=== PATIENT | female | born 1940 | race Caucasian/White ===

== ENCOUNTER 2016-06-30 09:45 | Emergency (ER) | payer MEDICARE, OTHER ==
--- NOTE | 2016-06-30 09:53 | ED ---
Chest Pain HPI - General Stated Complaint: SOB Time Seen by Provider: 06/30/16 09:45 Source: patient, EMS, RN notes reviewed, old records reviewed Mode of arrival: EMS - History of Present Illness Initial Comments: This is a 75-year-old female who was brought in by EMS with complaints of chest pain on and off for quite a while but today she's felt bilateral arm weakness he had also complains of progressively worsening shortness of breath or last 6 days. No fevers chills sweats no cough. Pain was 9-10/10 severity did lower sternal reproducible with palpation it was down to 4/10 after IV fentanyl. She has no other complaints this time the patient does have macular degeneration and is blind except for peripheral vision. She voices no other complaints at this time. She has had evaluations for this chest pain in the past. MD Complaint: chest pain - Related Data Home Medications Medication Instructions Recorded Confirmed Clopidogrel [Plavix] 75 mg PO DAILY 09/29/13 06/30/16 Gemfibrozil [Lopid] 600 mg PO BID 09/29/13 06/30/16 Montelukast [Singulair] 10 mg PO HS 09/29/13 06/30/16 Tolterodine ER [Detrol LA] 4 mg PO HS 01/10/15 06/30/16 Brimonidine Tartrate [Alphagan P 1 drop RIGHT EYE BID 11/26/15 06/30/16 0.1% Ophth Soln] Brinzolamide [Azopt 1% Ophth Susp] 1 drop RIGHT EYE BID 11/26/15 06/30/16 prednisoLONE ACETATE 1% OPHTH 1 drop LEFT EYE BID 11/26/15 06/30/16 [Pred Forte 1%] Melatonin 3 mg PO HS 05/11/16 06/30/16 Albuterol Inhaler [Ventolin Hfa 1 - 2 puff INHALATION Q6HR PRN 06/30/16 06/30/16 Inhaler] Cholecalciferol [Vitamin D3] 1,000 unit PO DAILY 06/30/16 06/30/16 Previous Rx's Medication Instructions Recorded amLODIPine [Norvasc] 5 mg PO DAILY #1 tab 01/15/15 ALPRAZolam [Xanax] 0.25 mg PO BID #10 tab 05/14/16 Budesonide-Formot 160-4.5 Mcg 2 puff INHALATION RT-BID puff 05/14/16 [Symbicort 160-4.5 Mcg Inhaler] Allergies Allergy/AdvReac Type Severity Reaction Status Date / Time [id number]-[id number] Reductase Allergy Unknown Verified 06/30/16 10:32 Inhibitor morphine AdvReac Confusion Verified 06/30/16 10:32 Review of Systems ROS Statement: Those systems with pertinent positive or pertinent negative responses have been documented in the HPI. ROS Other: All systems not noted in ROS Statement are negative. EKG Findings - EKG Results: EKG: interpreted by SHE, sinus rhythm (Sinus rhythm rate 63. Ago 162 QRS duration 80 QT/QTC of 436/[address] configuration.) Past Medical History Past Medical History: Asthma, COPD, CVA/TIA, Diabetes Mellitus, Hypertension, Respiratory Disorder Additional Past Medical History / Comment(s): COPD mild in severity with an FEV1 of 2.1 L which is 88% of predicted, bronchial asthma, previous history of pneumothorax requiring a chest tube insertion and subsequent removal, 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 macular degeneration, CVA/TIA history of, diabetes mellitus, hypertension, History of Any Multi-Drug Resistant Organisms: None Reported Past Surgical History: Appendectomy, Cholecystectomy, Hysterectomy, Joint Replacement, Tonsillectomy Additional Past Surgical History / Comment(s): Right knee replacement Past Anesthesia/Blood Transfusion Reactions: No Reported Reaction Past Psychological History: Anxiety, Depression Smoking Status: Former smoker Past Alcohol Use History: None Reported Past Drug Use History: None Reported - Past Family History Mother Family Medical History: Congestive Heart Failure (CHF) Father Additional Family Medical History / Comment(s): empyhsema, blindness. O2 dependent General Exam - General Exam Comments Initial Comments: This is a well-developed well-nourished awake alert female General appearance: alert, in no apparent distress Head exam: Present: atraumatic, normocephalic, normal inspection Eye exam: Present: normal appearance, PERRL, EOMI. Absent: scleral icterus, conjunctival injection, periorbital swelling ENT exam: Present: mucous membranes dry Neck exam: Present: normal inspection. Absent: tenderness, meningismus, lymphadenopathy Respiratory exam: Present: normal lung sounds bilaterally, chest wall tenderness (Reproducible tenderness palpation over the lower costal sternal junction.). Absent: respiratory distress, wheezes, rales, rhonchi, stridor Cardiovascular Exam: Present: regular rate, normal rhythm, normal heart sounds. Absent: systolic murmur, diastolic murmur, rubs, gallop, clicks GI/Abdominal exam: Present: soft, normal bowel sounds. Absent: distended, tenderness, guarding, rebound, rigid Extremities exam: Present: normal inspection, full ROM, normal capillary refill. Absent: tenderness, pedal edema, joint swelling, calf tenderness Back exam: Present: normal inspection Neurological exam: Present: alert, oriented X3, CN II-XII intact Psychiatric exam: Present: normal affect, normal mood Skin exam: Present: warm, dry, intact, normal color. Absent: rash Course Vital Signs 06/30/16 06/30/16 09:53 12:00 Temperature 96.8 F L Pulse Rate 63 68 Respiratory 16 18 Rate Blood Pressure 167/72 136/65 O2 Sat by Pulse 2 L 92 L Oximetry Chest Pain MDM - MDM Review the imaging shows no acute findings the patient is feeling much improved I did discuss the findings with her and her family she'll be discharged Disposition Clinical Impression: Chest wall syndrome, Costalchondritis, Dehydration Disposition: HOME SELF-CARE Condition: Good Instructions: Dehydration (ED), Costochondritis (ED) Additional Instructions: Tylenol for pain, follow-up with her doctor and return if needed Referrals: Hector Byrd DO [Primary Care Provider] - 1-2 days
--- NOTE | 2016-06-30 10:25 | XR ---
EXAMINATION TYPE: XR chest 2V DATE OF EXAM: 06/30/2016 10:20 AM HISTORY: Chest Pain. REFERENCE: Previous study dated 05/11/2016. FINDINGS: The lungs are overinflated. There is apical scarring present bilaterally. The lungs are oth erwise clear. Pleural spaces are clear. Heart size is normal. IMPRESSION: 1. COPD. 2. NO ACUTE INTRATHORACIC ABNORMALITY.
[2016-06-30 10:29] LABS: Basophils % (A) 0 %; CH 30.9; CHCM 33.8; Eosinophils # (A) 0.2 k/uL (0-0.7); Eosinophils % (A) 4 %; HCT 39.1 % (34.0-46.0); HDW 3.32; HGB 12.9 gm/dL (11.4-16.0); Luc % (Auto) 3; Lymphocytes % (A) 27 %; MCH 30.3 pg (25.0-35.0); MCHC 32.8 g/dL (31.0-37.0); MCV 92.2 fL (80.0-100.0); Mean Platelet Volume 7.4; Monocytes # (A) 0.2 k/uL (0-1.0); Monocytes % (A) 5 %; Neutrophils # (A) 2.3 k/uL (1.3-7.7); Neutrophils % (A) 61 %; RBC 4.24 m/uL (3.80-5.40); RDW 15.1 % (11.5-15.5); WBC 3.8 k/uL (3.8-10.6); WBC (Perox) 3.72
[2016-06-30 10:46] LABS: INR 1.1 (<1.1); Partial Thromboplastin Time 23.3 sec (22.0-30.0); Prothrombin Time 10.9 sec (9.0-12.0)
[2016-06-30 10:51] LABS: Calcium 9.3 mg/dL (8.4-10.2); Magnesium 2.1 mg/dL (1.6-2.3); Potassium 4.3 mmol/L (3.5-5.1); Total Bilirubin 0.6 mg/dL (0.2-1.3); Total Protein 7.4 g/dL (6.3-8.2)
[2016-06-30 11:06] LABS: Creatine Kinase MB 1.8 ng/mL (0.0-2.4); Troponin I 0.027 ng/mL (0.000-0.034)
[2016-06-30] MEDS ORDERED: SODIUM CHLORIDE 0.9% 500 ML IV STA (11:10)
[2016-06-30 13:28] VITALS: BP 148/63; PULSE 59; RESP 20; TEMP 97.7
== END 2016-06-30 13:28 | disposition home or self-care (01) ==
LOC: EC 09:45
DX: M94.0 Chondrocostal junction syndrome [Tietze] (principal); E86.0 Dehydration; R29.898 Other symptoms and signs involving the musculoskeletal system; I10 Essential (primary) hypertension; J45.909 Unspecified asthma, uncomplicated; J44.9 Chronic obstructive pulmonary disease, unspecified; H40.9 Unspecified glaucoma; Z87.891 Personal history of nicotine dependence; Z79.02 Long term (current) use of antithrombotics/antiplatelets; Z79.899 Other long term (current) drug therapy; Z79.52 Long term (current) use of systemic steroids; Z88.5 Allergy status to narcotic agent; Z88.8 Allergy status to other drugs, medicaments and biological substances; Z86.73 Personal history of transient ischemic attack (TIA), and cerebral infarction without residual deficits
CPT/HCPCS: 36415; 71020; 80053; 82550; 82553; 83735; 83880; 84484; 85025; 85379; 85610; 85730; 93005; 99285

== ENCOUNTER 2017-03-27 18:34 | Inpatient (IN) | payer MEDICARE, OTHER ==
[2017-03-27] MEDS ORDERED: SODIUM CHLORIDE 0.9% 1,000 ML IV STA (19:28)
[2017-03-27] MEDS ORDERED: NITROGLYCERIN OINT 1 INCH/GM PACKET TOPICAL STA (19:28)
[2017-03-27] MEDS ORDERED: HEPARIN SODIUM,PORCINE 5,000 UNIT/ML 1 ML VIAL IV STA (19:28)
[2017-03-27] MEDS ORDERED: ONDANSETRON 4 MG/2 ML VIAL IVP STA (19:28)
--- NOTE | 2017-03-27 19:28 | ED ---
Chest Pain HPI - General Chief Complaint: Chest Pain Stated Complaint: Chest pain Time Seen by Provider: 03/27/17 19:02 Source: patient, EMS Mode of arrival: EMS Limitations: no limitations - History of Present Illness Initial Comments: 76 years old female with history of coronary artery disease [address] last stent was done in December last year presented with the chest pain started 3 PM today chest pain has been off-and-on today she is short-winded and pain gets worse when she tries deep breath. She denies any fever no chills she is not coughing up any phlegm he did take some nitro at home and then she was also given nitro in the ambulance and she had aspirin at home as well and did take the edge off the pain is not totally resolved her pain is still 4/10 at this point - Related Data Home Medications Medication Instructions Recorded Confirmed Clopidogrel [Plavix] 75 mg PO QAM 09/29/13 03/27/17 Montelukast [Singulair] 10 mg PO HS 09/29/13 03/27/17 Tolterodine ER [Detrol LA] 4 mg PO HS 01/10/15 03/27/17 Brimonidine Tartrate [Alphagan P 1 drop RIGHT EYE BID 11/26/15 03/27/17 0.1% Ophth Soln] Brinzolamide [Azopt 1% Ophth Susp] 1 drop RIGHT EYE BID 11/26/15 03/27/17 prednisoLONE ACETATE 1% OPHTH 1 drop LEFT EYE BID 11/26/15 03/27/17 [Pred Forte 1%] Melatonin 3 mg PO HS 05/11/16 03/27/17 Cholecalciferol [Vitamin D3] 1,000 unit PO W/SUPPER 06/30/16 03/27/17 Albuterol Inhaler [Ventolin Hfa 2 puff INHALATION RT-Q6H PRN 01/26/17 03/27/17 Inhaler] Gemfibrozil [Lopid] 600 mg PO BID 01/26/17 03/27/17 Losartan Potassium [Cozaar] 50 mg PO BID 01/26/17 03/27/17 risperiDONE 1 mg PO HS 01/26/17 03/27/17 Aspirin 81 mg PO W/SUPPER 03/27/17 03/27/17 amLODIPine [Norvasc] 5 mg PO QAM 03/27/17 03/27/17 Previous Rx's Medication Instructions Recorded Budesonide-Formot 160-4.5 Mcg 2 puff INHALATION RT-BID puff 05/14/16 [Symbicort 160-4.5 Mcg Inhaler] ALPRAZolam [Xanax] 0.25 mg PO BID #10 tab 12/09/16 Nitroglycerin Sl Tabs [Nitrostat] 0.4 mg SUBLINGUAL Q5M PRN tab 12/09/16 Metoprolol Tartrate [Lopressor] 12.5 mg PO BID #60 tab 01/29/17 Allergies Allergy/AdvReac Type Severity Reaction Status Date / Time Nuamdlu-Fte-Nie Reductase Allergy Unknown Verified 01/26/17 15:53 Inhibitor morphine AdvReac Confusion Verified 01/26/17 15:53 Review of Systems ROS Statement: Those systems with pertinent positive or pertinent negative responses have been documented in the HPI. ROS Other: All systems not noted in ROS Statement are negative. EKG Findings - EKG Comments: EKG Findings:: EKG is normal sinus rhythm ventricular rate is 62 LA interval is 166 QRS duration is 90 QT/QTc is 430/436 review of this EKG does not reveal any ST elevation or ST depression Past Medical History Past Medical History: Asthma, COPD, CVA/TIA, Diabetes Mellitus, Hypertension, Myocardial Infarction ([place]), Respiratory Disorder Additional Past Medical History / Comment(s): COPD mild in severity with an FEV1 of 2.1 L which is 88% of predicted, bronchial asthma, previous history of pneumothorax requiring a chest tube insertion and subsequent removal, 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 macular degeneration, emphysema Last Myocardial Infarction Date:: 12/06/2016 History of Any Multi-Drug Resistant Organisms: None Reported Past Surgical History: Appendectomy, Cholecystectomy, Heart Catheterization With Stent, Hysterectomy, Joint Replacement, Tonsillectomy Additional Past Surgical History / Comment(s): Right knee replacement, right cataract surgery, heart cath with stents x 2 12/06 Past Anesthesia/Blood Transfusion Reactions: No Reported Reaction Date of Last Stent Placement:: 12/06/2016 Past Psychological History: Anxiety, Depression Smoking Status: Former smoker Past Alcohol Use History: None Reported Past Drug Use History: None Reported - Past Family History Mother Family Medical History: Congestive Heart Failure (CHF) Father Additional Family Medical History / Comment(s): empyhsema, blindness. O2 dependent General Exam - General Exam Comments Initial Comments: General: The patient is awake and alert, in no distress, and does not appear acutely ill. Skin: Skin is warm and dry and no rashes or lesions are noted. Eye: He is legally blind, external ocular muscles are intact Ears, nose, mouth and throat: There are moist mucous membranes and no oral lesions. Neck: The neck is supple, there is no tenderness or JVD. Cardiovascular: There is a regular rate and rhythm. No murmur, rub or gallop is appreciated. Respiratory: To auscultation bilateral, crease breath sounds bilaterally Gastrointestinal: Soft, non-distended, non-tender abdomen without masses or organomegaly noted. There is no rebound or guarding present. Bowel sounds are unremarkable. Back: There is no tenderness to palpation in the midline. There is no obvious deformity. Musculoskeletal: Normal ROM, no tenderness, There is no pedal edema. There is no calf tenderness or swelling. No cords were appreciated. Neurological: CN II-XII intact, Cranial nerves III through XII are intact. There are no obvious motor or sensory deficits. Coordination appears grossly intact. Speech is normal. Psychiatric: Cooperative, appropriate mood & affect, normal judgment. Limitations: no limitations Course Vital Signs 03/27/17 03/27/17 19:02 20:04 Temperature 98 F Pulse Rate 62 60 Respiratory 16 16 Rate Blood Pressure 153/74 172/79 O2 Sat by Pulse 96 91 L Oximetry She does have a history of coronary artery disease she has a [address] last was last one was in December last year initially pain was 7/10 nitro and aspirin helped her with pain on arrival she has pain for over 10 considering this as unstable angina is ongoing headache and heparinize her and chest x-ray confirms the pneumonia considering her ALLERGIES she be Rocephin and Zithromax she be admitted to Dr. Breaux's service cardiology be consulted Critical Care Time Total Critical Care Time: 45 Critical Care Time: She came in with the chest pain nitro and aspirin helped with the pain pain but it didn't quite resolve the pain would require and heparinize her since she has a [address] and has a history of ischemic heart disease and chest x-ray confirms the pneumonia she be on Rocephin and Zithromax will consult cardiology and she be she be admitted to observation Disposition Clinical Impression: Chest pain, Pneumonia Disposition: ADMITTED IP TO THIS HOSP Condition: Good Referrals: Hector Byrd DO [Primary Care Provider] - 1-2 days
[2017-03-27] MEDS ORDERED: HYDROmorphone 2 MG/ML 1 ML SYRINGE IVP STA (19:29)
[2017-03-27 19:36] LABS: Basophils % (A) 1 %; Eosinophils # (A) 0.1 k/uL (0-0.7); Eosinophils % (A) 3 %; HCT 35.6 % (34.0-46.0); HGB 11.9 gm/dL (11.4-16.0); Lymphocytes # (A) 1.2 k/uL (1.0-4.8); Lymphocytes % (A) 34 %; MCH 30.2 pg (25.0-35.0); MCHC 33.4 g/dL (31.0-37.0); MCV 90.5 fL (80.0-100.0); Mean Platelet Volume 7.3; Monocytes # (A) 0.2 k/uL (0-1.0); Monocytes % (A) 7 %; Neutrophils # (A) 1.9 k/uL (1.3-7.7); Neutrophils % (A) 54 %; Platelet Count 134 k/uL (150-450); RBC 3.94 m/uL (3.80-5.40); RDW 14.8 % (11.5-15.5); WBC 3.5 k/uL (3.8-10.6)
[2017-03-27 19:46] LABS: Albumin 3.5 g/dL (3.5-5.0); Calcium 9.7 mg/dL (8.4-10.2); Magnesium 1.9 mg/dL (1.6-2.3); Potassium 4.1 mmol/L (3.5-5.1); Total Bilirubin 0.4 mg/dL (0.2-1.3); Total Protein 6.2 g/dL (6.3-8.2)
[2017-03-27] MEDS ORDERED: HYDROmorphone 0.5 MG/0.5 ML SYRINGE IVP STA (19:48)
[2017-03-27 19:54] LABS: D-Dimer 0.35 mg/L FEU (<0.60); Partial Thromboplastin Time 23.1 sec (22.0-30.0); Prothrombin Time 9.9 sec (9.0-12.0)
--- NOTE | 2017-03-27 19:54 | XR ---
EXAMINATION TYPE: XR chest 2V DATE OF EXAM: 03/27/2017 COMPARISON: 01/27/2017 HISTORY: Chest pain TECHNIQUE: Frontal and lateral views of the chest are obtained. FINDINGS: There is some mild linear density at the left lung base. There is no heart failure. Thorac ic aorta is atheromatous. There are chest leads. Bony thorax is intact. IMPRESSION: There is some mild infiltrate or atelectasis at the left lung base that appears new comp ared to old exam. No heart failure.
[2017-03-27] MEDS: HEPARIN SOD,PORK IN 0.45% NACL 25,000 UNIT in 0.45% NACL 1 500ML.BAG IV SCH (19:59)
[2017-03-27] MEDS ORDERED: cefTRIAXone IN SWFI 2,000 MG/20 ML SYRINGE IVP STA (20:07)
[2017-03-27] MEDS ORDERED: AZITHROMYCIN 500 MG in SODIUM CHLORIDE 0.9% 250 ML IVPB STA (20:07)
[2017-03-27 20:12] LABS: Creatine Kinase MB 0.9 ng/mL (0.0-2.4); Troponin I 0.019 ng/mL (0.000-0.034)
[2017-03-27] MEDS ORDERED: NITROGLYCERIN SL TABS 0.4 MG TAB SUBLINGUAL PRN (20:12)
[2017-03-27] MEDS ORDERED: ALBUTEROL NEBULIZED 2.5 MG/3 ML INHALATION PRN (20:19)
[2017-03-27 22:41] VITALS: BMI 31.4
[2017-03-27] MEDS: MONTELUKAST 10 MG TAB PO SCH (22:57)
[2017-03-27] MEDS: LOSARTAN 50 MG TAB PO SCH (22:57)
[2017-03-27] MEDS: METOPROLOL TARTRATE 12.5 MG TAB PO SCH (22:57)
[2017-03-27] MEDS: OXYBUTYNIN XL 5 MG TAB.ER.24 PO SCH (22:57)
[2017-03-27] MEDS: MELATONIN 3 MG TABLET PO SCH (22:57)
[2017-03-27] MEDS: risperiDONE 1 MG TAB PO SCH (22:57)
[2017-03-27] MEDS: GEMFIBROZIL 600 MG TAB PO SCH (22:58)
[2017-03-27] MEDS: ALPRAZolam 0.25 MG TAB PO SCH (23:00)
[2017-03-27] MEDS: BRIMONIDINE TARTRATE 0.2% DROPS 5 ML BTL RIGHT EYE SCH (23:01)
[2017-03-27] MEDS: prednisoLONE ACETATE 1% OPHTH DROPS 5 ML BTL LEFT EYE SCH (23:01)
[2017-03-27] MEDS: DORZOLAMIDE HCL 2% DROPS 10 ML BTL RIGHT EYE SCH (23:01)
[2017-03-28 02:27] LABS: Troponin I 0.032 ng/mL (0.000-0.034)
[2017-03-28 07:23] LABS: Creatine Kinase MB 1.2 ng/mL (0.0-2.4)
[2017-03-28 07:25] LABS: Cholesterol 174 mg/dL (<200); HDL Cholesterol 36 mg/dL (40-60); LDL Cholesterol,Calculated 109 mg/dL (0-99); Triglycerides 143 mg/dL (<150)
[2017-03-28 07:30] LABS: Troponin I 0.038 ng/mL (0.000-0.034)
--- NOTE | 2017-03-28 08:00 | P.CRDCN ---
History of Present Illness Consult date: 03/28/17 Requesting physician: Saadia Breaux Consult reason: chest pain Chief complaint: Chest pain History of present illness: This is a 76-year-old female with known history of coronary artery disease who follows with Dr. Antonio Guerra in the office. She has a known history of stenting to the LAD and circumflex artery in November 2016, history also of hypertension, diabetes, hyperlipidemia, COPD and she is legally blind. Most recent cardiac catheterization was performed in January [address] Antonio Guerra which revealed a widely patent LAD and circumflex at the site of prior stenting , the mid RCA had a 40% lesion unchanged from November. The patient presents to the hospital on this occasion with symptoms of chest discomfort which according to her remind her of what she had prior to her stent placement. She states that she developed symptoms in the early afternoon, it came and went throughout the day. She did have mild associated shortness of breath. Patient got mild relief with nitroglycerin. At the time of my examination this morning she is currently chest pain-free. Patient does have a dry hacking cough, no fever or chills. EKG on presentation here showed a normal sinus rhythm with no acute changes. Subsequent EKG performed this morning showed normal sinus rhythm with no acute changes. White blood cell count 3.5, hemoglobin 11.9, d-dimer negative at 0.35. Sodium 142, potassium 4.1, BUN 27, creatinine 1.2. Troponins 0.019, 0.032, 0.038. Blood pressure 116/48 with a heart rate in the 50s to 60s. Patient is afebrile. Chest x-ray on admission here revealed some mild infiltrate or atelectasis at the left lung base, no congestive heart failure. Past Medical History Past Medical History: Asthma, COPD, CVA/TIA, Diabetes Mellitus, Hypertension, Myocardial Infarction ([place]), Respiratory Disorder Additional Past Medical History / Comment(s): COPD mild in severity with an FEV1 of 2.1 L which is 88% of predicted, bronchial asthma, previous history of pneumothorax requiring a chest tube insertion and subsequent removal, 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 macular degeneration, emphysema Last Myocardial Infarction Date:: 12/06/2016 History of Any Multi-Drug Resistant Organisms: None Reported Past Surgical History: Appendectomy, Cholecystectomy, Heart Catheterization With Stent, Hysterectomy, Joint Replacement, Tonsillectomy Additional Past Surgical History / Comment(s): Right knee replacement, right cataract surgery, heart cath with stents x 2 12/06 Past Anesthesia/Blood Transfusion Reactions: No Reported Reaction Date of Last Stent Placement:: 12/06/2016 Past Psychological History: Anxiety, Depression Smoking Status: Former smoker Past Alcohol Use History: None Reported Past Drug Use History: None Reported - Past Family History Mother Family Medical History: Congestive Heart Failure (CHF) Father Additional Family Medical History / Comment(s): empyhsema, blindness. O2 dependent Medications and Allergies Home Medications Medication Instructions Recorded Confirmed Type Clopidogrel [Plavix] 75 mg PO QAM 09/29/13 03/27/17 History Montelukast [Singulair] 10 mg PO HS 09/29/13 03/27/17 History Tolterodine ER [Detrol LA] 4 mg PO HS 01/10/15 03/27/17 History Brimonidine Tartrate [Alphagan P 1 drop RIGHT EYE BID 11/26/15 03/27/17 History 0.1% Ophth Soln] Brinzolamide [Azopt 1% Ophth Susp] 1 drop RIGHT EYE BID 11/26/15 03/27/17 History prednisoLONE ACETATE 1% OPHTH 1 drop LEFT EYE BID 11/26/15 03/27/17 History [Pred Forte 1%] Melatonin 3 mg PO HS 05/11/16 03/27/17 History Budesonide-Formot 160-4.5 Mcg 2 puff INHALATION RT-BID puff 05/14/16 03/27/17 Rx [Symbicort 160-4.5 Mcg Inhaler] Cholecalciferol [Vitamin D3] 1,000 unit PO W/SUPPER 06/30/16 03/27/17 History ALPRAZolam [Xanax] 0.25 mg PO BID #10 tab 12/09/16 03/27/17 Rx Nitroglycerin Sl Tabs [Nitrostat] 0.4 mg SUBLINGUAL Q5M PRN tab 12/09/16 Rx Albuterol Inhaler [Ventolin Hfa 2 puff INHALATION RT-Q6H PRN 01/26/17 03/27/17 History Inhaler] Gemfibrozil [Lopid] 600 mg PO BID 01/26/17 03/27/17 History Losartan Potassium [Cozaar] 50 mg PO BID 01/26/17 03/27/17 History risperiDONE 1 mg PO HS 01/26/17 03/27/17 History Metoprolol Tartrate [Lopressor] 12.5 mg PO BID #60 tab 01/29/17 03/27/17 Rx Aspirin 81 mg PO W/SUPPER 03/27/17 03/27/17 History amLODIPine [Norvasc] 5 mg PO QAM 03/27/17 03/27/17 History Allergies Allergy/AdvReac Type Severity Reaction Status Date / Time Sftkfuw-Hgr-Ffj Reductase Allergy Unknown Verified 01/26/17 15:53 Inhibitor morphine AdvReac Confusion Verified 01/26/17 15:53 Physical Exam Vitals: Vital Signs Temp Pulse Pulse Resp BP BP Pulse Ox 03/28/17 04:00 97.9 F 55 L 18 116/49 98 03/28/17 00:00 97.9 F 66 19 128/64 94 L 03/27/17 21:51 97.7 F 03/27/17 21:41 92 16 145/67 92 L 03/27/17 21:08 66 19 128/64 94 L 03/27/17 20:45 61 18 146/70 90 L 03/27/17 20:04 60 16 172/79 91 L 03/27/17 19:02 98 F 62 16 153/74 96 Intake and Output 03/27/17 03/28/17 03/28/17 22:59 06:59 14:59 Intake Total 365 947.998 Output Total 600 Balance 365 347.998 Intake: Intake, IV Titration 365 947.998 Amount Azithromycin 500 mg In 125 Sodium Chloride 0.9% 250 ml @ 125 mls/hr IVPB ONCE STA Rx#:[id number] Heparin Sod,Pork in 0.45% 40 147.998 NaCl 25,000 unit In 0.45 % NaCl 1 500ml.bag @ 11.2 UNITS/KG/HR 19.91 mls/hr IV .Q24H RAYSHAWN Rx#: [id number] Sodium Chloride 0.9% 1, 200 800 000 ml @ 100 mls/hr IV . Q10H STA Rx#:[id number] Output: Urine 600 Other: Voiding Method Bedside Commode # Voids 2 Weight 88.5 kg 85.2 kg PHYSICAL EXAMINATION: HEENT: Head is atraumatic, normocephalic. Pupils equal, round. Neck is supple. There is no elevated jugular venous pressure. HEART EXAMINATION: Heart S1, S2 normal. No murmur or gallop heard. CHEST EXAMINATION: Lungs are clear to auscultation and precussion. No chest wall tenderness is noted on palpation or with deep breathing. ABDOMEN: Soft, nontender. Bowel sounds are heard. No organomegaly noted. EXTREMITIES: 2+ peripheral pulses with no evidence of peripheral edema and no calf tenderness noted. NEUROLOGIC patient is awake, alert and oriented -3. . Results 03/27/17 18:45 03/27/17 18:45 Cardiac Enzymes 03/27/17 03/27/17 03/28/17 Range/Units 18:45 18:45 01:33 AST 26 (14-36) U/L CK-MB (CK-2) 0.9 1.0 (0.0-2.4) ng/mL Troponin I 0.019 0.032 (0.000-0.034) ng/mL 03/28/17 Range/Units 06:27 AST (14-36) U/L CK-MB (CK-2) 1.2 (0.0-2.4) ng/mL Troponin I 0.038 H* (0.000-0.034) ng/mL Coagulation 03/27/17 03/28/17 Range/Units 18:45 01:33 PT 9.9 (9.0-12.0) sec APTT 23.1 48.2 H (22.0-30.0) sec Lipids 03/28/17 Range/Units 06:27 Triglycerides 143 (<150) mg/dL Cholesterol 174 (<200) mg/dL HDL Cholesterol 36 L (40-60) mg/dL CBC 03/27/17 Range/Units 18:45 WBC 3.5 L (3.8-10.6) k/uL RBC 3.94 (3.80-5.40) m/uL Hgb 11.9 (11.4-16.0) gm/dL Hct 35.6 (34.0-46.0) % Plt Count 134 L (150-450) k/uL Comprehensive Metabolic Panel 03/27/17 Range/Units 18:45 Sodium 142 (137-145) mmol/L Potassium 4.1 (3.5-5.1) mmol/L Chloride 110 H (98-107) mmol/L Carbon Dioxide 21 L (22-30) mmol/L BUN 27 H (7-17) mg/dL Creatinine 1.20 H (0.52-1.04) mg/dL Glucose 129 H (74-99) mg/dL Calcium 9.7 (8.4-10.2) mg/dL AST 26 (14-36) U/L ALT 20 (9-52) U/L Alkaline Phosphatase 51 (38-126) U/L Total Protein 6.2 L (6.3-8.2) g/dL Albumin 3.5 (3.5-5.0) g/dL Current Medications Generic Name Dose Route Start Last Admin Trade Name Freq PRN Reason Stop Dose Admin Albuterol Sulfate 2.5 mg 03/27/17 20:19 Ventolin Nebulized INHALATION RT-Q6H PRN Shortness Of Breath Alprazolam 0.25 mg 03/27/17 21:00 03/27/17 23:00 Xanax PO 0.25 mg BID RAYSHAWN Administration Amlodipine Besylate 5 mg 03/28/17 09:00 Norvasc PO QAM [facility] Aspirin 325 mg 03/28/17 09:00 Aspirin PO DAILY [facility] Brimonidine Tartrate 1 drops 03/27/17 21:00 03/27/17 23:01 Alphagan P 0.2% Ophth Soln RIGHT EYE 1 drops BID [facility] Administration Budesonide/Formoterol Fumarate 2 puff 03/28/17 08:00 Symbicort 160-4.5 Mcg Inhaler INHALATION RT-BID [facility] Cholecalciferol 1,000 unit 03/28/17 17:30 Vitamin D3 PO W/SUPPER [facility] Clopidogrel Bisulfate 75 mg 03/28/17 09:00 Plavix PO QAM [facility] Dorzolamide HCl 1 drops 03/27/17 21:00 03/27/17 23:01 Trusopt RIGHT EYE 1 drops BID [facility] Administration Gemfibrozil 600 mg 03/27/17 21:00 03/27/17 22:58 Lopid PO 600 mg BID [facility] Administration Heparin Sodium/Sodium Chloride 500 mls @ 19.91 mls/hr 03/27/17 19:30 03:25 25,000 unit/ Sodium Chloride IV 11.2 units/kg/hr .Q24H [facility]AYSHAWN 19.91 mls/hr Protocol Titration 11.2 UNITS/KG/HR Losartan Potassium 50 mg 03/27/17 21:00 03/27/17 22:57 Cozaar PO 50 mg BID [facility] Administration Melatonin 3 mg 03/27/17 21:00 03/27/17 22:57 Melatonin PO 3 mg HS [facility] Administration Metoprolol Tartrate 12.5 mg 03/27/17 21:00 03/27/17 22:57 Lopressor PO 12.5 mg BID [facility] Administration Montelukast Sodium 10 mg 03/27/17 21:00 03/27/17 22:57 Singulair PO 10 mg HS [facility] Administration Nitroglycerin 0.4 mg 03/27/17 20:12 Nitrostat SUBLINGUAL Q5M PRN Chest Pain Oxybutynin Chloride 5 mg 03/27/17 21:00 03/27/17 22:57 Ditropan Xl PO 5 mg HS [facility] Administration Prednisolone Acetate 1 drops 03/27/17 21:00 03/27/17 23:01 Pred Forte 1% LEFT EYE 1 drops BID [facility] Administration Risperidone 1 mg 03/27/17 21:00 03/27/17 22:57 Risperdal PO 1 mg HS [facility] Administration Intake and Output 03/27/17 03/28/17 03/28/17 22:59 06:59 14:59 Intake Total 365 947.998 Output Total 600 Balance 365 347.998 Intake: Intake, IV Titration 365 947.998 Amount Azithromycin 500 mg In 125 Sodium Chloride 0.9% 250 ml @ 125 mls/hr IVPB ONCE STA Rx#:[id number] Heparin Sod,Pork in 0.45% 40 147.998 NaCl 25,000 unit In 0.45 % NaCl 1 500ml.bag @ 11.2 UNITS/KG/HR 19.91 mls/hr IV .Q24H [facility]SHA[facility] Rx#: [id number] Sodium Chloride 0.9% 1, 200 800 000 ml @ 100 mls/hr IV . Q10H [facility]A Rx#:[id number] Output: Urine 600 Other: Voiding Method Bedside Commode # Voids 2 Weight 88.5 kg 85.2 kg 03/27/17 18:45 03/27/17 18:45 EKG Interpretations (text) EKG shows normal sinus rhythm with no acute changes Assessment and Plan Plan: Assessment and plan #1 chest discomfort with associated shortness of breath. EKG shows normal sinus rhythm with no acute changes. Troponins 0.019, 0.032, 0.038. D-dimer negative. Chest x-ray suggests mild infiltrate, patient denies productive cough , no elevated white blood cell count no fever. #2 known history of coronary artery disease with prior LAD and circumflex stenting in November, in January patient had a heart catheterization which revealed a widely patent LAD and circumflex to 40% lesion in the RCA. #3 diabetes #4 hypertension # 5 hyperlipidemia #6 COPD #7 Legal blindness Plan We will obtain an echocardiogram with Doppler study. Continue IV heparin and Nitropaste at this time along with her home medications. Further recommendations to follow. DNP note has been reviewed, I agree with a documented findings and plan of care. Patient was seen and examined.
[2017-03-28] MEDS: BRIMONIDINE TARTRATE 0.2% DROPS 5 ML BTL RIGHT EYE SCH ×2 (08:13→19:46)
[2017-03-28] MEDS: DORZOLAMIDE HCL 2% DROPS 10 ML BTL RIGHT EYE SCH ×2 (08:13→19:46)
[2017-03-28] MEDS: prednisoLONE ACETATE 1% OPHTH DROPS 5 ML BTL LEFT EYE SCH ×2 (08:14→19:46)
[2017-03-28] MEDS ORDERED: ASPIRIN 325 MG TAB PO SCH (09:00)
[2017-03-28] MEDS: SYMBICORT 160-4.5 MCG INHALER INHALATION SCH ×2 (09:54→20:10)
[2017-03-28] MEDS: METOPROLOL TARTRATE 12.5 MG TAB PO SCH ×2 (09:58→19:45)
[2017-03-28] MEDS: GEMFIBROZIL 600 MG TAB PO SCH ×2 (09:59→19:45)
[2017-03-28] MEDS: ALPRAZolam 0.25 MG TAB PO SCH ×2 (10:03→19:45)
[2017-03-28] MEDS: CLOPIDOGREL 75 MG TAB PO SCH (10:03)
[2017-03-28] MEDS: amLODIPine 5 MG TAB PO SCH (12:03)
[2017-03-28] MEDS: LOSARTAN 50 MG TAB PO SCH ×2 (12:03→19:45)
--- NOTE | 2017-03-28 13:07 | P.CNPUL ---
History of Present Illness Consult date: 03/28/17 Requesting physician: Saadia Breaux Reason for consult: dyspnea Chief complaint: Chest pain, shortness of breath History of present illness: This is a very pleasant 76-year-old female patient has a known history of diabetes mellitus, hypertension, CVA/TIA, coronary artery disease with previous stent placement in November 2016, macular degeneration and is legally blind, anxiety. She also has a history of chronic obstructive pulmonary disease mild in severity with FEV1 value of 2.1 L which is 88% of predicted, she also has mild persistent chronic bronchial asthma and follows in our office for the same. She does have a previous history of pneumothorax requiring chest tube insertion and subsequent removal. She follows with Dr. Byrd in our office for the same. She presented here to the emergency room yesterday with complaints of left-sided chest discomfort that had been going on and off throughout the day. She did have some associated shortness of breath. No other symptoms no diaphoresis. No nausea vomiting or diarrhea. Her chest x-ray did reveal some mild infiltrate and atelectatic changes of the left lung base. She's had minimal troponin elevation with a peak of 0.038. Cardiology is been consulted as well. Currently she is seen on the selective care unit resting quite comfortably in bed. She denies any worsening shortness of breath, cough or congestion. She is currently afebrile. No leukocytosis. Maintaining good O2 saturations in the mid to upper 90s on 2 L/m per nasal cannula. Review of Systems Constitutional: Reports fatigue Eyes: bilateral loss of vision Ears: deny: decreased hearing Ears, nose, mouth and throat: Denies headache, Denies sore throat Cardiovascular: Reports chest pain, Reports shortness of breath Respiratory: Reports dyspnea Gastrointestinal: Denies abdominal pain, Denies diarrhea, Denies nausea, Denies vomiting Genitourinary: Denies dysuria, Denies hematuria Musculoskeletal: Denies myalgias Integumentary: Denies pruritus, Denies rash Neurological: Denies numbness, Denies weakness Psychiatric: Denies anxiety, Denies depression Endocrine: Denies fatigue, Denies weight change Past Medical History Past Medical History: Asthma, COPD, CVA/TIA, Diabetes Mellitus, Hypertension, Myocardial Infarction ([place]), Respiratory Disorder Additional Past Medical History / Comment(s): COPD mild in severity with an FEV1 of 2.1 L which is 88% of predicted, bronchial asthma, previous history of pneumothorax requiring a chest tube insertion and subsequent removal, 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 macular degeneration, emphysema Last Myocardial Infarction Date:: 12/06/2016 History of Any Multi-Drug Resistant Organisms: None Reported Past Surgical History: Appendectomy, Cholecystectomy, Heart Catheterization With Stent, Hysterectomy, Joint Replacement, Tonsillectomy Additional Past Surgical History / Comment(s): Right knee replacement, right cataract surgery, heart cath with stents x 2 12/06 Past Anesthesia/Blood Transfusion Reactions: No Reported Reaction Date of Last Stent Placement:: 12/06/2016 Past Psychological History: Anxiety, Depression Smoking Status: Former smoker Past Alcohol Use History: None Reported Past Drug Use History: None Reported - Past Family History Mother Family Medical History: Congestive Heart Failure (CHF) Father Additional Family Medical History / Comment(s): empyhsema, blindness. O2 dependent Medications and Allergies Home Medications Medication Instructions Recorded Confirmed Type Clopidogrel [Plavix] 75 mg PO QAM 09/29/13 03/27/17 History Montelukast [Singulair] 10 mg PO HS 09/29/13 03/27/17 History Tolterodine ER [Detrol LA] 4 mg PO HS 01/10/15 03/27/17 History Brimonidine Tartrate [Alphagan P 1 drop RIGHT EYE BID 11/26/15 03/27/17 History 0.1% Ophth Soln] Brinzolamide [Azopt 1% Ophth Susp] 1 drop RIGHT EYE BID 11/26/15 03/27/17 History prednisoLONE ACETATE 1% OPHTH 1 drop LEFT EYE BID 11/26/15 03/27/17 History [Pred Forte 1%] Melatonin 3 mg PO HS 05/11/16 03/27/17 History Budesonide-Formot 160-4.5 Mcg 2 puff INHALATION RT-BID puff 05/14/16 03/27/17 Rx [Symbicort 160-4.5 Mcg Inhaler] Cholecalciferol [Vitamin D3] 1,000 unit PO W/SUPPER 06/30/16 03/27/17 History ALPRAZolam [Xanax] 0.25 mg PO BID #10 tab 12/09/16 03/27/17 Rx Nitroglycerin Sl Tabs [Nitrostat] 0.4 mg SUBLINGUAL Q5M PRN tab 12/09/16 Rx Albuterol Inhaler [Ventolin Hfa 2 puff INHALATION RT-Q6H PRN 01/26/17 03/27/17 History Inhaler] Gemfibrozil [Lopid] 600 mg PO BID 01/26/17 03/27/17 History Losartan Potassium [Cozaar] 50 mg PO BID 01/26/17 03/27/17 History risperiDONE 1 mg PO HS 01/26/17 03/27/17 History Metoprolol Tartrate [Lopressor] 12.5 mg PO BID #60 tab 01/29/17 03/27/17 Rx Aspirin 81 mg PO W/SUPPER 03/27/17 03/27/17 History amLODIPine [Norvasc] 5 mg PO QAM 03/27/17 03/27/17 History Allergies Allergy/AdvReac Type Severity Reaction Status Date / Time Dqgboxp-Krl-Rav Reductase Allergy Unknown Verified 01/26/17 15:53 Inhibitor morphine AdvReac Confusion Verified 01/26/17 15:53 Physical Exam Vitals: Vital Signs Temp Pulse Pulse Resp BP BP Pulse Ox 03/28/17 11:58 96.8 F L 58 L 20 156/69 95 03/28/17 08:00 97 F L 64 16 128/78 98 03/28/17 04:00 97.9 F 55 L 18 116/49 98 03/28/17 00:00 97.9 F 66 19 128/64 94 L 03/27/17 21:51 97.7 F 03/27/17 21:41 92 16 145/67 92 L 03/27/17 21:08 66 19 128/64 94 L 03/27/17 20:45 61 18 146/70 90 L 03/27/17 20:04 60 16 172/79 91 L 03/27/17 19:02 98 F 62 16 153/74 96 Intake and Output 03/27/17 03/28/17 03/28/17 22:59 06:59 14:59 Intake Total 365 947.998 300 Output Total 600 500 Balance 365 347.998 -200 Intake: Intake, IV Titration 365 947.998 Amount Azithromycin 500 mg In 125 Sodium Chloride 0.9% 250 ml @ 125 mls/hr IVPB ONCE STA Rx#:[id number] Heparin Sod,Pork in 0.45% 40 147.998 NaCl 25,000 unit In 0.45 % NaCl 1 500ml.bag @ 11.2 UNITS/KG/HR 19.91 mls/hr IV .Q24H RAYSHAWN Rx#: [id number] Sodium Chloride 0.9% 1, 200 800 000 ml @ 100 mls/hr IV . Q10H STA Rx#:[id number] Oral 300 Output: Urine 600 500 Other: Voiding Method Bedside Commode Bedside Commode # Voids 2 Weight 88.5 kg 85.2 kg GENERAL EXAM: Alert, comfortable in no apparent distress. HEAD: Normocephalic. EYES: Normal reaction of pupils, equal size. Macular degeneration legally blind. NOSE: Clear with pink turbinates. THROAT: No erythema or exudates. NECK: No masses, no JVD. CHEST: No chest wall deformity. LUNGS: Equal air entry with crackles in the left lung base. CVS: S1 and S2 normal with no audible murmur, regular rhythm. ABDOMEN: No hepatosplenomegaly, normal bowel sounds, no guarding or rigidity. SPINE: No scoliosis or deformity SKIN: No rashes CENTRAL NERVOUS SYSTEM: No focal deficits, tone is normal in all 4 extremities. EXTREMITIES: There is no peripheral edema. No clubbing, no cyanosis. Peripheral pulses are intact. Results - Laboratory Findings CBC and BMP: 03/27/17 18:45 03/27/17 18:45 PT/INR, D-dimer PT 9.9 sec (9.0-12.0) 03/27/17 18:45 INR 1.0 (<1.2) 03/27/17 18:45 D-Dimer 0.35 mg/L FEU (<0.60) 03/27/17 18:45 Abnormal lab findings: Abnormal Labs 03/27/17 03/27/17 03/28/17 18:45 18:45 01:33 WBC 3.5 L Plt Count 134 L APTT Chloride 110 H Carbon Dioxide 21 L BUN 27 H Creatinine 1.20 H Glucose 129 H Total Creatine Kinase 29 L Troponin I Total Protein 6.2 L LDL Cholesterol, Calc HDL Cholesterol 03/28/17 03/28/17 03/28/17 01:33 06:27 06:27 WBC Plt Count APTT 48.2 H Chloride Carbon Dioxide BUN Creatinine Glucose Total Creatine Kinase Troponin I 0.038 H* Total Protein LDL Cholesterol, Calc 109 H HDL Cholesterol 36 L - Diagnostic Findings Chest x-ray: image reviewed Assessment and Plan Assessment: Impression: #1 Chest pain and a patient with a known history of coronary artery disease and stent placement to the LAD and circumflex in November 2016. #2 Hypertension. #3 Hyperlipidemia. #4 Diabetes mellitus. #5 COPD, currently inactive and stable. #6 History of pneumothorax requiring chest tube insertion and subsequent reveal. #7 Macular degeneration with legal blindness. Plan: The patient was seen and evaluated by Dr. Jesus. Her chest x-ray and labs were reviewed. No clear evidence of pneumonia clinically nor radiographically. We'll continue with her current medications. Including Symbicort, albuterol, regular. She is on heparin drip for now. Cardiology is been consulted. We will continue to follow and make further recommendations based on her clinical status. I, the cosigning physician, performed a history & physical examination of the patient. Lungs sounds have faint crackles in the left posterior base otherwise clear. Maintaining good O2 saturations in the 90s on 2 L/m per nasal cannula.. I discussed the assessment and plan of care with my nurse practitioner, Bobbi Jones. I attest to the above note as dictated by her. Time with Patient: Greater than 30
[2017-03-28 15:23] LABS: Hemoglobin A1C 5.5 % (4.0-6.0)
[2017-03-28] MEDS: ISOSORBIDE MONONITRATE ER 30 MG TAB.ER.24H PO SCH (15:51)
[2017-03-28] MEDS ORDERED: CHOLECALCIFEROL 1,000 UNIT TAB PO SCH (17:30)
[2017-03-28] MEDS: MONTELUKAST 10 MG TAB PO SCH (19:45)
[2017-03-28] MEDS: OXYBUTYNIN XL 5 MG TAB.ER.24 PO SCH (19:45)
[2017-03-28] MEDS: MELATONIN 3 MG TABLET PO SCH (19:45)
[2017-03-28] MEDS: risperiDONE 1 MG TAB PO SCH (19:45)
--- NOTE | 2017-03-28 21:34 | P.HPIM ---
History of Present Illness H&P Date: 03/28/17 Chief Complaint: Chest pain Patient is a 76-year-old female with a known history of COPD, macular degeneration and blindness, diabetes type 2, hypertension, CK disease stage III and recent NSTEMI with stenting in November 2016 and history of chest tube placement came to ER with complaints of left retrosternal chest discomfort. Pain has been present throughout the day yesterday. Denied any radiation to the left arm or neck. Associated with mild shortness of breath. No nausea vomiting. No headache or dizziness or lightheadedness. No fever no chills. No cough or sputum production. Chest x-ray showed mild infiltrate and atelectatic changes of the left lung base Troponin 0.038 EKG showed normal sinus rhythm. No leukocytosis. Review of Systems Constitutional: Patient denies any fever or chills . No generalized weakness or weight loss. Abdomen: Patient denied nausea vomiting and diarrhea and abdominal pain. Cardiovascular: Patient does have chest pain. No radiation. Associated with mild shortness of breath. No leg swelling.. Respiratory: patient denied any cough is from production. No shortness of breath Neurologic: Patient denied any numbness or tingling headache. Musculoskeletal: Patient denies any complaints of joint swelling or deformity. Skin: Negative Psychiatric: Negative Endocrine: No heat or cold intolerance. No recent weight gain. Genitourinary: No dysuria or hematuria. All other 14 point ROS negative except the above Past Medical History Past Medical History: Asthma, COPD, CVA/TIA, Diabetes Mellitus, Hypertension, Myocardial Infarction ([place]), Respiratory Disorder Additional Past Medical History / Comment(s): COPD mild in severity with an FEV1 of 2.1 L which is 88% of predicted, bronchial asthma, previous history of pneumothorax requiring a chest tube insertion and subsequent removal, 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 macular degeneration, emphysema Last Myocardial Infarction Date:: 12/06/2016 History of Any Multi-Drug Resistant Organisms: None Reported Past Surgical History: Appendectomy, Cholecystectomy, Heart Catheterization With Stent, Hysterectomy, Joint Replacement, Tonsillectomy Additional Past Surgical History / Comment(s): Right knee replacement, right cataract surgery, heart cath with stents x 2 12/06 Past Anesthesia/Blood Transfusion Reactions: No Reported Reaction Date of Last Stent Placement:: 12/06/2016 Past Psychological History: Anxiety, Depression Smoking Status: Former smoker Past Alcohol Use History: None Reported Past Drug Use History: None Reported - Past Family History Mother Family Medical History: Congestive Heart Failure (CHF) Father Additional Family Medical History / Comment(s): empyhsema, blindness. O2 dependent Medications and Allergies Home Medications Medication Instructions Recorded Confirmed Type Clopidogrel [Plavix] 75 mg PO QAM 09/29/13 03/27/17 History Montelukast [Singulair] 10 mg PO HS 09/29/13 03/27/17 History Tolterodine ER [Detrol LA] 4 mg PO HS 01/10/15 03/27/17 History Brimonidine Tartrate [Alphagan P 1 drop RIGHT EYE BID 11/26/15 03/27/17 History 0.1% Ophth Soln] Brinzolamide [Azopt 1% Ophth Susp] 1 drop RIGHT EYE BID 11/26/15 03/27/17 History prednisoLONE ACETATE 1% OPHTH 1 drop LEFT EYE BID 11/26/15 03/27/17 History [Pred Forte 1%] Melatonin 3 mg PO HS 05/11/16 03/27/17 History Budesonide-Formot 160-4.5 Mcg 2 puff INHALATION RT-BID puff 05/14/16 03/27/17 Rx [Symbicort 160-4.5 Mcg Inhaler] Cholecalciferol [Vitamin D3] 1,000 unit PO W/SUPPER 06/30/16 03/27/17 History ALPRAZolam [Xanax] 0.25 mg PO BID #10 tab 12/09/16 03/27/17 Rx Nitroglycerin Sl Tabs [Nitrostat] 0.4 mg SUBLINGUAL Q5M PRN tab 12/09/16 Rx Albuterol Inhaler [Ventolin Hfa 2 puff INHALATION RT-Q6H PRN 01/26/17 03/27/17 History Inhaler] Gemfibrozil [Lopid] 600 mg PO BID 01/26/17 03/27/17 History Losartan Potassium [Cozaar] 50 mg PO BID 01/26/17 03/27/17 History risperiDONE 1 mg PO HS 01/26/17 03/27/17 History Metoprolol Tartrate [Lopressor] 12.5 mg PO BID #60 tab 01/29/17 03/27/17 Rx Aspirin 81 mg PO W/SUPPER 03/27/17 03/27/17 History amLODIPine [Norvasc] 5 mg PO QAM 03/27/17 03/27/17 History Allergies Allergy/AdvReac Type Severity Reaction Status Date / Time Usxpzpn-Vgv-Mir Reductase Allergy Unknown Verified 01/26/17 15:53 Inhibitor morphine AdvReac Confusion Verified 01/26/17 15:53 Physical Exam Vitals: Vital Signs Temp Pulse Pulse Resp BP BP Pulse Ox 03/28/17 11:58 96.8 F L 58 L 20 156/69 95 03/28/17 08:00 97 F L 64 16 128/78 98 03/28/17 04:00 97.9 F 55 L 18 116/49 98 03/28/17 00:00 97.9 F 66 19 128/64 94 L 03/27/17 21:51 97.7 F 03/27/17 21:41 92 16 145/67 92 L 03/27/17 21:08 66 19 128/64 94 L 03/27/17 20:45 61 18 146/70 90 L 03/27/17 20:04 60 16 172/79 91 L 03/27/17 19:02 98 F 62 16 153/74 96 Intake and Output 03/27/17 03/28/17 03/28/17 22:59 06:59 14:59 Intake Total 365 947.998 300 Output Total 600 500 Balance 365 347.998 -200 Intake: Intake, IV Titration 365 947.998 Amount Azithromycin 500 mg In 125 Sodium Chloride 0.9% 250 ml @ 125 mls/hr IVPB ONCE STA Rx#:[id number] Heparin Sod,Pork in 0.45% 40 147.998 NaCl 25,000 unit In 0.45 % NaCl 1 500ml.bag @ 11.2 UNITS/KG/HR 19.91 mls/hr IV .Q24H RAYSHAWN Rx#: [id number] Sodium Chloride 0.9% 1, 200 800 000 ml @ 100 mls/hr IV . Q10H STA Rx#:[id number] Oral 300 Output: Urine 600 500 Other: Voiding Method Bedside Commode Bedside Commode # Voids 2 Weight 88.5 kg 85.2 kg PHYSICAL EXAMINATION: Patient is lying in the bed comfortably, no acute distress, awake alert and oriented.. HEENT: Normocephalic. Neck is supple. Pupils reactive. Nostrils clear. Oral cavity is moist. Ears reveal no drainage. Patient is legally blind Neck reveals no JVD, carotid bruits, or thyromegaly. CHEST EXAMINATION: Trachea is central. Symmetrical expansion. Diminished bibasilar breath sounds. No wheezing or crackles. CARDIAC: Normal S1, S2 with no gallops. No murmurs ABDOMEN: Soft. Bowel sounds normal. No organomegaly. No abdominal bruits. Extremities: reveal no edema. No clubbing or cyanosis Neurologically awake, alert, oriented x3 with well-coordinated movements. No focal deficits noted Skin: No rash or skin lesions. Psychiatric: Cooperative. Nonsuicidal Musculoskeletal: No joint swelling or deformity. Normal range of motion. Results CBC & Chem 7: 03/27/17 18:45 03/27/17 18:45 Labs: Abnormal Lab Results - Last 24 Hours (Table) 03/27/17 03/27/17 03/28/17 Range/Units 18:45 18:45 01:33 WBC 3.5 L (3.8-10.6) k/uL Plt Count 134 L (150-450) k/uL APTT (22.0-30.0) sec Chloride 110 H (98-107) mmol/L Carbon Dioxide 21 L (22-30) mmol/L BUN 27 H (7-17) mg/dL Creatinine 1.20 H (0.52-1.04) mg/dL Glucose 129 H (74-99) mg/dL Total Creatine Kinase 29 L (30-135) U/L Troponin I (0.000-0.034) ng/mL Total Protein 6.2 L (6.3-8.2) g/dL LDL Cholesterol, Calc (0-99) mg/dL HDL Cholesterol (40-60) mg/dL 03/28/17 03/28/17 03/28/17 Range/Units 01:33 06:27 06:27 WBC (3.8-10.6) k/uL Plt Count (150-450) k/uL APTT 48.2 H (22.0-30.0) sec Chloride (98-107) mmol/L Carbon Dioxide (22-30) mmol/L BUN (7-17) mg/dL Creatinine (0.52-1.04) mg/dL Glucose (74-99) mg/dL Total Creatine Kinase (30-135) U/L Troponin I 0.038 H* (0.000-0.034) ng/mL Total Protein (6.3-8.2) g/dL LDL Cholesterol, Calc 109 H (0-99) mg/dL HDL Cholesterol 36 L (40-60) mg/dL Thrombosis Risk Factor Assmnt - DVT/VTE Prophylaxis DVT/VTE Prophylaxis: Pharmacologic Prophylaxis ordered - Choose All That Apply Any of the Below Risk Factors Present?: Yes Each Factor Represents 1 point: Abnormal pulmonary function (COPD), Obesity ( BMI >25) Other Risk Factors: Yes Each Risk Factor Represents 3 Points: Age 75 years or older Thrombosis Risk Factor Assessment Total Risk Factor Score: 5 Thrombosis Risk Factor Assessment Level: High Risk Assessment and Plan Assessment: #1 chest pain with mild troponin elevation 0.038. Rule out acute coronary syndrome. status post cardiac catheterization on 01/28/2017 which revealed normal filling pressures and widely patent LAD and circumflex at the site of prior stenting. Mid RCA has a 40% lesion unchanged from prior. #2 left lung lower lobe atelectasis. Unlikely pneumonia. No fever no chills no cough or sputum no leukocytosis #2 recent history of non-ST elevated MD and stent placement in November 2016. #2 COPD. Not in exacerbation #3 diabetes type 2 #4 hypertension #5 left anterior midline pneumothorax less than 5% which is chronic as per pulmonary with history of previous pneumothorax requiring chest tube placement and removal. #6 legally blind due to macular degeneration #7 CK stage III #8 anxiety #9 history of CVA/TIA.Gen. weakness. #10 history of MD #11 osteoarthritis Plan: Patient be continued on IV heparin. Serial EKG and troponins. Cardiology is on board. Continue the breathing treatments and follow closely. Continue the home medications and further recommendations based on the clinical course. Prognosis is guarded with multiple medical problems and comorbid conditions. Time with Patient: Greater than 30
[2017-03-28] MEDS: HEPARIN SOD,PORK IN 0.45% NACL 25,000 UNIT in 0.45% NACL 1 500ML.BAG IV SCH (22:46)
[2017-03-29 07:07] LABS: Basophils % (A) 1 %; Eosinophils # (A) 0.1 k/uL (0-0.7); Eosinophils % (A) 2 %; HCT 34.3 % (34.0-46.0); HGB 11.2 gm/dL (11.4-16.0); Lymphocytes # (A) 0.7 k/uL (1.0-4.8); Lymphocytes % (A) 25 %; MCH 29.7 pg (25.0-35.0); MCHC 32.7 g/dL (31.0-37.0); MCV 90.9 fL (80.0-100.0); Mean Platelet Volume 7.3; Monocytes # (A) 0.2 k/uL (0-1.0); Monocytes % (A) 6 %; Neutrophils # (A) 1.9 k/uL (1.3-7.7); Neutrophils % (A) 63 %; Platelet Count 115 k/uL (150-450); RBC 3.77 m/uL (3.80-5.40); RDW 14.7 % (11.5-15.5); WBC 2.9 k/uL (3.8-10.6)
[2017-03-29] MEDS: LOSARTAN 50 MG TAB PO SCH (08:04)
[2017-03-29] MEDS: GEMFIBROZIL 600 MG TAB PO SCH (08:04)
[2017-03-29] MEDS: METOPROLOL TARTRATE 12.5 MG TAB PO SCH (08:04)
[2017-03-29] MEDS: prednisoLONE ACETATE 1% OPHTH DROPS 5 ML BTL LEFT EYE SCH (08:05)
[2017-03-29] MEDS: BRIMONIDINE TARTRATE 0.2% DROPS 5 ML BTL RIGHT EYE SCH (08:05)
[2017-03-29] MEDS: DORZOLAMIDE HCL 2% DROPS 10 ML BTL RIGHT EYE SCH (08:05)
[2017-03-29] MEDS: CLOPIDOGREL 75 MG TAB PO SCH (08:05)
[2017-03-29] MEDS: ALPRAZolam 0.25 MG TAB PO SCH (08:08)
[2017-03-29 08:17] LABS: Calcium 9.6 mg/dL (8.4-10.2); Potassium 4.8 mmol/L (3.5-5.1)
[2017-03-29] MEDS ORDERED: ASPIRIN 81 MG PO SCH (09:00)
[2017-03-29] MEDS: SYMBICORT 160-4.5 MCG INHALER INHALATION SCH (09:02)
--- NOTE | 2017-03-29 09:19 | ECHOF ---
Referral Reason:chest pain MEASUREMENTS -------- HEIGHT: 167.6 cm WEIGHT: 84.8 kg BP: 128/78 RVIDd: 3.1 cm (< 3.3) IVSd: 1.3 cm (0.6 - 1.1) LVIDd: 4.3 cm (3.9 - 5.3) LVPWd: 1.3 cm (0.6 - 1.1) IVSs: 1.7 cm LVIDs: 2.8 cm LVPWs: 1.6 cm LA Diam: 3.3 cm (2.7 - 3.8) LAESV Index (A-L): 32.55 ml/m Ao Diam: 3.5 cm (2.0 - 3.7) AV Cusp: 2.2 cm (1.5 - 2.6) MV EXCURSION: 12.364 mm (> 18.000) MV EF SLOPE: 34 mm/s (70 - 150) EPSS: 0.7 cm MV E Piotr: 0.79 m/s MV DecT: 356 ms MV A Piotr: 1.07 m/s MV E/A Ratio: 0.74 RAP: 5.00 mmHg RVSP: 23.09 mmHg FINDINGS -------- Sinus rhythm. This was a technically adequate study. The left ventricular size is normal. There is mild concentric left ventricular hypertrophy. Overa ll left ventricular systolic function is normal with, an EF between 55 - 60 %. The right ventricle is normal in size. LA is midly dilated 29-33ml/m2. The right atrium is normal in size. There is mild aortic valve sclerosis. Mild mitral annular calcification present. There is trace to mild mitral regurgitation. Mild tricuspid regurgitation present. Right ventricular systolic pressure is normal at < 35 mmHg. The pulmonic valve was not well visualized. The aortic root size is normal. Normal inferior vena cava with normal inspiratory collapse consistent with estimated right atrial pre ssure of 5 mmHg. There is no pericardial effusion. CONCLUSIONS -------- 1. Sinus rhythm. 2. This was a technically adequate study. 3. The left ventricular size is normal. 4. There is mild concentric left ventricular hypertrophy. 5. Overall left ventricular systolic function is normal with, an EF between 55 - 60 %. 6. The right ventricle is normal in size. 7. LA is midly dilated 29-33ml/m2. 8. The right atrium is normal in size. 9. There is mild aortic valve sclerosis. 10. Mild mitral annular calcification present. 11. There is trace to mild mitral regurgitation. 12. Mild tricuspid regurgitation present. 13. Right ventricular systolic pressure is normal at < 35 mmHg. 14. The pulmonic valve was not well visualized. 15. The aortic root size is normal. 16. Normal inferior vena cava with normal inspiratory collapse consistent with estimated right atrial pressure of 5 mmHg. 17. There is no pericardial effusion. BAR USEFUL OR BUSSER: Tiffani Reynolds RDCS
[2017-03-29 11:28] VITALS: BP 125/79; PULSE 66; RESP 16; TEMP 97.2
[2017-03-29] MEDS: amLODIPine 5 MG TAB PO SCH (12:04)
[2017-03-29] MEDS: ISOSORBIDE MONONITRATE ER 30 MG TAB.ER.24H PO SCH (12:04)
--- NOTE | 2017-03-29 13:52 | P.PN ---
Subjective Progress Note Date: 03/29/17 Principal diagnosis: Chest pain and known history of coronary artery disease. This is a very pleasant 76-year-old female patient has a known history of diabetes mellitus, hypertension, CVA/TIA, coronary artery disease with previous stent placement in November 2016, macular degeneration and is legally blind, anxiety. She also has a history of chronic obstructive pulmonary disease mild in severity with FEV1 value of 2.1 L which is 88% of predicted, she also has mild persistent chronic bronchial asthma and follows in our office for the same. She does have a previous history of pneumothorax requiring chest tube insertion and subsequent removal. She follows with Dr. Byrd in our office for the same. She presented here to the emergency room yesterday with complaints of left-sided chest discomfort that had been going on and off throughout the day. She did have some associated shortness of breath. No other symptoms no diaphoresis. No nausea vomiting or diarrhea. Her chest x-ray did reveal some mild infiltrate and atelectatic changes of the left lung base. She's had minimal troponin elevation with a peak of 0.038. Cardiology is been consulted as well. Currently she is seen on the selective care unit resting quite comfortably in bed. She denies any worsening shortness of breath, cough or congestion. She is currently afebrile. No leukocytosis. Maintaining good O2 saturations in the mid to upper 90s on 2 L/m per nasal cannula. Patient was reevaluated today on 03/29/2017, doing well, asymptomatic, no chest pain, no cough no wheezing no fever no chills no hemoptysis. Labs were reviewed hemoglobin is 11.2 WBC count is 2.9 electrolytes are relatively normal creatinine is a bit higher today 1.31. Objective - Vital Signs Vital signs: Vital Signs Temp 97.2 F L 03/29/17 11:28 Pulse 66 03/29/17 11:28 Resp 16 03/29/17 11:28 BP 125/79 03/29/17 11:28 Pulse Ox 97 03/29/17 11:28 Intake & Output 03/28/17 03/29/17 03/29/17 18:59 06:59 18:59 Intake Total 660 352.002 418.195 Output Total 1100 650 Balance -440 352.002 -231.805 Weight 84.9 kg Intake: Intake, IV Titration 352.002 178.195 Amount Heparin Sod,Pork in 0.45% 352.002 178.195 NaCl 25,000 unit In 0.45 % NaCl 1 500ml.bag @ 11.2 UNITS/KG/HR 19.91 mls/hr IV .Q24H [facility] Rx#: [id number] Oral 660 240 Output: Urine 1100 650 Other: Voiding Method Bedside Commode Bedside Commode Bedside Commode # Voids 200 1 1 # Bowel Movements 0 0 - Exam GENERAL EXAM: Alert, comfortable in no apparent distress. HEAD: Normocephalic. EYES: Normal reaction of pupils, equal size. Macular degeneration legally blind. NOSE: Clear with pink turbinates. THROAT: No erythema or exudates. NECK: No masses, no JVD. CHEST: No chest wall deformity. LUNGS: Equal air entry with crackles in the left lung base. CVS: S1 and S2 normal with no audible murmur, regular rhythm. ABDOMEN: No hepatosplenomegaly, normal bowel sounds, no guarding or rigidity. SPINE: No scoliosis or deformity SKIN: No rashes CENTRAL NERVOUS SYSTEM: No focal deficits, tone is normal in all 4 extremities. EXTREMITIES: There is no peripheral edema. No clubbing, no cyanosis. Peripheral pulses are intact. - Labs CBC & Chem 7: 03/29/17 06:34 03/29/17 06:34 Labs: Abnormal Lab Results - Last 24 Hours (Table) 03/29/17 03/29/17 03/29/17 Range/Units 06:34 06:34 06:34 WBC 2.9 L (3.8-10.6) k/uL RBC 3.77 L (3.80-5.40) m/uL Hgb 11.2 L (11.4-16.0) gm/dL Plt Count 115 L (150-450) k/uL Lymphocytes # 0.7 L (1.0-4.8) k/uL APTT 45.0 H (22.0-30.0) sec Sodium 146 H (137-145) mmol/L Chloride 112 H (98-107) mmol/L BUN 22 H (7-17) mg/dL Creatinine 1.31 H (0.52-1.04) mg/dL Glucose 114 H (74-99) mg/dL Assessment and Plan Assessment: #1 Chest pain and a patient with a known history of coronary artery disease and stent placement to the LAD and circumflex in November 2016. #2 Hypertension. #3 Hyperlipidemia. #4 Diabetes mellitus. #5 COPD, currently inactive and stable. #6 History of pneumothorax requiring chest tube insertion and subsequent reveal. #7 Macular degeneration with legal blindness. Recommendation: Continue present treatment plan, her chest pain is definitely not pulmonary in nature, cardiology is following, remains on IV heparin and Nitropaste. Chest x-ray is basically unremarkable, minimal atelectasis, no evidence of pneumonia. Time with Patient: Less than 30
--- NOTE | 2017-03-30 00:07 | PN ---
PROGRESS NOTE This lady is free of chest pain. She is comfortable, resting without symptoms. Vital signs stable. S1, S2 heard normally. Lungs are clear. Abdomen and lower exam unchanged. PLAN: Discharge her on the current medical regimen. I will see her in the office in 2 weeks. Her troponin profile does not suggest myocardial injury. I discussed this with the patient. She will be discharged today. MMODL / IJN: [id number] /
--- NOTE | 2017-03-30 00:56 | P.DS ---
Providers Date of admission: 03/27/17 20:12 Expected date of discharge: 03/29/17 Attending physician: Saadia Breaux Consults: 03/27/17 20:12 Consult Physician Urgent Consulting Provider: Lino Terry Consult Reason/Comments: Coronary artery disease Do you want consulting provider notified?: Yes Primary care physician: [facility] Course: Discharge diagnosis #1 chest pain with mild troponin elevation 0.038. Ruled out acute coronary syndrome. status post cardiac catheterization on 01/28/2017 which revealed normal filling pressures and widely patent LAD and circumflex at the site of prior stenting. Mid RCA has a 40% lesion unchanged from prior. #2 left lung lower lobe atelectasis. Unlikely pneumonia. No fever no chills no cough or sputum no leukocytosis #2 recent history of non-ST elevated OH and stent placement in November 2016. #2 COPD. Not in exacerbation #3 diabetes type 2 #4 hypertension #5 left anterior midline pneumothorax less than 5% which is chronic as per pulmonary with history of previous pneumothorax requiring chest tube placement and removal. #6 legally blind due to macular degeneration #7 CK stage III #8 anxiety #9 history of CVA/TIA.Gen. weakness. #10 history of OH #11 osteoarthritis Hospital course Patient is a 76-year-old female with a known history of COPD, macular degeneration and blindness, diabetes type 2, hypertension, CK disease stage III and recent NSTEMI with stenting in November 2016 and history of chest tube placement came to ER with complaints of left retrosternal chest discomfort. Pain has been present throughout the day yesterday. Denied any radiation to the left arm or neck. Associated with mild shortness of breath. No nausea vomiting. No headache or dizziness or lightheadedness. No fever no chills. No cough or sputum production. Chest x-ray showed mild infiltrate and atelectatic changes of the left lung base Troponin 0.038 EKG showed normal sinus rhythm. No leukocytosis. Patient wascontinued on IV heparin. Serial EKG and troponins. Her troponin slightly elevated at 0.038 and came down to 0.032 after that. Cardiology has seen the patient. Repeat 2-D levocardia was ordered. Continued the breathing treatments and followed closely. 2-D echo showed normal ejection fraction. Otherwise cardiology recommends no surgical impression this time currently patient is able to sit in the chair and tolerating oral diet. Patient is otherwise stable to discharge home. Discharge physical examination was done Vital Signs 03/27/17 03/27/17 03/27/17 19:02 20:04 20:45 Temperature 98 F Pulse Rate 62 60 61 Pulse Rate [ Pulse Oximetery ] Respiratory 16 16 18 Rate Blood Pressure 153/74 172/79 146/70 Blood Pressure [Left Arm] O2 Sat by Pulse 96 91 L 90 L Oximetry 03/27/17 03/27/17 03/27/17 21:08 21:41 21:51 Temperature 97.7 F Pulse Rate 92 Pulse Rate [ 66 Pulse Oximetery ] Respiratory 19 16 Rate Blood Pressure 145/67 Blood Pressure 128/64 [Left Arm] O2 Sat by Pulse 94 L 92 L Oximetry 03/28/17 03/28/17 03/28/17 00:00 04:00 08:00 Temperature 97.9 F 97.9 F 97 F L Pulse Rate Pulse Rate [ 66 55 L 64 Pulse Oximetery ] Respiratory 19 18 16 Rate Blood Pressure Blood Pressure 128/64 116/49 128/78 [Left Arm] O2 Sat by Pulse 94 L 98 98 Oximetry 03/28/17 03/28/17 03/28/17 11:58 15:45 16:00 Temperature 96.8 F L 97 F L Pulse Rate Pulse Rate [ 58 L 63 Pulse Oximetery ] Respiratory 20 16 16 Rate Blood Pressure Blood Pressure 156/69 147/59 [Left Arm] O2 Sat by Pulse 95 93 L Oximetry 03/28/17 03/29/17 03/29/17 20:00 00:00 04:00 Temperature 98.7 F 97.7 F 97.9 F Pulse Rate Pulse Rate [ 71 86 66 Pulse Oximetery ] Respiratory 19 21 19 Rate Blood Pressure Blood Pressure 142/60 117/49 138/74 [Left Arm] O2 Sat by Pulse 96 97 94 L Oximetry 03/29/17 03/29/17 08:00 11:28 Temperature 97 F L 97.2 F L Pulse Rate Pulse Rate [ 77 66 Pulse Oximetery ] Respiratory 20 16 Rate Blood Pressure Blood Pressure 139/63 125/79 [Left Arm] O2 Sat by Pulse 97 97 Oximetry Patient Condition at Discharge: Good Plan - Discharge Summary Discharge Rx Participant: No New Discharge Prescriptions: New Isosorbide Mononitrate ER [Imdur] 30 mg PO DAILY #30 tab.er.24h Continue Montelukast [Singulair] 10 mg PO HS Clopidogrel [Plavix] 75 mg PO QAM Tolterodine ER [Detrol LA] 4 mg PO HS Brimonidine Tartrate [Alphagan P 0.1% Ophth Soln] 1 drop RIGHT EYE BID Brinzolamide [Azopt 1% Ophth Susp] 1 drop RIGHT EYE BID prednisoLONE ACETATE 1% OPHTH [Pred Forte 1%] 1 drop LEFT EYE BID Melatonin 3 mg PO HS Budesonide-Formot 160-4.5 Mcg [Symbicort 160-4.5 Mcg Inhaler] 2 puff INHALATION RT-BID puff Cholecalciferol [Vitamin D3] 1,000 unit PO W/SUPPER Nitroglycerin Sl Tabs [Nitrostat] 0.4 mg SUBLINGUAL Q5M PRN tab PRN Reason: Chest Pain ALPRAZolam [Xanax] 0.25 mg PO BID #10 tab Albuterol Inhaler [Ventolin Hfa Inhaler] 2 puff INHALATION RT-Q6H PRN PRN Reason: Shortness Of Breath risperiDONE 1 mg PO HS Gemfibrozil [Lopid] 600 mg PO BID Losartan Potassium [Cozaar] 50 mg PO BID Metoprolol Tartrate [Lopressor] 12.5 mg PO BID #60 tab Aspirin 81 mg PO W/SUPPER amLODIPine [Norvasc] 5 mg PO QAM Discharge Medication List Clopidogrel [Plavix] 75 mg PO QAM 09/29/13 [History] Montelukast [Singulair] 10 mg PO HS 09/29/13 [History] Tolterodine ER [Detrol LA] 4 mg PO HS 01/10/15 [History] Brimonidine Tartrate [Alphagan P 0.1% Ophth Soln] 1 drop RIGHT EYE BID 11/26/15 [History] Brinzolamide [Azopt 1% Ophth Susp] 1 drop RIGHT EYE BID 11/26/15 [History] prednisoLONE ACETATE 1% OPHTH [Pred Forte 1%] 1 drop LEFT EYE BID 11/26/15 [ History] Melatonin 3 mg PO HS 05/11/16 [History] Budesonide-Formot 160-4.5 Mcg [Symbicort 160-4.5 Mcg Inhaler] 2 puff INHALATION RT-BID puff 04/05/17 [Rx] Cholecalciferol [Vitamin D3] 1,000 unit PO W/SUPPER 06/30/16 [History] ALPRAZolam [Xanax] 0.25 mg PO BID #10 tab 12/09/16 [Rx] Nitroglycerin Sl Tabs [Nitrostat] 0.4 mg SUBLINGUAL Q5M PRN tab 12/09/16 [Rx] Albuterol Inhaler [Ventolin Hfa Inhaler] 2 puff INHALATION RT-Q6H PRN 01/26/17 [ History] Gemfibrozil [Lopid] 600 mg PO BID 01/26/17 [History] Losartan Potassium [Cozaar] 50 mg PO BID 01/26/17 [History] risperiDONE 1 mg PO HS 01/26/17 [History] Metoprolol Tartrate [Lopressor] 12.5 mg PO BID #60 tab 01/29/17 [Rx] Aspirin 81 mg PO W/SUPPER 03/27/17 [History] amLODIPine [Norvasc] 5 mg PO QAM 03/27/17 [History] Isosorbide Mononitrate ER [Imdur] 30 mg PO DAILY #30 tab.er.24h 03/29/17 [Rx] Follow up Appointment(s)/Referral(s): Vanessa Guerra MD [STAFF PHYSICIAN] - 2 Weeks (CALL OFFICE THURSDAY AM FOR APPOINTMENT TIME) Hector Byrd DO [Primary Care Provider] - 1-2 days (CALL OFFICE THURSDAY AM FOR APPOINTMENT TIME) Patient Instructions/Handouts: Chest Pain (DC) Discharge Disposition: HOME SELF-CARE
== END 2017-03-29 14:37 | disposition home or self-care (01) | DRG 313 ==
LOC: EC 18:34 → SUPCPDRO 18:34 → 6SEL 20:12
PROVIDERS: ADMIT Hospitalist; ATTEND Hospitalist
DX: R07.9 Chest pain, unspecified (principal); I25.10 Atherosclerotic heart disease of native coronary artery without angina pectoris; J43.9 Emphysema, unspecified; E11.9 Type 2 diabetes mellitus without complications; N18.3 Chronic kidney disease, stage 3 (moderate); J98.11 Atelectasis; I12.9 Hypertensive chronic kidney disease with stage 1 through stage 4 chronic kidney disease, or unspecified chronic kidney disease; M19.91 Primary osteoarthritis, unspecified site; E78.5 Hyperlipidemia, unspecified; F41.9 Anxiety disorder, unspecified; I25.2 Old myocardial infarction; H35.30 Unspecified macular degeneration; H40.9 Unspecified glaucoma; H54.8 Legal blindness, as defined in USA; Z79.82 Long term (current) use of aspirin; Z79.51 Long term (current) use of inhaled steroids; Z79.02 Long term (current) use of antithrombotics/antiplatelets; Z79.899 Other long term (current) drug therapy; Z87.891 Personal history of nicotine dependence; Z95.5 Presence of coronary angioplasty implant and graft; Z90.710 Acquired absence of both cervix and uterus; Z90.49 Acquired absence of other specified parts of digestive tract; Z96.651 Presence of right artificial knee joint; Z86.73 Personal history of transient ischemic attack (TIA), and cerebral infarction without residual deficits; Z98.41 Cataract extraction status, right eye; Z88.5 Allergy status to narcotic agent; Z82.49 Family history of ischemic heart disease and other diseases of the circulatory system
CPT/HCPCS: 36415; 71046; 80048; 80053; 80061; 82550; 82553; 83036; 83735; 84484; 85025; 85379; 85610; 85730; 93005; 93306; 94640; 96365; 96366; 96368; 96375; 96376; 99291

== ENCOUNTER 2017-05-01 19:13 | Emergency (ER) | payer MEDICARE, OTHER ==
[2017-05-01 19:32] VITALS: RESP 20
[2017-05-01] MEDS ORDERED: SODIUM CHLORIDE 0.9% 1,000 ML IV STA ×2 (19:50→21:01)
[2017-05-01 20:17] LABS: Basophils % (A) 0 %; Eosinophils # (A) 0.1 k/uL (0-0.7); Eosinophils % (A) 2 %; HCT 37.5 % (34.0-46.0); HGB 12.3 gm/dL (11.4-16.0); Lymphocytes # (A) 0.9 k/uL (1.0-4.8); Lymphocytes % (A) 19 %; MCH 29.3 pg (25.0-35.0); MCHC 32.9 g/dL (31.0-37.0); Mean Platelet Volume 7.9; Monocytes # (A) 0.2 k/uL (0-1.0); Monocytes % (A) 4 %; Neutrophils # (A) 3.4 k/uL (1.3-7.7); Neutrophils % (A) 73 %; Platelet Count 161 k/uL (150-450); Poikilocytosis Slight; RBC 4.22 m/uL (3.80-5.40); RDW 15.7 % (11.5-15.5); WBC 4.7 k/uL (3.8-10.6)
[2017-05-01 20:26] LABS: INR 1.1 (<1.2); Partial Thromboplastin Time 22.2 sec (22.0-30.0); Prothrombin Time 10.4 sec (9.0-12.0)
[2017-05-01 20:36] LABS: Albumin 4.5 g/dL (3.5-5.0); Calcium 9.9 mg/dL (8.4-10.2); Phosphorus 3.2 mg/dL (2.5-4.5); Potassium 4.1 mmol/L (3.5-5.1); Total Bilirubin 0.6 mg/dL (0.2-1.3); Total Protein 7.5 g/dL (6.3-8.2)
[2017-05-01] MEDS ORDERED: IPRATROPIUM-ALBUTEROL 3 ML NEB INHALATION STA (20:43)
--- NOTE | 2017-05-01 20:43 | ED ---
General Adult HPI - General Chief complaint: Altered Mental Status Stated complaint: Altered Mental Status Time Seen by Provider: 05/01/17 19:22 Source: family, RN notes reviewed, old records reviewed Mode of arrival: wheelchair Limitations: no limitations - History of Present Illness Initial comments: This is a 76-year-old female to the ER for evaluation. Patient is relatively poor historian. Patient brought in by family or sore concern for altered mental status or not acting herself. Patient has no recent change in medications, no complaints of headache, she does have increased shortness of breath. Patient is alert from COPD and her breathing is worse over the past 2 days. - Related Data Home Medications Medication Instructions Recorded Confirmed Clopidogrel [Plavix] 75 mg PO QAM 09/29/13 05/01/17 Montelukast [Singulair] 10 mg PO HS 09/29/13 05/01/17 Tolterodine ER [Detrol LA] 4 mg PO HS 01/10/15 05/01/17 Brimonidine Tartrate [Alphagan P 1 drop RIGHT EYE BID 11/26/15 05/01/17 0.1% Ophth Soln] Brinzolamide [Azopt 1% Ophth Susp] 1 drop RIGHT EYE BID 11/26/15 05/01/17 prednisoLONE ACETATE 1% OPHTH 1 drop LEFT EYE BID 11/26/15 05/01/17 [Pred Forte 1%] Melatonin 3 mg PO HS 05/11/16 05/01/17 Cholecalciferol [Vitamin D3] 1,000 unit PO W/SUPPER 06/30/16 05/01/17 Albuterol Inhaler [Ventolin Hfa 2 puff INHALATION RT-Q6H PRN 01/26/17 05/01/17 Inhaler] Losartan Potassium [Cozaar] 50 mg PO BID 01/26/17 05/01/17 risperiDONE 1 mg PO HS 01/26/17 05/01/17 Aspirin 81 mg PO W/SUPPER 03/27/17 05/01/17 amLODIPine [Norvasc] 5 mg PO QAM 03/27/17 05/01/17 Rosuvastatin Calcium [Crestor] 5 mg PO HS 05/01/17 05/01/17 Previous Rx's Medication Instructions Recorded Budesonide-Formot 160-4.5 Mcg 2 puff INHALATION RT-BID puff 05/14/16 [Symbicort 160-4.5 Mcg Inhaler] ALPRAZolam [Xanax] 0.25 mg PO BID #10 tab 12/09/16 Nitroglycerin Sl Tabs [Nitrostat] 0.4 mg SUBLINGUAL Q5M PRN tab 12/09/16 Metoprolol Tartrate [Lopressor] 12.5 mg PO BID #60 tab 01/29/17 Isosorbide Mononitrate ER [Imdur] 30 mg PO DAILY #30 tab.er.24h 03/29/17 Nitrofurantoin Monohyd/M-Cryst 100 mg PO Q12HR #10 cap 05/01/17 [Macrobid] Allergies Allergy/AdvReac Type Severity Reaction Status Date / Time [id number] Reductase Allergy Unknown Verified 05/01/17 19:41 Inhibitor morphine AdvReac Confusion Verified 05/01/17 19:41 Review of Systems ROS Statement: Those systems with pertinent positive or pertinent negative responses have been documented in the HPI. ROS Other: All systems not noted in ROS Statement are negative. Past Medical History Past Medical History: Asthma, COPD, CVA/TIA, Diabetes Mellitus, Hypertension, Myocardial Infarction (AL), Respiratory Disorder Additional Past Medical History / Comment(s): COPD mild in severity with an FEV1 of 2.1 L which is 88% of predicted, bronchial asthma, previous history of pneumothorax requiring a chest tube insertion and subsequent removal, 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 macular degeneration, emphysema Last Myocardial Infarction Date:: 12/06/2016 History of Any Multi-Drug Resistant Organisms: None Reported Past Surgical History: Appendectomy, Cholecystectomy, Heart Catheterization With Stent, Hysterectomy, Joint Replacement, Tonsillectomy Additional Past Surgical History / Comment(s): Right knee replacement, right cataract surgery, heart cath with stents x 2 12/06 Past Anesthesia/Blood Transfusion Reactions: No Reported Reaction Date of Last Stent Placement:: 12/06/2016 Past Psychological History: Anxiety, Depression Smoking Status: Former smoker Past Alcohol Use History: None Reported Past Drug Use History: None Reported - Past Family History Mother Family Medical History: Congestive Heart Failure (CHF) Father Additional Family Medical History / Comment(s): empyhsema, blindness. O2 dependent General Exam Limitations: no limitations General appearance: alert, in no apparent distress Head exam: Present: atraumatic, normocephalic, normal inspection Eye exam: Present: normal appearance, PERRL, EOMI. Absent: scleral icterus, conjunctival injection, periorbital swelling ENT exam: Present: normal exam, mucous membranes moist Neck exam: Present: normal inspection. Absent: tenderness, meningismus, lymphadenopathy Respiratory exam: Present: normal lung sounds bilaterally. Absent: respiratory distress, wheezes, rales, rhonchi, stridor Cardiovascular Exam: Present: regular rate, normal rhythm, normal heart sounds. Absent: systolic murmur, diastolic murmur, rubs, gallop, clicks GI/Abdominal exam: Present: soft, normal bowel sounds. Absent: distended, tenderness, guarding, rebound, rigid Extremities exam: Present: normal inspection, full ROM, normal capillary refill. Absent: tenderness, pedal edema, joint swelling, calf tenderness Back exam: Present: normal inspection Neurological exam: Present: alert, oriented X3, CN II-XII intact Psychiatric exam: Present: normal affect, normal mood Skin exam: Present: warm, dry, intact, normal color. Absent: rash Course Vital Signs 05/01/17 05/01/17 05/01/17 19:26 20:48 20:57 Temperature 97.8 F Pulse Rate 83 75 78 Respiratory 20 Rate Blood Pressure 221/97 O2 Sat by Pulse 91 L Oximetry 05/01/17 21:00 Temperature Pulse Rate 77 Respiratory 20 Rate Blood Pressure 204/86 O2 Sat by Pulse 96 Oximetry - Reevaluation(s) Reevaluation #1: 05/01/17 22:24 Patient showing improvement with blood pressure control and IV hydration. EKG Findings - EKG Comments: EKG Findings:: EKG shows sinus rhythm rate of 85, MA 154, QRS 86, QTc 466 Medical Decision Making - Medical Decision Making 76 female the ER for evaluation of altered mental state, positive UTI, positive dehydration, patient given recent resuscitation here in the ER was significant improvement. Patient also bruised. She was. Patient can be discharged home - Lab Data Result diagrams: 05/01/17 20:04 05/01/17 20:04 Lab Results 05/01/17 05/01/17 05/01/17 Range/Units 20:04 20:04 20:04 WBC 4.7 (3.8-10.6) k/uL RBC 4.22 (3.80-5.40) m/uL Hgb 12.3 (11.4-16.0) gm/dL Hct 37.5 (34.0-46.0) % MCV 89.0 (80.0-100.0) fL MCH 29.3 (25.0-35.0) pg MCHC 32.9 (31.0-37.0) g/dL RDW 15.7 H (11.5-15.5) % Plt Count 161 (150-450) k/uL Neutrophils % 73 % Lymphocytes % 19 % Monocytes % 4 % Eosinophils % 2 % Basophils % 0 % Neutrophils # 3.4 (1.3-7.7) k/uL Lymphocytes # 0.9 L (1.0-4.8) k/uL Monocytes # 0.2 (0-1.0) k/uL Eosinophils # 0.1 (0-0.7) k/uL Basophils # 0.0 (0-0.2) k/uL Poikilocytosis Slight PT (9.0-12.0) sec INR (<1.2) APTT (22.0-30.0) sec Sodium 150 H (137-145) mmol/L Potassium 4.1 (3.5-5.1) mmol/L Chloride 112 H (98-107) mmol/L Carbon Dioxide 22 (22-30) mmol/L Anion Gap 16 mmol/L BUN 28 H (7-17) mg/dL Creatinine 1.35 H (0.52-1.04) mg/dL Est GFR (CKD-EPI)AfAm 44 (>60 ml/min/1.73 sqM) Est GFR (CKD-EPI)NonAf 38 (>60 ml/min/1.73 sqM) Glucose 136 H (74-99) mg/dL Calcium 9.9 (8.4-10.2) mg/dL Phosphorus 3.2 (2.5-4.5) mg/dL Magnesium 2.0 (1.6-2.3) mg/dL Total Bilirubin 0.6 (0.2-1.3) mg/dL AST 25 (14-36) U/L ALT 19 (9-52) U/L Alkaline Phosphatase 68 (38-126) U/L Total Creatine Kinase 124 (30-135) U/L CK-MB (CK-2) 6.3 H* (0.0-2.4) ng/mL CK-MB (CK-2) Rel Index 5.1 Troponin I 0.019 (0.000-0.034) ng/mL Total Protein 7.5 (6.3-8.2) g/dL Albumin 4.5 (3.5-5.0) g/dL Urine Color Urine Appearance (Clear) Urine pH (5.0-8.0) Ur Specific [place] (1.001-1.035) Urine Protein (Negative) Urine Glucose (UA) (Negative) Urine Ketones (Negative) Urine Blood (Negative) Urine Nitrite (Negative) Urine Bilirubin (Negative) Urine Urobilinogen (<2.0) mg/dL Ur Leukocyte Esterase (Negative) Urine RBC (0-5) /hpf Urine WBC (0-5) /hpf Ur Squamous Epith Cells (0-4) /hpf Urine Bacteria (None) /hpf Granular Casts (0) /lpf Urine Mucus (None) /hpf 05/01/17 05/01/17 Range/Units 20:04 21:33 WBC (3.8-10.6) k/uL RBC (3.80-5.40) m/uL Hgb (11.4-16.0) gm/dL Hct (34.0-46.0) % MCV (80.0-100.0) fL MCH (25.0-35.0) pg MCHC (31.0-37.0) g/dL RDW (11.5-15.5) % Plt Count (150-450) k/uL Neutrophils % % Lymphocytes % % Monocytes % % Eosinophils % % Basophils % % Neutrophils # (1.3-7.7) k/uL Lymphocytes # (1.0-4.8) k/uL Monocytes # (0-1.0) k/uL Eosinophils # (0-0.7) k/uL Basophils # (0-0.2) k/uL Poikilocytosis PT 10.4 (9.0-12.0) sec INR 1.1 (<1.2) APTT 22.2 (22.0-30.0) sec Sodium (137-145) mmol/L Potassium (3.5-5.1) mmol/L Chloride (98-107) mmol/L Carbon Dioxide (22-30) mmol/L Anion Gap mmol/L BUN (7-17) mg/dL Creatinine (0.52-1.04) mg/dL Est GFR (CKD-EPI)AfAm (>60 ml/min/1.73 sqM) Est GFR (CKD-EPI)NonAf (>60 ml/min/1.73 sqM) Glucose (74-99) mg/dL Calcium (8.4-10.2) mg/dL Phosphorus (2.5-4.5) mg/dL Magnesium (1.6-2.3) mg/dL Total Bilirubin (0.2-1.3) mg/dL AST (14-36) U/L ALT (9-52) U/L Alkaline Phosphatase (38-126) U/L Total Creatine Kinase (30-135) U/L CK-MB (CK-2) (0.0-2.4) ng/mL CK-MB (CK-2) Rel Index Troponin I (0.000-0.034) ng/mL Total Protein (6.3-8.2) g/dL Albumin (3.5-5.0) g/dL Urine Color Yellow Urine Appearance Cloudy H (Clear) Urine pH 5.5 (5.0-8.0) Ur Specific [place] 1.014 (1.001-1.035) Urine Protein 2+ H (Negative) Urine Glucose (UA) Negative (Negative) Urine Ketones Negative (Negative) Urine Blood Trace H (Negative) Urine Nitrite Negative (Negative) Urine Bilirubin Negative (Negative) Urine Urobilinogen <2.0 (<2.0) mg/dL Ur Leukocyte Esterase Large H (Negative) Urine RBC 23 H (0-5) /hpf Urine WBC 28 H (0-5) /hpf Ur Squamous Epith Cells 6 H (0-4) /hpf Urine Bacteria Moderate H (None) /hpf Granular Casts 1 (0) /lpf Urine Mucus Rare H (None) /hpf - Radiology Data Radiology results: report reviewed (CT brain chest x-ray are negative), image reviewed Disposition Clinical Impression: Acute on chronic renal failure, Altered mental status, UTI (urinary tract infection), Hypertension, Dehydration Disposition: HOME SELF-CARE Condition: Good Instructions: Urinary Tract Infection in Women (ED), Dehydration (ED) Prescriptions: Nitrofurantoin Monohyd/M-Cryst [Macrobid] 100 mg PO Q12HR #10 cap Referrals: Hector Byrd DO [Primary Care Provider] - 1-2 days
--- NOTE | 2017-05-01 20:47 | CT ---
EXAMINATION: CT brain wo con DATE AND TIME: 05/01/2017 8:28 PM ORDERING PROVIDER: Wagner Capone DO CLINICAL INDICATION: pain ,AMS TECHNIQUE: Standard departmental protocol. COMPARISON: 12/08/2014 DESCRIPTION: The calvarium is intact. There is no intracranial hemorrhage. There is no mass or mass effect. There are prominent low attenuation zones in the gruber radiata and centrum semiovale including right frontal and parietal lobe watershed encephalomalacia zones between the JAYLIN and MCA anteriorly and th e MCA and RUBBER PROCESS HAND posteriorly. These are consistent with remote watershed infarctions. Both were seen on the prior CT of November 2014. However, there are no definite new attenuation defects. Remainder of the intra-axial and extra-axial compartment examination is unremarkable. The paranasal sinuses, middle ear cavities, and mastoid sinus air cells are clear, and the orbits are intact. IMPRESSION: NO DEFINITE ACUTE PROCESS, CT HEAD WITHOUT CONTRAST.
[2017-05-01 20:49] LABS: Troponin I 0.019 ng/mL (0.000-0.034)
[2017-05-01 20:55] LABS: Creatine Kinase MB 6.3 ng/mL (0.0-2.4)
[2017-05-01] MEDS ORDERED: LACTATED RINGERS 1,000 ML IV STA (21:01)
[2017-05-01] MEDS ORDERED: SODIUM CHLORIDE 0.9% 500 ML IV STA (21:01)
--- NOTE | 2017-05-01 21:50 | XR ---
EXAMINATION: XR chest 2V DATE AND TIME: 05/01/2017 9:45 PM ORDERING PROVIDER: Wagner Capone DO CLINICAL INDICATION: Pain TECHNIQUE: AP and lateral COMPARISON: 03/27/2017 DESCRIPTION: Emphysematous changes are noted with prominent blebs in apices, particularly on the righ t. The lungs are otherwise clear. The pleural spaces are negative. The cardiac silhouette is mildly enlarged. The mediastinal and pleural silhouettes are unremarkable. The skeletal structures are intact without focal findings. The soft tissues are unremarkable. IMPRESSION: NO ACUTE PROCESS.
[2017-05-01 21:55] LABS: Appearance,Urine Cloudy (Clear); Bacteria,Urine Moderate /hpf; Bilirubin,Urine Negative (Negative); Blood,Urine Trace (Negative); Color,Urine Yellow; Glucose,Urine (UA) Negative (Negative); Granular Casts,Urine 1 /lpf (0); Ketones,Urine Negative (Negative); Leukocyte Esterase,Urine Large (Negative); Mucus,Urine Rare /hpf; Nitrite,Urine Negative (Negative); PH, Urine 5.5 (5.0-8.0); Protein,Urine 2+ (Negative); RBC,Urine 23 /hpf (0-5); Specific Gravity,Urine 1.014 (1.001-1.035); Squamous Epithelial Cell,Urine 6 /hpf (0-4); Urobilinogen,Urine <2.0 mg/dL (<2.0); WBC,Urine 28 /hpf (0-5)
[2017-05-01] MEDS ORDERED: cefTRIAXone IN SWFI 2,000 MG/20 ML SYRINGE IVP STA (22:05)
[2017-05-01] MEDS ORDERED: LABETALOL 5 MG/ML VIAL MDV IVP STA (22:22)
[2017-05-02 00:44] VITALS: BP 183/78; PULSE 87; TEMP 97.9
== END 2017-05-02 00:44 | disposition home or self-care (01) ==
LOC: EC 19:13
DX: N17.9 Acute kidney failure, unspecified (principal); I12.9 Hypertensive chronic kidney disease with stage 1 through stage 4 chronic kidney disease, or unspecified chronic kidney disease; N18.9 Chronic kidney disease, unspecified; R41.82 Altered mental status, unspecified; N39.0 Urinary tract infection, site not specified; E86.0 Dehydration; J44.9 Chronic obstructive pulmonary disease, unspecified; I25.2 Old myocardial infarction; Z95.5 Presence of coronary angioplasty implant and graft; F32.9 Major depressive disorder, single episode, unspecified; H54.8 Legal blindness, as defined in USA; H40.9 Unspecified glaucoma; Z87.891 Personal history of nicotine dependence; Z86.73 Personal history of transient ischemic attack (TIA), and cerebral infarction without residual deficits; Z79.02 Long term (current) use of antithrombotics/antiplatelets; Z79.82 Long term (current) use of aspirin; Z79.899 Other long term (current) drug therapy; Z88.8 Allergy status to other drugs, medicaments and biological substances; Z88.5 Allergy status to narcotic agent
CPT/HCPCS: 99285; 96374; 96375; 96361 ×5; 36415; 94640; 93005; 80053; 82550; 82553; 83735; 84100; 84484; 85025; 85610; 85730; 81001; 87086; 71046; 70450; J0696

== ENCOUNTER 2017-05-05 14:34 | Inpatient (IN) | payer MEDICARE, OTHER ==
[2017-05-05 15:42] LABS: Basophils % (A) 0 %; Eosinophils # (A) 0.2 k/uL (0-0.7); Eosinophils % (A) 5 %; HCT 34.9 % (34.0-46.0); HGB 12.5 gm/dL (11.4-16.0); Lymphocytes % (A) 26 %; MCH 31.1 pg (25.0-35.0); MCHC 35.9 g/dL (31.0-37.0); MCV 86.7 fL (80.0-100.0); Mean Platelet Volume 8.1; Monocytes # (A) 0.2 k/uL (0-1.0); Monocytes % (A) 5 %; Neutrophils # (A) 2.5 k/uL (1.3-7.7); Neutrophils % (A) 63 %; Platelet Count 167 k/uL (150-450); Poikilocytosis Slight; RBC 4.03 m/uL (3.80-5.40); RDW 15.9 % (11.5-15.5)
[2017-05-05 15:51] LABS: Calcium 9.3 mg/dL (8.4-10.2); Potassium 3.7 mmol/L (3.5-5.1); Total Bilirubin 0.5 mg/dL (0.2-1.3); Total Protein 6.7 g/dL (6.3-8.2)
[2017-05-05] MEDS ORDERED: SODIUM CHLORIDE 0.9% 500 ML IV ONE (16:55)
--- NOTE | 2017-05-05 17:14 | ED ---
General Adult HPI - General Chief complaint: Anxiety Stated complaint: mental health Time Seen by Provider: 05/05/17 16:50 Source: patient Mode of arrival: ambulatory Limitations: no limitations - History of Present Illness Initial comments: 76 yoF presenting with chest pain and anxiety. Per family the patient is legally blind and moved in. The patient is at home a lot and is having episodes of extreme anxiety, chest pain, and shortness of breath. She recently went 2-3 days without eating secondary to being afraid of leaving her room and finding the bathroom. Today the patient had a similar event and required 2 nitro tabs to decrease her chest pain. Family state at this time they are concerned for her safety at home since they are unable to be with her at all times. The patient was seen in the ED a few days prior and was diagnosed with a UTI and dehydration. They state her symptoms have not improved since then. - Related Data Home Medications Medication Instructions Recorded Confirmed Clopidogrel [Plavix] 75 mg PO QAM 09/29/13 05/05/17 Montelukast [Singulair] 10 mg PO HS 09/29/13 05/05/17 Tolterodine ER [Detrol LA] 4 mg PO HS 01/10/15 05/05/17 Brimonidine Tartrate [Alphagan P 1 drop RIGHT EYE BID 11/26/15 05/05/17 0.1% Ophth Soln] Brinzolamide [Azopt 1% Ophth Susp] 1 drop RIGHT EYE BID 11/26/15 05/05/17 prednisoLONE ACETATE 1% OPHTH 1 drop LEFT EYE BID 11/26/15 05/05/17 [Pred Forte 1%] Melatonin 3 mg PO HS 05/11/16 05/05/17 Cholecalciferol [Vitamin D3] 1,000 unit PO W/SUPPER 06/30/16 05/05/17 Albuterol Inhaler [Ventolin Hfa 2 puff INHALATION RT-Q6H PRN 01/26/17 05/05/17 Inhaler] Losartan Potassium [Cozaar] 50 mg PO BID 01/26/17 05/05/17 risperiDONE 1 mg PO HS 01/26/17 05/05/17 Aspirin 81 mg PO W/SUPPER 03/27/17 05/05/17 amLODIPine [Norvasc] 5 mg PO QAM 03/27/17 05/05/17 Rosuvastatin Calcium [Crestor] 5 mg PO HS 05/01/17 05/05/17 Mirabegron [Myrbetriq] 50 mg PO DAILY 05/05/17 05/05/17 Previous Rx's Medication Instructions Recorded Budesonide-Formot 160-4.5 Mcg 2 puff INHALATION RT-BID puff 05/14/16 [Symbicort 160-4.5 Mcg Inhaler] ALPRAZolam [Xanax] 0.25 mg PO BID #10 tab 12/09/16 Nitroglycerin Sl Tabs [Nitrostat] 0.4 mg SUBLINGUAL Q5M PRN tab 12/09/16 Metoprolol Tartrate [Lopressor] 12.5 mg PO BID #60 tab 01/29/17 Isosorbide Mononitrate ER [Imdur] 30 mg PO DAILY #30 tab.er.24h 03/29/17 Nitrofurantoin Monohyd/M-Cryst 100 mg PO Q12HR #10 cap 05/01/17 [Macrobid] Allergies Allergy/AdvReac Type Severity Reaction Status Date / Time Mltygya-Kje-Hhm Reductase Allergy Unknown Verified 05/05/17 15:10 Inhibitor morphine AdvReac Confusion Verified 05/05/17 15:10 Review of Systems ROS Statement: Those systems with pertinent positive or pertinent negative responses have been documented in the HPI. Review of Systems Constitutional: Denies fever, chills Eyes: Denies change in vision, Denies pain Ears, nose, mouth, throat: Denies headaches, Denies sore throat Cardiovascular: Admits to chest pain. Denies palpitations Respiratory: Admits to shortness of breath, Denies cough Gastrointestinal: Denies abdominal pain. Denies nausea, vomiting, diarrhea. Genitourinary: Denies hematuria, Denies infections Musculoskeletal: Denies pain, Denies swelling Integumentary: Denies rash Neurological: Denies headache, focal weakness, focal numbness Psychiatric: Admits to anxiety and depression. Hematologic/Lymphatic: Denies easy bleeding or bruising ROS Other: All systems not noted in ROS Statement are negative. Past Medical History Past Medical History: Asthma, COPD, CVA/TIA, Diabetes Mellitus, Hypertension, Myocardial Infarction (ME), Respiratory Disorder Additional Past Medical History / Comment(s): COPD mild in severity with an FEV1 of 2.1 L which is 88% of predicted, bronchial asthma, previous history of pneumothorax requiring a chest tube insertion and subsequent removal, 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 macular degeneration, emphysema Last Myocardial Infarction Date:: 12/06/2016 History of Any Multi-Drug Resistant Organisms: None Reported Past Surgical History: Appendectomy, Cholecystectomy, Heart Catheterization With Stent, Hysterectomy, Joint Replacement, Tonsillectomy Additional Past Surgical History / Comment(s): Right knee replacement, right cataract surgery, heart cath with stents x 2 12/06 Past Anesthesia/Blood Transfusion Reactions: No Reported Reaction Date of Last Stent Placement:: 12/06/2016 Past Psychological History: Anxiety, Depression Smoking Status: Former smoker Past Alcohol Use History: None Reported Past Drug Use History: None Reported - Past Family History Mother Family Medical History: Congestive Heart Failure (CHF) Father Additional Family Medical History / Comment(s): empyhsema, blindness. O2 dependent General Exam - General Exam Comments Initial Comments: General: Awake, alert, No acute Distress HENT: Normocephalic. Atraumatic Eyes: PERRL. Blind. No scleral icterus. No injected conjunctiva Neck: Full ROM Chest/Lungs: Clear to auscultation bilaterally. No wheezing, rhonchi, or rales Cardiac: Regular rate, rhythm. No murmurs or rubs Abdomen/GI: [Soft, nontender, nondistended. No rebound, guarding, or rigidity. Musculoskeletal: Full ROM. Patient normally Skin: Warm, dry, intact Neurologic: A/Ox2, no weakness, no sensory deficit, no coordination deficit. Antalgic gait Psych: Tearful Limitations: no limitations Course Vital Signs 05/05/17 05/05/17 15:08 19:53 Temperature 98.1 F 98.3 F Pulse Rate 61 58 L Respiratory 20 18 Rate Blood Pressure 185/79 163/63 O2 Sat by Pulse 96 96 Oximetry Medical Decision Making - Medical Decision Making 76 yoF presenting with anxiety, chest pain, and shortness of breath. On initial exam the patient is awake and alert and tearful. VSS. EKG shows sinus bradycardia at a rate of 55 bpm. No arrhythmia, ST segment depression or elevation, or prolonged QT. Patient has not had a stress test in at least 3 years. HEART score 6. Patient's labratory workup revealed acute on chronic renal failure but was otherwise negative. She had no chest pain while in the department. Spoke with admitting physician who was agreeable to admission. Orders placed. Family and patient questions answered. Patient is currently stable for transfer to the floor. - Lab Data Result diagrams: 05/05/17 15:21 05/05/17 15:21 Lab Results 05/05/17 05/05/17 05/05/17 Range/Units 15:21 15:21 17:04 WBC 4.0 (3.8-10.6) k/uL RBC 4.03 (3.80-5.40) m/uL Hgb 12.5 (11.4-16.0) gm/dL Hct 34.9 (34.0-46.0) % MCV 86.7 (80.0-100.0) fL MCH 31.1 (25.0-35.0) pg MCHC 35.9 (31.0-37.0) g/dL RDW 15.9 H (11.5-15.5) % Plt Count 167 (150-450) k/uL Neutrophils % 63 % Lymphocytes % 26 % Monocytes % 5 % Eosinophils % 5 % Basophils % 0 % Neutrophils # 2.5 (1.3-7.7) k/uL Lymphocytes # 1.0 (1.0-4.8) k/uL Monocytes # 0.2 (0-1.0) k/uL Eosinophils # 0.2 (0-0.7) k/uL Basophils # 0.0 (0-0.2) k/uL Poikilocytosis Slight Sodium 147 H (137-145) mmol/L Potassium 3.7 (3.5-5.1) mmol/L Chloride 110 H (98-107) mmol/L Carbon Dioxide 23 (22-30) mmol/L Anion Gap 14 mmol/L BUN 27 H (7-17) mg/dL Creatinine 1.17 H (0.52-1.04) mg/dL Est GFR (CKD-EPI)AfAm 52 (>60 ml/min/1.73 sqM) Est GFR (CKD-EPI)NonAf 45 (>60 ml/min/1.73 sqM) Glucose 110 H (74-99) mg/dL Calcium 9.3 (8.4-10.2) mg/dL Total Bilirubin 0.5 (0.2-1.3) mg/dL AST 25 (14-36) U/L ALT 23 (9-52) U/L Alkaline Phosphatase 63 (38-126) U/L Troponin I (0.000-0.034) ng/mL Total Protein 6.7 (6.3-8.2) g/dL Albumin 4.0 (3.5-5.0) g/dL TSH 3.000 (0.465-4.680) mIU/L 05/05/17 Range/Units 17:04 WBC (3.8-10.6) k/uL RBC (3.80-5.40) m/uL Hgb (11.4-16.0) gm/dL Hct (34.0-46.0) % MCV (80.0-100.0) fL MCH (25.0-35.0) pg MCHC (31.0-37.0) g/dL RDW (11.5-15.5) % Plt Count (150-450) k/uL Neutrophils % % Lymphocytes % % Monocytes % % Eosinophils % % Basophils % % Neutrophils # (1.3-7.7) k/uL Lymphocytes # (1.0-4.8) k/uL Monocytes # (0-1.0) k/uL Eosinophils # (0-0.7) k/uL Basophils # (0-0.2) k/uL Poikilocytosis Sodium (137-145) mmol/L Potassium (3.5-5.1) mmol/L Chloride (98-107) mmol/L Carbon Dioxide (22-30) mmol/L Anion Gap mmol/L BUN (7-17) mg/dL Creatinine (0.52-1.04) mg/dL Est GFR (CKD-EPI)AfAm (>60 ml/min/1.73 sqM) Est GFR (CKD-EPI)NonAf (>60 ml/min/1.73 sqM) Glucose (74-99) mg/dL Calcium (8.4-10.2) mg/dL Total Bilirubin (0.2-1.3) mg/dL AST (14-36) U/L ALT (9-52) U/L Alkaline Phosphatase (38-126) U/L Troponin I 0.014 (0.000-0.034) ng/mL Total Protein (6.3-8.2) g/dL Albumin (3.5-5.0) g/dL TSH (0.465-4.680) mIU/L Disposition Clinical Impression: Chest pain, Acute on chronic renal failure Disposition: ADMITTED IP TO THIS HOSP Condition: Good
[2017-05-05] MEDS ORDERED: ACETAMINOPHEN TAB 325 MG TAB PO PRN (19:19)
[2017-05-05] MEDS ORDERED: NALOXONE 0.4 MG/ML 1 ML VIAL IV PRN (19:19)
[2017-05-05] MEDS ORDERED: ALBUTEROL NEBULIZED 2.5 MG/3 ML INHALATION PRN (19:21)
[2017-05-05 19:48] LABS: Amorphous Sediment,Urine Occasional /hpf; Appearance,Urine Cloudy (Clear); Bacteria,Urine Few /hpf; Bilirubin,Urine Negative (Negative); Blood,Urine Negative (Negative); Color,Urine Yellow; Glucose,Urine (UA) Negative (Negative); Hyaline Casts,Urine 3 /lpf (0-2); Ketones,Urine Negative (Negative); Leukocyte Esterase,Urine Large (Negative); Mucus,Urine Rare /hpf; Nitrite,Urine Negative (Negative); PH, Urine 5.5 (5.0-8.0); Protein,Urine 1+ (Negative); RBC,Urine 3 /hpf (0-5); Specific Gravity,Urine 1.014 (1.001-1.035); Squamous Epithelial Cell,Urine 28 /hpf (0-4); Urobilinogen,Urine <2.0 mg/dL (<2.0); WBC,Urine 161 /hpf (0-5)
[2017-05-05 19:54] LABS: Amphetamine Screen,Urine Not Detected (NotDetected); Barbiturate Screen,Urine Not Detected (NotDetected); Benzodiazepines Screen,Urine Not Detected (NotDetected); Cocaine Screen,Urine Not Detected (NotDetected); Methadone Screen, Urine Not Detected (NotDetected); Opiate Screen,Urine Not Detected (NotDetected); Oxycodone Screen, Urine Not Detected (NotDetected); Phencyclidine Screen,Urine Not Detected (NotDetected); Tricyclic Antidepressant,Urine Not Detected (NotDetected); Urn Cannabinoid Scrn Not Detected (NotDetected)
--- NOTE | 2017-05-05 20:00 | XR ---
EXAMINATION TYPE: XR chest 2V DATE OF EXAM: 05/05/2017 COMPARISON: 05/01/2017 HISTORY: Anxiety. Chest pain TECHNIQUE: Frontal and lateral views of the chest are obtained. FINDINGS: There is a small infiltrate at the lateral left lung base. The other lung lindquist are clear . There is no heart failure. There is mild pleural thickening at the lung apices. Thoracic aorta is a theromatous. Bony thorax appears intact. IMPRESSION: There is mild chronic density at the left lung base consistent with scarring. No change compared to old exam. No heart failure. Apical pleural and pulmonary scarring.
[2017-05-05 20:58] VITALS: BMI 29.7
[2017-05-05] MEDS: risperiDONE 1 MG TAB PO SCH (23:13)
[2017-05-05] MEDS: OXYBUTYNIN XL 5 MG TAB.ER.24 PO SCH (23:13)
[2017-05-05] MEDS: METOPROLOL TARTRATE 12.5 MG TAB PO SCH (23:13)
[2017-05-05] MEDS: MONTELUKAST 10 MG TAB PO SCH (23:13)
[2017-05-05] MEDS: ALPRAZolam 0.25 MG TAB PO SCH (23:14)
[2017-05-05] MEDS: LOSARTAN 50 MG TAB PO SCH (23:14)
[2017-05-05] MEDS: BRIMONIDINE TARTRATE 0.2% DROPS 5 ML BTL RIGHT EYE SCH (23:14)
[2017-05-05] MEDS: DORZOLAMIDE HCL 2% DROPS 10 ML BTL RIGHT EYE SCH (23:14)
[2017-05-05] MEDS: prednisoLONE ACETATE 1% OPHTH DROPS 5 ML BTL LEFT EYE SCH (23:15)
[2017-05-06 07:42] LABS: Basophils % (A) 1 %; Eosinophils # (A) 0.1 k/uL (0-0.7); Eosinophils % (A) 4 %; HGB 11.4 gm/dL (11.4-16.0); Lymphocytes # (A) 1.2 k/uL (1.0-4.8); Lymphocytes % (A) 31 %; MCH 28.9 pg (25.0-35.0); MCHC 32.5 g/dL (31.0-37.0); Monocytes # (A) 0.3 k/uL (0-1.0); Monocytes % (A) 7 %; Neutrophils % (A) 55 %; Platelet Count 160 k/uL (150-450); Poikilocytosis Slight; RBC 3.94 m/uL (3.80-5.40); RDW 15.7 % (11.5-15.5); WBC 3.7 k/uL (3.8-10.6)
[2017-05-06 08:00] LABS: Calcium 9.1 mg/dL (8.4-10.2); Potassium 3.6 mmol/L (3.5-5.1)
[2017-05-06] MEDS ORDERED: NON-FORMULARY DRUG (Mirabegron [Myrbetriq] 50 MG) PO SCH (09:00)
[2017-05-06] MEDS: DORZOLAMIDE HCL 2% DROPS 10 ML BTL RIGHT EYE SCH ×2 (09:13→20:09)
[2017-05-06] MEDS: amLODIPine 5 MG TAB PO SCH (09:13)
[2017-05-06] MEDS: ALPRAZolam 0.25 MG TAB PO SCH ×2 (09:13→20:09)
[2017-05-06] MEDS: prednisoLONE ACETATE 1% OPHTH DROPS 5 ML BTL LEFT EYE SCH ×2 (09:13→20:10)
[2017-05-06] MEDS: CLOPIDOGREL 75 MG TAB PO SCH (09:13)
[2017-05-06] MEDS: LOSARTAN 50 MG TAB PO SCH ×2 (09:13→20:09)
[2017-05-06] MEDS: METOPROLOL TARTRATE 12.5 MG TAB PO SCH ×2 (09:13→20:10)
[2017-05-06] MEDS: BRIMONIDINE TARTRATE 0.2% DROPS 5 ML BTL RIGHT EYE SCH ×2 (09:13→20:09)
[2017-05-06] MEDS: SYMBICORT 160-4.5 MCG INHALER INHALATION SCH ×3 (09:26→19:23)
--- NOTE | 2017-05-06 14:53 | P.HPIM ---
History of Present Illness 76 yo in with chest pain and anxiety. Per family the patient is legally blind and moved in. The patient is at home a lot and is having episodes of extreme anxiety, chest pain, and shortness of breath. She recently went 2-3 days without eating secondary to being afraid of leaving her room and finding the bathroom. Today the patient had a similar event and required 2 nitro tabs to decrease her chest pain. Family state at this time they are concerned for her safety at home since they are unable to be with her at all times. The patient was seen in the ED a few days prior and was diagnosed with a UTI and dehydration. They state her symptoms have not improved since then. His urine sample is a contaminated urine sample. Patient is definitely hyponatremic is still having epigastric abdominal discomfort most probably related to gastritis patient's EKG and troponins are not consistent with the cardiac chest pain. Patient will be treated for dehydration with half-normal saline will work on her placement today patient denied any dysuria Review of Systems REVIEW OF SYSTEMS: CONSTITUTIONAL: No fever, no malaise, no fatigue. HEENT: No recent visual problems or hearing problems. Denied any sore throat. CARDIOVASCULAR: No chest pain, orthopnea, PND, no palpitations, no syncope. PULMONARY: No shortness of breath, no cough, no hemoptysis. GASTROINTESTINAL: No diarrhea, no nausea, no vomiting, NEUROLOGICAL: No headaches, no weakness, no numbness. HEMATOLOGICAL: Denies any bleeding or petechiae. GENITOURINARY: Denies any burning micturition, frequency, or urgency. MUSCULOSKELETAL/RHEUMATOLOGICAL: Denies any joint pain, swelling, or any muscle pain. ENDOCRINE: Denies any polyuria or polydipsia. The rest of the 14-point review of systems is negative. Past Medical History Past Medical History: Asthma, COPD, CVA/TIA, Diabetes Mellitus, Hypertension, Myocardial Infarction ([place]), Respiratory Disorder Additional Past Medical History / Comment(s): COPD mild in severity with an FEV1 of 2.1 L which is 88% of predicted, bronchial asthma, previous history of pneumothorax requiring a chest tube insertion and subsequent removal, 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 macular degeneration, emphysema Last Myocardial Infarction Date:: 12/06/2016 History of Any Multi-Drug Resistant Organisms: None Reported Past Surgical History: Appendectomy, Cholecystectomy, Heart Catheterization With Stent, Hysterectomy, Joint Replacement, Tonsillectomy Additional Past Surgical History / Comment(s): Right knee replacement, right cataract surgery, heart cath with stents x 2 12/06 Past Anesthesia/Blood Transfusion Reactions: No Reported Reaction Date of Last Stent Placement:: 12/06/2016 Past Psychological History: Anxiety, Depression Smoking Status: Former smoker Past Alcohol Use History: None Reported Past Drug Use History: None Reported - Past Family History Mother Family Medical History: Congestive Heart Failure (CHF) Father Additional Family Medical History / Comment(s): empyhsema, blindness. O2 dependent Medications and Allergies Home Medications Medication Instructions Recorded Confirmed Type Clopidogrel [Plavix] 75 mg PO QAM 09/29/13 05/05/17 History Montelukast [Singulair] 10 mg PO HS 09/29/13 05/05/17 History Tolterodine ER [Detrol LA] 4 mg PO HS 01/10/15 05/05/17 History Brimonidine Tartrate [Alphagan P 1 drop RIGHT EYE BID 11/26/15 05/05/17 History 0.1% Ophth Soln] Brinzolamide [Azopt 1% Ophth Susp] 1 drop RIGHT EYE BID 11/26/15 05/05/17 History prednisoLONE ACETATE 1% OPHTH 1 drop LEFT EYE BID 11/26/15 05/05/17 History [Pred Forte 1%] Melatonin 3 mg PO HS 05/11/16 05/05/17 History Budesonide-Formot 160-4.5 Mcg 2 puff INHALATION RT-BID puff 05/14/16 05/05/17 Rx [Symbicort 160-4.5 Mcg Inhaler] Cholecalciferol [Vitamin D3] 1,000 unit PO W/SUPPER 06/30/16 05/05/17 History ALPRAZolam [Xanax] 0.25 mg PO BID #10 tab 12/09/16 05/05/17 Rx Nitroglycerin Sl Tabs [Nitrostat] 0.4 mg SUBLINGUAL Q5M PRN tab 12/09/16 Rx Albuterol Inhaler [Ventolin Hfa 2 puff INHALATION RT-Q6H PRN 01/26/17 05/05/17 History Inhaler] Losartan Potassium [Cozaar] 50 mg PO BID 01/26/17 05/05/17 History risperiDONE 1 mg PO HS 01/26/17 05/05/17 History Metoprolol Tartrate [Lopressor] 12.5 mg PO BID #60 tab 01/29/17 05/05/17 Rx Aspirin 81 mg PO W/SUPPER 03/27/17 05/05/17 History amLODIPine [Norvasc] 5 mg PO QAM 03/27/17 05/05/17 History Isosorbide Mononitrate ER [Imdur] 30 mg PO DAILY #30 tab.er.24h 03/29/17 Rx Nitrofurantoin Monohyd/M-Cryst 100 mg PO Q12HR #10 cap 05/01/17 05/05/17 Rx [Macrobid] Rosuvastatin Calcium [Crestor] 5 mg PO HS 05/01/17 05/05/17 History Mirabegron [Myrbetriq] 50 mg PO DAILY 05/05/17 05/05/17 History Allergies Allergy/AdvReac Type Severity Reaction Status Date / Time Nbugqmv-Dot-Kkl Reductase Allergy Unknown Verified 05/05/17 15:10 Inhibitor morphine AdvReac Confusion Verified 05/05/17 15:10 Physical Exam Vitals: Vital Signs Temp Pulse Pulse Resp BP BP Pulse Ox 05/06/17 08:00 98.0 F 61 18 145/65 93 L 05/06/17 03:58 98.2 F 68 16 120/55 93 L 05/06/17 01:00 98.2 F 67 16 124/58 92 L 05/05/17 21:00 61 18 175/69 05/05/17 20:22 97.9 F 62 16 208/86 94 L 05/05/17 19:53 98.3 F 58 L 18 163/63 96 05/05/17 15:08 98.1 F 61 20 185/79 96 Intake and Output 05/05/17 05/06/17 05/06/17 22:59 06:59 14:59 Intake Total 240 Balance 240 Intake: Oral 240 Other: Voiding Method Diaper Diaper # Voids 1 1 Weight 86.183 kg PHYSICAL EXAMINATION: GENERAL: The patient is alert and oriented x3, not in any acute distress. Well developed, well nourished. HEENT: Legally blind No scleral icterus. No conjunctival pallor. Normocephalic, atraumatic. No pharyngeal erythema. No thyromegaly. CARDIOVASCULAR: S1 and S2 present. No murmurs, rubs, or gallops. PULMONARY: Chest is clear to auscultation, no wheezing or crackles. ABDOMEN: Soft, nontender, nondistended, normoactive bowel sounds. No palpable organomegaly. MUSCULOSKELETAL: No joint swelling or deformity. EXTREMITIES: No cyanosis, clubbing, or pedal edema. NEUROLOGICAL: Gross neurological examination did not reveal any focal deficits. SKIN: No rashes. Results CBC & Chem 7: 05/06/17 06:53 05/06/17 06:53 Labs: Abnormal Lab Results - Last 24 Hours (Table) 05/05/17 05/05/17 05/05/17 Range/Units 15:21 15:21 19:32 WBC (3.8-10.6) k/uL RDW 15.9 H (11.5-15.5) % Sodium 147 H (137-145) mmol/L Chloride 110 H (98-107) mmol/L Carbon Dioxide (22-30) mmol/L BUN 27 H (7-17) mg/dL Creatinine 1.17 H (0.52-1.04) mg/dL Glucose 110 H (74-99) mg/dL Urine Appearance Cloudy H (Clear) Urine Protein 1+ H (Negative) Ur Leukocyte Esterase Large H (Negative) Urine WBC 161 H (0-5) /hpf Urine WBC Clumps Few H (None) /hpf Ur Squamous Epith Cells 28 H (0-4) /hpf Amorphous Sediment Occasional H (None) /hpf Urine Bacteria Few H (None) /hpf Hyaline Casts 3 H (0-2) /lpf Urine Mucus Rare H (None) /hpf 05/06/17 05/06/17 Range/Units 06:53 06:53 WBC 3.7 L (3.8-10.6) k/uL RDW 15.7 H (11.5-15.5) % Sodium 150 H (137-145) mmol/L Chloride 115 H (98-107) mmol/L Carbon Dioxide 21 L (22-30) mmol/L BUN 25 H (7-17) mg/dL Creatinine 1.17 H (0.52-1.04) mg/dL Glucose 111 H (74-99) mg/dL Urine Appearance (Clear) Urine Protein (Negative) Ur Leukocyte Esterase (Negative) Urine WBC (0-5) /hpf Urine WBC Clumps (None) /hpf Ur Squamous Epith Cells (0-4) /hpf Amorphous Sediment (None) /hpf Urine Bacteria (None) /hpf Hyaline Casts (0-2) /lpf Urine Mucus (None) /hpf Thrombosis Risk Factor Assmnt - Choose All That Apply Each Factor Represents 1 point: Abnormal pulmonary function (COPD) Each Risk Factor Represents 2 Points: Age 61-74 years Thrombosis Risk Factor Assessment Total Risk Factor Score: 3 Thrombosis Risk Factor Assessment Level: Moderate Risk Assessment and Plan Plan: -Chest pain: Secondary to anxiety which is again secondary to unfamiliar place an patient's blindness. We'll work on her placement. -Hyponatremia: Hypovolemic hypernatremia patient was started on half-normal saline gentle hydration. -Possible mild gastritis for which patient will be started on Protonix -Contaminated urine sample my suspicion is low for urinary tract infection -COPD Without any acute exacerbation -type 2 diabetes mellitus: Patient will be resumed on home regimen monitor blood sugars.
--- NOTE | 2017-05-06 17:16 | P.CNPUL ---
History of Present Illness Consult date: 05/06/17 Reason for consult: chest pain History of present illness: This is a 6-year-old female patient, legally blind secondary to macular degeneration in addition to multiple other medical problems including COPD, diabetes mellitus, hypertension, and coronary artery disease whereas been followed up in our office by Dr. Leigh. The patient is currently living with her son at home. The patient has been having difficulties with mobility. She does not have somebody taking care of her all the time. Her son and her [id number] are in the house probably at nighttime. During the day the patient is alone and she was very much worried that she would fall or get himself into trouble and for that reason she hasn't been moving and she had been able to take good care of herself. In addition she had refused to eat knowing that eating and drinking would make her urinating go to the bathroom when she was very much worried that she will not be able to go to the bathroom or she may sores herself. For that reason she hasn't been eating and she was getting progressively more dehydrated. She became very anxious and she started getting some extreme anxiety and chest pain and shortness of breath and for that reason the patient was brought into the hospital. The son was interviewed at the bedside. He states that he was concern for her safety especially with the above mentioned problems. It seems that they're more interested in pursuing this patient for permanent placement [facility] and there interested in my [facility]. The patient is resting comfortably in bed. She has no specific complaints for now. She had hypernatremia which is being treated as the patient is being resuscitated IV fluids. She was obviously dilated at time of admission. She was in the hospital on multiple occasions. Her COPD is mild and the patient has an FEV1 of 87% of predicted and she has been maintained on a combination of Symbicort and albuterol solution on an as-needed basis. She has had also previous history of pneumothorax requiring insertion and removal of a chest tube. The patient has been involved in a previous myocardial infarction and she has undergone a stenting to the proximal/mid LAD back in November 2016. Her current chest x-ray shows no acute abnormalities. Her white cell count is not elevated. The renal function shows a creatinine of 1.1. She may have an underlying urine checked infection and this is being further investigated knowing that she has some pyuria. Culture is still pending for now. The chest x-ray showed left apical scarring. No C. diff can change compared to the previous examination from 05/01/2017. Review of Systems Constitutional: Reports fatigue Eyes: bilateral loss of vision and the patient has been legally blind. This has affected her ability to ambulate and take care of herself. Ears: deny: decreased hearing Ears, nose, mouth and throat: Denies headache, Denies sore throat Cardiovascular: Reports chest pain, Reports shortness of breath Respiratory: Reports dyspnea Gastrointestinal: Denies abdominal pain, Denies diarrhea, Denies nausea, Denies vomiting Genitourinary: Denies dysuria, Denies hematuria Musculoskeletal: Denies myalgias Integumentary: Denies pruritus, Denies rash Neurological: Denies numbness, Denies weakness Psychiatric: Denies anxiety, Denies depression Endocrine: Denies fatigue, Denies weight change Past Medical History Past Medical History: Asthma, COPD, CVA/TIA, Diabetes Mellitus, Hypertension, Myocardial Infarction ([place]), Respiratory Disorder Additional Past Medical History / Comment(s): COPD mild in severity with an FEV1 of 2.1 L which is 88% of predicted, bronchial asthma, previous history of pneumothorax requiring a chest tube insertion and subsequent removal, 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 macular degeneration, emphysema, hypertension, hyperlipidemia, previous coronary intervention and stenting of the LAD in November 2016 Last Myocardial Infarction Date:: 12/06/2016 History of Any Multi-Drug Resistant Organisms: None Reported Past Surgical History: Appendectomy, Cholecystectomy, Heart Catheterization With Stent, Hysterectomy, Joint Replacement, Tonsillectomy Additional Past Surgical History / Comment(s): Right knee replacement, right cataract surgery, heart cath with stents x 2 , 11/2016 Past Anesthesia/Blood Transfusion Reactions: No Reported Reaction Date of Last Stent Placement:: 12/06/2016 Past Psychological History: Anxiety, Depression Smoking Status: Former smoker Past Alcohol Use History: None Reported Past Drug Use History: None Reported - Past Family History Mother Family Medical History: Congestive Heart Failure (CHF) Father Additional Family Medical History / Comment(s): empyhsema, blindness. O2 dependent Medications and Allergies Home Medications Medication Instructions Recorded Confirmed Type Clopidogrel [Plavix] 75 mg PO QAM 09/29/13 05/05/17 History Montelukast [Singulair] 10 mg PO HS 09/29/13 05/05/17 History Tolterodine ER [Detrol LA] 4 mg PO HS 01/10/15 05/05/17 History Brimonidine Tartrate [Alphagan P 1 drop RIGHT EYE BID 11/26/15 05/05/17 History 0.1% Ophth Soln] Brinzolamide [Azopt 1% Ophth Susp] 1 drop RIGHT EYE BID 11/26/15 05/05/17 History prednisoLONE ACETATE 1% OPHTH 1 drop LEFT EYE BID 11/26/15 05/05/17 History [Pred Forte 1%] Melatonin 3 mg PO HS 05/11/16 05/05/17 History Budesonide-Formot 160-4.5 Mcg 2 puff INHALATION RT-BID puff 05/14/16 05/05/17 Rx [Symbicort 160-4.5 Mcg Inhaler] Cholecalciferol [Vitamin D3] 1,000 unit PO W/SUPPER 06/30/16 05/05/17 History ALPRAZolam [Xanax] 0.25 mg PO BID #10 tab 12/09/16 05/05/17 Rx Nitroglycerin Sl Tabs [Nitrostat] 0.4 mg SUBLINGUAL Q5M PRN tab 12/09/16 Rx Albuterol Inhaler [Ventolin Hfa 2 puff INHALATION RT-Q6H PRN 01/26/17 05/05/17 History Inhaler] Losartan Potassium [Cozaar] 50 mg PO BID 01/26/17 05/05/17 History risperiDONE 1 mg PO HS 01/26/17 05/05/17 History Metoprolol Tartrate [Lopressor] 12.5 mg PO BID #60 tab 01/29/17 05/05/17 Rx Aspirin 81 mg PO W/SUPPER 03/27/17 05/05/17 History amLODIPine [Norvasc] 5 mg PO QAM 03/27/17 05/05/17 History Isosorbide Mononitrate ER [Imdur] 30 mg PO DAILY #30 tab.er.24h 03/29/17 Rx Nitrofurantoin Monohyd/M-Cryst 100 mg PO Q12HR #10 cap 05/01/17 05/05/17 Rx [Macrobid] Rosuvastatin Calcium [Crestor] 5 mg PO HS 05/01/17 05/05/17 History Mirabegron [Myrbetriq] 50 mg PO DAILY 05/05/17 05/05/17 History Allergies Allergy/AdvReac Type Severity Reaction Status Date / Time Dfavnwh-Vjc-Zfr Reductase Allergy Unknown Verified 05/05/17 15:10 Inhibitor morphine AdvReac Confusion Verified 05/05/17 15:10 Physical Exam Vitals: Vital Signs Temp Pulse Pulse Resp BP BP Pulse Ox 05/06/17 16:00 98.0 F 70 18 178/75 92 L 05/06/17 08:00 98.0 F 61 18 145/65 93 L 05/06/17 03:58 98.2 F 68 16 120/55 93 L 05/06/17 01:00 98.2 F 67 16 124/58 92 L 05/05/17 21:00 61 18 175/69 05/05/17 20:22 97.9 F 62 16 208/86 94 L 05/05/17 19:53 98.3 F 58 L 18 163/63 96 Intake and Output 05/06/17 05/06/17 05/06/17 06:59 14:59 22:59 Intake Total 240 Balance 240 Intake: Oral 240 Other: Voiding Method Diaper # Voids 1 GENERAL EXAM: Alert, comfortable in no apparent distress. HEAD: Normocephalic. EYES: Normal reaction of pupils, equal size. Macular degeneration legally blind. NOSE: Clear with pink turbinates. THROAT: No erythema or exudates. NECK: No masses, no JVD. CHEST: No chest wall deformity. LUNGS: Equal air entry with crackles in the left lung base. CVS: S1 and S2 normal with no audible murmur, regular rhythm. ABDOMEN: No hepatosplenomegaly, normal bowel sounds, no guarding or rigidity. SPINE: No scoliosis or deformity SKIN: No rashes CENTRAL NERVOUS SYSTEM: No focal deficits, tone is normal in all 4 extremities. EXTREMITIES: There is no peripheral edema. No clubbing, no cyanosis. Peripheral pulses are intact. Results - Laboratory Findings CBC and BMP: 05/06/17 06:53 05/06/17 06:53 Abnormal lab findings: Abnormal Labs 05/05/17 05/05/17 05/05/17 15:21 15:21 19:32 WBC RDW 15.9 H Sodium 147 H Chloride 110 H Carbon Dioxide BUN 27 H Creatinine 1.17 H Glucose 110 H Urine Appearance Cloudy H Urine Protein 1+ H Ur Leukocyte Esterase Large H Urine WBC 161 H Urine WBC Clumps Few H Ur Squamous Epith Cells 28 H Amorphous Sediment Occasional H Urine Bacteria Few H Hyaline Casts 3 H Urine Mucus Rare H 05/06/17 05/06/17 06:53 06:53 WBC 3.7 L RDW 15.7 H Sodium 150 H Chloride 115 H Carbon Dioxide 21 L BUN 25 H Creatinine 1.17 H Glucose 111 H Urine Appearance Urine Protein Ur Leukocyte Esterase Urine WBC Urine WBC Clumps Ur Squamous Epith Cells Amorphous Sediment Urine Bacteria Hyaline Casts Urine Mucus - Diagnostic Findings Chest x-ray: image reviewed Assessment and Plan Plan: Assessment 1 chest pain, nonspecific, likely related to increased anxiety. Patient had a cardiac catheterization back in November 2016 and she had stenting to the LAD. Her current enzymes are nonelevated 2 coronary artery disease with previous coronary intervention and stenting of the LAD 3 COPD mild currently inactive in stable 4 legal blindness secondary to glaucoma and neck and degeneration 5 recurrent hypernatremia , may related to dehydration and diminished oral intake 6 failure to take care of her own medical needs at the home setting for the above-mentioned reasons and comorbidities, likely a candidate for mcc placement 7 diabetes mellitus 8 hypertension 9 previous history of pneumothorax treated 10 gentle arthritis 11 history of anxiety/depression Plan The patient was most likely anxious as the patient was unable to take care of herself and she was worried that she was becoming a burden to her family and his son. She also has medical needs that she is unable to take care of alone and she does not have the family supports to the care of her at her residence. Based on that I think it's reasonable to consider mcc placement for this patient. Her acute hypernatremia will be treated and the sodium level is anticipated to improve as the patient is being resuscitated IV fluids. Make sure there is no underlying urine checked infection urine cultures in progress. Currently on antibiotics. COPD stable. She is currently free of any chest pain. She is resting comfortably in bed.
[2017-05-06 17:23] LABS: Glucose,Whole Blood 105 mg/dL (75-99)
[2017-05-06] MEDS: SODIUM CHLORIDE 0.45% 1,000 ML IV SCH (17:44)
[2017-05-06] MEDS: PANTOPRAZOLE 40 MG/10 ML VIAL IVP SCH (17:45)
[2017-05-06] MEDS: ASPIRIN 81 MG PO SCH (17:47)
[2017-05-06] MEDS: OXYBUTYNIN XL 5 MG TAB.ER.24 PO SCH (20:10)
[2017-05-06] MEDS: risperiDONE 1 MG TAB PO SCH (20:10)
[2017-05-06] MEDS: MONTELUKAST 10 MG TAB PO SCH (20:10)
[2017-05-07 04:01] LABS: Hemoglobin A1C 5.2 % (4.0-6.0)
[2017-05-07] MEDS: SODIUM CHLORIDE 0.45% 1,000 ML IV SCH (04:58)
[2017-05-07] MEDS: SYMBICORT 160-4.5 MCG INHALER INHALATION SCH ×2 (07:29→20:12)
[2017-05-07 07:36] LABS: Glucose,Whole Blood 112 mg/dL (75-99)
[2017-05-07] MEDS: LOSARTAN 50 MG TAB PO SCH ×2 (09:24→20:54)
[2017-05-07] MEDS: METOPROLOL TARTRATE 12.5 MG TAB PO SCH ×2 (09:24→20:54)
[2017-05-07] MEDS: PANTOPRAZOLE 40 MG/10 ML VIAL IVP SCH (09:25)
[2017-05-07] MEDS: amLODIPine 5 MG TAB PO SCH (09:25)
[2017-05-07] MEDS: ALPRAZolam 0.25 MG TAB PO SCH ×2 (09:25→20:54)
[2017-05-07] MEDS: prednisoLONE ACETATE 1% OPHTH DROPS 5 ML BTL LEFT EYE SCH ×2 (09:25→20:55)
[2017-05-07] MEDS: DORZOLAMIDE HCL 2% DROPS 10 ML BTL RIGHT EYE SCH ×2 (09:27→20:53)
[2017-05-07] MEDS: BRIMONIDINE TARTRATE 0.2% DROPS 5 ML BTL RIGHT EYE SCH ×2 (09:27→20:54)
--- NOTE | 2017-05-07 09:31 | P.PN ---
Subjective Progress Note Date: 05/07/17 Principal diagnosis: Chest pain, nonspecific, likely related to anxiety. This is a 76-year-old female patient, legally blind secondary to macular degeneration in addition to multiple other medical problems including COPD, diabetes mellitus, hypertension, and coronary artery disease whereas been followed up in our office by Dr. Leigh. The patient is currently living with her son at home. The patient has been having difficulties with mobility. She does not have somebody taking care of her all the time. Her son and her [id number] are in the house probably at nighttime. During the day the patient is alone and she was very much worried that she would fall or get himself into trouble and for that reason she hasn't been moving and she had been able to take good care of herself. In addition she had refused to eat knowing that eating and drinking would make her urinating go to the bathroom when she was very much worried that she will not be able to go to the bathroom or she may sores herself. For that reason she hasn't been eating and she was getting progressively more dehydrated. She became very anxious and she started getting some extreme anxiety and chest pain and shortness of breath and for that reason the patient was brought into the hospital. The son was interviewed at the bedside. He states that he was concern for her safety especially with the above mentioned problems. It seems that they're more interested in pursuing this patient for permanent placement halfway and there interested in my [facility]. The patient is resting comfortably in bed. She has no specific complaints for now. She had hypernatremia which is being treated as the patient is being resuscitated IV fluids. She was obviously dilated at time of admission. She was in the hospital on multiple occasions. Her COPD is mild and the patient has an FEV1 of 87% of predicted and she has been maintained on a combination of Symbicort and albuterol solution on an as-needed basis. She has had also previous history of pneumothorax requiring insertion and removal of a chest tube. The patient has been involved in a previous myocardial infarction and she has undergone a stenting to the proximal/mid LAD back in November 2016. Her current chest x-ray shows no acute abnormalities. Her white cell count is not elevated. The renal function shows a creatinine of 1.1. She may have an underlying urine checked infection and this is being further investigated knowing that she has some pyuria. Culture is still pending for now. The chest x-ray showed left apical scarring. No C. diff can change compared to the previous examination from 05/01/2017. On 05/07/2017 patient seen in follow-up. She is ambulating to the bathroom with assistance, she stable on her feet, tolerates activity well. She states at times she is short of breath, but denies any wheezing, chest congestion, or sputum production. Her cough is dry, nonproductive. Lung sounds are clear to auscultation, no rhonchi, no rales or wheezes noted. She is on room air with O2 sat at 92%. Vital signs are stable, she is afebrile. She states she occasionally has episodes of chest pain that are not preceded by any exertion, they last about 2 minutes and feel like a pressure sensation in the sternum. She denies any dyspnea, denies any diaphoresis, nausea vomiting with those episodes. They resolve spontaneously. Patient's troponin has been negative. Her appetite is improving, she is consuming by 50% of the meals, per nursing staff. IV 0.45 is infusing at the rate of 75 ML per hour. We'll obtain CBC and BMP this morning, and check her electrolytes, and renal profile is well as her serum sodium. Objective - Vital Signs Vital signs: Vital Signs Temp 98.7 F 05/06/17 23:29 Pulse 61 05/06/17 23:29 Resp 18 05/07/17 03:30 BP 125/59 05/06/17 23:29 Pulse Ox 92 L 05/06/17 23:29 Intake & Output 05/06/17 05/07/17 05/07/17 18:59 06:59 18:59 Intake Total 240 240 Balance 240 240 Intake: Oral 240 240 Other: Voiding Method Toilet Toilet Diaper Diaper # Voids 2 1 - Exam GENERAL EXAM: Alert, comfortable in no apparent distress. HEAD: Normocephalic. EYES: Normal reaction of pupils, equal size. Macular degeneration legally blind. NOSE: Clear with pink turbinates. THROAT: No erythema or exudates. NECK: No masses, no JVD. CHEST: No chest wall deformity. LUNGS: Lung sounds are clear to auscultation CVS: S1 and S2 normal with no audible murmur, regular rhythm. ABDOMEN: No hepatosplenomegaly, normal bowel sounds, no guarding or rigidity. SPINE: No scoliosis or deformity SKIN: No rashes CENTRAL NERVOUS SYSTEM: No focal deficits, tone is normal in all 4 extremities. EXTREMITIES: There is no peripheral edema. No clubbing, no cyanosis. Peripheral pulses are intact. - Labs CBC & Chem 7: 05/06/17 06:53 05/06/17 06:53 Labs: Abnormal Lab Results - Last 24 Hours (Table) 05/06/17 05/07/17 Range/Units 17:13 07:32 POC Glucose (mg/dL) 105 H 112 H (75-99) mg/dL Assessment and Plan Plan: Assessment: 1 chest pain, nonspecific, likely related to increased anxiety. Patient had a cardiac catheterization back in November 2016 and she had stenting to the LAD. Her current enzymes are nonelevated 2 coronary artery disease with previous coronary intervention and stenting of the LAD 3 COPD mild currently inactive in stable 4 legal blindness secondary to glaucoma and neck and degeneration 5 recurrent hypernatremia , may related to dehydration and diminished oral intake 6 failure to take care of her own medical needs at the home setting for the above-mentioned reasons and comorbidities, likely a candidate for halfway placement 7 diabetes mellitus 8 hypertension 9 previous history of pneumothorax treated 10 gentle arthritis 11 history of anxiety/depression Plan: We'll obtain an EKG, patient reported intermittent episodes of chest pain, self limiting. Troponin was negative on admission. Patient denies any nausea, diaphoresis, or dyspnea with those episodes. Other vitals are stable, patient is afebrile. Lung sounds are clear to auscultation, encourage oral intake, continue 0.45 at 75 ML per hour, will obtain blood work this morning, to recheck electrolytes, and serum sodium level. Continue with current treatment. I performed a history & physical examination of the patient and discussed their management with my nurse practitioner, Annie Victor. I reviewed the nurse practitioner's note and agree with the documented findings and plan of care. Lung sounds are clear. The findings and the impression was discussed with the patient. I attest to the documentation by the nurse practitioner. Time with Patient: Less than 30
[2017-05-07] MEDS ORDERED: NITROGLYCERIN SL TABS 0.4 MG TAB SUBLINGUAL PRN (10:39)
[2017-05-07 11:13] LABS: Basophils % (A) 1 %; Eosinophils # (A) 0.2 k/uL (0-0.7); Eosinophils % (A) 4 %; HCT 35.1 % (34.0-46.0); HGB 12.4 gm/dL (11.4-16.0); Lymphocytes # (A) 0.9 k/uL (1.0-4.8); Lymphocytes % (A) 23 %; MCH 30.8 pg (25.0-35.0); MCHC 35.2 g/dL (31.0-37.0); MCV 87.5 fL (80.0-100.0); Mean Platelet Volume 7.3; Monocytes # (A) 0.2 k/uL (0-1.0); Monocytes % (A) 6 %; Neutrophils # (A) 2.6 k/uL (1.3-7.7); Neutrophils % (A) 65 %; Platelet Count 157 k/uL (150-450); Poikilocytosis Slight; RBC 4.02 m/uL (3.80-5.40); RDW 15.8 % (11.5-15.5)
[2017-05-07 11:25] LABS: Calcium 9.1 mg/dL (8.4-10.2); Potassium 3.8 mmol/L (3.5-5.1)
[2017-05-07] MEDS: cefTRIAXone IN SWFI 1,000 MG/10 ML SYRINGE IVP SCH (12:05)
[2017-05-07] MEDS: DEXTROSE 5% IN WATER 1,000 ML IV SCH (12:06)
[2017-05-07] MEDS: CLOPIDOGREL 75 MG TAB PO SCH (12:07)
[2017-05-07 12:18] LABS: Glucose,Whole Blood 117 mg/dL (75-99)
[2017-05-07 16:56] LABS: Glucose,Whole Blood 128 mg/dL (75-99)
[2017-05-07] MEDS: ASPIRIN 81 MG PO SCH (17:20)
[2017-05-07] MEDS ORDERED: CHOLECALCIFEROL 1,000 UNIT TAB PO SCH (17:30)
--- NOTE | 2017-05-07 20:00 | PN ---
PROGRESS NOTE DATE OF SERVICE: 05/07/2017 This 76-year-old woman who was admitted with chest pain also had hypernatremia. Patient also had a possible UTI. The patient is being closely monitored. Patient also had gait dysfunction. ECF rehab is also being planned. No chest pain. No palpitation. PHYSICAL EXAMINATION: Alert and oriented x2. Pulse 62, blood pressure 175/91, respiration 18, temperature 98.4, pulse ox 92% on room air. HEENT: Conjunctivae normal. NECK: No jugular venous distention. CARDIOVASCULAR SYSTEM: S1, S2 muffled. RESPIRATORY SYSTEM: Breath sounds diminished at the bases. A few scattered rhonchi. No crackles. ABDOMEN: Soft, non-tender. LEGS: No edema. No swelling. NERVOUS SYSTEM: Diffusely weak. LABS: Creatinine 1.10. Sodium is 150. ASSESSMENT: 1. Chest pain, possibly musculoskeletal. 2. Hyponatremia; hypovolemic hyponatremia. 3. Dehydration with renal failure. 4. Acute urinary tract infection, present on admission. 5. Possible mild acute gastritis. 6. Chronic obstructive pulmonary disease. 7. Diabetes mellitus, type 2. 8. History of chronic obstructive pulmonary disease. 9. Asthma. 10.Myocardial infarction. 11.History of chronic obstructive pulmonary disease. 12.Coronary artery disease, stent. 13.Anxiety, depression. 14.Gait dysfunction. RECOMMENDATIONS AND DISCUSSION: I recommend to continue current medication, continue symptomatic treatment. I will initiate broad-spectrum IV antibiotics. Continue with the IV fluids; change to D5 water. Otherwise repeat labs, PT/OT evaluation, possible ECF rehab. Guarded prognosis. Further recommendations to follow. MMODL / IJN: [id number] /
[2017-05-07 20:27] LABS: Glucose,Whole Blood 135 mg/dL (75-99)
[2017-05-07] MEDS: MONTELUKAST 10 MG TAB PO SCH (20:54)
[2017-05-07] MEDS: risperiDONE 1 MG TAB PO SCH (20:54)
[2017-05-07] MEDS: OXYBUTYNIN XL 5 MG TAB.ER.24 PO SCH (20:54)
[2017-05-07] MEDS ORDERED: MELATONIN 3 MG TABLET PO SCH (21:00)
[2017-05-07] MEDS ORDERED: ATORVASTATIN 10 MG TAB PO SCH (21:00)
[2017-05-08 03:44] VITALS: RESP 16
[2017-05-08] MEDS: DEXTROSE 5% IN WATER 1,000 ML IV SCH (04:17)
[2017-05-08 06:57] LABS: Glucose,Whole Blood 133 mg/dL (75-99)
[2017-05-08] MEDS ORDERED: PANTOPRAZOLE 40 MG TABLET PO SCH (07:30)
[2017-05-08 07:44] LABS: Basophils % (A) 1 %; Eosinophils # (A) 0.2 k/uL (0-0.7); Eosinophils % (A) 5 %; HCT 34.5 % (34.0-46.0); Hyperchromasia Slight; Lymphocytes % (A) 27 %; MCH 30.5 pg (25.0-35.0); MCHC 34.7 g/dL (31.0-37.0); Mean Platelet Volume 7.4; Monocytes # (A) 0.2 k/uL (0-1.0); Monocytes % (A) 6 %; Neutrophils # (A) 2.2 k/uL (1.3-7.7); Neutrophils % (A) 58 %; Platelet Count 159 k/uL (150-450); Poikilocytosis Slight; RBC 3.92 m/uL (3.80-5.40); RDW 15.8 % (11.5-15.5); WBC 3.8 k/uL (3.8-10.6)
[2017-05-08] MEDS: SYMBICORT 160-4.5 MCG INHALER INHALATION SCH (07:52)
[2017-05-08 07:59] LABS: Calcium 9.2 mg/dL (8.4-10.2); Potassium 3.7 mmol/L (3.5-5.1)
[2017-05-08 08:34] VITALS: BP 140/65; PULSE 54; TEMP 97.9
[2017-05-08] MEDS ORDERED: ISOSORBIDE MONONITRATE ER 30 MG TAB.ER.24H PO SCH (09:00)
[2017-05-08] MEDS: amLODIPine 5 MG TAB PO SCH (09:17)
[2017-05-08] MEDS: ALPRAZolam 0.25 MG TAB PO SCH (09:17)
[2017-05-08] MEDS: METOPROLOL TARTRATE 12.5 MG TAB PO SCH (09:18)
[2017-05-08] MEDS: CLOPIDOGREL 75 MG TAB PO SCH (09:18)
[2017-05-08] MEDS: cefTRIAXone IN SWFI 1,000 MG/10 ML SYRINGE IVP SCH (09:18)
[2017-05-08] MEDS: LOSARTAN 50 MG TAB PO SCH (09:18)
--- NOTE | 2017-05-08 10:22 | CDI ---
Last Revision, January 2017 Documentation Clarification Form Date: 05/08/17 1020 From: Pamella Carrillo RN, CCDS Admit Date: 05/07/2017 9:33:00 PM Patient Name: Juliann Davalos Visit Number: [id number] ATTENTION: The Clinical Documentation Specialists (CDI) and [facility] Coding Staff appreciate your assistance in clarifying documentation. Please respond to the clarification below the line at the bottom and electronically sign. The CDI & [facility] Coding staff will review the response and follow-up if needed. Please note: Queries are made part of the Legal Health Record. If you have any questions, please contact the author of this message via ITS. Dr. Saadia Breaux History/Risk Factors: HTN, DM Clinical Indicators: 05/07/17 Attending Progress Note: "Dehydration with renal failure." Current BUN: / CR: 1.17/1.1/1.16 GFR: 45/49/46 05/01/17 Patients Baseline: BUN/CR/GFR: /1.35/38 Treatment: IVF: 0.9% NS 500 cc ivf bolus followed by .45%NS @ 75 cc/hr In order to capture the severity of condition, please clarify if the condition signifies: CKD Stage 1 (GFR > 90) CKD Stage 2 (GFR 60-89) CKD Stage 3 (GFR 30-59) CKD Stage 4 (GFR 15-29) CKD Stage 5 (GFR <15) ESRD Other, please specify Unable to determine Please continue to document in your progress notes and discharge summary in order to capture severity of illness and risk of mortality. Include clinical findings that support your diagnosis. CKD Stage 3 (GFR 30-59) MTDD
[2017-05-08] MEDS: prednisoLONE ACETATE 1% OPHTH DROPS 5 ML BTL LEFT EYE SCH (11:41)
[2017-05-08] MEDS: BRIMONIDINE TARTRATE 0.2% DROPS 5 ML BTL RIGHT EYE SCH (11:42)
[2017-05-08] MEDS: DORZOLAMIDE HCL 2% DROPS 10 ML BTL RIGHT EYE SCH (11:42)
--- NOTE | 2017-05-08 11:44 | P.DS ---
Providers Date of admission: 05/07/17 21:33 Expected date of discharge: 05/08/17 Attending physician: Renata Breaux. Consults: Dr. Ellis, pulmonary Primary care physician: [facility] Course: Final Diagnoses: -Chest pain: Secondary to anxiety which is again secondary to unfamiliar place an patient's blindness. We'll work on her placement. -Hyponatremia: Hypovolemic hypernatremia patient was started on half-normal saline gentle hydration. -Possible mild gastritis for which patient will be started on Protonix -Contaminated urine sample my suspicion is low for urinary tract infection -COPD Without any acute exacerbation -type 2 diabetes mellitus: Patient will be resumed on home regimen monitor blood sugars. Hospital course: This is a 76 -year-old female admitted with chest pain , anxiety, hyponatremia, dehydration. Per family the patient is legally blind and moved in. The patient is at home a lot and is having episodes of extreme anxiety, chest pain, and shortness of breath. She recently went 2-3 days without eating secondary to being afraid of leaving her room and finding the bathroom. Today the patient had a similar event and required 2 nitro tabs to decrease her chest pain. Family state at this time they are concerned for her safety at home since they are unable to be with her at all times. The patient was seen in the ED a few days prior and was diagnosed with a UTI and dehydration. They state her symptoms have not improved since then. Urine sample is a contaminated urine sample. EKG and troponins are not consistent with the cardiac chest pain. Evaluated by pulmonary. Maintained on gentle IV fluid hydration, IV antibiotics. Significant clinical improvement. Cleared by consults for discharge. Patient is being discharged to [facility] subacute rehab in a stable condition with guarded prognosis. PHYSICAL EXAMINATION: GENERAL: The patient is alert and oriented x3, not in any acute distress. CARDIOVASCULAR: S1 and S2 present. No murmurs, rubs, or gallops. PULMONARY: Chest is clear to auscultation, no wheezing or crackles. ABDOMEN: Soft, nontender, nondistended, normoactive bowel sounds. NEUROLOGICAL: Gross neurological examination did not reveal any focal deficits. The impression and plan of care has been dictated as directed. : I performed a history and examination of this patient, discussed the same with the dictator. I agree with the dictator's note ,documented as a scribe. Any additional findings or plans will be noted. Time taken: 35 minutes Patient Condition at Discharge: Stable Plan - Discharge Summary New Discharge Prescriptions: New Albuterol Nebulized [Ventolin Nebulized] 2.5 mg INHALATION QID nebu Pantoprazole [Protonix] 40 mg PO AC-BRKFST tablet. Levofloxacin [Levaquin] 500 mg PO DAILY #5 tab ALPRAZolam [Xanax] 0.25 mg PO Q8H PRN #20 tab PRN Reason: Anxiety risperiDONE [RisperDAL] 0.5 mg PO HS tab INSULIN LISPRO (HumaLOG) [humaLOG] 0 unit SQ ACHS #1 vial Continue Montelukast [Singulair] 10 mg PO HS Clopidogrel [Plavix] 75 mg PO QAM Tolterodine ER [Detrol LA] 4 mg PO HS Brimonidine Tartrate [Alphagan P 0.1% Ophth Soln] 1 drop RIGHT EYE BID Brinzolamide [Azopt 1% Ophth Susp] 1 drop RIGHT EYE BID prednisoLONE ACETATE 1% OPHTH [Pred Forte 1%] 1 drop LEFT EYE BID Melatonin 3 mg PO HS Budesonide-Formot 160-4.5 Mcg [Symbicort 160-4.5 Mcg Inhaler] 2 puff INHALATION RT-BID puff Cholecalciferol [Vitamin D3] 1,000 unit PO W/SUPPER Nitroglycerin Sl Tabs [Nitrostat] 0.4 mg SUBLINGUAL Q5M PRN tab PRN Reason: Chest Pain Losartan Potassium [Cozaar] 50 mg PO BID Metoprolol Tartrate [Lopressor] 12.5 mg PO BID #60 tab Aspirin 81 mg PO W/SUPPER amLODIPine [Norvasc] 5 mg PO QAM Isosorbide Mononitrate ER [Imdur] 30 mg PO DAILY #30 tab.er.24h Rosuvastatin Calcium [Crestor] 5 mg PO HS Mirabegron [Myrbetriq] 50 mg PO DAILY Discontinued Albuterol Inhaler [Ventolin Hfa Inhaler] 2 puff INHALATION RT-Q6H PRN PRN Reason: Shortness Of Breath Nitrofurantoin Monohyd/M-Cryst [Macrobid] 100 mg PO Q12HR #10 cap Discharge Medication List Clopidogrel [Plavix] 75 mg PO QAM 09/29/13 [History] Montelukast [Singulair] 10 mg PO HS 09/29/13 [History] Tolterodine ER [Detrol LA] 4 mg PO HS 01/10/15 [History] Brimonidine Tartrate [Alphagan P 0.1% Ophth Soln] 1 drop RIGHT EYE BID 11/26/15 [History] Brinzolamide [Azopt 1% Ophth Susp] 1 drop RIGHT EYE BID 11/26/15 [History] prednisoLONE ACETATE 1% OPHTH [Pred Forte 1%] 1 drop LEFT EYE BID 11/26/15 [ History] Melatonin 3 mg PO HS 05/11/16 [History] Budesonide-Formot 160-4.5 Mcg [Symbicort 160-4.5 Mcg Inhaler] 2 puff INHALATION RT-BID puff 05/14/16 [Rx] Cholecalciferol [Vitamin D3] 1,000 unit PO W/SUPPER 06/30/16 [History] Nitroglycerin Sl Tabs [Nitrostat] 0.4 mg SUBLINGUAL Q5M PRN tab 12/09/16 [Rx] Losartan Potassium [Cozaar] 50 mg PO BID 01/26/17 [History] Metoprolol Tartrate [Lopressor] 12.5 mg PO BID #60 tab 01/29/17 [Rx] Aspirin 81 mg PO W/SUPPER 03/27/17 [History] amLODIPine [Norvasc] 5 mg PO QAM 03/27/17 [History] Isosorbide Mononitrate ER [Imdur] 30 mg PO DAILY #30 tab.er.24h 03/29/17 [Rx] Rosuvastatin Calcium [Crestor] 5 mg PO HS 05/01/17 [History] Mirabegron [Myrbetriq] 50 mg PO DAILY 05/05/17 [History] Albuterol Nebulized [Ventolin Nebulized] 2.5 mg INHALATION QID nebu 05/07/17 [ Rx] Pantoprazole [Protonix] 40 mg PO AC-BRKFST tablet. 05/07/17 [Rx] ALPRAZolam [Xanax] 0.25 mg PO Q8H PRN #20 tab 05/08/17 [Rx] INSULIN LISPRO (HumaLOG) [humaLOG] 0 unit SQ ACHS #1 vial 05/08/17 [Rx] Levofloxacin [Levaquin] 500 mg PO DAILY #5 tab 05/08/17 [Rx] risperiDONE [RisperDAL] 0.5 mg PO HS tab 05/08/17 [Rx] Follow up Appointment(s)/Referral(s): Hector Byrd DO [Primary Care Provider] - 1 Week (After DC from subacute rehab ) Nicholas Villegas DO [STAFF PHYSICIAN] - 3 Days (while at Sub acute rehab) Patient Instructions/Handouts: Generalized Anxiety Disorder (ED) Activity/Diet/Wound Care/Special Instructions: CBC,bmp in 3 days DIet: Consistent carb, Accu-Cheks before meals and at bedtime with sliding scale as ordered Activity: As tolerated
[2017-05-08 12:29] LABS: Glucose,Whole Blood 130 mg/dL (75-99)
--- NOTE | 2017-05-08 14:44 | P.PN ---
Subjective Progress Note Date: 05/08/17 Principal diagnosis: Chest pain, nonspecific, likely related to anxiety. This is a 76-year-old female patient, legally blind secondary to macular degeneration in addition to multiple other medical problems including COPD, diabetes mellitus, hypertension, and coronary artery disease whereas been followed up in our office by Dr. Leigh. The patient is currently living with her son at home. The patient has been having difficulties with mobility. She does not have somebody taking care of her all the time. Her son and her [id number] are in the house probably at nighttime. During the day the patient is alone and she was very much worried that she would fall or get himself into trouble and for that reason she hasn't been moving and she had been able to take good care of herself. In addition she had refused to eat knowing that eating and drinking would make her urinating go to the bathroom when she was very much worried that she will not be able to go to the bathroom or she may sores herself. For that reason she hasn't been eating and she was getting progressively more dehydrated. She became very anxious and she started getting some extreme anxiety and chest pain and shortness of breath and for that reason the patient was brought into the hospital. The son was interviewed at the bedside. He states that he was concern for her safety especially with the above mentioned problems. It seems that they're more interested in pursuing this patient for permanent placement snf and there interested in my [employer] [facility]. The patient is resting comfortably in bed. She has no specific complaints for now. She had hypernatremia which is being treated as the patient is being resuscitated IV fluids. She was obviously dilated at time of admission. She was in the hospital on multiple occasions. Her COPD is mild and the patient has an FEV1 of 87% of predicted and she has been maintained on a combination of Symbicort and albuterol solution on an as-needed basis. She has had also previous history of pneumothorax requiring insertion and removal of a chest tube. The patient has been involved in a previous myocardial infarction and she has undergone a stenting to the proximal/mid LAD back in November 2016. Her current chest x-ray shows no acute abnormalities. Her white cell count is not elevated. The renal function shows a creatinine of 1.1. She may have an underlying urine checked infection and this is being further investigated knowing that she has some pyuria. Culture is still pending for now. The chest x-ray showed left apical scarring. No C. diff can change compared to the previous examination from 05/01/2017. On 05/07/2017 patient seen in follow-up. She is ambulating to the bathroom with assistance, she stable on her feet, tolerates activity well. She states at times she is short of breath, but denies any wheezing, chest congestion, or sputum production. Her cough is dry, nonproductive. Lung sounds are clear to auscultation, no rhonchi, no rales or wheezes noted. She is on room air with O2 sat at 92%. Vital signs are stable, she is afebrile. She states she occasionally has episodes of chest pain that are not preceded by any exertion, they last about 2 minutes and feel like a pressure sensation in the sternum. She denies any dyspnea, denies any diaphoresis, nausea vomiting with those episodes. They resolve spontaneously. Patient's troponin has been negative. Her appetite is improving, she is consuming by 50% of the meals, per nursing staff. IV 0.45 is infusing at the rate of 75 ML per hour. We'll obtain CBC and BMP this morning, and check her electrolytes, and renal profile is well as her serum sodium. 2017 patient seen in follow-up. Denies any acute distress, afebrile, vital signs are stable. She denies any further episodes of chest pain. Denies any dyspnea. Today's lab work was reviewed, and her sodium is within normal limits at 145, B1 is 20, creatinine is 1.16. Patient's appetite is improving. No acute events overnight. Patient has been ambulating with assistance. From pulmonary standpoint patient is stable for discharge to [facility] today. Objective - Vital Signs Vital signs: Vital Signs Temp 97.9 F 05/08/17 08:00 Pulse 54 L 05/08/17 12:18 Resp 16 05/08/17 12:18 BP 140/65 05/08/17 08:00 Pulse Ox 94 L 05/08/17 08:00 Intake & Output 05/07/17 05/08/17 05/08/17 18:59 06:59 18:59 Intake Total 820 990 75 Balance 820 990 75 Intake: IV 750 Dextrose 5% in Water 1, 750 000 ml @ 75 mls/hr IV . [id number] Rx#:[id number] Oral 720 240 75 Other 100 Other: Voiding Method Toilet Toilet Toilet Diaper Diaper Diaper Incontinent Incontinent # Voids 1 2 3 - Exam GENERAL EXAM: Alert, comfortable in no apparent distress. HEAD: Normocephalic. EYES: Normal reaction of pupils, equal size. Macular degeneration legally blind. NOSE: Clear with pink turbinates. THROAT: No erythema or exudates. NECK: No masses, no JVD. CHEST: No chest wall deformity. LUNGS: Lung sounds are clear to auscultation CVS: S1 and S2 normal with no audible murmur, regular rhythm. ABDOMEN: No hepatosplenomegaly, normal bowel sounds, no guarding or rigidity. SPINE: No scoliosis or deformity SKIN: No rashes CENTRAL NERVOUS SYSTEM: No focal deficits, tone is normal in all 4 extremities. EXTREMITIES: There is no peripheral edema. No clubbing, no cyanosis. Peripheral pulses are intact. - Labs CBC & Chem 7: 05/08/17 07:20 05/08/17 07:20 Labs: Abnormal Lab Results - Last 24 Hours (Table) 05/07/17 05/07/17 05/08/17 Range/Units 16:53 20:23 06:52 RDW (11.5-15.5) % Chloride (98-107) mmol/L BUN (7-17) mg/dL Creatinine (0.52-1.04) mg/dL Glucose (74-99) mg/dL POC Glucose (mg/dL) 128 H 135 H 133 H (75-99) mg/dL 05/08/17 05/08/17 05/08/17 Range/Units 07:20 07:20 12:23 RDW 15.8 H (11.5-15.5) % Chloride 109 H (98-107) mmol/L BUN 20 H (7-17) mg/dL Creatinine 1.16 H (0.52-1.04) mg/dL Glucose 126 H (74-99) mg/dL POC Glucose (mg/dL) 130 H (75-99) mg/dL Microbiology - Last 24 Hours (Table) 05/07/17 11:44 Blood Culture - Preliminary Blood No Growth after 24 hours 05/07/17 19:57 Urine Culture - Preliminary Urine,Clean Catch Assessment and Plan Plan: Assessment: 1 chest pain, nonspecific, likely related to increased anxiety. Patient had a cardiac catheterization back in November 2016 and she had stenting to the LAD. Her current enzymes are nonelevated 2 coronary artery disease with previous coronary intervention and stenting of the LAD 3 COPD mild currently inactive in stable 4 legal blindness secondary to glaucoma and neck and degeneration 5 recurrent hypernatremia , may related to dehydration and diminished oral intake 6 failure to take care of her own medical needs at the home setting for the above-mentioned reasons and comorbidities, likely a candidate for snf placement 7 diabetes mellitus 8 hypertension 9 previous history of pneumothorax treated 10 gentle arthritis 11 history of anxiety/depression Plan: Yesterday's EKG was reviewed, there are no, sinus rhythm at 61 BPM. Vital signs are stable, patient denies any further episodes of chest pain. Lung sounds are clear, patient denies any dyspnea. Serum sodium is now within normal limits at 145. From pulmonary standpoint patient is stable for discharge to [facility] today. I performed a history & physical examination of the patient and discussed their management with my nurse practitioner, Annie Victor. I reviewed the nurse practitioner's note and agree with the documented findings and plan of care. Lung sounds are clear. The findings and the impression was discussed with the patient. I attest to the documentation by the nurse practitioner. Time with Patient: Less than 30
--- NOTE | 2017-06-05 08:06 | CDI ---
Last Revision, January 2017 Documentation Clarification Form Date: 06/05/17 From: Kianastan Lamb [place] Odom, Neurology Stroke Physician between 8:30 am & 5 pm Monique Admit Date: 05/07/2017 9:33:00 PM Patient Name: Juliann Davalos Visit Number: [id number] Discharge Date: 05/08/17 ATTENTION: The Clinical Documentation Specialists (CDI) and [facility] Coding Staff appreciate your assistance in clarifying documentation. Please respond to the clarification below the line at the bottom and electronically sign. The CDI & [facility] Coding staff will review the response and follow-up if needed. Please note: Queries are made part of the Legal Health Record. If you have any questions, please contact the author of this message via ITS. Dr. Saadia Breaux, The patient was placed in observation on 05/05 then converted to an Inpatient on 05/07. She presented with chest pain, anxiety, dehydration, hyponatremia/ hypernatremia. Patient history/risk factors: blindness, COPD, DM, CAD Lab findings: Na 147, Cr 1.17, BUN 25, Cl 115 Radiology findings: mild chronic density at the left lung base consistent w scarring. No change compared to old exam. No heart failure. Apical pleural and pulmonary scarring. Treatment: Nitro, IV Dextrose 5% in water, IV Rocephin The patients principal diagnosis has not been clearly identified and requires clarification. In your professional opinion, can you please clarify which diagnosis, after study, accounted for the patients presenting symptoms and was the reason chiefly responsible for the admission? Please continue to document in your progress notes and discharge summary in order to capture severity of illness and risk of mortality. Include clinical findings that support your diagnosis. ALready documented in the d/c summary MTDD
--- NOTE | 2017-06-05 09:03 | CDI ---
Last Revision, January 2017 Documentation Clarification Form Date: 06/05/17 From: Kiana Adonis [place] Odom, Opto Mechanical Technician between 8:30 am & 5 pm Monique Admit Date: 05/07/2017 9:33:00 PM Patient Name: Juliann Davalos Visit Number: [id number] Discharge Date: 05/08/17 ATTENTION: The Clinical Documentation Specialists (CDI) and [facility] Coding Staff appreciate your assistance in clarifying documentation. Please respond to the clarification below the line at the bottom and electronically sign. The CDI & [facility] Coding staff will review the response and follow-up if needed. Please note: Queries are made part of the Legal Health Record. If you have any questions, please contact the author of this message via ITS. Dr. Saadia Breaux, Acute renal failure is documented in the ED record, but in your progress notes or discharge summary. Labs: BUN-27, Cr-1.17 Treatment: Saline 0.45% IV 1000ml 75 mls Please document confirmation of the diagnosis of acute renal failure discharge summary, along with its associated clinical indicators (i.e., signs, symptoms, findings, treatments, monitoring). If this condition was ruled out or documented in error, please indicate in your progress notes and/or discharge summary. Please continue to document in your progress notes and discharge summary in order to capture severity of illness and risk of mortality. Include clinical findings that support your diagnosis. already documented. no acute renal failure MTDD
--- NOTE | 2017-06-05 09:11 | CDI ---
Last Revision, January 2017 Documentation Clarification Form Date: 06/05/17 From: Kiana Lamb [place] Odom, Dressed Poultry Grader between 8:30 am & 5 pm Monique Admit Date: 05/07/2017 9:33:00 PM Patient Name: Juliann Davalos Visit Number: [id number] Discharge Date: 05/08/17 ATTENTION: The Clinical Documentation Specialists (CDI) and [facility] Coding Staff appreciate your assistance in clarifying documentation. Please respond to the clarification below the line at the bottom and electronically sign. The CDI & [facility] Coding staff will review the response and follow-up if needed. Please note: Queries are made part of the Legal Health Record. If you have any questions, please contact the author of this message via ITS. Dr. Saadia Breaux, Conflicting documentation has been found in the medical record. Per H&P, 05/07 PN and discharge summary state hyponatremia, hypovolemic hyponatremia. She was started on half normal saline gentle hydration. History/Risk Factors: blindness, COPD, DM, CAD Clinical Indicators: NA: 147, 150, 147, 145 In your opinion what is the most clinically appropriate diagnosis for this patient? Hyponatremia Hypernatremia Other explanation of clinical findings Unable to determine (no explanation for clinical findings) Please continue to document in your progress notes and discharge summary in order to capture severity of illness and risk of mortality. Include clinical findings that support your diagnosis. already done 06/05/17 already done MTDD
== END 2017-05-08 13:32 | DRG 880 ==
LOC: EC 14:34 → 3OBS 19:19 → OBSVTOIN 05-07 21:33
PROVIDERS: ADMIT Internal Medicine; ATTEND Internal Medicine
DX: F41.9 Anxiety disorder, unspecified (principal); E11.22 Type 2 diabetes mellitus with diabetic chronic kidney disease; E87.0 Hyperosmolality and hypernatremia; E86.0 Dehydration; H54.8 Legal blindness, as defined in USA; J43.9 Emphysema, unspecified; E86.1 Hypovolemia; R07.9 Chest pain, unspecified; K29.70 Gastritis, unspecified, without bleeding; N18.3 Chronic kidney disease, stage 3 (moderate); I12.9 Hypertensive chronic kidney disease with stage 1 through stage 4 chronic kidney disease, or unspecified chronic kidney disease; H35.30 Unspecified macular degeneration; H40.9 Unspecified glaucoma; F32.9 Major depressive disorder, single episode, unspecified; J45.909 Unspecified asthma, uncomplicated; E78.5 Hyperlipidemia, unspecified; I25.10 Atherosclerotic heart disease of native coronary artery without angina pectoris; M19.91 Primary osteoarthritis, unspecified site; R26.9 Unspecified abnormalities of gait and mobility; I25.2 Old myocardial infarction; Z79.82 Long term (current) use of aspirin; Z79.02 Long term (current) use of antithrombotics/antiplatelets; Z79.51 Long term (current) use of inhaled steroids; Z79.899 Other long term (current) drug therapy; Z95.5 Presence of coronary angioplasty implant and graft; Z90.49 Acquired absence of other specified parts of digestive tract; Z90.710 Acquired absence of both cervix and uterus; Z96.651 Presence of right artificial knee joint; Z87.891 Personal history of nicotine dependence; Z86.73 Personal history of transient ischemic attack (TIA), and cerebral infarction without residual deficits; Z98.41 Cataract extraction status, right eye; Z88.5 Allergy status to narcotic agent; Z88.8 Allergy status to other drugs, medicaments and biological substances; Z82.49 Family history of ischemic heart disease and other diseases of the circulatory system; Z82.1 Family history of blindness and visual loss; Z82.5 Family history of asthma and other chronic lower respiratory diseases
CPT/HCPCS: 36415; 71046; 80048; 80053; 80306; 81001; 83036; 83735; 84443; 84484; 85025; 87040; 87086; 93005; 94640; 96360; 99284

== ENCOUNTER 2019-01-01 08:18 | Inpatient (IN) | payer MEDICARE, OTHER ==
[2019-01-01] MEDS ORDERED: HYDROcodone/APAP 7.5-325MG 1 EACH TAB PO ONE (08:30)
[2019-01-01 08:45] LABS: Basophils % (A) 1 %; Eosinophils # (A) 0.1 k/uL (0-0.7); Eosinophils % (A) 3 %; HCT 40.8 % (34.0-46.0); HGB 13.6 gm/dL (11.4-16.0); Lymphocytes # (A) 1.1 k/uL (1.0-4.8); Lymphocytes % (A) 24 %; MCH 29.6 pg (25.0-35.0); MCHC 33.3 g/dL (31.0-37.0); Mean Platelet Volume 6.2; Monocytes # (A) 0.2 k/uL (0-1.0); Monocytes % (A) 5 %; Neutrophils # (A) 3.1 k/uL (1.3-7.7); Neutrophils % (A) 67 %; Platelet Count 151 k/uL (150-450); RBC 4.58 m/uL (3.80-5.40); RDW 14.8 % (11.5-15.5); WBC 4.6 k/uL (3.8-10.6)
[2019-01-01 08:56] LABS: Albumin 3.9 g/dL (3.5-5.0); Calcium 9.2 mg/dL (8.4-10.2); Potassium 4.2 mmol/L (3.5-5.1); Total Bilirubin 0.4 mg/dL (0.2-1.3); Total Protein 7.1 g/dL (6.3-8.2)
--- NOTE | 2019-01-01 09:32 | XR ---
EXAMINATION TYPE: XR wrist complete LT DATE OF EXAM: 01/01/2019 CLINICAL HISTORY: Fall, pain TECHNIQUE: 4 views of the left wrist. COMPARISON: None FINDINGS: Diffuse osseous demineralization limits assessment for nondisplaced fractures. Mildly displaced fract ure through the radial styloid. No displaced fracture visualized elsewhere. No joint malalignment. Po sitive ulnar variance. Joint spaces are maintained. Mild degenerative changes at the first carpometac arpal joint. IMPRESSION: Mildly displaced fracture through the radial styloid.
--- NOTE | 2019-01-01 09:36 | XR ---
EXAMINATION TYPE: XR femur RT, XR Hip Bilateral and AP pelvis DATE OF EXAM: 01/01/2019 CLINICAL HISTORY: Pelvic and right hip pain. TECHNIQUE: A single AP view of the pelvis is obtained. Two views of the right hip are obtained. 2 vie ws of the right femur. COMPARISON: None. FINDINGS: Diffuse osseous demineralization limits assessment, nondisplaced fractures can be radiographically oc cult. Pelvis and hips: Ilioischial and iliopectineal lines are intact. No gross disruption of the sacral ar teresa lines. Sacroiliac joints and pubic symphysis are congruent. No displaced fracture. Both hips ar e located. Bilateral coxa profunda. Mild-moderate degenerative changes of both hip joints. Right femur: No displaced fracture. Total knee arthroplasty hardware present. No significant capsular distention at the knee. IMPRESSION: No displaced fracture or dislocation.
--- NOTE | 2019-01-01 09:51 | CT ---
EXAMINATION TYPE: CT brain jesus manuel wo con DATE OF EXAM: 01/01/2019 COMPARISON: Chest CT 01/26/2017 HISTORY: Fall TECHNIQUE: 1. Axial CT images of the head without contrast. Bone windows and sagittal and coronal reformats were reviewed. 2. Axial CT images of the cervical spine without contrast. Bone windows and sagittal and coronal refo rmats were reviewed. 3. CT DLP: 1481.1 mGycm Automated exposure control for dose reduction was used. FINDINGS: CT Head: No acute intracranial hemorrhage. Multifocal areas of encephalomalacia affecting the left cerebellar hemisphere, right occipital lobe, right parietal lobe, and right frontal lobe, likely sequela of prio r vascular insults. Scattered periventricular and deep cortical white matter areas of low attenuation , likely representing sequela of chronic microangiopathy. No acute loss of hinson-white matter differen tiation to suggest large territorial infarction. Mild cerebral volume loss with appropriate size and morphology of the ventricular system. No extra-ax ial fluid collections or midline shift of structures. Patent basal cisterns. No depressed or displaced calvarial fracture. Intracranial vascular calcifications. Visualized parana carine sinuses and temporal bone structures are well aerated. The orbits and skull base are unremarkable . CT Cervical Spine: The cervical spine is imaged through T3. Vertebral bodies and facet joints are anatomically aligned. No fracture. Vertebral body heights are maintained. Mild-moderate degenerative changes throughout the cervical spine without severe osseous impingement u herbert the spinal canal. Multilevel neural foraminal impingement. No prevertebral edema or soft tissue abnormality. Lung apices demonstrate parenchymal thickening and paraseptal blebs. The right apical pleural line follows the contour of the right lung apex which demo nstrates a morphologic difference from comparative chest CT performed January 2017. IMPRESSION: 1. 1. No acute intracranial abnormality. Scattered areas of encephalomalacia due to remote vascular i njuries. 2. No acute traumatic injury of the cervical spine. 3. Biapical paraseptal blebs with morphologic changes from prior CT chest performed in January 2017 that are concerning for right apical pneumothorax. Consideration should be given to upright chest x-r ay with inspiration and expiration. Findings and recommendations were called to Rhiannon Wong on 01/01/2019 at 9:50 AM.
--- NOTE | 2019-01-01 10:23 | ED ---
Fall HPI <Ck Atkinson - Last Filed: 01/01/19 10:38> - General Source: patient Mode of arrival: EMS <JudithRhiannon L - Last Filed: 01/01/19 14:37> - General Chief Complaint: Fall Stated Complaint: fall hip pain Time Seen by Provider: 01/01/19 08:24 - History of Present Illness Initial Comments: 78-year-old female with hx of severe COPD, blindness presenting to the ER for cc of fall, right hip, left wrist pain. Patient states this morning she thought she heard from Dr. Bales she states usually does not ambulate by herself due to being blind and having difficult with stability and walking she states she is usually wheelchair-bound when she stood up to get the door she states she fell after losing her balance. Patient states she did not feel like she hit her head she states she extended her left wrist, mostly on the right side she states she has right hip pain as well as some mild left hip pain denies any knee pain or ankle pain. Patient denies any chest pain shortness of breath nausea vomiting headache dizziness. Patient denies experiencing no symptoms prior to falling. Remaining review of systems negative patient denies any lacerations or abrasions. Patient is at assisted care living where she was then brought to the emergency department EMS. Son at beside states that patient is at baseline. (Rhiannon Wong) - Related Data Home Medications Medication Instructions Recorded Confirmed Clopidogrel [Plavix] 75 mg PO DAILY@0800 09/29/13 01/01/19 Montelukast [Singulair] 10 mg PO DAILY@0800 09/29/13 01/01/19 Brimonidine Tartrate [Alphagan P 1 drop RIGHT EYE BID@0800,1700 11/26/15 01/01/19 0.1% Ophth Soln] prednisoLONE ACETATE 1% OPHTH 1 drop LEFT EYE BID@0800,1700 11/26/15 01/01/19 [Pred Forte 1%] Melatonin 3 mg PO HS@2100 05/11/16 01/01/19 Cholecalciferol [Vitamin D3 (25 2,000 unit PO DAILY@0800 06/30/16 01/01/19 Mcg = 1000 Iu)] Losartan Potassium [Cozaar] 50 mg PO BID@0800,1700 01/26/17 01/01/19 Aspirin 81 mg PO DAILY@0800 03/27/17 01/01/19 amLODIPine [Norvasc] 5 mg PO DAILY@0800 03/27/17 01/01/19 Acetaminophen Tab [Tylenol Tab] 500 mg PO BID 01/01/19 01/01/19 Acetaminophen Tab [Tylenol Tab] 650 mg PO Q4H PRN 01/01/19 01/01/19 Albuterol Inhaler [Ventolin Hfa 2 puff INHALATION RT-Q6H PRN 01/01/19 01/01/19 Inhaler] Bisacodyl [Dulcolax] 10 mg RECTAL DAILY PRN 01/01/19 01/01/19 Budesonide-Formot 160-4.5 Mcg 2 puff INHALATION RT-BID@0800,1700 01/01/19 01/01/19 [Symbicort 160-4.5 Mcg Inhaler] Donepezil [Aricept] 5 mg PO DAILY@1700 01/01/19 01/01/19 Dorzolamide 2% [Trusopt 2%] 1 drops RIGHT EYE BID@0800,1700 01/01/19 01/01/19 Escitalopram [Lexapro] 5 mg PO DAILY@0800 01/01/19 01/01/19 Gabapentin [Neurontin] 100 mg PO BID@0800,1700 01/01/19 01/01/19 Isosorbide Mononitrate ER [Imdur] 60 mg PO DAILY@0800 01/01/19 01/01/19 Magnesium Hydroxide [Milk of 2,400 mg PO DAILY PRN 01/01/19 01/01/19 Magnesia] Metoprolol Tartrate [Lopressor] 12.5 mg PO BID@0800,1700 01/01/19 01/01/19 Na Phos,M-B/Na Phos,Di-Ba [Fleet 133 ml RECTAL DAILY PRN 01/01/19 01/01/19 Adult] Pantoprazole [Protonix] 40 mg PO DAILY@0800 01/01/19 01/01/19 Sodium Chloride [Saline Nasal 1 spray EA NOSTRIL Q2H PRN 01/01/19 01/01/19 [place]] guaiFENesin SYRUP 100MG/5ML 200 mg PO Q4H PRN 01/01/19 01/01/19 [Robitussin] rOPINIRole HCL [Requip] 0.5 mg PO HS@2100 01/01/19 01/01/19 Previous Rx's Medication Instructions Recorded Nitroglycerin Sl Tabs [Nitrostat] 0.4 mg SUBLINGUAL Q5M PRN tab 12/09/16 Allergies Allergy/AdvReac Type Severity Reaction Status Date / Time Pjxzvbp-Tvr-Cxi Reductase Allergy Unknown Verified 01/01/19 10:12 Inhibitor morphine AdvReac Confusion Verified 01/01/19 10:12 Review of Systems ROS Other: All systems not noted in ROS Statement are negative. <Ck Atkinson - Last Filed: 01/01/19 10:38> ROS Other: All systems not noted in ROS Statement are negative. <Rhiannon Wong - Last Filed: 01/01/19 14:37> ROS Statement: Those systems with pertinent positive or pertinent negative responses have been documented in the HPI. Past Medical History Past Medical History: Asthma, COPD, CVA/TIA, Diabetes Mellitus, Hypertension, Myocardial Infarction ([place]), Respiratory Disorder Additional Past Medical History / Comment(s): COPD mild in severity with an FEV1 of 2.1 L which is 88% of predicted, bronchial asthma, previous history of pneumothorax requiring a chest tube insertion and subsequent removal, 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 macular degeneration, emphysema, hypertension, hyperlipidemia, previous coronary intervention and stenting of the LAD in November 2016 Last Myocardial Infarction Date:: 12/06/2016 History of Any Multi-Drug Resistant Organisms: None Reported Past Surgical History: Appendectomy, Cholecystectomy, Heart Catheterization With Stent, Hysterectomy, Joint Replacement, Tonsillectomy Additional Past Surgical History / Comment(s): Right knee replacement, right cataract surgery, heart cath with stents x 2 , 11/2016 Past Anesthesia/Blood Transfusion Reactions: No Reported Reaction Date of Last Stent Placement:: 12/06/2016 Past Psychological History: Anxiety, Depression Smoking Status: Former smoker Past Alcohol Use History: None Reported Past Drug Use History: None Reported - Past Family History Mother Family Medical History: Congestive Heart Failure (CHF) Father Additional Family Medical History / Comment(s): empyhsema, blindness. O2 dependent <Rhiannon Wong - Last Filed: 01/01/19 14:37> General Exam Limitations: no limitations <Rhiannon Wong - Last Filed: 01/01/19 14:37> - General Exam Comments Initial Comments: General: The patient is awake and alert, in no distress Eye: +3 mm pupils are equal, round and reactive to light, extra-ocular moveme nts are intact. No nystagmus. There is normal conjunctiva bilaterally. No signs of icterus. Ears, nose, mouth and throat: There are moist mucous membranes and no oral le sions. No raccoon or butcher sign. Neck: The neck is supple, there is no tenderness or JVD. Cardiovascular: There is a regular rate and rhythm. No murmur, rub or gallop is appreciated. Respiratory: Slight diminishment of lung sounds howver breath sounds appear equal. No wheezes, stridor, rales, or rhonchi. Lung sounds appear audible in all [place] Gastrointestinal: Soft, non-distended, non-tender abdomen without masses or organomegaly noted. There is no rebound or guarding present. No CVA tenderness. Bowel sounds are unremarkable. Musculoskeletal: Normal inspection the wrist bilaterally patient has point tenderness over the distal radius of the left wrist. Patient is no tenderness in the hand or the elbow. No lacerations or abrasions. Patient able to make the okay fingers crossed thumbs up and opposes the small digit and thumb Normal ROM, no tenderness of the right UE patient has no pain distal to the knees b/l patient has tenderness over the left hip, right hip, mid femur of the right leg no shortnening or rotation noted, positive right sided log roll, no left sided log roll. Strength 5/5. Sensation intact. Radial pulses equal bilaterally 2+. Patient able to stand up bedside and weight bear on leg b/l denies significant pain Neurological: A&O x 3. CN II-XII intact aside from vision patient can see some lighting but cannot read or make out details, There are no obvious motor or sensory deficits. Coordination appears grossly intact. Speech is normal. Skin: Skin is warm and dry and no rashes or lesions are noted. Psychiatric: Cooperative, appropriate mood & affect, normal judgment. (Rhiannon Wong) Course <Ck Atkinson - Last Filed: 01/01/19 10:38> Vital Signs 01/01/19 01/01/19 08:25 11:07 Temperature 97.9 F Pulse Rate 57 L 61 Respiratory 18 18 Rate Blood Pressure 187/73 183/86 O2 Sat by Pulse 94 L 98 Oximetry - Reevaluation(s) Reevaluation #1: 01/01/19 10:38 Chart and x-rays reviewed. Patient reevaluated by myself, Dr. Atkinson. Patient and family updated. X-rays are concerning for Laura pneumothorax and radial styloid fracture. Case was discussed in detail with Dr. Cherry, who will admit for observation. He does request repeat chest x-ray this afternoon as well as orthopedic and medicine consult. (Ck Atkinson) Medical Decision Making - Lab Data Result diagrams: 01/01/19 08:38 01/01/19 08:38 <Ck Atkinson - Last Filed: 01/01/19 10:38> - Lab Data Result diagrams: 01/01/19 08:38 01/01/19 08:38 <Rhiannon Wong - Last Filed: 01/01/19 14:37> - Medical Decision Making 78 year female presenting for fall. Complaining of left wrist bilateral hip pain mid right femur pain. Denies head injury however she is on 100% positive. No evidence of trauma on physical examination to the head or scalp. No midline tenderness to palpation the cervical spine with full range of motion CT the brain C-spine negative. Minimally displaced radial styloid fracture patient placed in thumb spica splint a padded synthetic. Repeat neurovascular exam unchanged. Patient able to weight-bear on hips bilaterally. And he states negative for pelvic or femur fracture. Patient is found to have small pneumothorax, history of previous complete pneumothorax. Patient will be admitted to trauma for observation. Ortho on consultation. Dr. Atkinson is agreeable with this admission and care plan he spoke directly to admitting providers. No other complaints. (Rhiannon Wong) - Lab Data Lab Results 01/01/19 01/01/19 Range/Units 08:38 08:38 WBC 4.6 (3.8-10.6) k/uL RBC 4.58 (3.80-5.40) m/uL Hgb 13.6 (11.4-16.0) gm/dL Hct 40.8 (34.0-46.0) % MCV 89.0 (80.0-100.0) fL MCH 29.6 (25.0-35.0) pg MCHC 33.3 (31.0-37.0) g/dL RDW 14.8 (11.5-15.5) % Plt Count 151 (150-450) k/uL Neutrophils % 67 % Lymphocytes % 24 % Monocytes % 5 % Eosinophils % 3 % Basophils % 1 % Neutrophils # 3.1 (1.3-7.7) k/uL Lymphocytes # 1.1 (1.0-4.8) k/uL Monocytes # 0.2 (0-1.0) k/uL Eosinophils # 0.1 (0-0.7) k/uL Basophils # 0.0 (0-0.2) k/uL Sodium 145 (137-145) mmol/L Potassium 4.2 (3.5-5.1) mmol/L Chloride 112 H (98-107) mmol/L Carbon Dioxide 23 (22-30) mmol/L Anion Gap 10 mmol/L BUN 31 H (7-17) mg/dL Creatinine 1.30 H (0.52-1.04) mg/dL Est GFR (CKD-EPI)AfAm 45 (>60 ml/min/1.73 sqM) Est GFR (CKD-EPI)NonAf 39 (>60 ml/min/1.73 sqM) Glucose 111 H (74-99) mg/dL Calcium 9.2 (8.4-10.2) mg/dL Total Bilirubin 0.4 (0.2-1.3) mg/dL AST 19 (14-36) U/L ALT 17 (9-52) U/L Alkaline Phosphatase 75 (38-126) U/L Total Protein 7.1 (6.3-8.2) g/dL Albumin 3.9 (3.5-5.0) g/dL Disposition <Ck Atkinson - Last Filed: 01/01/19 10:38> Is patient prescribed a controlled substance at d/c from ED?: No Time of Disposition: 10:43 Decision to Admit Reason: Admit from EC Decision Date: 01/01/19 Decision Time: 10:43 <Rhiannon Wong - Last Filed: 01/01/19 14:37> Clinical Impression: Pneumothorax, Fall, Wrist fracture, left, Radial styloid fracture, Right hip pain Disposition: ADMITTED IP TO THIS [facility] Condition: Stable
--- NOTE | 2019-01-01 10:26 | XR ---
EXAMINATION TYPE: XR chest 2V DATE OF EXAM: 01/01/2019 COMPARISON: NONE HISTORY: Concern for pneumothorax TECHNIQUE: Inspiration and expiration views of the chest were obtained. FINDINGS: Right visceral pleural line compatible with small right apical pneumothorax, pleural costal width is 9 mm. No mediastinal shift. No left pneumothorax is visualized. Biapical paraseptal blebs noted. Elsewhere, chronic parenchymal changes present. No focal airspace opacification. No sizable pleural e ffusion. Cardiac silhouette is prominent in size. Calcifications of the aortic arch. No grossly displaced rib fracture however the exam was not optimized for the detection of such. IMPRESSION: Small right apical pneumothorax without mediastinal shift.
[2019-01-01] MEDS ORDERED: NALOXONE 0.4 MG/ML 1 ML VIAL IV PRN (10:43)
[2019-01-01] MEDS: SODIUM CHLORIDE 0.9% 1,000 ML IV SCH ×2 (11:37→19:48)
--- NOTE | 2019-01-01 13:30 | P.GSHP ---
History of Present Illness H&P Date: 01/01/19 78-year-old female with a complicated medical history presents to the hospital after a recent fall from bed in the [place] [facility]. The patient is noted to have a history of blindness. She states that she had no loss of consciousness. She states that after the fall she has been having pain to the left wrist and left hip. She denies any chest pain or abdominal pain. She denies any nausea or vomiting episodes. She denies any fevers, chills or shortness of breath. As part of her workup, the patient did have imaging that includes head CT, cervical spine CT, chest x-ray, bilateral hip x-ray, right femur x-ray, left wrist x-ray. She is found to have a left radial styloid fracture along with a small pneumothorax of the right side. She has no additional complaints at this time. She states that she does live in a [place] [facility] and due to blindness does require assistance for any mobility. She is able to walk with a walker with assistance. - Review of Systems All systems: negative Past Medical History Past Medical History: Asthma, COPD, CVA/TIA, Diabetes Mellitus, Hypertension, Myocardial Infarction ([place]), Respiratory Disorder Additional Past Medical History / Comment(s): COPD mild in severity with an FEV1 of 2.1 L which is 88% of predicted, bronchial asthma, previous history of pneumothorax requiring a chest tube insertion and subsequent removal, 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 macular degeneration, emphysema, hypertension, hyperlipidemia, previous coronary intervention and stenting of the LAD in November 2016 Last Myocardial Infarction Date:: 12/06/2016 History of Any Multi-Drug Resistant Organisms: None Reported Past Surgical History: Appendectomy, Cholecystectomy, Heart Catheterization With Stent, Hysterectomy, Joint Replacement, Tonsillectomy Additional Past Surgical History / Comment(s): Right knee replacement, right cataract surgery, heart cath with stents x 2 , 11/2016 Past Anesthesia/Blood Transfusion Reactions: No Reported Reaction Date of Last Stent Placement:: 12/06/2016 Past Psychological History: Anxiety, Depression Smoking Status: Former smoker Past Alcohol Use History: None Reported Past Drug Use History: None Reported - Past Family History Mother Family Medical History: Congestive Heart Failure (CHF) Father Additional Family Medical History / Comment(s): empyhsema, blindness. O2 dependent Medications and Allergies Home Medications Medication Instructions Recorded Confirmed Type Clopidogrel [Plavix] 75 mg PO DAILY@0800 09/29/13 01/01/19 History Montelukast [Singulair] 10 mg PO DAILY@0800 09/29/13 01/01/19 History Brimonidine Tartrate [Alphagan P 1 drop RIGHT EYE BID@0800,1700 11/26/15 01/01/19 History 0.1% Ophth Soln] prednisoLONE ACETATE 1% OPHTH 1 drop LEFT EYE BID@0800,1700 11/26/15 01/01/19 History [Pred Forte 1%] Melatonin 3 mg PO HS@2100 05/11/16 01/01/19 History Cholecalciferol [Vitamin D3 (25 2,000 unit PO DAILY@0800 06/30/16 01/01/19 History Mcg = 1000 Iu)] Nitroglycerin Sl Tabs [Nitrostat] 0.4 mg SUBLINGUAL Q5M PRN tab 12/09/16 01/01/19 Rx Losartan Potassium [Cozaar] 50 mg PO BID@0800,1700 01/26/17 01/01/19 History Aspirin 81 mg PO DAILY@0800 03/27/17 01/01/19 History amLODIPine [Norvasc] 5 mg PO DAILY@0800 03/27/17 01/01/19 History Acetaminophen Tab [Tylenol Tab] 500 mg PO BID 01/01/19 01/01/19 History Acetaminophen Tab [Tylenol Tab] 650 mg PO Q4H PRN 01/01/19 01/01/19 History Albuterol Inhaler [Ventolin Hfa 2 puff INHALATION RT-Q6H PRN 01/01/19 01/01/19 History Inhaler] Bisacodyl [Dulcolax] 10 mg RECTAL DAILY PRN 01/01/19 01/01/19 History Budesonide-Formot 160-4.5 Mcg 2 puff INHALATION RT-BID@0800,1700 01/01/19 01/01/19 History [Symbicort 160-4.5 Mcg Inhaler] Donepezil [Aricept] 5 mg PO DAILY@1700 01/01/19 01/01/19 History Dorzolamide 2% [Trusopt 2%] 1 drops RIGHT EYE BID@0800,1700 01/01/19 01/01/19 History Escitalopram [Lexapro] 5 mg PO DAILY@0800 01/01/19 01/01/19 History Gabapentin [Neurontin] 100 mg PO BID@0800,1700 01/01/19 01/01/19 History Isosorbide Mononitrate ER [Imdur] 60 mg PO DAILY@0800 01/01/19 01/01/19 History Magnesium Hydroxide [Milk of 2,400 mg PO DAILY PRN 01/01/19 01/01/19 History Magnesia] Metoprolol Tartrate [Lopressor] 12.5 mg PO BID@0800,1700 01/01/19 01/01/19 History Na Phos,M-B/Na Phos,Di-Ba [Fleet 133 ml RECTAL DAILY PRN 01/01/19 01/01/19 History Adult] Pantoprazole [Protonix] 40 mg PO DAILY@0800 01/01/19 01/01/19 History Sodium Chloride [Saline Nasal 1 spray EA NOSTRIL Q2H PRN 01/01/19 01/01/19 History [place]] guaiFENesin SYRUP 100MG/5ML 200 mg PO Q4H PRN 01/01/19 01/01/19 History [Robitussin] rOPINIRole HCL [Requip] 0.5 mg PO HS@2100 01/01/19 01/01/19 History Allergies Allergy/AdvReac Type Severity Reaction Status Date / Time Aygfyjf-Uga-Fqa Reductase Allergy Unknown Verified 01/01/19 10:12 Inhibitor morphine AdvReac Confusion Verified 01/01/19 10:12 Surgical - Exam Osteopathic Statement: *. No significant issues noted on an osteopathic structural exam other than those noted in the History and Physical/Consult. Vital Signs Temp Pulse Resp BP Pulse Ox 97.9 F 57 L 18 187/73 94 L 01/01/19 08:25 01/01/19 08:25 01/01/19 08:25 01/01/19 08:25 01/01/19 08:25 - General no distress - Eyes PERRL, no icteric, no deviation, no loss of movement - ENT normal pinna, normal nares, normal mucosa - Neck no masses, no bruits, trachea midline - Respiratory normal expansion, normal respiratory effort - Abdomen Soft, nontender, nondistended, no rebound, no guarding - Integumentary No evidence of ecchymosis no rash, no growths - Psychiatric oriented to time, oriented to person, oriented to place Results - Labs 01/01/19 08:38 01/01/19 08:38 Abnormal Lab Results - Last 24 Hours (Table) 01/01/19 Range/Units 08:38 Chloride 112 H (98-107) mmol/L BUN 31 H (7-17) mg/dL Creatinine 1.30 H (0.52-1.04) mg/dL Glucose 111 H (74-99) mg/dL Diabetes panel 01/01/19 Range/Units 08:38 Sodium 145 (137-145) mmol/L Potassium 4.2 (3.5-5.1) mmol/L Chloride 112 H (98-107) mmol/L Carbon Dioxide 23 (22-30) mmol/L BUN 31 H (7-17) mg/dL Creatinine 1.30 H (0.52-1.04) mg/dL Glucose 111 H (74-99) mg/dL Calcium 9.2 (8.4-10.2) mg/dL AST 19 (14-36) U/L ALT 17 (9-52) U/L Alkaline Phosphatase 75 (38-126) U/L Total Protein 7.1 (6.3-8.2) g/dL Albumin 3.9 (3.5-5.0) g/dL Calcium panel 01/01/19 Range/Units 08:38 Calcium 9.2 (8.4-10.2) mg/dL Albumin 3.9 (3.5-5.0) g/dL Pituitary panel 01/01/19 Range/Units 08:38 Sodium 145 (137-145) mmol/L Potassium 4.2 (3.5-5.1) mmol/L Chloride 112 H (98-107) mmol/L Carbon Dioxide 23 (22-30) mmol/L BUN 31 H (7-17) mg/dL Creatinine 1.30 H (0.52-1.04) mg/dL Glucose 111 H (74-99) mg/dL Calcium 9.2 (8.4-10.2) mg/dL Adrenal panel 01/01/19 Range/Units 08:38 Sodium 145 (137-145) mmol/L Potassium 4.2 (3.5-5.1) mmol/L Chloride 112 H (98-107) mmol/L Carbon Dioxide 23 (22-30) mmol/L BUN 31 H (7-17) mg/dL Creatinine 1.30 H (0.52-1.04) mg/dL Glucose 111 H (74-99) mg/dL Calcium 9.2 (8.4-10.2) mg/dL Total Bilirubin 0.4 (0.2-1.3) mg/dL AST 19 (14-36) U/L ALT 17 (9-52) U/L Alkaline Phosphatase 75 (38-126) U/L Total Protein 7.1 (6.3-8.2) g/dL Albumin 3.9 (3.5-5.0) g/dL Assessment and Plan (1) Fall Narrative/Plan: We will keep for observation secondary to fall and injury. Primary and secondary surveys were completed. Medical consultation has been placed. Current Visit: Yes Status: Acute Code(s): W19.XXXA - UNSPECIFIED FALL, INITIAL ENCOUNTER SNOMED Code(s): 6221877 (2) Pneumothorax Narrative/Plan: Repeat 2 view chest x-ray is pending. We will evaluate for any progression of pneumothorax. After chart review, the patient is noted to have 3 of bleb disease and has had pneumothorax in the past on the left side. We will also begin incentive spirometry. Current Visit: Yes Status: Acute Code(s): J93.9 - PNEUMOTHORAX, UNSPECIFIED SNOMED Code(s): 21041588 (3) Wrist fracture, left Narrative/Plan: Orthopedic consultation is pending. Currently, the left wrist is in a splint. Current Visit: Yes Status: Acute Code(s): S62.102A - FRACTURE OF UNSP CARPAL BONE, LEFT WRIST, INIT FOR CLOS FX SNOMED Code(s): 557814008
[2019-01-01] MEDS: HYDROcodone/APAP 5-325MG 1 EACH TAB PO PRN ×2 (14:45→23:16)
[2019-01-01 16:32] LABS: Appearance,Urine Cloudy (Clear); Bacteria,Urine Many /hpf; Bilirubin,Urine Negative (Negative); Blood,Urine Negative (Negative); Color,Urine Light Yellow; Glucose,Urine (UA) Negative (Negative); Ketones,Urine Negative (Negative); Leukocyte Esterase,Urine Moderate (Negative); Mucus,Urine Rare /hpf; Nitrite,Urine Positive (Negative); PH, Urine 5.5 (5.0-8.0); Protein,Urine Trace (Negative); RBC,Urine 18 /hpf (0-5); Specific Gravity,Urine 1.012 (1.001-1.035); Squamous Epithelial Cell,Urine 1 /hpf (0-4); Urobilinogen,Urine <2.0 mg/dL (<2.0); WBC,Urine 49 /hpf (0-5)
[2019-01-01] MEDS ORDERED: NA PHOS,M-B/NA PHOS,DI-BA 133 ML ENEMA RECTAL PRN (17:32)
[2019-01-01] MEDS ORDERED: ALBUTEROL NEBULIZED 2.5 MG/3 ML INHALATION PRN (17:32)
[2019-01-01] MEDS ORDERED: MAGNESIUM HYDROXIDE 2,400 MG/10 ML CUP PO PRN (17:32)
[2019-01-01] MEDS ORDERED: BISACODYL 10 MG SUPP RECTAL PRN (17:32)
[2019-01-01] MEDS ORDERED: guaiFENesin SYRUP 100MG/5ML 200 MG/10 ML CUP PO PRN (17:32)
[2019-01-01] MEDS ORDERED: NITROGLYCERIN SL TABS 0.4 MG TAB SUBLINGUAL PRN (17:32)
[2019-01-01] MEDS ORDERED: MORPHINE SULFATE 2 MG/ML SYRINGE IVP PRN (17:42)
[2019-01-01] MEDS: hydrALAZINE HCL 20 MG/ML 1 ML VIAL IVP PRN ×2 (17:51→18:02)
[2019-01-01 17:54] LABS: Glucose,Whole Blood 119 mg/dL (75-99)
--- NOTE | 2019-01-01 18:15 | XR ---
EXAMINATION TYPE: XR chest 1V portable DATE OF EXAM: 01/01/2019 Comparison: 01/01/2019 Clinical History: 78-year-old female monitor pneumothorax Findings: Heart mildly enlarged. Diffuse interstitial prominence persists. Demonstrated small right upper pneum othorax measuring 7 mm versus 6 mm, previously. Impression: 1. Small right upper lung pneumothorax redemonstrated measuring 7 mm versus 6 mm, previously, relativ jossy unchanged. 2. Stable cardiomegaly and diffuse interstitial prominence which may be chronic or could reflect bron chitis/asthma.
[2019-01-01] MEDS: ONDANSETRON 4 MG/2 ML VIAL IVP PRN (18:16)
--- NOTE | 2019-01-01 19:30 | CT ---
EXAMINATION TYPE: CT ChestAbdPelvis wo con DATE OF EXAM: 01/01/2019 COMPARISON: Chest 01/26/2017 HISTORY: 78-year-old female Abdominal pain and vomiting after fall. TECHNIQUE: Contiguous axial scanning of the chest, abdomen, and pelvis without IV contrast. Coronal a nd sagittal reconstructions performed. CT DLP: 1133 mGycm Automated exposure control for dose reduction was used. FINDINGS: Chest: Heart normal size with trace anterior pericardial fluid. Coronary vessel calcifications are present. Noncontrast images show no evidence for acute intramural hematoma. There is no aneurysm. Moderate ath erosclerotic arch calcifications with conventional arch vessel branching anatomy. Scattered nonenlarged mediastinal lymph nodes. No thoracic lymphadenopathy by CT size criteria. There is a moderate sized right-sided pneumothorax estimated at 50%. Slight mass effect onto the righ t side of the heart but no ivet mediastinal shift or flattening of the SVC. RF prominent posterior b asilar opacity, right greater than left could represent combination of atelectasis or consolidation. Background of moderate centrilobular emphysema. Prominent biapical pleural parenchymal scarring. No p leural effusion. ABDOMEN: Tiny hiatal hernia. Lack of IV contrast limits assessment of the solid abdominal viscera, lymph nodes, and vascular struc tures. Noncontrast appearance of the liver, adrenal glands, kidneys, and pancreas show no gross anomaly. Hilar splenule. Spleen upper limits of normal in size at 13.6 cm. Moderate prostatic calcifications abdominal aorta and iliac arteries. Mild fusiform ectasia infrarena l abdominal aorta at 2.8 cm. No dilated small bowel, free fluid, or free air. No mesenteric or retroperitoneal lymphadenopathy. Sc attered mild stool. Sigmoid diverticulosis. No pericolonic inflammatory change. Pelvis: Some surgical material along the infraumbilical midline. Mild circumferential bladder wall thickening. Uterus surgically absent. Both ovaries are visualized. No abnormal fluid collection in the pelvis or pelvic lymphadenopathy. Rectum is distended up to 6.2 c m wide with stool. Bones: Degenerative changes of the hips. 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 Moderate degenerative disc disease L5-S1. [facility] within the thoracic spine with accentu ated mid thoracic process. No displaced rib fracture is identified. IMPRESSION: 1. THE PATIENT'S RIGHT-SIDED PNEUMOTHORAX IS UNDER ESTIMATED RADIOGRAPHICALLY. IT APPEARS MODERATE IN SIZE, APPROXIMATELY 50% BY CT. NO IVET MEDIASTINAL SHIFT OR EFFACEMENT OF THE SVC THOUGH THERE IS S LIGHT MASS EFFECT ONTO THE RIGHT SIDE OF THE HEART. PATIENT SHOULD BE CLOSELY MONITORED FOR TENSION. 2. COPD WITH MODERATE EMPHYSEMA AND PULMONARY ARTERIAL HYPERTENSION. CAD. 3. PROMINENT DEPENDENT CONSOLIDATION AT THE RIGHT BASE. CORRELATE FOR ANY POTENTIAL SIGNS/SYMPTOMS OF INFECTIOUS OR ASPIRATION PNEUMONITIS. 4. TINY HIATAL HERNIA, SIGMOID DIVERTICULOSIS, PROMINENT STOOL DISTENDING THE RECTUM UP TO 6.2 CM WID E. MILD CIRCUMFERENTIAL BLADDER WALL THICKENING. CORRELATE TO EXCLUDE CYSTITIS.
[2019-01-01] MEDS ORDERED: ONDANSETRON 4 MG/2 ML VIAL IM STA (19:45)
[2019-01-01] MEDS ORDERED: ONDANSETRON 4 MG/2 ML VIAL IVP STA (19:52)
[2019-01-01] MEDS ORDERED: MAG HYDROX/AL HYDROX/SIMETH 30 ML CUP PO PRN (20:40)
[2019-01-01] MEDS ORDERED: LIDOCAINE 1% INJ 10MG/ML (20 ML MDV) SQ ONE (20:47)
[2019-01-01] MEDS: PANTOPRAZOLE 40 MG/10 ML VIAL IVP SCH (20:57)
[2019-01-01] MEDS: MELATONIN 3 MG TABLET PO SCH (23:07)
--- NOTE | 2019-01-01 23:25 | XR ---
EXAMINATION TYPE: XR chest 1V portable DATE OF EXAM: 01/01/2019 COMPARISON: Today HISTORY: Chest tube placement TECHNIQUE: Single frontal view of the chest is obtained. FINDINGS: There is a right upper lateral chest tube. Is not clear if there is still a persistent rig ht apical pneumothorax. There is some atelectasis at the lung bases. There is no heart failure. Heart is enlarged. Thoracic a bob is atheromatous. IMPRESSION: Mild basilar pulmonary infiltrates and atelectasis increased compared to last exam. Ther e is probably clearing of the right apical pneumothorax. No heart failure seen.
[2019-01-02] MEDS: METOCLOPRAMIDE 5 MG/ML 2 ML VIAL IVP PRN ×2 (00:05→12:17)
[2019-01-02] MEDS ORDERED: LEVOFLOXACIN 500MG-D5W PMX 500 MG in DEXTROSE/WATER 1 100ML.BAG IVPB ONE (00:45)
[2019-01-02 00:58] LABS: Glucose,Whole Blood 169 mg/dL (75-99)
[2019-01-02] MEDS: hydrALAZINE HCL 20 MG/ML 1 ML VIAL IVP PRN (01:33)
--- NOTE | 2019-01-02 01:35 | P.PCN ---
Date of Procedure: 01/01/19 Preoperative Diagnosis: Right-sided pneumothorax Postoperative Diagnosis: Right-sided pneumothorax Procedure(s) Performed: Right sided chest tube placement Surgeon: Nicky Cherry Pathology: none sent Condition: stable Disposition: ICU Indications for Procedure: This is a 78-year-old female that initially presented to the hospital secondary to a fall. She was diagnosed with a small right-sided apical pneumothorax of 6%. She was admitted for observation. On observation, she began to complain of some increasing pain. At that point CT of the chest was performed which did show a 50% pneumothorax of the right side. Secondary to this, decision was made to place a right-sided chest tube. The patient and the patient's son were informed of the plan and did provide consent prior to procedure. Of note, there was a two-hour delay in placement of the chest tube after initial plan to place the tube due to inability of acquiring the appropriate equipment by the hospital staff. I was at the patient's bedside during these 2 hours. Operative Findings: Appropriate expulsion of air during procedure Description of Procedure: The patient was prepped and draped in a sterile manner using chlorhexidine scrub after the patient was positioned in the usual fashion. A total of 3 mL of 1% lidocaine was used to anesthetize the skin, subcutaneous tissue, superior aspect of the rib periosteum and the parietal pleura. A 2 sediment incision was then made parallel to the rib in the midaxillary line at the level of the fifth rib. The subcutaneous tissue superficial and superior to the rib was dissected bluntly to the level of the pleura. The pleura was then entered bluntly. A gush of air was noted from the pleural space. The disruption in the parietal pleura was explanted bluntly and a finger was inserted and swept carefully in all directions. A 24-[place] chest tube was then inserted using my finger as a guide. The chest tube was directed apically and inserted easily. The chest tube was sutured to the skin at the insertion site and connected securely with tape to a Pleur-evac. A sterile occlusive dressing was placed over the insertion site. No immediate complications were noted. Post procedure chest x- ray is pending at the time of this note.
[2019-01-02] MEDS: HYDROcodone/APAP 5-325MG 1 EACH TAB PO PRN ×2 (04:45→08:58)
[2019-01-02 05:13] LABS: Basophils % (A) 0 %; Eosinophils % (A) 0 %; HCT 42.2 % (34.0-46.0); HGB 13.7 gm/dL (11.4-16.0); Lymphocytes # (A) 0.5 k/uL (1.0-4.8); Lymphocytes % (A) 6 %; MCH 29.3 pg (25.0-35.0); MCHC 32.4 g/dL (31.0-37.0); MCV 90.4 fL (80.0-100.0); Mean Platelet Volume 6.4; Monocytes # (A) 0.4 k/uL (0-1.0); Monocytes % (A) 5 %; Neutrophils # (A) 6.9 k/uL (1.3-7.7); Neutrophils % (A) 88 %; Platelet Count 152 k/uL (150-450); RBC 4.67 m/uL (3.80-5.40); RDW 14.9 % (11.5-15.5); WBC 7.8 k/uL (3.8-10.6)
[2019-01-02 05:38] LABS: Calcium 9.3 mg/dL (8.4-10.2); Magnesium 1.8 mg/dL (1.6-2.3); Potassium 4.3 mmol/L (3.5-5.1)
[2019-01-02] MEDS ORDERED: Magnesium Replacement Protocol 1 EACH MISC MISCELLANE PRN (05:41)
[2019-01-02 05:51] LABS: Appearance,Urine Turbid (Clear); Bacteria,Urine Many /hpf; Bilirubin,Urine Negative (Negative); Blood,Urine Trace (Negative); Budding Yeast,Urine Many /hpf; Color,Urine Yellow; Glucose,Urine (UA) Negative (Negative); Ketones,Urine Negative (Negative); Leukocyte Esterase,Urine Large (Negative); Mucus,Urine Rare /hpf; Nitrite,Urine Negative (Negative); PH, Urine 5.5 (5.0-8.0); Protein,Urine 1+ (Negative); RBC,Urine 20 /hpf (0-5); Specific Gravity,Urine 1.015 (1.001-1.035); Urobilinogen,Urine <2.0 mg/dL (<2.0)
[2019-01-02] MEDS: MAGNESIUM SULFATE-D5W PMX 1 GM in DEXTROSE/WATER 1 100ML.BAG IVPB SCH ×2 (06:05→07:10)
[2019-01-02 06:37] LABS: Glucose,Whole Blood 148 mg/dL (75-99)
[2019-01-02] MEDS ORDERED: IPRATROPIUM-ALBUTEROL 3 ML NEB INHALATION PRN (07:21)
[2019-01-02] MEDS: FORMOTEROL FUMARATE 20 MCG/2 ML NEBU INHALATION SCH ×2 (07:30→20:58)
[2019-01-02] MEDS: BUDESONIDE 1 MG/2 ML NEBU INHALATION SCH ×2 (07:30→20:58)
--- NOTE | 2019-01-02 07:55 | CONS ---
CONSULTATION DATE OF SERVICE: 01/01/2019. REASON FOR CONSULTATION: Advice regarding pneumothorax and other medical issues requested by Dr. Cherry. HISTORY OF PRESENT ILLNESS: This 78-year-old woman with a past medical history of multiple medical problems including history of asthma, COPD, CVA, TIA, diabetes, hypertension, myocardial infarction, COPD, being followed by Dr. Villegas in the [facility], has also significant blindness. The patient apparently was trying to walk and the patient apparently fell hitting a door and the patient was taken to [facility]. She has come with features of left wrist fracture and the right pneumothorax. Right pneumothorax was found to be initially small, but subsequently patient developed significant vomiting, nausea, shortness of breath, hypoxia. A CT scan showed 50% pneumothorax. Dr. Cherry performed bedside chest tube insertion and the patient is being closely monitored and transferred to ICU at this time with Dr. Byrd on consult. There is no history of fever, rigors or chills. No history of headache, loss of consciousness or seizures. PAST MEDICAL HISTORY: History of asthma, COPD, CVA, TIA, history of diabetes, hypertension, history of myocardial infarction. MEDICATIONS: Home medications are: 1. Requip 0.5 mg q.h.s. 2. Pred Forte 1 drop left eye. 3. Robitussin. 4. Norvasc 5 mg p.o. daily. 6. Protonix 40 mg. 7. Nitrostat p.r.n. 8. Fleet. 9. Singulair 10 mg daily. 10.Lopressor 12.5 mg b.i.d. 11.Melatonin 3 mg q.h.s. 12.Magnesium oxide 2.4 g p.o. daily p.r.n. 13.Cozaar 50 mg p.o. b.i.d. 14.Imdur 60 mg p.o. b.i.d. 15.Neurontin 100 mg p.o. b.i.d. 16.Lexapro 5 mg p.o. 17.Trusopt 1 drop right eye. 18.Aricept 5 mg p.o. daily. 19.Plavix 75 mg p.o. daily. 20.Vitamin D3 2000 daily. 21.Symbicort 160/4.5 two puffs b.i.d. 22.Alphagan 0.5 1 drop right eye b.i.d. 23.Dulcolax. 24.Aspirin 81 mg daily. 25.Ventolin 1-2 puffs q.i.d. 26.Tylenol p.r.n. ALLERGIES: STATINS, MORPHINE. FAMILY HISTORY: History of CHF, emphysema, oxygen dependence in the family. SOCIAL HISTORY: No history of current smoking or alcohol intake. Previous history of smoker. REVIEW OF SYSTEMS: ENT: Diminished hearing. Diminished vision. CARDIOVASCULAR system: As mentioned earlier. RESPIRATORY: As mentioned earlier. GI no nausea or vomiting. no dysuria or hematuria. CENTRAL NERVOUS SYSTEM: As mentioned earlier. ALLERGY/IMMUNOLOGY: As mentioned earlier. HEMATOLOGY/ONCOLOGY: No history of anemia. ENDOCRINE: No history of diabetes or hypothyroidism. CONSTITUTIONAL: As mentioned earlier. DERMATOLOGY: Negative. RHEUMATOLOGY negative. PSYCHIATRY as mentioned earlier. PHYSICAL EXAM: Patient is alert, oriented x3. The pulse is 81. Blood pressure 101/68, respiration 20, temp is normal. Pulse ox 92% on 60% high-flow nasal cannula. HEENT: Conjunctivae normal. Oral mucosa moist. NECK is no jugular venous distention. No carotid bruit. No lymph node enlargement. CARDIOVASCULAR system: S1, S2 muffled. No S3, no S4. RESPIRATORY: Breath sounds diminished in the bases. A few scattered rhonchi and crackles. ABDOMEN: Soft, nontender. No mass palpable. LEGS: No edema. No swelling. NERVOUS SYSTEM: Higher functions as mentioned earlier. Moves all 4 limbs. No focal motor or sensory deficits. SKIN: No ulcer, no rash and no bleeding. JOINTS: No active deforming arthropathy. LABS: At this time shows WBC 4.2, hemoglobin 13.6, creatinine is 1.3. UA noted. WBCs and RBCs present. Otherwise, the labs: The CT scan of the chest, abdomen and pelvis showed 50% with mediastinal shift, slight mass effect, COPD, consolidation of the right base and hiatal hernia. The chest x-ray which was personally reviewed by me showed a before and after chest tube insertion, expansion, but still some surgical subcutaneous emphysema and pulmonary markings also. ASSESSMENT: 1. Status post fall and right tension pneumothorax status post chest tube drainage. 2. Acute hypoxic respiratory failure secondary to pneumothorax. 3. Left wrist fracture. 4. Atelectasis and/or rule out pneumonia on the right side. 5. Chronic obstructive pulmonary disease/asthma acute exacerbation. 6. Chronic kidney disease stage III. 7. History of cerebrovascular accident/transient ischemic attack. 8. Diabetes mellitus type 2. 9. Hypertension. 10.History of myocardial infarction. 11.History of previous history of pneumothorax. 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 13.History of coronary artery disease, left anterior descending coronary artery stenting. 14.History of cholecystectomy. 15.History of anxiety, depression. 16.Remote history of nicotine dependence. 17.Obesity with body mass of 31.6. 18.FULL CODE. RECOMMENDATIONS AND DISCUSSION: This 78-year-old woman who presented with multiple medical issues, at this time, I recommend to continue current medications, management and symptomatic treatment. Transfer to ICU. Consult Dr. Byrd. Optimize bronchodilator treatment. Resume the home medications. The patient has got hypoxic respiratory failure. At this time, I recommend high-flow nasal cannula and use BiPAP Ventimask if necessary. Otherwise resume the home medications. DVT prophylaxis. Proton pump inhibitors. Prognosis guarded because of multiple complex medical issues. Further recommendations to follow. A copy of dictation being forwarded to Dr. Villegas who is the primary physician. Thank you Dr. Cherry for letting us participate in the care of this patient. MMODL / IJN: [id number] / ANDRESSA
[2019-01-02] MEDS ORDERED: PANTOPRAZOLE 40 MG TABLET PO SCH (08:00)
[2019-01-02] MEDS ORDERED: METOPROLOL TARTRATE 12.5 MG TAB PO SCH (08:00)
[2019-01-02] MEDS ORDERED: SYMBICORT 160-4.5 MCG INHALER INHALATION SCH (08:00)
--- NOTE | 2019-01-02 08:07 | XR ---
EXAMINATION TYPE: XR chest 1V DATE OF EXAM: 01/02/2019 COMPARISON: 01/01/2019 HISTORY: 78-year-old female TECHNIQUE: Single frontal view of the chest is obtained. FINDINGS: Right-sided chest tube is present with subcutaneous emphysema on the right. No appreciable pneumothorax. Trace right effusion suggested, similar to prior. Patchy bibasilar opacities also elis lar. Heart is borderline enlarged. IMPRESSION: Stable right-sided chest tube with subcutaneous emphysema. No appreciable pneumothorax presently. Tra ce right effusion suggested. Patchy bibasilar atelectasis/infiltrates persist.
[2019-01-02] MEDS: CLOPIDOGREL 75 MG TAB PO SCH (08:57)
[2019-01-02] MEDS: CHOLECALCIFEROL 1,000 UNIT TAB PO SCH (08:57)
[2019-01-02] MEDS: ASPIRIN 81 MG PO SCH (08:57)
[2019-01-02] MEDS: amLODIPine 5 MG TAB PO SCH (08:57)
[2019-01-02] MEDS: MONTELUKAST 10 MG TAB PO SCH (08:58)
[2019-01-02] MEDS: GABAPENTIN 100 MG CAP PO SCH ×2 (08:58→16:42)
[2019-01-02] MEDS: ISOSORBIDE MONONITRATE ER 60 MG TAB.ER.24H PO SCH (08:58)
[2019-01-02] MEDS: LOSARTAN 50 MG TAB PO SCH ×2 (08:58→16:42)
[2019-01-02] MEDS: ESCITALOPRAM 5 MG TAB PO SCH (08:58)
[2019-01-02] MEDS: HEPARIN SODIUM,PORCINE 5,000 UNIT/ML 1 ML VIAL SQ SCH ×2 (08:59→21:22)
[2019-01-02] MEDS: PANTOPRAZOLE 40 MG/10 ML VIAL IVP SCH (08:59)
--- NOTE | 2019-01-02 09:01 | CONS ---
CONSULTATION PULMONARY/CRITICAL CARE CONSULTATION: DATE OF CONSULTATION: 01/02/2019 78-year-old female well known to me. She has a history of severe COPD and blindness. She apparently was at the long term and fell. She injured her left wrist. She apparently had a fracture. In addition, she apparently sustained a pneumothorax on the right side which initially was relatively small and then it got much larger. One of the surgeons saw her. Because the pneumothorax had gotten much larger, a chest tube was placed. He called me on the phone and asked the patient could stay in the unit overnight, which I thought was not unreasonable. Anyway, she is doing reasonably well. She is currently on Vapotherm at 60 L/minute with a FiO2 of 76%. I do not recall what her normal oxygen requirements are. She is on a saline IV at 50 mL an hour. The injuries include a right pneumothorax and a left wrist fracture. Apparently, orthopedics was called about the left wrist fracture. Other than that, she is doing reasonably well. She is mildly short of breath. Denies any chest pain. Denies any fever, chills. No nausea, vomiting or diarrhea. I have not seen the patient in probably more than a year or so. I believe she is a permanent resident of the long term currently. MEDICATIONS: Her medication list is quite extensive. Includes Plavix, Singulair, eye drops, melatonin, vitamin D3, losartan, aspirin, Norvasc, Tylenol, albuterol inhaler, Dulcolax, Symbicort, Aricept, Lexapro, gabapentin, Imdur, milk of magnesia, metoprolol, Protonix, saline nasal spray, Robitussin, Requip and sublingual nitroglycerin. ALLERGIES: Include STATIN MEDICATIONS and MORPHINE. MEDICAL HISTORY: COPD/asthma, CVA, diabetes, hypertension, myocardial infarction, previous history of a pneumothorax requiring chest tube placement and subsequent removal, glaucoma, macular degeneration, hypertension, hyperlipidemia, and previous stenting of the LAD back in November 2016. SURGICAL HISTORY: Includes appendectomy, cholecystectomy, heart catheterization with stent, hysterectomy, joint replacement, tonsillectomy, cataract surgery, and some other minor procedures. SOCIAL HISTORY: Positive for previous tobacco use. Denies alcohol use or illicit drug use. FAMILY HISTORY: Positive for mother with congestive heart failure. father with emphysema and blindness. REVIEW OF SYSTEMS: CONSTITUTIONAL: Negative. NEUROLOGIC: Dementia. HEENT: Blindness. CARDIOVASCULAR: Negative. PULMONARY: Shortness of breath, chronic; right-sided pneumothorax. GI: Negative. : Negative. RHEUMATOLOGIC: Left wrist fracture. IMMUNOLOGIC: Negative. ENDOCRINOLOGIC: Negative. DERMATOLOGIC: Negative. PHYSICAL EXAMINATION: VITAL SIGNS: Current vital signs are reviewed. Temperature is 98, heart rate 84, respiratory rate is about mid 20s, blood pressure 146/55, mean 85, saturations anywhere from 92-95%. Does not appear to be in any distress. Alert, she does remember me. Does answer questions appropriately. HEENT examination is grossly unremarkable. The patient is blind. NECK: Supple. Full range of motion. No adenopathy. CARDIOVASCULAR examination reveals regular rhythm rate. Heart rate about 80 beats per minute. S1, S2 normal. LUNGS: Reveal a few scattered rhonchi. No wheezes or crackles. Breath sounds equal. ABDOMEN: Soft. Bowel sounds are heard. EXTREMITIES are intact. She has a left wrist splint on. No significant edema. SKIN: Without rash. NEUROLOGIC: Examination is difficult to assess but she does move all 4 extremities. She is awake and alert. Cannot see. LAB DATA: Includes a CBC which is completely normal. Sodium 145, potassium 4.3, chloride 111, CO2 is 24, anion gap 10. BUN and creatinine were 29 and 1.37. Urine is turbid with 1+ protein, trace blood, large leukocyte esterase, 20 RBCs, greater than 182 WBCs, many bacteria and many WBC clumps. This is consistent with a bladder infection. The wrist x-ray shows a mildly displaced fracture through the radial styloid process. A femur x-ray was negative. Hip and pelvic x-ray was negative. Head and cervical spine CT showed no acute intracranial abnormality. No trauma to the cervical spine. They did note a small right apical pneumothorax on the CT scan. Initial chest x-ray shows a small right apical pneumothorax. Her chest CT shows about a 50% right-sided pneumothorax, which was underestimated on the chest x-ray. There is also changes of COPD with emphysema and consolidation at the right base. The chest tube was placed and the followup chest x-ray shows possibly a small right pneumothorax. Currently, medications are reviewed. ASSESSMENT: 1. Status post fall with left wrist fracture and right pneumothorax, requiring chest tube placement. 2. Chronic obstructive pulmonary disease/asthma. 3. Urinary tract infection. 4. Right basilar atelectasis versus pneumonia. 5. Blindness. 6. Previous history of tobacco use. 7. History of cerebrovascular accident. 8. Diabetes mellitus. 9. History of hypertension. 10.Prior history of myocardial infarction. 11.History of glaucoma and macular degeneration. 12.Status post PCI with stenting of the LAD in November 2016. PLAN: Medications are reviewed. Please see my orders. Will recommend deep breathing, coughing clearing of secretions and use of incentive spirometer. Chest tube was placed by the trauma surgeon. Additional recommendations and suggestions are forthcoming. Prognosis is guarded. The nurse tells me the patient is apparently a FULL CODE. I believe in prior conversations with the son, the patient was a NO CODE. We will see if we can't clarify that. Additional recommendations and suggestions are forthcoming. MMODL / IJN: [id number] /
[2019-01-02] MEDS: IPRATROPIUM-ALBUTEROL 3 ML NEB INHALATION SCH ×4 (09:05→20:58)
[2019-01-02] MEDS: BRIMONIDINE TARTRATE 0.2% DROPS 5 ML BTL RIGHT EYE SCH ×2 (09:08→16:40)
[2019-01-02] MEDS: DORZOLAMIDE HCL 2% DROPS 10 ML BTL RIGHT EYE SCH ×2 (09:09→16:41)
[2019-01-02] MEDS: prednisoLONE ACETATE 1% OPHTH DROPS 5 ML BTL LEFT EYE SCH ×2 (09:10→16:41)
[2019-01-02] MEDS: ONDANSETRON 4 MG/2 ML VIAL IVP PRN (10:08)
--- NOTE | 2019-01-02 11:34 | P.PN ---
Subjective Progress Note Date: 01/02/19 Patient seen and examined at bedside. She states she is feeling better today. Chest tube is in place. Currently in ICU. Objective - Vital Signs Vital signs: Vital Signs Temp 98.8 F 01/02/19 08:00 Pulse 56 L 01/02/19 11:02 Resp 15 01/02/19 11:00 BP 141/56 01/02/19 11:00 Pulse Ox 92 L 01/02/19 11:00 Intake & Output 01/01/19 01/02/19 01/02/19 18:59 06:59 18:59 Intake Total 750 840 560 Output Total 385 230 Balance 750 455 330 Weight 72.575 kg Intake: IV 300 200 Sodium Chloride 0.9% 1, 300 200 000 ml @ 50 mls/hr IV . Q20H RAYSHAWN Rx#:[id number] Intake, IV Titration 250 200 Amount Sodium Chloride 0.9% 1, 250 200 000 ml @ 50 mls/hr IV . Q20H RAYSHAWN Rx#:[id number] Oral 500 340 360 Output: Urine 385 230 Other: Voiding Method Bedpan Indwelling Catheter Indwelling Catheter Diaper Incontinent # Voids 5 1 - Constitutional General appearance: Present: cooperative - Respiratory Details: Patient is requiring nasal cannula at this time - Gastrointestinal Gastrointestinal Comment(s): Soft, nontender, nondistended, no rebound, no guarding - Musculoskeletal Musculoskeletal: Present: generalized weakness - Labs CBC & Chem 7: 01/02/19 04:20 01/02/19 04:20 Labs: Abnormal Lab Results - Last 24 Hours (Table) 01/01/19 01/01/19 01/02/19 Range/Units 16:10 17:52 00:55 Lymphocytes # (1.0-4.8) k/uL Chloride (98-107) mmol/L BUN (7-17) mg/dL Creatinine (0.52-1.04) mg/dL Glucose (74-99) mg/dL POC Glucose (mg/dL) 119 H 169 H (75-99) mg/dL Urine Appearance Cloudy H (Clear) Urine Protein Trace H (Negative) Urine Blood (Negative) Urine Nitrite Positive H (Negative) Ur Leukocyte Esterase Moderate H (Negative) Urine RBC 18 H (0-5) /hpf Urine WBC 49 H (0-5) /hpf Urine WBC Clumps Rare H (None) /hpf Urine Bacteria Many H (None) /hpf Urine Mucus Rare H (None) /hpf Urine Yeast (Budding) (None) /hpf 01/02/19 01/02/19 01/02/19 Range/Units 04:20 04:20 05:30 Lymphocytes # 0.5 L (1.0-4.8) k/uL Chloride 111 H (98-107) mmol/L BUN 29 H (7-17) mg/dL Creatinine 1.37 H (0.52-1.04) mg/dL Glucose 172 H (74-99) mg/dL POC Glucose (mg/dL) (75-99) mg/dL Urine Appearance Turbid H (Clear) Urine Protein 1+ H (Negative) Urine Blood Trace H (Negative) Urine Nitrite (Negative) Ur Leukocyte Esterase Large H (Negative) Urine RBC 20 H (0-5) /hpf Urine WBC >182 H (0-5) /hpf Urine WBC Clumps Many H (None) /hpf Urine Bacteria Many H (None) /hpf Urine Mucus Rare H (None) /hpf Urine Yeast (Budding) Many H (None) /hpf 01/02/19 Range/Units 06:36 Lymphocytes # (1.0-4.8) k/uL Chloride (98-107) mmol/L BUN (7-17) mg/dL Creatinine (0.52-1.04) mg/dL Glucose (74-99) mg/dL POC Glucose (mg/dL) 148 H (75-99) mg/dL Urine Appearance (Clear) Urine Protein (Negative) Urine Blood (Negative) Urine Nitrite (Negative) Ur Leukocyte Esterase (Negative) Urine RBC (0-5) /hpf Urine WBC (0-5) /hpf Urine WBC Clumps (None) /hpf Urine Bacteria (None) /hpf Urine Mucus (None) /hpf Urine Yeast (Budding) (None) /hpf Microbiology - Last 24 Hours (Table) 01/02/19 05:30 Urine Culture - Preliminary Urine,Clean Catch Assessment and Plan (1) Fall Narrative/Plan: Patient is currently being managed in ICU as her symptoms did progress overnight. Pulmonary recommendations and medical recommendations are appreciated. Current Visit: Yes Status: Acute Code(s): W19.XXXA - UNSPECIFIED FALL, INITIAL ENCOUNTER SNOMED Code(s): 9212617 (2) Pneumothorax Narrative/Plan: Chest tube was placed last night with resolution of pneumothorax. Currently chest tube with no evidence of air leak. We will try water seal today. Current Visit: Yes Status: Acute Code(s): J93.9 - PNEUMOTHORAX, UNSPECIFIED SNOMED Code(s): 63146306 (3) Wrist fracture, left Narrative/Plan: Orthopedic consultation is pending. Currently, the left wrist is in a splint. Current Visit: Yes Status: Acute Code(s): S62.102A - FRACTURE OF UNSP CARPAL BONE, LEFT WRIST, INIT FOR CLOS FX SNOMED Code(s): 170903973
[2019-01-02 11:53] LABS: Glucose,Whole Blood 148 mg/dL (75-99)
--- NOTE | 2019-01-02 14:37 | PN ---
PROGRESS NOTE DATE OF SERVICE: 01/02/2019. This 78-year-old woman who was admitted with a fall and right-sided tension pneumothorax had chest tube drainage by Dr. Cherry. The patient monitored in ICU at this time. The most recent chest x-ray which was personally reviewed by me showed subcutaneous emphysema and as well as expansion of the lungs with some increased bronchovascular markings. The patient continues to be slightly drowsy at this time. PAST MEDICAL HISTORY: Reviewed. REVIEW OF SYSTEMS: Review of systems could not be taken. The patient is slightly drowsy as mentioned earlier. CURRENT MEDICATIONS: Reviewed and include: 1. Tylenol 650 q.4 p.r.n. 2. [place] 7.5 mg q.4 p.r.n. 3. Maalox. 4. DuoNeb q.i.d. and p.r.n. 5. Norvasc 5 mg p.o. daily. 6. Aspirin 81 mg. 7. Dulcolax. 8. Alphagan. 9. Pulmicort. 10.Plavix. 11.Aricept. 12.Drisdol. 13.Lexapro. 14.Perforomist. 15.Neurontin. 16.Robitussin. 17.Heparin. 18.Levaquin IV. 19.Milk of magnesia. 20.Melatonin. 21.Reglan. 22.Lopressor. 23.Singular. 24.Nitrostat. 25.Zofran. 26.Pred Forte. 27.Requip. 28.Doses reviewed. PHYSICAL EXAM: Patient is alert and oriented x1. Pulse 52. Blood pressure 140/50, respiration 16, temperature normal, pulse ox 98% on high-flow nasal cannula. HEENT: Conjunctivae normal. Oral mucosa moist. NECK is no jugular venous distention. No carotid bruit. No lymph node enlargement. CARDIOVASCULAR: S1, S2 muffled, slightly bradycardic otherwise. Ejection systolic murmur. RESPIRATIONS: Breath sounds diminished in the bases. A few scattered rhonchi and crackles. Right sided chest tube present. Subcutaneous emphysema present on the right side. ABDOMEN: Soft. Mild diffuse distention present, nontender. No guarding, no rigidity. No mass palpable. Bowel sounds diminished. No ascites. LEGS: No edema. No swelling. NERVOUS SYSTEM: Higher functions as mentioned earlier. Moves all four limbs. No focal deficits. No focal motor or sensory deficits. LYMPHATICS: No lymph nodes palpable in the neck, axillae or groin. SKIN: No ulcer, no rashes and no bleeding. JOINTS no active deforming arthropathy. LABS: CBC within normal limits. Sodium 145, potassium 4.3, creatinine is 1.37. UA noted, possibly UTI. ASSESSMENT: 1. Status post fall and right tension pneumothorax status post chest tube drainage. 2. Acute hypoxic respiratory failure secondary to pneumothorax on high-flow oxygen. 3. Left wrist fracture secondary to fall. 4. Atelectasis versus pneumonia right lower lobe. 5. Urinary tract infection present on admission. 6. Chronic obstructive pulmonary disease and asthma acute exacerbation. 7. Chronic kidney disease stage 3, present on admission. 8. History of cerebrovascular accident, transient ischemic attack. 9. Diabetes mellitus type 2. 10.Hypertension. 11.History of myocardial infarction. 12.Previous history of pneumothorax. 13.History of legal blindness secondary to glaucoma, macular degeneration. 14.History of coronary artery disease and and LAD stent. 15.History of cholecystectomy. 16.History of anxiety, depression. 17.Remote history of nicotine dependence. 18.Obesity with body mass of 31.6. 19.FULL CODE. RECOMMENDATIONS AND DISCUSSION: Recommend to continue current medications, management and symptomatic treatment. Continue with chest tube drainage, otherwise continue the bronchodilators, empiric antibiotics. Monitor closely in ICU. DVT prophylaxis. Prognosis guarded. Empiric antibiotics. Prognosis guarded because of multiple complex medical issues and further recommendations to follow. Closely follow with Surgery and Pulmonology. MMODL / IJN: [id number] / ANDRESSA
[2019-01-02 16:32] LABS: Glucose,Whole Blood 139 mg/dL (75-99)
[2019-01-02] MEDS: SODIUM CHLORIDE 0.9% 1,000 ML IV SCH ×2 (16:40→22:58)
[2019-01-02] MEDS: INSULIN ASPART (NovoLOG) 100 UNIT/ML VIAL SQ SCH ×2 (16:42→21:28)
[2019-01-02] MEDS: DONEPEZIL 5 MG TAB PO SCH (16:42)
[2019-01-02] MEDS: HYDROcodone/APAP 7.5-325MG 1 EACH TAB PO PRN (17:09)
--- NOTE | 2019-01-02 18:47 | P.CNOR ---
History of Present Illness - [facility] Consult date: 01/02/19 Consult reason: fracture History of present illness: Patient is a pleasant 78-year-old female seen at bedside in consultation for left wrist fracture. She was admitted through the ED yesterday after suffering a fall resulting in right hip and left wrist pain. Xrays showed a left radial styloid fracture. Xrays CT of pelvis showed arthritis but not fracture of the right hip. She states she usually does not ambulate by herself due to being blind and having difficult with stability and walking. She states she is usually wheelchair-bound when she stood up to get the door she states she fell after losing her balance. Patient states she did not feel like she hit her head. She has left wrist pain. She has right hip pain as well as some mild left hip pain. She denies any knee pain or ankle pain. Patient denies any chest pain shortness of breath nausea vomiting headache dizziness. Patient denies experiencing no symptoms prior to falling. Remaining review of systems negative patient denies any lacerations or abrasions. Patient is at assisted care [facility] where she was then brought to the emergency department EMS. Son at beside states that patient is at baseline Review of Systems All systems: negative Constitutional: Denies chills, Denies fever Eyes: denies blurred vision, denies pain Ears, nose, mouth and throat: Denies headache, Denies sore throat Cardiovascular: Denies chest pain, Denies shortness of breath Respiratory: Denies cough Gastrointestinal: Denies abdominal pain, Denies diarrhea, Denies nausea, Denies vomiting Genitourinary: Denies dysuria, Denies hematuria Musculoskeletal: Denies myalgias Integumentary: Denies pruritus, Denies rash Neurological: Denies numbness, Denies weakness Psychiatric: Denies anxiety, Denies depression Endocrine: Denies fatigue, Denies weight change Past Medical History Past Medical History: Asthma, COPD, CVA/TIA, Diabetes Mellitus, Hypertension, Myocardial Infarction ([place]), Respiratory Disorder Additional Past Medical History / Comment(s): COPD mild in severity with an FEV1 of 2.1 L which is 88% of predicted, bronchial asthma, previous history of pneumothorax requiring a chest tube insertion and subsequent removal, 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 macular degeneration, emphysema, hypertension, hyperlipidemia, previous coronary intervention and stenting of the LAD in November 2016 Last Myocardial Infarction Date:: 12/06/2016 History of Any Multi-Drug Resistant Organisms: None Reported Past Surgical History: Appendectomy, Cholecystectomy, Heart Catheterization With Stent, Hysterectomy, Joint Replacement, Tonsillectomy Additional Past Surgical History / Comment(s): Right knee replacement, right cataract surgery, heart cath with stents x 2 , 11/2016 Past Anesthesia/Blood Transfusion Reactions: No Reported Reaction Date of Last Stent Placement:: 12/06/2016 Past Psychological History: Anxiety, Depression Smoking Status: Former smoker Past Alcohol Use History: None Reported Past Drug Use History: None Reported - Past Family History Mother Family Medical History: Congestive Heart Failure (CHF) Father Additional Family Medical History / Comment(s): empyhsema, blindness. O2 dependent Medications and Allergies Home Medications Medication Instructions Recorded Confirmed Type Clopidogrel [Plavix] 75 mg PO DAILY@0800 09/29/13 01/01/19 History Montelukast [Singulair] 10 mg PO DAILY@0800 09/29/13 01/01/19 History Brimonidine Tartrate [Alphagan P 1 drop RIGHT EYE BID@0800,1700 11/26/15 01/01/19 History 0.1% Ophth Soln] prednisoLONE ACETATE 1% OPHTH 1 drop LEFT EYE BID@0800,1700 11/26/15 01/01/19 History [Pred Forte 1%] Melatonin 3 mg PO HS@2100 05/11/16 01/01/19 History Cholecalciferol [Vitamin D3 (25 2,000 unit PO DAILY@0800 06/30/16 01/01/19 History Mcg = 1000 Iu)] Nitroglycerin Sl Tabs [Nitrostat] 0.4 mg SUBLINGUAL Q5M PRN tab 12/09/16 01/01/19 Rx Losartan Potassium [Cozaar] 50 mg PO BID@0800,1700 01/26/17 01/01/19 History Aspirin 81 mg PO DAILY@0800 03/27/17 01/01/19 History amLODIPine [Norvasc] 5 mg PO DAILY@0800 03/27/17 01/01/19 History Acetaminophen Tab [Tylenol Tab] 500 mg PO BID 01/01/19 01/01/19 History Acetaminophen Tab [Tylenol Tab] 650 mg PO Q4H PRN 01/01/19 01/01/19 History Albuterol Inhaler [Ventolin Hfa 2 puff INHALATION RT-Q6H PRN 01/01/19 01/01/19 History Inhaler] Bisacodyl [Dulcolax] 10 mg RECTAL DAILY PRN 01/01/19 01/01/19 History Budesonide-Formot 160-4.5 Mcg 2 puff INHALATION RT-BID@0800,1700 01/01/19 01/01/19 History [Symbicort 160-4.5 Mcg Inhaler] Donepezil [Aricept] 5 mg PO DAILY@1700 01/01/19 01/01/19 History Dorzolamide 2% [Trusopt 2%] 1 drops RIGHT EYE BID@0800,1700 01/01/19 01/01/19 History Escitalopram [Lexapro] 5 mg PO DAILY@0800 01/01/19 01/01/19 History Gabapentin [Neurontin] 100 mg PO BID@0800,1700 01/01/19 01/01/19 History Isosorbide Mononitrate ER [Imdur] 60 mg PO DAILY@0800 01/01/19 01/01/19 History Magnesium Hydroxide [Milk of 2,400 mg PO DAILY PRN 01/01/19 01/01/19 History Magnesia] Metoprolol Tartrate [Lopressor] 12.5 mg PO BID@0800,1700 01/01/19 01/01/19 History Na Phos,M-B/Na Phos,Di-Ba [Fleet 133 ml RECTAL DAILY PRN 01/01/19 01/01/19 History Adult] Pantoprazole [Protonix] 40 mg PO DAILY@0800 01/01/19 01/01/19 History Sodium Chloride [Saline Nasal 1 spray EA NOSTRIL Q2H PRN 01/01/19 01/01/19 History [place]] guaiFENesin SYRUP 100MG/5ML 200 mg PO Q4H PRN 01/01/19 01/01/19 History [Robitussin] rOPINIRole HCL [Requip] 0.5 mg PO HS@2100 01/01/19 01/01/19 History Allergies Allergy/AdvReac Type Severity Reaction Status Date / Time Kpsfssr-[id number]-Xsp Reductase Allergy Unknown Verified 01/01/19 10:12 Inhibitor morphine AdvReac Confusion Verified 01/01/19 10:12 Physical Examination Inspection of left upper extremity shows thumb spica splint in place and appropriate fitting. There are no wounds. Neurovascular status is intact with motor and sensation throughout left upper extremity including elbow, hand and digits. Tenderness and swelling at fracture site as expected. 2+ radial pulse and less than 2 sec cap refill present Results XRays of left wrist show minimal displaced left radial styloid fracture - Labs Labs: Abnormal Lab Results - Last 24 Hours (Table) 01/02/19 01/02/19 01/02/19 Range/Units 00:55 04:20 04:20 Lymphocytes # 0.5 L (1.0-4.8) k/uL Chloride 111 H (98-107) mmol/L BUN 29 H (7-17) mg/dL Creatinine 1.37 H (0.52-1.04) mg/dL Glucose 172 H (74-99) mg/dL POC Glucose (mg/dL) 169 H (75-99) mg/dL Urine Appearance (Clear) Urine Protein (Negative) Urine Blood (Negative) Ur Leukocyte Esterase (Negative) Urine RBC (0-5) /hpf Urine WBC (0-5) /hpf Urine WBC Clumps (None) /hpf Urine Bacteria (None) /hpf Urine Mucus (None) /hpf Urine Yeast (Budding) (None) /hpf 01/02/19 01/02/19 01/02/19 Range/Units 05:30 06:36 11:51 Lymphocytes # (1.0-4.8) k/uL Chloride (98-107) mmol/L BUN (7-17) mg/dL Creatinine (0.52-1.04) mg/dL Glucose (74-99) mg/dL POC Glucose (mg/dL) 148 H 148 H (75-99) mg/dL Urine Appearance Turbid H (Clear) Urine Protein 1+ H (Negative) Urine Blood Trace H (Negative) Ur Leukocyte Esterase Large H (Negative) Urine RBC 20 H (0-5) /hpf Urine WBC >182 H (0-5) /hpf Urine WBC Clumps Many H (None) /hpf Urine Bacteria Many H (None) /hpf Urine Mucus Rare H (None) /hpf Urine Yeast (Budding) Many H (None) /hpf 01/02/19 Range/Units 16:30 Lymphocytes # (1.0-4.8) k/uL Chloride (98-107) mmol/L BUN (7-17) mg/dL Creatinine (0.52-1.04) mg/dL Glucose (74-99) mg/dL POC Glucose (mg/dL) 139 H (75-99) mg/dL Urine Appearance (Clear) Urine Protein (Negative) Urine Blood (Negative) Ur Leukocyte Esterase (Negative) Urine RBC (0-5) /hpf Urine WBC (0-5) /hpf Urine WBC Clumps (None) /hpf Urine Bacteria (None) /hpf Urine Mucus (None) /hpf Urine Yeast (Budding) (None) /hpf Microbiology - Last 24 Hours (Table) 01/02/19 05:30 Urine Culture - Preliminary Urine,Clean Catch H & H 01/01/19 01/02/19 Range/Units 08:38 04:20 Hgb 13.6 13.7 (11.4-16.0) gm/dL Hct 40.8 42.2 (34.0-46.0) % Result Diagrams: 01/02/19 04:20 01/02/19 04:20 - Diagnostic results Wrist/Hand x-ray: report reviewed, image reviewed Assessment and Plan (1) Radial styloid fracture Narrative/Plan: She is to remain in splint for left radial styloid fracture. Will transition to cast in one week with repeat xrays. She is to be nonweightbearing with left upper extremity. Continue elevation and ice. Pain management per primary team. Will continue to follow. Current Visit: Yes Status: Acute Code(s): S52.513A - DISP FX OF UNSP RADIAL STYLOID PROCESS, INIT FOR CLOS FX SNOMED Code(s): 951115264 Time with Patient: Less than 30
[2019-01-02 20:47] LABS: Glucose,Whole Blood 129 mg/dL (75-99)
[2019-01-02] MEDS: MELATONIN 3 MG TABLET PO SCH (21:22)
[2019-01-03] MEDS ORDERED: LEVOFLOXACIN 250MG-D5W PMX 250 MG in DEXTROSE/WATER 1 50ML.BAG IVPB SCH (01:00)
[2019-01-03 05:46] LABS: Basophils % (A) 0 %; Eosinophils # (A) 0.1 k/uL (0-0.7); Eosinophils % (A) 1 %; HCT 38.6 % (34.0-46.0); HGB 12.6 gm/dL (11.4-16.0); Hypochromasia Slight; Lymphocytes # (A) 0.7 k/uL (1.0-4.8); Lymphocytes % (A) 11 %; MCH 29.8 pg (25.0-35.0); MCHC 32.7 g/dL (31.0-37.0); MCV 91.1 fL (80.0-100.0); Mean Platelet Volume 6.4; Monocytes # (A) 0.3 k/uL (0-1.0); Monocytes % (A) 5 %; Neutrophils # (A) 5.1 k/uL (1.3-7.7); Neutrophils % (A) 81 %; Platelet Count 159 k/uL (150-450); RBC 4.23 m/uL (3.80-5.40); WBC 6.3 k/uL (3.8-10.6)
[2019-01-03 05:59] LABS: Magnesium 2.3 mg/dL (1.6-2.3); Potassium 4.4 mmol/L (3.5-5.1)
[2019-01-03] MEDS: hydrALAZINE HCL 20 MG/ML 1 ML VIAL IVP PRN ×2 (06:15→18:16)
[2019-01-03] MEDS: HYDROcodone/APAP 7.5-325MG 1 EACH TAB PO PRN (06:16)
[2019-01-03 06:47] LABS: Glucose,Whole Blood 130 mg/dL (75-99)
[2019-01-03] MEDS: INSULIN ASPART (NovoLOG) 100 UNIT/ML VIAL SQ SCH ×4 (06:53→20:30)
[2019-01-03] MEDS: IPRATROPIUM-ALBUTEROL 3 ML NEB INHALATION SCH ×4 (06:59→20:55)
[2019-01-03] MEDS: FORMOTEROL FUMARATE 20 MCG/2 ML NEBU INHALATION SCH ×2 (06:59→20:55)
[2019-01-03] MEDS: BUDESONIDE 1 MG/2 ML NEBU INHALATION SCH ×2 (06:59→20:55)
--- NOTE | 2019-01-03 07:24 | XR ---
EXAMINATION TYPE: XR chest 1V DATE OF EXAM: 01/03/2019 COMPARISON: 01/02/2019 INDICATION: Chest tube TECHNIQUE: Single frontal view of the chest is obtained. FINDINGS: The heart size is normal. The pulmonary vasculature is normal. Minimal subsegmental atelectasis at the lung bases. No pneumothorax is evident. Right-sided chest tub e is present and stable in position. Subcutaneous emphysema is on the right lateral chest IMPRESSION: 1. No pneumothorax. Right-sided chest tube remains in position. 2. Developing subsegmental atelectasis bilateral lung bases
[2019-01-03] MEDS: ASPIRIN 81 MG PO SCH (09:31)
[2019-01-03] MEDS: LOSARTAN 50 MG TAB PO SCH ×2 (09:31→18:16)
[2019-01-03] MEDS: GABAPENTIN 100 MG CAP PO SCH ×2 (09:32→18:16)
[2019-01-03] MEDS: MONTELUKAST 10 MG TAB PO SCH (09:32)
[2019-01-03] MEDS: amLODIPine 5 MG TAB PO SCH (09:32)
[2019-01-03] MEDS: CLOPIDOGREL 75 MG TAB PO SCH (09:32)
--- NOTE | 2019-01-03 09:32 | P.PN ---
Subjective Progress Note Date: 01/03/19 This morning, 01/03/2099 seeing the patient for a follow-up. She is awake. She is alert. She is having soreness along the right chest. She has a right-sided chest tube in place and there is no evidence of air leak and output is a minimal her chest x-ray from today shows full expansion of the right lung without evidence of any pneumothorax. She remains on high flow oxygen at 75% FiO2 with 60 L of flow. No fever. No chills. Hemoglobin is stable at 12.6. Creatinine is at 1.26. Hemodynamically stable. She has a fracture in her left breast and she is currently wearing a splint. She is on 0.9 at the rate of 50. She is taking DuoNeb nebulized treatments around the clock. She is on Pulmicort Respules and Perforomist nebulized treatments twice a day. Resume outpatient medications at all unchanged. She is on [place] 7.5 for pain control. She has an incentive spirometer and she is pulling approximately 800,000. Objective - Vital Signs Vital signs: Vital Signs Temp 99.4 F 01/03/19 04:00 Pulse 77 01/03/19 07:23 Resp 11 L 01/03/19 07:00 BP 165/61 01/03/19 07:00 Pulse Ox 95 01/03/19 09:14 Intake & Output 01/02/19 01/03/19 01/03/19 18:59 06:59 18:59 Intake Total 1150 754 550 Output Total 510 619 175 Balance 640 135 375 Weight 86.1 kg Intake: IV 550 650 150 Levofloxacin 250Mg-D5w 50 Pmx 250 mg In Dextrose/ Water 1 50ml.bag @ 50 mls /hr IVPB Q24H [facility] Rx#: [id number] Sodium Chloride 0.9% 1, 550 600 150 000 ml @ 50 mls/hr IV . Q20H [facility]WN Rx#:[id number] Oral 600 104 400 Output: Chest Tube Drainage 5 2 Chest Tube Right 5 2 Urine 455 617 175 Emesis 50 Other: Voiding Method Indwelling Catheter Indwelling Catheter Indwelling Catheter - Exam General. She is calm comfortable likely distress. She is wearing high flow oxygen nasally Head exam was generally normal. There was no scleral icterus or corneal arcus. Mucous membranes were moist. Neck was supple and without jugular venous distension, thyromegaly, or carotid bruits. Carotids were easily palpable bilaterally. There was no adenopathy. Lungs sounds are diminished in the lung bases bilaterally more so on the right and the patient has a right-sided chest tube in place. There is some limited saphenous emphysema in the right. No evidence of any air leak. Cardiac exam revealed the PMI to be normally situated and sized. The rhythm was regular and no extrasystoles were noted during several minutes of auscultation. The first and second heart sounds were normal and physiologic splitting of the second heart sound was noted. There were no murmurs, rubs, clicks, or gallops. Abdominal exam revealed normal bowel sounds. The abdomen was soft, non-tender, and without masses, organomegaly, or appreciable enlargement of the abdominal aorta. Extremities the patient is wearing a splint in the left upper extremity. Pulses are equal and symmetrical. Neurologically the patient is legally blind secondary to macular degeneration. She will go 4 extremities without any limitation. Examination of the skin revealed no evidence of significant rashes, suspicious appearing nevi or other concerning lesions. - Labs CBC & Chem 7: 01/03/19 04:39 01/03/19 04:39 Labs: Abnormal Lab Results - Last 24 Hours (Table) 01/02/19 01/02/19 01/02/19 Range/Units 11:51 16:30 20:46 Lymphocytes # (1.0-4.8) k/uL Chloride (98-107) mmol/L BUN (7-17) mg/dL Creatinine (0.52-1.04) mg/dL Glucose (74-99) mg/dL POC Glucose (mg/dL) 148 H 139 H 129 H (75-99) mg/dL 01/03/19 01/03/19 01/03/19 Range/Units 04:39 04:39 06:44 Lymphocytes # 0.7 L (1.0-4.8) k/uL Chloride 110 H (98-107) mmol/L BUN 30 H (7-17) mg/dL Creatinine 1.26 H (0.52-1.04) mg/dL Glucose 126 H (74-99) mg/dL POC Glucose (mg/dL) 130 H (75-99) mg/dL Microbiology - Last 24 Hours (Table) 01/02/19 05:30 Urine Culture - Preliminary Urine,Clean Catch Assessment and Plan Plan: 1 right-sided pneumothorax, traumatic in nature, resolved with a chest tube insertion. There is no evidence of any air leak in the right lung is well expanded. 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 Continue using incentive spirometer. Pain control. Wean down the FiO2 as tolerated. Doubt infection. Empiric antibiotic coverage for UTI with Levaquin. Diet as tolerated and this will be gradually advanced. We'll continue to follow. En courage using incentive spirometer and keep the patient ICU.
[2019-01-03] MEDS: CHOLECALCIFEROL 1,000 UNIT TAB PO SCH (09:33)
[2019-01-03] MEDS: ISOSORBIDE MONONITRATE ER 60 MG TAB.ER.24H PO SCH (09:33)
[2019-01-03] MEDS: prednisoLONE ACETATE 1% OPHTH DROPS 5 ML BTL LEFT EYE SCH ×2 (09:34→18:17)
[2019-01-03] MEDS: PANTOPRAZOLE 40 MG/10 ML VIAL IVP SCH (09:35)
[2019-01-03] MEDS: BRIMONIDINE TARTRATE 0.2% DROPS 5 ML BTL RIGHT EYE SCH ×2 (09:35→18:18)
[2019-01-03] MEDS: DORZOLAMIDE HCL 2% DROPS 10 ML BTL RIGHT EYE SCH ×2 (09:35→18:17)
[2019-01-03] MEDS: HEPARIN SODIUM,PORCINE 5,000 UNIT/ML 1 ML VIAL SQ SCH ×2 (09:36→20:29)
[2019-01-03] MEDS: ESCITALOPRAM 5 MG TAB PO SCH (09:45)
[2019-01-03 11:39] LABS: Glucose,Whole Blood 146 mg/dL (75-99)
--- NOTE | 2019-01-03 12:54 | P.PN ---
Subjective Progress Note Date: 01/03/19 Principal diagnosis: This is a 78-year-old female who was recently admitted for a fall and was found have a right-sided tension pneumothorax and is being closely monitored. Patient underwent chest tube insertion with Dr. Cherry and is currently being monitored closely in the ICU at this time. Pulmonary is following closely. Patient is currently being maintained on high flow oxygen with an O2 flow rate of 60L and an FiO2 of 65%. Right side chest tube remains with no air leak noted. Today's chest x-ray shows no pneumothorax, right-sided chest tube present in position, developing subsegmental atelectasis in the bilateral lung bases. Patient continues to have some right side chest discomfort near the insertion site of the chest tube along with some left wrist pain and currently has a splint applied. Orthopedics is following. Will continue to monitor closely. REVIEW OF SYSTEMS: CARDIOVASCULAR: No reports of chest pain or palpitations RESPIRATORY: Reports shortness of breath and cough GI: No nausea, vomiting or diarrhea. : No dysuria or retention. MUSCULOSKELETAL: Reports right-sided chest wall pain and left wrist pain ENDOCRINE: history of diabetes CONSTITUTIONAL: reports fatigue PSYCHIATRY: Cooperative Active Medications Acetaminophen (Tylenol Tab) 650 mg PO Q4H PRN Hydrocodone Bitart/Acetaminophen ([place] 7.5-325) 1 each PO Q4H PRN Al Hydroxide/Mg Hydroxide (Maalox) 30 ml PO Q4HR PRN Albuterol/Ipratropium (Duoneb 0.5 Mg-3 Mg/3 Ml Soln) 3 ml INHALATION RT-QID PRN Albuterol/Ipratropium (Duoneb 0.5 Mg-3 Mg/3 Ml Soln) 3 ml INHALATION RT-QID [facility] Amlodipine Besylate (Norvasc) 5 mg PO DAILY@0800 [facility] Aspirin (Aspirin) 81 mg PO DAILY@0800 [facility] Bisacodyl (Dulcolax) 10 mg RECTAL DAILY PRN Brimonidine Tartrate (Alphagan P 0.2% Ophth Soln) 1 drops RIGHT EYE BID@0800,1700 [facility] Budesonide (Pulmicort) 1 mg INHALATION RT-BID [facility] Cholecalciferol (Vitamin D3 (25 Mcg = 1000 Iu)) 2,000 unit PO DAILY@0800 [facility] Clopidogrel Bisulfate (Plavix) 75 mg PO DAILY@0800 [facility] Donepezil HCl (Aricept) 5 mg PO DAILY@1700 [facility] Dorzolamide HCl (Trusopt) 1 drops RIGHT EYE BID@0800,1700 [facility] Escitalopram Oxalate (Lexapro) 5 mg PO DAILY@0800 [facility] Formoterol Fumarate (Perforomist) 20 mcg INHALATION RT-BID [facility] Gabapentin (Neurontin) 100 mg PO BID@0800,1700 [facility] Guaifenesin (Robitussin) 200 mg PO Q4H PRN Heparin Sodium (Porcine) (Heparin) 5,000 unit SQ Q12HR [facility] Hydralazine HCl (Apresoline) 10 mg IVP Q6HR PRN Sodium Chloride (Saline 0.9%) 1,000 mls @ 50 mls/hr IV .Q20H [facility] Levofloxacin/Dextrose 250 mg/ (IV Solution) 50 mls @ 50 mls/hr IVPB Q24H [facility] Insulin Aspart (Novolog) 0 unit SQ ACHS [facility]; Protocol Isosorbide Mononitrate (Imdur) 60 mg PO DAILY@0800 [facility] Losartan Potassium (Cozaar) 50 mg PO BID@0800,1700 [facility] Magnesium Hydroxide (Milk Of Magnesia) 2,400 mg PO DAILY PRN Melatonin (Melatonin) 3 mg PO HS@2100 [facility] Metoclopramide HCl (Reglan) 10 mg IVP Q6HR PRN Miscellaneous Information (Magnesium Per Protocol) 1 each MISCELLANE DAILY PRN; Protocol Montelukast Sodium (Singulair) 10 mg PO DAILY@0800 [facility] Naloxone HCl (Narcan) 0.2 mg IV Q2M PRN Nitroglycerin (Nitrostat) 0.4 mg SUBLINGUAL Q5M PRN Ondansetron HCl (Zofran) 4 mg IVP Q8HR PRN Pantoprazole Sodium (Protonix) 40 mg IVP DAILY [facility] Prednisolone Acetate (Pred Forte 1%) 1 drops LEFT EYE BID@0800,1700 [facility] Ropinirole HCl (Requip) 0.5 mg PO HS@2100 [facility] Sodium Biphosphate/Sodium Phosphate (Fleet Adult) 133 ml RECTAL DAILY PRN Objective - Vital Signs Vital signs: Vital Signs Temp 98.1 F 01/03/19 12:00 Pulse 73 01/03/19 12:00 Resp 11 L 01/03/19 12:00 BP 164/71 01/03/19 12:00 Pulse Ox 95 01/03/19 12:00 Intake & Output 01/02/19 01/03/19 01/03/19 18:59 06:59 18:59 Intake Total 1150 754 700 Output Total 510 619 325 Balance 640 135 375 Weight 86.1 kg 86.1 kg Intake: IV 550 650 300 Levofloxacin 250Mg-D5w 50 Pmx 250 mg In Dextrose/ Water 1 50ml.bag @ 50 mls /hr IVPB Q24H [facility] Rx#: [id number] Sodium Chloride 0.9% 1, 550 600 300 000 ml @ 50 mls/hr IV . Q20H [facility] Rx#:[id number] Oral 600 104 400 Output: Chest Tube Drainage 5 2 Chest Tube Right 5 2 Urine 455 617 325 Emesis 50 Other: Voiding Method Indwelling Catheter Indwelling Catheter Indwelling Catheter - Exam Gen: This is a 78-year-old female sitting up in the bed in no acute distress. High flow oxygen at 60 L and 65% FiO2 HEENT: Head is atraumatic, normocephalic. Pupils equal, round. Sclerae is anicteric. NECK: Supple. No JVD. No lymphadenopathy. No thyromegaly. LUNGS: Diminished breath sounds at the bases bilaterally with a few scattered rhonchi noted. No intercostal retractions. Right side chest tube present with no air leaks. HEART: S1, S2 are muffled. ABDOMEN: Soft. Hypoactive bowel sounds. No masses. No tenderness noted on palpation. EXTREMITIES: No pedal edema. No calf tenderness. NEUROLOGICAL: Patient is awake, alert and oriented x1-2. Lethargic. - Labs CBC & Chem 7: 01/03/19 04:39 01/03/19 04:39 Labs: Abnormal Lab Results - Last 24 Hours (Table) 01/02/19 01/02/19 01/03/19 Range/Units 16:30 20:46 04:39 Lymphocytes # 0.7 L (1.0-4.8) k/uL Chloride (98-107) mmol/L BUN (7-17) mg/dL Creatinine (0.52-1.04) mg/dL Glucose (74-99) mg/dL POC Glucose (mg/dL) 139 H 129 H (75-99) mg/dL 01/03/19 01/03/19 01/03/19 Range/Units 04:39 06:44 11:37 Lymphocytes # (1.0-4.8) k/uL Chloride 110 H (98-107) mmol/L BUN 30 H (7-17) mg/dL Creatinine 1.26 H (0.52-1.04) mg/dL Glucose 126 H (74-99) mg/dL POC Glucose (mg/dL) 130 H 146 H (75-99) mg/dL Microbiology - Last 24 Hours (Table) 01/02/19 05:30 Urine Culture - Preliminary Urine,Clean Catch Assessment and Plan Assessment: Status post fall and right tension pneumothorax status post chest tube drainage Acute hypoxic respiratory failure secondary to pneumothorax on high flow oxygen Left wrist fracture secondary to fall Atelectasis versus pneumonia right lower lobe Urinary tract infection present on admission Chronic obstructive pulmonary disease and asthma acute exacerbation Chronic kidney disease stage III, present on admission History of CVA/TIA Diabetes mellitus type 2 Hypertension History of myocardial infarction previous history of pneumothorax 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 Will continue with bronchodilators and empiric antibiotics at this time. Right side chest tube remains in place and will continue to monitor. Continue to encourage incentive spirometer use Pulmonary and surgery are following closely. PT/OT following as well. Patient will remain in the ICU at this time for close monitoring. Will continue to monitor vital signs and labs closely and repeat tomorrow. Due to multiple complex medical issues prognosis is guarded. Further recommendations to follow.
--- NOTE | 2019-01-03 12:54 | P.PN ---
Subjective Progress Note Date: 01/03/19 Patient seen and examined at bedside. States she is doing well. She denies any significant difficulty with respiration. Chest x-ray shows no pneumothorax. There is no air leak in the atrium. Objective - Vital Signs Vital signs: Vital Signs Temp 98.1 F 01/03/19 12:00 Pulse 73 01/03/19 12:00 Resp 11 L 01/03/19 12:00 BP 164/71 01/03/19 12:00 Pulse Ox 95 01/03/19 12:00 Intake & Output 01/02/19 01/03/19 01/03/19 18:59 06:59 18:59 Intake Total 1150 754 700 Output Total 510 619 325 Balance 640 135 375 Weight 86.1 kg 86.1 kg Intake: IV 550 650 300 Levofloxacin 250Mg-D5w 50 Pmx 250 mg In Dextrose/ Water 1 50ml.bag @ 50 mls /hr IVPB Q24H [facility] Rx#: [id number] Sodium Chloride 0.9% 1, 550 600 300 000 ml @ 50 mls/hr IV . Q20H [facility] Rx#:[id number] Oral 600 104 400 Output: Chest Tube Drainage 5 2 Chest Tube Right 5 2 Urine 455 617 325 Emesis 50 Other: Voiding Method Indwelling Catheter Indwelling Catheter Indwelling Catheter - Constitutional General appearance: Present: cooperative - Respiratory Details: on high flow nasal cannula, right sided chest tube in place, no air leak - Musculoskeletal Musculoskeletal: Present: generalized weakness - Labs CBC & Chem 7: 01/03/19 04:39 01/03/19 04:39 Labs: Abnormal Lab Results - Last 24 Hours (Table) 01/02/19 01/02/19 01/03/19 Range/Units 16:30 20:46 04:39 Lymphocytes # 0.7 L (1.0-4.8) k/uL Chloride (98-107) mmol/L BUN (7-17) mg/dL Creatinine (0.52-1.04) mg/dL Glucose (74-99) mg/dL POC Glucose (mg/dL) 139 H 129 H (75-99) mg/dL 01/03/19 01/03/19 01/03/19 Range/Units 04:39 06:44 11:37 Lymphocytes # (1.0-4.8) k/uL Chloride 110 H (98-107) mmol/L BUN 30 H (7-17) mg/dL Creatinine 1.26 H (0.52-1.04) mg/dL Glucose 126 H (74-99) mg/dL POC Glucose (mg/dL) 130 H 146 H (75-99) mg/dL Microbiology - Last 24 Hours (Table) 01/02/19 05:30 Urine Culture - Preliminary Urine,Clean Catch Assessment and Plan (1) Fall Narrative/Plan: Patient is currently being managed in ICU. Pulmonary recommendations and medical recommendations are appreciated. Current Visit: Yes Status: Acute Code(s): W19.XXXA - UNSPECIFIED FALL, INITIAL ENCOUNTER SNOMED Code(s): 1592532 (2) Pneumothorax Narrative/Plan: Chest tube to be removed today as there is no evidence of air leak and pneumothorax has resolved. Repeat chest x-ray after chest tube removal Current Visit: Yes Status: Acute Code(s): J93.9 - PNEUMOTHORAX, UNSPECIFIED SNOMED Code(s): 00928059 (3) Wrist fracture, left Narrative/Plan: Orthopedic recommendations appreciated Current Visit: Yes Status: Acute Code(s): S62.102A - FRACTURE OF UNSP CARPAL BONE, LEFT WRIST, INIT FOR CLOS FX SNOMED Code(s): 430658270
[2019-01-03 13:03] LABS: Hemoglobin A1C 5.6 % (4.0-6.0)
--- NOTE | 2019-01-03 14:52 | P.PN ---
Subjective Progress Note Date: 01/03/19 Principal diagnosis: Left radiostyloid fracture Patient is a pleasant 78-year-old female seen at bedside this afternoon in the ICU. We are following her for her left distal radius/radial styloid fracture. She has been in a thumb spica splint. She states she has minimal or no pain currently. She denies numbness or tingling in her fingers. She has no complaints today. Objective - Vital Signs Vital signs: Vital Signs Temp 98.1 F 01/03/19 12:00 Pulse 74 01/03/19 13:00 Resp 14 01/03/19 13:00 BP 152/62 01/03/19 13:00 Pulse Ox 96 01/03/19 13:00 Intake & Output 01/02/19 01/03/19 01/03/19 18:59 06:59 18:59 Intake Total 1150 754 750 Output Total 510 619 375 Balance 640 135 375 Weight 86.1 kg 86.1 kg Intake: IV 550 650 350 Levofloxacin 250Mg-D5w 50 Pmx 250 mg In Dextrose/ Water 1 50ml.bag @ 50 mls /hr IVPB Q24H [facility] Rx#: [id number] Sodium Chloride 0.9% 1, 550 600 350 000 ml @ 50 mls/hr IV . Q20H [facility] Rx#:[id number] Oral 600 104 400 Output: Chest Tube Drainage 5 2 Chest Tube Right 5 2 Urine 455 617 375 Emesis 50 Other: Voiding Method Indwelling Catheter Indwelling Catheter Indwelling Catheter - Exam Inspection of the left upper extremity and wrist shows thumb spica splint in place. It is appropriate the fitting. There is tenderness at the distal radius as expected. There is mild swelling. There are no wounds. It is not hot and red. Neurovascular status is intact with motor and sensation grossly throughout the left upper extremity. All digits have sensation to light touch. There is less than 2 second capillary refill in all digits as well. There is 2+ radial pulse present. - Constitutional General appearance: Present: no acute distress - Labs CBC & Chem 7: 01/03/19 04:39 01/03/19 04:39 Labs: Abnormal Lab Results - Last 24 Hours (Table) 01/02/19 01/02/19 01/03/19 Range/Units 16:30 20:46 04:39 Lymphocytes # 0.7 L (1.0-4.8) k/uL Chloride (98-107) mmol/L BUN (7-17) mg/dL Creatinine (0.52-1.04) mg/dL Glucose (74-99) mg/dL POC Glucose (mg/dL) 139 H 129 H (75-99) mg/dL 01/03/19 01/03/19 01/03/19 Range/Units 04:39 06:44 11:37 Lymphocytes # (1.0-4.8) k/uL Chloride 110 H (98-107) mmol/L BUN 30 H (7-17) mg/dL Creatinine 1.26 H (0.52-1.04) mg/dL Glucose 126 H (74-99) mg/dL POC Glucose (mg/dL) 130 H 146 H (75-99) mg/dL Microbiology - Last 24 Hours (Table) 01/02/19 05:30 Urine Culture - Preliminary Urine,Clean Catch Gram Neg Bacilli Assessment and Plan (1) Radial styloid fracture Narrative/Plan: She is to remain in splint for left radial styloid fracture. Will transition to cast in one week with repeat xrays. She is to be nonweightbearing with left upper extremity. Continue elevation and ice. Pain management per primary team. Continue to monitor neurovascular status while in splint. She may follow-up as an outpatient if released within the week. If she remains as an inpatient we'll obtain x-rays in 1 week and transition to a cast or orthosis Current Visit: Yes Status: Acute Code(s): S52.513A - DISP FX OF UNSP RADIAL STYLOID PROCESS, INIT FOR CLOS FX SNOMED Code(s): 023149518 Time with Patient: Less than 30
--- NOTE | 2019-01-03 15:51 | XR ---
EXAMINATION TYPE: XR chest 1V DATE OF EXAM: 01/03/2019 COMPARISON: 01/03/2019 INDICATION: Chest tube removal TECHNIQUE: Single frontal view of the chest is obtained. FINDINGS: The heart size is normal. The pulmonary vasculature is normal. Minimal atelectasis has developed at the right base. Minimal fluid collection may be at the right bas e. There appears to be some lucency at the right apex suggestive for small right apical pneumothorax. Th ere are chest tube is been removed. Monitoring is recommended. IMPRESSION: 1. Small right apical pneumothorax, continued monitoring is recommended
[2019-01-03 16:35] LABS: Glucose,Whole Blood 111 mg/dL (75-99)
[2019-01-03] MEDS: ONDANSETRON 4 MG/2 ML VIAL IVP PRN (18:16)
[2019-01-03] MEDS: DONEPEZIL 5 MG TAB PO SCH (18:17)
[2019-01-03 20:22] LABS: Glucose,Whole Blood 140 mg/dL (75-99)
[2019-01-03] MEDS: MELATONIN 3 MG TABLET PO SCH (20:29)
[2019-01-03] MEDS: LEVOFLOXACIN 250 MG TAB PO SCH (22:27)
[2019-01-04] MEDS: hydrALAZINE HCL 20 MG/ML 1 ML VIAL IVP PRN (06:06)
[2019-01-04 06:09] LABS: Basophils # (A) 0.1 k/uL (0-0.2); Basophils % (A) 1 %; Eosinophils # (A) 0.1 k/uL (0-0.7); Eosinophils % (A) 2 %; HCT 37.2 % (34.0-46.0); HGB 12.3 gm/dL (11.4-16.0); Lymphocytes # (A) 0.8 k/uL (1.0-4.8); Lymphocytes % (A) 14 %; MCH 29.9 pg (25.0-35.0); MCHC 33.1 g/dL (31.0-37.0); MCV 90.4 fL (80.0-100.0); Mean Platelet Volume 6.4; Monocytes # (A) 0.4 k/uL (0-1.0); Monocytes % (A) 6 %; Neutrophils # (A) 4.5 k/uL (1.3-7.7); Neutrophils % (A) 76 %; Platelet Count 138 k/uL (150-450); RBC 4.12 m/uL (3.80-5.40); RDW 14.7 % (11.5-15.5); WBC 5.9 k/uL (3.8-10.6)
[2019-01-04 06:17] LABS: Calcium 8.9 mg/dL (8.4-10.2); Potassium 4.3 mmol/L (3.5-5.1)
[2019-01-04 06:35] LABS: Glucose,Whole Blood 112 mg/dL (75-99)
[2019-01-04] MEDS: INSULIN ASPART (NovoLOG) 100 UNIT/ML VIAL SQ SCH ×4 (06:38→20:45)
--- NOTE | 2019-01-04 07:03 | XR ---
EXAMINATION TYPE: XR chest 1V portable DATE OF EXAM: 01/04/2019 HISTORY: Right pneumothorax COMPARISON: 01/03/2019 TECHNIQUE: Single view of the chest is submitted. FINDINGS: Less than 10% right-sided pneumothorax persists and appears very slightly smaller in size. SubCutaneo us air is noted along the right chest wall. Pulmonary venous congestion and small effusions noted. The heart is stable. Hilar and mediastinal structures are within normal limits. Degenerative changes are seen of the dorsal spine. IMPRESSION: 1. Less than 10% right-sided pneumothorax persists and appears very slightly smaller in size. SubCut aneous air is noted along the right chest wall.
[2019-01-04] MEDS: BUDESONIDE 1 MG/2 ML NEBU INHALATION SCH ×2 (07:41→20:14)
[2019-01-04] MEDS: FORMOTEROL FUMARATE 20 MCG/2 ML NEBU INHALATION SCH ×2 (07:41→20:14)
[2019-01-04] MEDS: IPRATROPIUM-ALBUTEROL 3 ML NEB INHALATION SCH ×4 (07:41→20:14)
--- NOTE | 2019-01-04 08:08 | P.PN ---
Subjective Progress Note Date: 01/04/19 On today's evaluation, the patient is awake and alert. I'm seeing her in follow-up on 01/04/2019. The patient is still on high flow oxygen at 60 L with an FiO2 of 70% him unable to bring down FiO2 any further as the patient is hypoxic with a pulse ox of 92%. On examination she has coarse crackles in lung bases bilaterally. The chest tube was removed yesterday and the follow-up chest x-ray from today shows a small right apical pneumothorax. As such I'm not clear why she is quite hypoxic. Consider acute lung injury. Consider a superimposed pneumonia pH is currently on Levaquin which was initially started for the possibility of UTI and the patient is gram-negative bacillus in the urine cultu re. Pending further cultures and sensitivities. She has a congested cough. Unable to bring up any sputum. She is using incentive spirometer and she is pulling approximately 500. Creatinine is improving down to 1.1 for now. No previous history of DVT. No previous history of pulmonary embolism. No reported fever. White cell count is at 5.9. Serum bicarb is 20. Pain is under good control with the use of [place]. She is tolerating her diet. Her oral intake is diminished however as the patient does not have any good appetite for now. She follows commands. She is legally blind. Objective - Vital Signs Vital signs: Vital Signs Temp 99 F 01/04/19 04:00 Pulse 89 01/04/19 07:43 Resp 13 01/04/19 07:00 BP 159/58 01/04/19 07:00 Pulse Ox 93 L 01/04/19 07:43 Intake & Output 01/03/19 01/04/19 01/04/19 18:59 06:59 18:59 Intake Total 1000 700 50 Output Total 650 900 100 Balance 350 -200 -50 Weight 86.1 kg 87 kg Intake: IV 600 600 50 Sodium Chloride 0.9% 1, 600 600 50 000 ml @ 50 mls/hr IV . Q20H [facility] Rx#:[id number] Oral 400 100 Output: Urine 650 900 100 Other: Voiding Method Indwelling Catheter Indwelling Catheter - Exam General. She is calm comfortable likely distress. She is wearing high flow oxygen nasally Head exam was generally normal. There was no scleral icterus or corneal arcus. M ucous membranes were moist. Neck was supple and without jugular venous distension, thyromegaly, or carotid bruits. Carotids were easily palpable bilaterally. There was no adenopathy. Lungs sounds are diminished in the lung bases and there are bilateral coarse crackles in the lung bases. Breath sounds are equal and symmetrical. Scattered rhonchi heard throughout the lung lindquist bilaterally. There right-sided chest tube is removed. Cardiac exam revealed the PMI to be normally situated and sized. The rhythm was regular and no extrasystoles were noted during several minutes of auscultation. The first and second heart sounds were normal and physiologic splitting of the second heart sound was noted. There were no murmurs, rubs, clicks, or gallops. Abdominal exam revealed normal bowel sounds. The abdomen was soft, non-tender, and without masses, organomegaly, or appreciable enlargement of the abdominal aorta. Extremities the patient is wearing a splint in the left upper extremity. Pulses are equal and symmetrical. Neurologically the patient is legally blind secondary to macular degeneration. She will go 4 extremities without any limitation. Examination of the skin revealed no evidence of significant rashes, suspicious appearing nevi or other concerning lesions. - Labs CBC & Chem 7: 01/04/19 05:37 01/04/19 05:37 Labs: Abnormal Lab Results - Last 24 Hours (Table) 01/03/19 01/03/19 01/03/19 Range/Units 11:37 16:34 20:21 Plt Count (150-450) k/uL Lymphocytes # (1.0-4.8) k/uL Chloride (98-107) mmol/L Carbon Dioxide (22-30) mmol/L BUN (7-17) mg/dL Creatinine (0.52-1.04) mg/dL Glucose (74-99) mg/dL POC Glucose (mg/dL) 146 H 111 H 140 H (75-99) mg/dL 01/04/19 01/04/19 01/04/19 Range/Units 05:37 05:37 06:34 Plt Count 138 L (150-450) k/uL Lymphocytes # 0.8 L (1.0-4.8) k/uL Chloride 111 H (98-107) mmol/L Carbon Dioxide 20 L (22-30) mmol/L BUN 31 H (7-17) mg/dL Creatinine 1.19 H (0.52-1.04) mg/dL Glucose 110 H (74-99) mg/dL POC Glucose (mg/dL) 112 H (75-99) mg/dL Microbiology - Last 24 Hours (Table) 01/02/19 05:30 Urine Culture - Preliminary Urine,Clean Catch Gram Neg Bacilli Assessment and Plan Plan: 1 right-sided pneumothorax, traumatic in nature, resolved with a chest tube insertion and subsequent removal yesterday. The chest x-ray from today shows a tiny right apical pneumothorax. 2 COPD 3 acute hypoxic respiratory failure currently on high flow oxygen at 70% with 60 L flow him a the exact cause for his acute hypoxic respiratory failure is not clear. The pneumothorax is pretty much recovered. The CAT scan of the chest showed emphysema with some bullous changes. There is a suspicion for a right lower lobe pneumonia. Nevertheless, this hypoxemia is out of proportion and a C TA of the chest will be needed. 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 Keep the high flow oxygen. Proceed with a CT angiogram for now. Continue Levaquin. Continue bronchodilators. Increase oral intake. We'll continue to follow. Keep the patient ICU for now.
[2019-01-04] MEDS: CHOLECALCIFEROL 1,000 UNIT TAB PO SCH (08:53)
[2019-01-04] MEDS: amLODIPine 5 MG TAB PO SCH (08:53)
[2019-01-04] MEDS: CLOPIDOGREL 75 MG TAB PO SCH (08:53)
[2019-01-04] MEDS: ONDANSETRON 4 MG/2 ML VIAL IVP PRN (08:53)
[2019-01-04] MEDS: PANTOPRAZOLE 40 MG TABLET PO SCH (08:53)
[2019-01-04] MEDS: ASPIRIN 81 MG PO SCH (08:54)
[2019-01-04] MEDS: BRIMONIDINE TARTRATE 0.2% DROPS 5 ML BTL RIGHT EYE SCH ×2 (08:54→16:45)
[2019-01-04] MEDS: GABAPENTIN 100 MG CAP PO SCH ×2 (08:54→16:44)
[2019-01-04] MEDS: LOSARTAN 50 MG TAB PO SCH ×2 (08:54→16:44)
[2019-01-04] MEDS: MONTELUKAST 10 MG TAB PO SCH (08:54)
[2019-01-04] MEDS: HEPARIN SODIUM,PORCINE 5,000 UNIT/ML 1 ML VIAL SQ SCH ×2 (08:54→20:45)
[2019-01-04] MEDS: ISOSORBIDE MONONITRATE ER 60 MG TAB.ER.24H PO SCH (08:55)
[2019-01-04] MEDS: DORZOLAMIDE HCL 2% DROPS 10 ML BTL RIGHT EYE SCH ×2 (08:55→16:45)
[2019-01-04] MEDS: SODIUM CHLORIDE 0.9% 1,000 ML IV SCH (08:55)
[2019-01-04] MEDS: ESCITALOPRAM 5 MG TAB PO SCH (08:55)
[2019-01-04] MEDS: prednisoLONE ACETATE 1% OPHTH DROPS 5 ML BTL LEFT EYE SCH ×2 (08:56→16:45)
--- NOTE | 2019-01-04 10:43 | CT ---
EXAMINATION TYPE: CT chest angio for PE DATE OF EXAM: 01/04/2019 COMPARISON: 01/01/2019 and 01/26/2017 HISTORY: 78-year-old female Small pneumothorax, hypoxic respiratory failure TECHNIQUE: Contiguous axial scanning of the chest performed with IV Contrast, patient injected with 8 0 mL of Isovue 370. Coronal/sagittal MIP reconstructions performed. CT DLP: 644.1 mGycm Automated exposure control for dose reduction was used. FINDINGS: Heart mildly enlarged. No pericardial effusion. Scattered coronary artery calcifications are present. Mild atherosclerotic arch calcifications with conventional branching anatomy. Scattered prominent but nonenlarged mediastinal lymph nodes measuring up to 8 mm in the right tracheo bronchial angle and 7 mm and the AP window. No thoracic lymphadenopathy by CT size criteria. Satisfactory opacification of the pulmonary artery system only respiratory motion artifact. No defini te pulmonary embolus is seen. New trace lateral pleural effusions with increasing dependent consolidation and atelectasis within th e basilar lower lobes. Moderate centrilobular emphysema with bullous changes at the right apex. Successful reexpansion of the right-sided pneumothorax. A trace 2.0 x 0.5 cm air locule remains anter iorly in the mid chest, reference axial image 67. Additional trace air locule anteriorly at the right base measures 2.7 x 0.4 cm. Spleen borderline enlarged at 13.4 cm. Cholecystectomy clips in the upper abdomen. Bones: [facility] within the mid and lower thoracic spine. IMPRESSION: 1. SOME BREATHING MOTION ARTIFACT. NO DEFINITE PULMONARY EMBOLUS. 2. NEW TRACE BILATERAL PLEURAL EFFUSIONS WITH INCREASING DEPENDENT CONSOLIDATION AND ATELECTASIS WITH IN THE BASILAR LOWER LOBES WHICH ARE COMPLETELY OPACIFIED NOW. IF NO INFECTIOUS SIGNS/SYMPTOMS, FINDI NGS COULD REPRESENT COMPLETE BASILAR LOWER LOBE COLLAPSE. 3. COPD WITH MODERATE EMPHYSEMA. 4. REEXPANSION THE RIGHT LUNG. ONLY A COUPLE TRACE LOCULES OF PLEURAL AIR/PNEUMOTHORAX REMAINS ANTERI MAKENNA AT THE MID LUNG MEASURING 2.0 X 0.5 CM AND AT THE RIGHT BASE MEASURING 2.7 X 0.4 CM. 5. RESIDUAL SUBCUTANEOUS EMPHYSEMA ALONG THE RIGHT CHEST WALL.
--- NOTE | 2019-01-04 11:15 | P.GSCN ---
<Judy Haynes - Last Filed: 01/04/19 11:03> History of Present Illness Consult date: 01/04/19 Reason for Consult: Right-sided pneumothorax Requesting physician: Nicky Cherry History of present illness: This is a 78-year-old inactive female patient who lives at [facility] and follows with Dr. Villegas an outpatient basis. 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 She had a recent fall with subsequent fracture of the left wrist. Chest x-ray completed in the emergency room demonstrated a small right apical pneumothorax. She was admitted to the intensive care unit for close monitoring. On the next day she complained of increased pain in her chest and difficulty in breathing, she was sent for CT of the chest which demonstrated increase in the right-sided pneumothorax to 50%. Chest tube was placed per surgery with complete reexpansion of the lung. Chest tube was discontinued yesterday. Repeat chest x-ray yesterday afternoon as well as this morning demonstrated a small apical pneumothorax with no increase in size overnight. Due to the patient's emphysema history with bleb disease and reaccumulation of pneumothorax consultation was placed to Dr. Boyd from cardiothoracic surgery for treatment recommendations. Review of Systems Review of systems was completed and was negative except as noted - Cardiovascular Reports shortness of breath - Respiratory Reports pain - Musculoskeletal Reports fractures, Reports frequent falls Past Medical History Past Medical History: Asthma, COPD, CVA/TIA, Diabetes Mellitus, Hypertension, Myocardial Infarction ([place]), Respiratory Disorder Additional Past Medical History / Comment(s): COPD mild in severity with an FEV1 of 2.1 L which is 88% of predicted, bronchial asthma, previous history of pneumothorax requiring a chest tube insertion and subsequent removal, 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 macular degeneration, emphysema, hypertension, hyperlipidemia, previous coronary intervention and stenting of the LAD in November 2016 Last Myocardial Infarction Date:: 12/06/2016 History of Any Multi-Drug Resistant Organisms: None Reported Past Surgical History: Appendectomy, Cholecystectomy, Heart Catheterization With Stent, Hysterectomy, Joint Replacement, Tonsillectomy Additional Past Surgical History / Comment(s): Right knee replacement, right cataract surgery, heart cath with stents x 2 , 11/2016 Past Anesthesia/Blood Transfusion Reactions: No Reported Reaction Date of Last Stent Placement:: 12/06/2016 Past Psychological History: Anxiety, Depression Smoking Status: Former smoker Past Alcohol Use History: None Reported Past Drug Use History: None Reported - Past Family History Mother Family Medical History: Congestive Heart Failure (CHF) Father Additional Family Medical History / Comment(s): empyhsema, blindness. O2 dependent Medications and Allergies Home Medications Medication Instructions Recorded Confirmed Type Clopidogrel [Plavix] 75 mg PO DAILY@0800 09/29/13 01/01/19 History Montelukast [Singulair] 10 mg PO DAILY@0800 09/29/13 01/01/19 History Brimonidine Tartrate [Alphagan P 1 drop RIGHT EYE BID@0800,1700 11/26/15 01/01/19 History 0.1% Ophth Soln] prednisoLONE ACETATE 1% OPHTH 1 drop LEFT EYE BID@0800,1700 11/26/15 01/01/19 History [Pred Forte 1%] Melatonin 3 mg PO HS@2100 05/11/16 01/01/19 History Cholecalciferol [Vitamin D3 (25 2,000 unit PO DAILY@0800 06/30/16 01/01/19 Hi story Mcg = 1000 Iu)] Nitroglycerin Sl Tabs [Nitrostat] 0.4 mg SUBLINGUAL Q5M PRN tab 12/09/16 01/01/19 Rx Losartan Potassium [Cozaar] 50 mg PO BID@0800,1700 01/26/17 01/01/19 History Aspirin 81 mg PO DAILY@0800 03/27/17 01/01/19 History amLODIPine [Norvasc] 5 mg PO DAILY@0800 03/27/17 01/01/19 History Acetaminophen Tab [Tylenol] 500 mg PO BID 01/01/19 01/01/19 History Acetaminophen Tab [Tylenol] 650 mg PO Q4H PRN 01/01/19 01/01/19 History Albuterol Inhaler [Ventolin Hfa 2 puff INHALATION RT-Q6H PRN 01/01/19 01/01/19 History Inhaler] Bisacodyl [Dulcolax] 10 mg RECTAL DAILY PRN 01/01/19 01/01/19 History Budesonide-Formot 160-4.5 Mcg 2 puff INHALATION RT-BID@0800,1700 01/01/19 01/01/19 History [Symbicort 160-4.5 Mcg Inhaler] Donepezil [Aricept] 5 mg PO DAILY@1700 01/01/19 01/01/19 History Dorzolamide 2% [Trusopt 2%] 1 drops RIGHT EYE BID@0800,1700 01/01/19 01/01/19 History Escitalopram [Lexapro] 5 mg PO DAILY@0800 01/01/19 01/01/19 History Gabapentin [Neurontin] 100 mg PO BID@0800,1700 01/01/19 01/01/19 History Isosorbide Mononitrate ER [Imdur] 60 mg PO DAILY@0800 01/01/19 01/01/19 History Magnesium Hydroxide [Milk of 2,400 mg PO DAILY PRN 01/01/19 01/01/19 History Magnesia] Metoprolol Tartrate [Lopressor] 12.5 mg PO BID@0800,1700 01/01/19 01/01/19 History Na Phos,M-B/Na Phos,Di-Ba [Fleet 133 ml RECTAL DAILY PRN 01/01/19 01/01/19 History Adult] Pantoprazole [Protonix] 40 mg PO DAILY@0800 01/01/19 01/01/19 History Sodium Chloride [Saline Nasal 1 spray EA NOSTRIL Q2H PRN 01/01/19 01/01/19 History [place]] guaiFENesin SYRUP 100MG/5ML 200 mg PO Q4H PRN 01/01/19 01/01/19 History [Robitussin] rOPINIRole HCL [Requip] 0.5 mg PO HS@2100 01/01/19 01/01/19 History Allergies Allergy/AdvReac Type Severity Reaction Status Date / Time Sxtfaqs-Lgo-Pnj Reductase Allergy Unknown Verified 01/01/19 10:12 Inhibitor morphine AdvReac Confusion Verified 01/01/19 10:12 Surgical - Exam Vital Signs Temp Pulse Resp BP Pulse Ox 97.9 F 57 L 18 187/73 94 L 01/01/19 08:25 01/01/19 08:25 01/01/19 08:25 01/01/19 08:25 01/01/19 08:25 - General well developed, well nourished, no distress, no pain, chronically ill - ENT decreased hearing - Neck no masses, no bruits, trachea midline - Respiratory Lungs sounds diminished bilaterally with coarse breath sounds in the bases, right greater than left. Respirations even, nonlabored. Currently on Airvo 60 L, 70% FiO2 with oxygen saturation 93%. - Cardiovascular S1, S2 present. Regular rate and rhythm. Sinus rhythm on telemetry. Palpable peripheral pulses bilaterally. No edema present. No calf pain or tenderness noted. SCDs present. - Abdomen Abdomen: soft, non tender, bowel sounds - Genitourinary Lo present draining cloudy yellow urine. Output 50-100 mL per hour. - Rectum Deferred - Integumentary Right lateral chest wall chest tube incision covered with dry intact dressing. Left arm presently in a cast. - Neurologic normal coordination, normal sensation - Musculoskeletal normal posture - Psychiatric Does not know the year or month. oriented to person, oriented to place, speech is normal Results - Labs 01/04/19 05:37 01/04/19 05:37 Abnormal Lab Results - Last 24 Hours (Table) 01/03/19 01/03/19 01/03/19 Range/Units 11:37 16:34 20:21 Plt Count (150-450) k/uL Lymphocytes # (1.0-4.8) k/uL Chloride (98-107) mmol/L Carbon Dioxide (22-30) mmol/L BUN (7-17) mg/dL Creatinine (0.52-1.04) mg/dL Glucose (74-99) mg/dL POC Glucose (mg/dL) 146 H 111 H 140 H (75-99) mg/dL 01/04/19 01/04/19 01/04/19 Range/Units 05:37 05:37 06:34 Plt Count 138 L (150-450) k/uL Lymphocytes # 0.8 L (1.0-4.8) k/uL Chloride 111 H (98-107) mmol/L Carbon Dioxide 20 L (22-30) mmol/L BUN 31 H (7-17) mg/dL Creatinine 1.19 H (0.52-1.04) mg/dL Glucose 110 H (74-99) mg/dL POC Glucose (mg/dL) 112 H (75-99) mg/dL Microbiology - Last 24 Hours (Table) 01/02/19 05:30 Urine Culture - Preliminary Urine,Clean Catch Gram Neg Bacilli Diabetes panel 01/03/19 01/04/19 Range/Units 04:35 05:37 Sodium 139 (137-145) mmol/L Potassium 4.3 (3.5-5.1) mmol/L Chloride 111 H (98-107) mmol/L Carbon Dioxide 20 L (22-30) mmol/L BUN 31 H (7-17) mg/dL Creatinine 1.19 H (0.52-1.04) mg/dL Glucose 110 H (74-99) mg/dL Hemoglobin A1c 5.6 (4.0-6.0) % Calcium 8.9 (8.4-10.2) mg/dL Calcium panel 01/04/19 Range/Units 05:37 Calcium 8.9 (8.4-10.2) mg/dL Pituitary panel 01/04/19 Range/Units 05:37 Sodium 139 (137-145) mmol/L Potassium 4.3 (3.5-5.1) mmol/L Chloride 111 H (98-107) mmol/L Carbon Dioxide 20 L (22-30) mmol/L BUN 31 H (7-17) mg/dL Creatinine 1.19 H (0.52-1.04) mg/dL Glucose 110 H (74-99) mg/dL Calcium 8.9 (8.4-10.2) mg/dL Adrenal panel 01/04/19 Range/Units 05:37 Sodium 139 (137-145) mmol/L Potassium 4.3 (3.5-5.1) mmol/L Chloride 111 H (98-107) mmol/L Carbon Dioxide 20 L (22-30) mmol/L BUN 31 H (7-17) mg/dL Creatinine 1.19 H (0.52-1.04) mg/dL Glucose 110 H (74-99) mg/dL Calcium 8.9 (8.4-10.2) mg/dL - Imaging Chest x-ray: report reviewed, image reviewed CT scan - chest: report reviewed, image reviewed Assessment and Plan Assessment: 1. Traumatic right-sided pneumothorax, status post fall from standing, left wrist fracture 2. Acute hypoxic respiratory failure 3. Gram-negative UTI 4. 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 COPD with previous tobacco dependence 6. Legally blind 7. History of CVA 8. Coronary artery disease with history of myocardial infarction and previous stenting 9. Hypertension 10. Hyperlipidemia Plan: The patient was seen and examined at the bedside. Chart/diagnostics were reviewed with Dr. Metzger. At this time no surgical intervention is warranted. Continue to monitor pneumothorax. Wean O2 as tolerated. Encourage incentive spirometry use. Increase activity as tolerated. Pain control, medical management per primary care service. No further recommendations. Thank you Dr. Cherry. Please call us with any further questions Time with Patient: Greater than 30 <Adithya Metzger - Last Filed: 01/04/19 15:57> Surgical - Exam Vital Signs Temp Pulse Resp BP Pulse Ox 97.9 F 57 L 18 187/73 94 L 01/01/19 08:25 01/01/19 08:25 01/01/19 08:25 01/01/19 08:25 01/01/19 08:25 Results - Labs 01/04/19 05:37 01/04/19 05:37 Abnormal Lab Results - Last 24 Hours (Table) 01/03/19 01/03/19 01/04/19 Range/Units 16:34 20:21 05:37 Plt Count 138 L (150-450) k/uL Lymphocytes # 0.8 L (1.0-4.8) k/uL Chloride (98-107) mmol/L Carbon Dioxide (22-30) mmol/L BUN (7-17) mg/dL Creatinine (0.52-1.04) mg/dL Glucose (74-99) mg/dL POC Glucose (mg/dL) 111 H 140 H (75-99) mg/dL 01/04/19 01/04/19 01/04/19 Range/Units 05:37 06:34 11:25 Plt Count (150-450) k/uL Lymphocytes # (1.0-4.8) k/uL Chloride 111 H (98-107) mmol/L Carbon Dioxide 20 L (22-30) mmol/L BUN 31 H (7-17) mg/dL Creatinine 1.19 H (0.52-1.04) mg/dL Glucose 110 H (74-99) mg/dL POC Glucose (mg/dL) 112 H 120 H (75-99) mg/dL Microbiology - Last 24 Hours (Table) 01/02/19 05:30 Urine Culture - Preliminary Urine,Clean Catch Gram Neg Bacilli Diabetes panel 01/04/19 Range/Units 05:37 Sodium 139 (137-145) mmol/L Potassium 4.3 (3.5-5.1) mmol/L Chloride 111 H (98-107) mmol/L Carbon Dioxide 20 L (22-30) mmol/L BUN 31 H (7-17) mg/dL Creatinine 1.19 H (0.52-1.04) mg/dL Glucose 110 H (74-99) mg/dL Calcium 8.9 (8.4-10.2) mg/dL Calcium panel 01/04/19 Range/Units 05:37 Calcium 8.9 (8.4-10.2) mg/dL Pituitary panel 01/04/19 Range/Units 05:37 Sodium 139 (137-145) mmol/L Potassium 4.3 (3.5-5.1) mmol/L Chloride 111 H (98-107) mmol/L Carbon Dioxide 20 L (22-30) mmol/L BUN 31 H (7-17) mg/dL Creatinine 1.19 H (0.52-1.04) mg/dL Glucose 110 H (74-99) mg/dL Calcium 8.9 (8.4-10.2) mg/dL Adrenal panel 01/04/19 Range/Units 05:37 Sodium 139 (137-145) mmol/L Potassium 4.3 (3.5-5.1) mmol/L Chloride 111 H (98-107) mmol/L Carbon Dioxide 20 L (22-30) mmol/L BUN 31 H (7-17) mg/dL Creatinine 1.19 H (0.52-1.04) mg/dL Glucose 110 H (74-99) mg/dL Calcium 8.9 (8.4-10.2) mg/dL Assessment and Plan Plan: The patient was seen and examined. The history and physical findings were verified. I agree with the above assessment and plan. The patient is a 78 year old female with a history of bleb disease who was found to have a right-sided PTX. Chest tube was placed and subsequently removed by general surgery. Follow up imaging study reveals a small residual right apical PTX. The patient appears to be both clinically and hemodynamically stable at this time. Would recommend observation for now. Repeat CXR in the am.
[2019-01-04 11:27] LABS: Glucose,Whole Blood 120 mg/dL (75-99)
--- NOTE | 2019-01-04 12:45 | P.PN ---
Subjective Progress Note Date: 01/04/19 Patient seen and examined at bedside. After chest tube was removed yesterday, pneumothorax did partially reaccumulate with no significant increase in size overnight. She is still on high flow nasal cannula. She denies any abdominal or chest pain. Objective - Vital Signs Vital signs: Vital Signs Temp 100.3 F H 01/04/19 08:00 Pulse 93 01/04/19 12:00 Resp 30 H 01/04/19 12:00 BP 145/89 01/04/19 12:00 Pulse Ox 93 L 01/04/19 12:00 Intake & Output 01/03/19 01/04/19 01/04/19 18:59 06:59 18:59 Intake Total 1000 700 660 Output Total 650 900 475 Balance 350 -200 185 Weight 86.1 kg 87 kg Intake: IV 600 600 300 Sodium Chloride 0.9% 1, 600 600 300 000 ml @ 50 mls/hr IV . Q20H RAYSHAWN Rx#:[id number] Oral 400 100 360 Output: Urine 650 900 475 Other: Voiding Method Indwelling Catheter Indwelling Catheter Indwelling Catheter - Constitutional General appearance: Present: no acute distress - Respiratory Details: On high flow nasal cannula, no difficulty with respiration - Gastrointestinal Gastrointestinal Comment(s): Soft, nontender, nondistended, no rebound, no guarding - Labs CBC & Chem 7: 01/04/19 05:37 01/04/19 05:37 Labs: Abnormal Lab Results - Last 24 Hours (Table) 01/03/19 01/03/19 01/04/19 Range/Units 16:34 20:21 05:37 Plt Count 138 L (150-450) k/uL Lymphocytes # 0.8 L (1.0-4.8) k/uL Chloride (98-107) mmol/L Carbon Dioxide (22-30) mmol/L BUN (7-17) mg/dL Creatinine (0.52-1.04) mg/dL Glucose (74-99) mg/dL POC Glucose (mg/dL) 111 H 140 H (75-99) mg/dL 01/04/19 01/04/19 01/04/19 Range/Units 05:37 06:34 11:25 Plt Count (150-450) k/uL Lymphocytes # (1.0-4.8) k/uL Chloride 111 H (98-107) mmol/L Carbon Dioxide 20 L (22-30) mmol/L BUN 31 H (7-17) mg/dL Creatinine 1.19 H (0.52-1.04) mg/dL Glucose 110 H (74-99) mg/dL POC Glucose (mg/dL) 112 H 120 H (75-99) mg/dL Microbiology - Last 24 Hours (Table) 01/02/19 05:30 Urine Culture - Preliminary Urine,Clean Catch Gram Neg Bacilli Assessment and Plan (1) Fall Narrative/Plan: Patient is currently being managed in ICU. Her traumatic injuries have been evaluated by the appropriate consultants. Transfer of care to the medicine team today. Pulmonary recommendations and medical recommendations are appreciated. Current Visit: Yes Status: Acute Code(s): W19.XXXA - UNSPECIFIED FALL, INITIAL ENCOUNTER SNOMED Code(s): 5336695 (2) Pneumothorax Narrative/Plan: Chest tube was removed yesterday with mild reaccumulation of pneumothorax. With no evidence of rib fracture and history of bleb disease, this could be a chronic finding due to her COPD and bleb disease. Tonsil has been placed for thoracic surgery for further evaluation. Current Visit: Yes Status: Acute Code(s): J93.9 - PNEUMOTHORAX, UNSPECIFIED SNOMED Code(s): 09225939 (3) Wrist fracture, left Narrative/Plan: Orthopedic recommendations appreciated Current Visit: Yes Status: Acute Code(s): S62.102A - FRACTURE OF UNSP CARPAL BONE, LEFT WRIST, INIT FOR CLOS FX SNOMED Code(s): 950121896
--- NOTE | 2019-01-04 15:27 | P.PN ---
Subjective Progress Note Date: 01/04/19 Principal diagnosis: This is a 78-year-old female who was recently admitted for a fall and was found have a right-sided tension pneumothorax and is being closely monitored. Patient underwent chest tube insertion with Dr. Cherry and is currently being monitored closely in the ICU at this time. Pulmonary is following closely. Patient is currently being maintained on high flow oxygen with an O2 flow rate of 60L and an FiO2 of 65%. Right side chest tube remains with no air leak noted. Today's chest x-ray shows no pneumothorax, right-sided chest tube present in position, developing subsegmental atelectasis in the bilateral lung bases. Patient continues to have some right side chest discomfort near the insertion site of the chest tube along with some left wrist pain and currently has a splint applied. Orthopedics is following. Will continue to monitor closely. 01/04/2019 Patient is sitting up in the bed in no acute distress currently being monitored in the ICU. Chest tube was removed yesterday with repeat chest x-ray today showing less than 10% right-sided pneumothorax with subcutaneous air noted along the right chest wall. Patient underwent CTA of the chest today showing trace bilateral pleural effusions with increasing dependent consolidation and atelecta sis within the basilar lower lobes, COPD with moderate emphysema, reexpansion of the right lung with only a couple trace locules of pleural air remaining anteriorly, and residual subcutaneous emphysema along the right chest wall. Patient was seen by cardiothoracic surgery today and recommended no additional surgical interventions at this time. Patient continues to be on the airvo high flow O2 flow rate of 60 and an FiO2 of 70% and maintaining low oxygen saturations in the 92 to95% range. Will continue to monitor closely. REVIEW OF SYSTEMS: ENT: Reports diminished vision CARDIOVASCULAR: No reports of chest pain or palpitations RESPIRATORY: Reports shortness of breath and cough GI: No nausea, vomiting or diarrhea. : No dysuria or retention. NERVOUS SYSTEM: No numbness or weakness. MUSCULOSKELETAL: Reports left wrist pain HEMATOLOGY/ONCOLOGY: No history of anemia. ENDOCRINE: history of diabetes CONSTITUTIONAL: Reports fatigue and low-grade fever DERMATOLOGY: Negative. PSYCHIATRY: Cooperative Active Medications Acetaminophen (Tylenol Tab) 650 mg PO Q4H PRN PRN Reason: Mild Pain or Fever > 100.5 Hydrocodone Bitart/Acetaminophen ([place] 7.5-325) 1 each PO Q4H PRN PRN Reason: Moderate Pain Last Admin: 01/03/19 06:16 Dose: 1 each Documented by: Al Hydroxide/Mg Hydroxide (Maalox) 30 ml PO Q4HR PRN PRN Reason: GI Upset Last Admin: 01/02/19 15:33 Dose: 30 ml Documented by: Albuterol/Ipratropium (Duoneb 0.5 Mg-3 Mg/3 Ml Soln) 3 ml INHALATION RT-QID PRN PRN Reason: Shortness Of Breath Or Wheezing Albuterol/Ipratropium (Duoneb 0.5 Mg-3 Mg/3 Ml Soln) 3 ml INHALATION RT-QID [facility] Last Admin: 01/04/19 10:55 Dose: 3 ml Documented by: Amlodipine Besylate (Norvasc) 5 mg PO DAILY@0800 [facility] Last Admin: 01/04/19 08:53 Dose: 5 mg Documented by: Aspirin (Aspirin) 81 mg PO DAILY@0800 [facility] Last Admin: 01/04/19 08:54 Dose: 81 mg Documented by: Bisacodyl (Dulcolax) 10 mg RECTAL DAILY PRN PRN Reason: Constipation Brimonidine Tartrate (Alphagan P 0.2% Ophth Soln) 1 drops RIGHT EYE BID@0800,1700 [facility] Last Admin: 01/04/19 08:54 Dose: 1 drops Documented by: Budesonide (Pulmicort) 1 mg INHALATION RT-BID [facility] Last Admin: 01/04/19 07:41 Dose: 1 mg Documented by: Cholecalciferol (Vitamin D3 (25 Mcg = 1000 Iu)) 2,000 unit PO DAILY@0800 [facility] Last Admin: 01/04/19 08:53 Dose: 2,000 unit Documented by: Clopidogrel Bisulfate (Plavix) 75 mg PO DAILY@0800 [facility] Last Admin: 01/04/19 08:53 Dose: 75 mg Documented by: Donepezil HCl (Aricept) 5 mg PO DAILY@1700 [facility] Last Admin: 01/03/19 18:17 Dose: 5 mg Documented by: Dorzolamide HCl (Trusopt) 1 drops RIGHT EYE BID@0800,1700 [facility] Last Admin: 01/04/19 08:55 Dose: 1 drops Documented by: Escitalopram Oxalate (Lexapro) 5 mg PO DAILY@0800 [facility] Last Admin: 01/04/19 08:55 Dose: 5 mg Documented by: Formoterol Fumarate (Perforomist) 20 mcg INHALATION RT-BID [facility] Last Admin: 01/04/19 07:41 Dose: 20 mcg Documented by: Gabapentin (Neurontin) 100 mg PO BID@0800,1700 [facility] Last Admin: 01/04/19 08:54 Dose: 100 mg Documented by: Guaifenesin (Robitussin) 200 mg PO Q4H PRN PRN Reason: Cough Heparin Sodium (Porcine) (Heparin) 5,000 unit SQ Q12HR [facility] Last Admin: 01/04/19 08:54 Dose: 5,000 unit Documented by: Hydralazine HCl (Apresoline) 10 mg IVP Q6HR PRN PRN Reason: Blood Pressure - High Last Admin: 01/04/19 06:06 Dose: 10 mg Documented by: Sodium Chloride (Saline 0.9%) 1,000 mls @ 50 mls/hr IV .Q20H [facility] Last Admin: 01/04/19 08:55 Dose: 50 mls/hr Documented by: Insulin Aspart (Novolog) 0 unit SQ [facility]; Protocol Last Admin: 01/04/19 14:25 Dose: Not Given Documented by: Isosorbide Mononitrate (Imdur) 60 mg PO DAILY@0800 [facility] Last Admin: 01/04/19 08:55 Dose: 60 mg Documented by: Levofloxacin (Levaquin) 250 mg PO HS@2300 [facility] Last Admin: 01/03/19 22:27 Dose: 250 mg Documented by: Losartan Potassium (Cozaar) 50 mg PO BID@0800,1700 [facility] Last Admin: 01/04/19 08:54 Dose: 50 mg Documented by: Magnesium Hydroxide (Milk Of Magnesia) 2,400 mg PO DAILY PRN PRN Reason: Constipation Melatonin (Melatonin) 3 mg PO HS@2100 [facility] Last Admin: 01/03/19 20:29 Dose: 3 mg Documented by: Metoclopramide HCl (Reglan) 10 mg IVP Q6HR PRN PRN Reason: Nausea And Vomiting Last Admin: 01/02/19 12:17 Dose: 10 mg Documented by: Miscellaneous Information (Magnesium Per Protocol) 1 each MISCELLANE DAILY PRN; Protocol PRN Reason: Per Protocol Montelukast Sodium (Singulair) 10 mg PO DAILY@0800 [facility] Last Admin: 01/04/19 08:54 Dose: 10 mg Documented by: Naloxone HCl (Narcan) 0.2 mg IV Q2M PRN PRN Reason: Opioid Reversal Nitroglycerin (Nitrostat) 0.4 mg SUBLINGUAL Q5M PRN PRN Reason: Chest Pain Ondansetron HCl (Zofran) 4 mg IVP Q8HR PRN PRN Reason: Nausea And Vomiting Last Admin: 01/04/19 08:53 Dose: 4 mg Documented by: Pantoprazole Sodium (Protonix) 40 mg PO DAILY [facility] Last Admin: 01/04/19 08:53 Dose: 40 mg Documented by: Prednisolone Acetate (Pred Forte 1%) 1 drops LEFT EYE BID@0800,1700 [facility] Last Admin: 01/04/19 08:56 Dose: 1 drops Documented by: Ropinirole HCl (Requip) 0.5 mg PO HS@2100 [facility] Last Admin: 01/03/19 20:30 Dose: 0.5 mg Documented by: Sodium Biphosphate/Sodium Phosphate (Fleet Adult) 133 ml RECTAL DAILY PRN PRN Reason: Constipation Objective - Vital Signs Vital signs: Vital Signs Temp 99.2 F 01/04/19 13:00 Pulse 87 01/04/19 15:00 Resp 22 01/04/19 15:00 BP 114/51 01/04/19 15:00 Pulse Ox 95 01/04/19 15:00 Intake & Output 01/03/19 01/04/19 01/04/19 18:59 06:59 18:59 Intake Total 1000 700 930 Output Total 650 900 650 Balance 350 -200 280 Weight 86.1 kg 87 kg Intake: IV 600 600 450 Sodium Chloride 0.9% 1, 600 600 450 000 ml @ 50 mls/hr IV . Q20H [facility] Rx#:[id number] Oral 400 100 480 Output: Urine 650 900 650 Other: Voiding Method Indwelling Catheter Indwelling Catheter Indwelling Catheter # Bowel Movements 1 - Exam Gen: This is a 78-year-old female sitting up in the bed in no acute distress. High flow oxygen at 60 L and 70% FiO2 and pulse ox is 93%. Temp is 100.3F, pulse is 86, respirations are 14, blood pressure is 160/65, oxygen saturation is 93% on high flow. HEENT: Head is atraumatic, normocephalic. Pupils equal, round. Sclerae is anicteric. NECK: Supple. No JVD. No lymphadenopathy. No thyromegaly. LUNGS: Diminished breath sounds at the bases bilaterally right worse than the left with a few scattered rhonchi noted. No intercostal retractions. HEART: S1, S2 are muffled. ABDOMEN: Soft. Hypoactive bowel sounds. No masses. No tenderness noted on palpation. EXTREMITIES: No pedal edema. No calf tenderness. Left wrist splint noted NEUROLOGICAL: Patient is awake, alert and oriented x2. Lethargic. - Labs CBC & Chem 7: 01/04/19 05:37 01/04/19 05:37 Labs: Abnormal Lab Results - Last 24 Hours (Table) 01/03/19 01/03/19 01/04/19 Range/Units 16:34 20:21 05:37 Plt Count 138 L (150-450) k/uL Lymphocytes # 0.8 L (1.0-4.8) k/uL Chloride (98-107) mmol/L Carbon Dioxide (22-30) mmol/L BUN (7-17) mg/dL Creatinine (0.52-1.04) mg/dL Glucose (74-99) mg/dL POC Glucose (mg/dL) 111 H 140 H (75-99) mg/dL 01/04/19 01/04/19 01/04/19 Range/Units 05:37 06:34 11:25 Plt Count (150-450) k/uL Lymphocytes # (1.0-4.8) k/uL Chloride 111 H (98-107) mmol/L Carbon Dioxide 20 L (22-30) mmol/L BUN 31 H (7-17) mg/dL Creatinine 1.19 H (0.52-1.04) mg/dL Glucose 110 H (74-99) mg/dL POC Glucose (mg/dL) 112 H 120 H (75-99) mg/dL Microbiology - Last 24 Hours (Table) 01/02/19 05:30 Urine Culture - Preliminary Urine,Clean Catch Gram Neg Bacilli Assessment and Plan Assessment: Status post fall and right tension pneumothorax status post chest tube drainage Acute hypoxic respiratory failure secondary to pneumothorax on high flow oxygen Left wrist fracture secondary to fall Atelectasis versus pneumonia right lower lobe Urinary tract infection present on admission Chronic obstructive pulmonary disease and asthma acute exacerbation Chronic kidney disease stage III, present on admission History of CVA/TIA Diabetes mellitus type 2 Hypertension History of myocardial infarction previous history of pneumothorax 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 Will continue with bronchodilators and empiric antibiotics at this time. Right side chest tube was removed and repeat chest x-ray shows less than 10% right pneumothorax persists and appears slightly smaller in size with subcutaneous air noted along the right chest wall. Continue to encourage incentive spirometer use as well as coughing and deep breathing. Pulmonary and surgery are following closely. Cardiothoracic surgery was consulted and recommended no additional surgical interventions at this time. PT/OT following as well. Patient will remain in the ICU at this time for close monitoring and may transition to selective if a bed becomes available. CTA of the chest was done as mentioned previously. Patient remains on airvo high flow at 60 L with an FiO2 of 70%. Will continue to try to wean off. Will continue to monitor vital signs and labs closely and repeat tomorrow. Due to multiple complex medical issues prognosis is guarded. Further recommendations to follow.
[2019-01-04 16:26] LABS: Glucose,Whole Blood 126 mg/dL (75-99)
[2019-01-04] MEDS: DONEPEZIL 5 MG TAB PO SCH (16:47)
[2019-01-04 20:40] LABS: Glucose,Whole Blood 146 mg/dL (75-99)
[2019-01-04] MEDS: MELATONIN 3 MG TABLET PO SCH (20:45)
[2019-01-04] MEDS: LEVOFLOXACIN 250 MG TAB PO SCH (22:27)
[2019-01-05] MEDS: HYDROcodone/APAP 7.5-325MG 1 EACH TAB PO PRN ×2 (02:03→20:12)
[2019-01-05] MEDS: SODIUM CHLORIDE 0.9% 1,000 ML IV SCH (05:57)
[2019-01-05 06:08] LABS: Basophils % (A) 1 %; Eosinophils # (A) 0.1 k/uL (0-0.7); Eosinophils % (A) 2 %; HCT 33.7 % (34.0-46.0); Lymphocytes # (A) 0.9 k/uL (1.0-4.8); Lymphocytes % (A) 23 %; MCH 29.4 pg (25.0-35.0); MCHC 32.6 g/dL (31.0-37.0); MCV 90.1 fL (80.0-100.0); Monocytes # (A) 0.3 k/uL (0-1.0); Monocytes % (A) 7 %; Neutrophils # (A) 2.6 k/uL (1.3-7.7); Neutrophils % (A) 66 %; Platelet Count 136 k/uL (150-450); RBC 3.74 m/uL (3.80-5.40); RDW 14.8 % (11.5-15.5); WBC 3.9 k/uL (3.8-10.6)
[2019-01-05 06:20] LABS: Calcium 8.7 mg/dL (8.4-10.2); Potassium 4.4 mmol/L (3.5-5.1)
[2019-01-05] MEDS: INSULIN ASPART (NovoLOG) 100 UNIT/ML VIAL SQ SCH ×4 (06:43→20:29)
[2019-01-05 06:45] LABS: Glucose,Whole Blood 122 mg/dL (75-99)
--- NOTE | 2019-01-05 06:50 | XR ---
EXAMINATION TYPE: XR chest 1V portable DATE OF EXAM: 01/05/2019 CLINICAL HISTORY: Difficulty breathing progress study. COPD and pneumonia. TECHNIQUE: Single AP portable upright view of the chest is obtained. COMPARISON: Chest x-ray and CTA chest from one day earlier FINDINGS: Background chronic emphysematous and parenchymal fibrotic changes most prominent right gre ater than left apices and lateral right lung with bibasilar opacities corresponding to consolidation and/or atelectasis and tiny left pleural effusion on CT. Cardiac silhouette size is stable and mildly enlarged with atherosclerotic thoracic aorta. Multilevel spurring in the lower thoracic spine is red emonstrated. Right-sided subcutaneous emphysema again seen. Irregular apical lateral right pneumothor ax is less well seen suspected stable or slightly improved. Right subcutaneous emphysema redemonstrat ed but improved. IMPRESSION: Small irregular anterolateral right pneumothorax stable or slightly improved. Redemonstra tion of mild cardiomegaly and chronic emphysematous and parenchymal fibrotic changes with bibasilar c onsolidation and/or atelectasis and tiny bilateral pleural effusions are redemonstrated.
[2019-01-05] MEDS: FORMOTEROL FUMARATE 20 MCG/2 ML NEBU INHALATION SCH ×2 (06:57→20:35)
[2019-01-05] MEDS: IPRATROPIUM-ALBUTEROL 3 ML NEB INHALATION SCH ×4 (06:57→20:35)
[2019-01-05] MEDS: BUDESONIDE 1 MG/2 ML NEBU INHALATION SCH ×2 (06:57→20:35)
[2019-01-05] MEDS: ISOSORBIDE MONONITRATE ER 60 MG TAB.ER.24H PO SCH (07:26)
[2019-01-05] MEDS: ASPIRIN 81 MG PO SCH (07:26)
[2019-01-05] MEDS: CHOLECALCIFEROL 1,000 UNIT TAB PO SCH (07:26)
[2019-01-05] MEDS: GABAPENTIN 100 MG CAP PO SCH ×2 (07:26→17:42)
[2019-01-05] MEDS: amLODIPine 5 MG TAB PO SCH (07:26)
[2019-01-05] MEDS: CLOPIDOGREL 75 MG TAB PO SCH (07:26)
[2019-01-05] MEDS: DORZOLAMIDE HCL 2% DROPS 10 ML BTL RIGHT EYE SCH ×2 (07:27→17:47)
[2019-01-05] MEDS: prednisoLONE ACETATE 1% OPHTH DROPS 5 ML BTL LEFT EYE SCH ×2 (07:27→17:44)
[2019-01-05] MEDS: BRIMONIDINE TARTRATE 0.2% DROPS 5 ML BTL RIGHT EYE SCH ×2 (07:27→17:45)
[2019-01-05] MEDS: HEPARIN SODIUM,PORCINE 5,000 UNIT/ML 1 ML VIAL SQ SCH ×2 (08:18→20:11)
[2019-01-05] MEDS: ESCITALOPRAM 5 MG TAB PO SCH (08:18)
[2019-01-05] MEDS: LOSARTAN 50 MG TAB PO SCH ×2 (08:18→17:42)
[2019-01-05] MEDS: PANTOPRAZOLE 40 MG TABLET PO SCH (08:18)
[2019-01-05] MEDS: MONTELUKAST 10 MG TAB PO SCH (08:18)
[2019-01-05] MEDS ORDERED: FUROSEMIDE 10 MG/ML 4 ML VIAL IV STA (09:05)
--- NOTE | 2019-01-05 09:05 | P.PN ---
Subjective Progress Note Date: 01/05/19 On today's evaluation of 01/05/2019 the patient is still hypoxic. Yesterday, I was concerned of this ongoing hypoxemia. I saw this patient to undergo a CT angiogram of the chest. There was no evidence of any pulmonary embolism. There was no evidence of any pneumothorax. There was emphysema bilaterally and there was atelectatic changes in lung bases bilaterally with a possibility of a right lower lobe pneumonia cannot be completely excluded. The patient today was able to sit up on a chair. She was offered an incentive spirometer. She was placed on high flow oxygen at 10 L. Nevertheless,Overnight, the patient became hypoxic again and currently she is back on high flow oxygen at 60 L with 70% FiO2. She is using incentive spirometer and she is pulling up to 1500 mL. She is a shallow breather. She is currently on oral Levaquin. Renal function stable with a creatinine of 1.2. She has adequate pain control and she has not required any painkillers for now. She is on bronchodilators including DuoNeb nebulized treatments around the clock. She is also on a combination of Perforomist and Pulmicort nebulized treatments. Outpatient medications have been ordered resume. She is able to swallow and she is very. Regular diet and she is hemodynamically stable for now. The chest x-ray from today shows resolution of the previously described pneumothorax. There is some mild cardiom egaly and emphysematous changes and scarring along with some bibasilar consolidation/atelectasis. No acute abnormalities are noted. As mentioned, the CAT scan of the chest did not show any significant pneumothorax. There was subcutaneous emphysema. No evidence of any pulmonary embolism. Small pleural effusion lung bases. The predominant findings was consistent with atelectatic changes in lung bases and possibly some pneumonia/consolidation. Objective - Vital Signs Vital signs: Vital Signs Temp 98.1 F 01/05/19 08:00 Pulse 74 01/05/19 08:00 Resp 13 01/05/19 08:00 BP 153/54 01/05/19 08:00 Pulse Ox 93 L 01/05/19 08:00 Intake & Output 01/04/19 01/05/19 01/05/19 18:59 06:59 18:59 Intake Total 1380 680 290 Output Total 790 970 100 Balance 590 -290 190 Weight 86.2 kg Intake: IV 600 650 50 Sodium Chloride 0.9% 1, 600 650 50 000 ml @ 50 mls/hr IV . Q20H [facility] Rx#:[id number] Oral 780 30 240 Output: Urine 790 970 100 Other: Voiding Method Indwelling Catheter Indwelling Catheter Indwelling Catheter # Bowel Movements 1 - Exam General. She is calm comfortable likely distress. She is wearing high flow oxygen nasally Head exam was generally normal. There was no scleral icterus or corneal arcus. Mucous membranes were moist. Neck was supple and without jugular venous distension, thyromegaly, or carotid bruits. Carotids were easily palpable bilaterally. There was no adenopathy. Lungs sounds are diminished in the lung bases and there are bilateral coarse crackles in the lung bases. Breath sounds are equal and symmetrical. Scattered rhonchi heard throughout the lung lindquist bilaterally. There right-sided chest tube is removed. Cardiac exam revealed the PMI to be normally situated and sized. The rhythm was regular and no extrasystoles were noted during several minutes of auscultation. The first and second heart sounds were normal and physiologic splitting of the second heart sound was noted. There were no murmurs, rubs, clicks, or gallops. Abdominal exam revealed normal bowel sounds. The abdomen was soft, non-tender, and without masses, organomegaly, or appreciable enlargement of the abdominal aorta. Extremities the patient is wearing a splint in the left upper extremity. Pulses are equal and symmetrical. Neurologically the patient is legally blind secondary to macular degeneration. She will go 4 extremities without any limitation. Examination of the skin revealed no evidence of significant rashes, suspicious appearing nevi or other concerning lesions. - Labs CBC & Chem 7: 01/05/19 05:31 01/05/19 05:31 Labs: Abnormal Lab Results - Last 24 Hours (Table) 01/04/19 01/04/19 01/04/19 Range/Units 11:25 16:25 20:38 RBC (3.80-5.40) m/uL Hgb (11.4-16.0) gm/dL Hct (34.0-46.0) % Plt Count (150-450) k/uL Lymphocytes # (1.0-4.8) k/uL Chloride (98-107) mmol/L Carbon Dioxide (22-30) mmol/L BUN (7-17) mg/dL Creatinine (0.52-1.04) mg/dL Glucose (74-99) mg/dL POC Glucose (mg/dL) 120 H 126 H 146 H (75-99) mg/dL 01/05/19 01/05/19 01/05/19 Range/Units 05:31 05:31 06:43 RBC 3.74 L (3.80-5.40) m/uL Hgb 11.0 L (11.4-16.0) gm/dL Hct 33.7 L (34.0-46.0) % Plt Count 136 L (150-450) k/uL Lymphocytes # 0.9 L (1.0-4.8) k/uL Chloride 111 H (98-107) mmol/L Carbon Dioxide 20 L (22-30) mmol/L BUN 32 H (7-17) mg/dL Creatinine 1.22 H (0.52-1.04) mg/dL Glucose 107 H (74-99) mg/dL POC Glucose (mg/dL) 122 H (75-99) mg/dL Assessment and Plan Plan: 1 acute hypoxemia requiring high flow oxygen. The patient had a right-sided pneumothorax, traumatic in nature, resolved with a chest tube insertion and guerrero bsequent removal yesterday. Her hypoxemia is multifactorial. She has emphysema. The right-sided pneumothorax is pretty much recovered and the result. Nevertheless, she had atelectatic changes in lung bases and possibly some consolidation/pneumonia and she is on antibiotics for that in the form of Levaquin. She has COPD the background. And the patient also has small pleural effusions. No evidence of any pulmonary embolism based on the CT angiogram. Her COPD is moderately severe and she has bullous changes bilaterally. 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 Keep the high flow oxygen. Chest PT. Continue using incentive spirometer. Sit up on a chair and try to wean her FiO2 gradually down. Continue bronchodilators. We'll give a trial of Lasix 40 mg IV push and monitor urine output. IV fluids will be kept on the 20 mL an hour. Encourage oral intake. We'll continue to follow. The patient will be kept in ICU for now.
[2019-01-05 11:32] LABS: Glucose,Whole Blood 124 mg/dL (75-99)
[2019-01-05 16:35] LABS: Glucose,Whole Blood 127 mg/dL (75-99)
[2019-01-05] MEDS: DONEPEZIL 5 MG TAB PO SCH (17:42)
[2019-01-05] MEDS: MELATONIN 3 MG TABLET PO SCH (20:11)
[2019-01-05 20:28] LABS: Glucose,Whole Blood 126 mg/dL (75-99)
--- NOTE | 2019-01-05 21:32 | P.PN ---
Progress Note - Text Progress Note Date: 01/05/19 Interval history: Patient presents with after recent fall from bed to the [facility]. She had no loss of consciousness. Normally uses a walker with assistance. Found to right-sided pneumothorax resolved with the chest tube insertion and was removed on January 04. Also has a left hand splint for her wrist fracture. Today-in the ICU. Earlier thousand 15 L of oxygen then switched over in the evening to irritable. Telemetry shows sinus rhythm. Was up in the chair. Did tolerate some diet. Tired Review of systems: Was done for constitutional, cardiovascular, GI, pulmonary. relevant finding as above Active Medications Acetaminophen (Tylenol Tab) 650 mg PO Q4H PRN PRN Reason: Mild Pain or Fever > 100.5 Hydrocodone Bitart/Acetaminophen (Stanley 7.5-325) 1 each PO Q4H PRN PRN Reason: Moderate Pain Last Admin: 01/05/19 20:12 Dose: 1 each Documented by: Al Hydroxide/Mg Hydroxide (Maalox) 30 ml PO Q4HR PRN PRN Reason: GI Upset Last Admin: 01/02/19 15:33 Dose: 30 ml Documented by: Albuterol/Ipratropium (Duoneb 0.5 Mg-3 Mg/3 Ml Soln) 3 ml INHALATION RT-QID PRN PRN Reason: Shortness Of Breath Or Wheezing Albuterol/Ipratropium (Duoneb 0.5 Mg-3 Mg/3 Ml Soln) 3 ml INHALATION RT-QID [facility] Last Admin: 01/05/19 20:35 Dose: 3 ml Documented by: Amlodipine Besylate (Norvasc) 5 mg PO DAILY@0800 [facility] Last Admin: 01/05/19 07:26 Dose: 5 mg Documented by: Aspirin (Aspirin) 81 mg PO DAILY@0800 [facility] Last Admin: 01/05/19 07:26 Dose: 81 mg Documented by: Bisacodyl (Dulcolax) 10 mg RECTAL DAILY PRN PRN Reason: Constipation Brimonidine Tartrate (Alphagan P 0.2% Ophth Soln) 1 drops RIGHT EYE BID@0800,1700 [facility] Last Admin: 01/05/19 17:45 Dose: 1 drops Documented by: Budesonide (Pulmicort) 1 mg INHALATION RT-BID [facility] Last Admin: 01/05/19 20:35 Dose: 1 mg Documented by: Cholecalciferol (Vitamin D3 (25 Mcg = 1000 Iu)) 2,000 unit PO DAILY@0800 [facility] Last Admin: 01/05/19 07:26 Dose: 2,000 unit Documented by: Clopidogrel Bisulfate (Plavix) 75 mg PO DAILY@0800 [facility] Last Admin: 01/05/19 07:26 Dose: 75 mg Documented by: Donepezil HCl (Aricept) 5 mg PO DAILY@1700 [facility] Last Admin: 01/05/19 17:42 Dose: 5 mg Documented by: Dorzolamide HCl (Trusopt) 1 drops RIGHT EYE BID@0800,1700 [facility] Last Admin: 01/05/19 17:47 Dose: 1 drops Documented by: Escitalopram Oxalate (Lexapro) 5 mg PO DAILY@0800 [facility] Last Admin: 01/05/19 08:18 Dose: 5 mg Documented by: Formoterol Fumarate (Perforomist) 20 mcg INHALATION RT-BID [facility] Last Admin: 01/05/19 20:35 Dose: 20 mcg Documented by: Gabapentin (Neurontin) 100 mg PO BID@0800,1700 [facility] Last Admin: 01/05/19 17:42 Dose: 100 mg Documented by: Guaifenesin (Robitussin) 200 mg PO Q4H PRN PRN Reason: Cough Heparin Sodium (Porcine) (Heparin) 5,000 unit SQ Q12HR [facility] Last Admin: 01/05/19 20:11 Dose: 5,000 unit Documented by: Hydralazine HCl (Apresoline) 10 mg IVP Q6HR PRN PRN Reason: Blood Pressure - High Last Admin: 01/04/19 06:06 Dose: 10 mg Documented by: Sodium Chloride (Saline 0.9%) 1,000 mls @ 10 mls/hr IV .Q24H [facility] Last Admin: 01/05/19 05:57 Dose: 50 mls/hr Documented by: Insulin Aspart (Novolog) 0 unit SQ ACHS [facility]; Protocol Last Admin: 01/05/19 20:29 Dose: Not Given Documented by: Isosorbide Mononitrate (Imdur) 60 mg PO DAILY@0800 [facility] Last Admin: 01/05/19 07:26 Dose: 60 mg Documented by: Levofloxacin (Levaquin) 250 mg PO HS@2300 [facility] Last Admin: 01/04/19 22:27 Dose: 250 mg Documented by: Losartan Potassium (Cozaar) 50 mg PO BID@0800,1700 [facility] Last Admin: 01/05/19 17:42 Dose: 50 mg Documented by: Magnesium Hydroxide (Milk Of Magnesia) 2,400 mg PO DAILY PRN PRN Reason: Constipation Melatonin (Melatonin) 3 mg PO HS@2100 [facility] Last Admin: 01/05/19 20:11 Dose: 3 mg Documented by: Metoclopramide HCl (Reglan) 10 mg IVP Q6HR PRN PRN Reason: Nausea And Vomiting Last Admin: 01/02/19 12:17 Dose: 10 mg Documented by: Miscellaneous Information (Magnesium Per Protocol) 1 each MISCELLANE DAILY PRN; Protocol PRN Reason: Per Protocol Montelukast Sodium (Singulair) 10 mg PO DAILY@0800 [facility] Last Admin: 01/05/19 08:18 Dose: 10 mg Documented by: Naloxone HCl (Narcan) 0.2 mg IV Q2M PRN PRN Reason: Opioid Reversal Nitroglycerin (Nitrostat) 0.4 mg SUBLINGUAL Q5M PRN PRN Reason: Chest Pain Ondansetron HCl (Zofran) 4 mg IVP Q8HR PRN PRN Reason: Nausea And Vomiting Last Admin: 01/04/19 08:53 Dose: 4 mg Documented by: Pantoprazole Sodium (Protonix) 40 mg PO DAILY [facility] Last Admin: 01/05/19 08:18 Dose: 40 mg Documented by: Prednisolone Acetate (Pred Forte 1%) 1 drops LEFT EYE BID@0800,1700 [facility] Last Admin: 01/05/19 17:44 Dose: 1 drops Documented by: Ropinirole HCl (Requip) 0.5 mg PO HS@2100 [facility] Last Admin: 01/05/19 20:11 Dose: 0.5 mg Documented by: Sodium Biphosphate/Sodium Phosphate (Fleet Adult) 133 ml RECTAL DAILY PRN PRN Reason: Constipation Physical examination: VITAL SIGNS: 98.7, 75, 16, 150/58, 90% on Air-vo GENERAL: BMI 37.1, laying in bed tired. EYES: Pupils equal. Conjunctiva normal. HEENT: External appearance of nose and ears normal, oral cavity grossly normal. NECK: JVD not raised; masses not palpable. HEART: First and second heart sounds are normal; no edema. LUNGS: Respiratory rate increased, decreased breaths on occasional crackles. ABDOMEN: Soft, nontender, liver spleen not palpable, no masses palpable. PSYCH: Alert and oriented x3; mood and affect normal. NEUROLOGICAL: Cranial nerves grossly intact; no facial asymmetry, power and sensation grossly intact. EXTREMITY: Left wrist in a splint INVESTIGATIONS, reviewed in the clinical context: Potassium 3.9 hemoglobin 11 platelets 136 potassium 4.4 bun [address] chest-dependent consolidation and atelectasis, emphysema with bullous changes, reexpansion of the right-sided pneumothorax, CT chest abdomen pelvis on the lumbar 2018-moderate sized right-sided pneumothorax about 50%, emphysema, sigmoid diverticulosis Assessment: -Acute hypoxic respiratory failure requiring high flow oxygen secondary to pneumothorax, emphysema atelectasis/pneumonia, slow to respond -Right-sided traumatic pneumothorax 50% status post chest tube, now improved -Pneumonia suspect gram-negative organism -Bullous emphysema -Macular degeneration with legal blindness -Diabetes mellitus type 2 -Essential hypertension -Coronary artery disease with stent to LAD in November 2016 -Anxiety depression not otherwise specified -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 -Left radial styloid mildly displaced fracture-in a thumb spica splint Plan: Cardiac currently in the ICU. On high flow oxygen with an Air-vo. On bronchodilators, inhaled steroids, long-acting bronchodilator,., Prognosis guarded
[2019-01-05] MEDS: LEVOFLOXACIN 250 MG TAB PO SCH (22:21)
[2019-01-06] MEDS: SODIUM CHLORIDE 0.9% 1,000 ML IV SCH (01:13)
[2019-01-06 05:50] LABS: Basophils % (A) 0 %; Eosinophils # (A) 0.2 k/uL (0-0.7); Eosinophils % (A) 4 %; HCT 35.7 % (34.0-46.0); HGB 11.8 gm/dL (11.4-16.0); Lymphocytes # (A) 0.8 k/uL (1.0-4.8); Lymphocytes % (A) 21 %; MCH 29.5 pg (25.0-35.0); MCHC 32.9 g/dL (31.0-37.0); MCV 89.7 fL (80.0-100.0); Mean Platelet Volume 6.9; Monocytes # (A) 0.3 k/uL (0-1.0); Monocytes % (A) 7 %; Neutrophils # (A) 2.5 k/uL (1.3-7.7); Neutrophils % (A) 66 %; Platelet Count 140 k/uL (150-450); RBC 3.98 m/uL (3.80-5.40); RDW 14.5 % (11.5-15.5); WBC 3.7 k/uL (3.8-10.6)
[2019-01-06 06:06] LABS: Calcium 8.9 mg/dL (8.4-10.2)
[2019-01-06] MEDS: INSULIN ASPART (NovoLOG) 100 UNIT/ML VIAL SQ SCH ×4 (06:39→21:01)
[2019-01-06 06:44] LABS: Glucose,Whole Blood 124 mg/dL (75-99)
[2019-01-06] MEDS: BUDESONIDE 1 MG/2 ML NEBU INHALATION SCH ×2 (07:10→19:03)
[2019-01-06] MEDS: IPRATROPIUM-ALBUTEROL 3 ML NEB INHALATION SCH ×4 (07:10→19:03)
[2019-01-06] MEDS: FORMOTEROL FUMARATE 20 MCG/2 ML NEBU INHALATION SCH ×2 (07:10→19:03)
--- NOTE | 2019-01-06 07:34 | XR ---
EXAMINATION TYPE: XR chest 1V portable DATE OF EXAM: 01/06/2019 CLINICAL HISTORY: Difficulty breathing progress study. TECHNIQUE: Single AP portable semiupright view of the chest is obtained. COMPARISON: Chest x-ray from one day earlier. CTA chest 2 days earlier. FINDINGS: Background chronic parenchymal fibrotic changes with persistent patchy bibasilar opacities . Cardiac silhouette size is enlarged with atherosclerotic aorta. New mild central vascular congestio n is thought present. Overlying EKG leads are redemonstrated. Irregular right apical pneumothorax is thought stable. Continued resolving right-sided subcutaneous emphysema noted. Osseous structures inta ct. IMPRESSION: Resolved right subcutaneous emphysema. Stable small irregular right superior lateral pneu mothorax. Background chronic parenchymal fibrotic change and cardiomegaly with patchy bibasilar atele ctasis and/or infiltrate and suspected small to tiny left greater than right pleural effusions are al l redemonstrated. New mild central vascular congestion thought present. Correlate for developing CHF exacerbation.
[2019-01-06] MEDS: HEPARIN SODIUM,PORCINE 5,000 UNIT/ML 1 ML VIAL SQ SCH ×2 (08:19→20:04)
[2019-01-06] MEDS: GABAPENTIN 100 MG CAP PO SCH ×2 (08:19→16:12)
[2019-01-06] MEDS: PANTOPRAZOLE 40 MG TABLET PO SCH (08:19)
[2019-01-06] MEDS: CLOPIDOGREL 75 MG TAB PO SCH (08:19)
[2019-01-06] MEDS: ASPIRIN 81 MG PO SCH (08:19)
[2019-01-06] MEDS: ISOSORBIDE MONONITRATE ER 60 MG TAB.ER.24H PO SCH (08:19)
[2019-01-06] MEDS: amLODIPine 5 MG TAB PO SCH (08:19)
[2019-01-06] MEDS: CHOLECALCIFEROL 1,000 UNIT TAB PO SCH (08:19)
[2019-01-06] MEDS: ESCITALOPRAM 5 MG TAB PO SCH (08:19)
[2019-01-06] MEDS: MONTELUKAST 10 MG TAB PO SCH (08:19)
[2019-01-06] MEDS: LOSARTAN 50 MG TAB PO SCH ×2 (08:19→16:23)
[2019-01-06] MEDS: BRIMONIDINE TARTRATE 0.2% DROPS 5 ML BTL RIGHT EYE SCH ×2 (08:33→16:14)
[2019-01-06] MEDS: prednisoLONE ACETATE 1% OPHTH DROPS 5 ML BTL LEFT EYE SCH ×2 (08:34→16:14)
[2019-01-06] MEDS: DORZOLAMIDE HCL 2% DROPS 10 ML BTL RIGHT EYE SCH ×2 (08:52→16:19)
[2019-01-06] MEDS ORDERED: FUROSEMIDE 10 MG/ML 4 ML VIAL IV STA (08:57)
--- NOTE | 2019-01-06 09:04 | P.PN ---
Subjective Progress Note Date: 01/06/19 On 01/06/2019, patient is being seen in follow-up in the intensive care unit. The active issue remains her ongoing hypoxemia and her inability to be weaned off the high flow oxygen. She is still on high flow oxygen and currently she is running at a 15 L with an FiO2 of 85%. Her chest x-ray showing increased pulmonary vascular congestion/infiltration with some increased consolidation/atelectasis in lung bases. Nevertheless, there is no evidence of pneumothorax and as stated the chest tube has been removed. She is in the incentive spirometer and she is falling somewhere between 550,000. She con tinues to shallow breathing. She is on oral Levaquin. Creatinine is stable. She was given a dose of Lasix 40 mg IV push yesterday and she produced adequate urine output and she is in a negative fluid balance. She is on DuoNeb nebulized treatments around the clock. She is also on a combination of Perforomist and Pulmicort updrafts I think. No chest pain. No fever. There is a congested cough. She is unable to bring up any significant sputum. No altered mentation. No nausea. No vomiting. She is able to swallow well. Objective - Vital Signs Vital signs: Vital Signs Temp 99 F 01/06/19 04:00 Pulse 74 01/06/19 08:00 Resp 13 01/06/19 08:00 BP 153/63 01/06/19 08:00 Pulse Ox 92 L 01/06/19 08:00 Intake & Output 01/05/19 01/06/19 01/06/19 18:59 06:59 18:59 Intake Total 400 0 0 Output Total 1835 1220 230 Balance -1435 -1220 -230 Weight 86.2 kg 86.4 kg Intake: IV 160 0 0 Sodium Chloride 0.9% 1, 160 0 0 000 ml @ 10 mls/hr IV . Q24H [facility] Rx#:[id number] Oral 240 Output: Urine 1835 1220 230 Other: Voiding Method Indwelling Catheter Indwelling Catheter # Voids 1 - Exam General. She is calm comfortable likely distress. She is wearing high flow oxygen nasally. The patient is legally blind. She seems to be a mouth breather as she breathes with her mouth open. No signs of any acute respiratory distress. She is not using accessory muscles of breathing. Head exam was generally normal. There was no scleral icterus or corneal arcus. Mucous membranes were moist. Neck was supple and without jugular venous distension, thyromegaly, or carotid bruits. Carotids were easily palpable bilaterally. There was no adenopathy. Lungs sounds are diminished in the lung bases and there are bilateral coarse crackles in the lung bases. Breath sounds are equal and symmetrical. Scattered rhonchi heard throughout the lung lindquist bilaterally. There right-sided chest tube is removed. Cardiac exam revealed the PMI to be normally situated and sized. The rhythm was regular and no extrasystoles were noted during several minutes of auscultation. The first and second heart sounds were normal and physiologic splitting of the second heart sound was noted. There were no murmurs, rubs, clicks, or gallops. Abdominal exam revealed normal bowel sounds. The abdomen was soft, non-tender, and without masses, organomegaly, or appreciable enlargement of the abdominal aorta. Extremities the patient is wearing a splint in the left upper extremity. Pulses are equal and symmetrical. Neurologically the patient is legally blind secondary to macular degeneration. She will go 4 extremities without any limitation. Examination of the skin revealed no evidence of significant rashes, suspicious appearing nevi or other concerning lesions. - Labs CBC & Chem 7: 01/06/19 04:59 01/06/19 04:59 Labs: Abnormal Lab Results - Last 24 Hours (Table) 01/05/19 01/05/19 01/05/19 Range/Units 11:30 16:34 20:26 WBC (3.8-10.6) k/uL Plt Count (150-450) k/uL Lymphocytes # (1.0-4.8) k/uL BUN (7-17) mg/dL Creatinine (0.52-1.04) mg/dL Glucose (74-99) mg/dL POC Glucose (mg/dL) 124 H 127 H 126 H (75-99) mg/dL 01/06/19 01/06/19 01/06/19 Range/Units 04:59 04:59 06:42 WBC 3.7 L (3.8-10.6) k/uL Plt Count 140 L (150-450) k/uL Lymphocytes # 0.8 L (1.0-4.8) k/uL BUN 30 H (7-17) mg/dL Creatinine 1.15 H (0.52-1.04) mg/dL Glucose 105 H (74-99) mg/dL POC Glucose (mg/dL) 124 H (75-99) mg/dL Microbiology - Last 24 Hours (Table) 01/02/19 05:30 Urine Culture - Final Urine,Clean Catch Escherichia coli Assessment and Plan Plan: 1 acute hypoxemia requiring high flow oxygen. The patient had a right-sided pneumothorax, traumatic in nature, resolved with a chest tube insertion and subsequent removal yesterday. Her hypoxemia is multifactorial. She has emphysema. The right-sided pneumothorax is pretty much recovered and the result. The CAT scan of the chest showed atelectatic changes in lung bases. Pneumonia is doubtful. I give her diuretics to keep her in a negative fluid balance and keep her dry. I think there may be a component of an acute lung injury/ARDS post trauma requiring high flow of oxygen. No evidence of any persistent pneumothorax for now. 2 COPD 3 traumatic right-sided pneumothorax, recovered 4 right-sided chest wall pain secondary to above, improved 5 history of CVA 6 left wrist fracture currently wearing a splint 7 small bilateral pleural effusions 8 atelectatic changes in lung bases 9 macular degeneration with legal blindness 10 diabetes mellitus 11 hypertension 12 coronary artery disease with previous [place] 13 glucoma 14 UTI, secondary to E. coli and the patient is on Levaquin. Plan Continue using incentive spirometer. Keep the high flow oxygen. Chest PT. Continue using incentive spirometer. Sit up on a chair and try to wean her FiO2 gradually down. Continue bronchodilators. Undergoes a 40 mg Lasix. Start the patient IV Solu-Medrol 40 mg every 6 hours with close attention of her blood sugar control as The patient is diabetic. She'll be covered with a sliding scale coverage. The patient will be kept on high flow oxygen. Daily chest x- ray. Incentive spirometer use. Also had a pro calcitonin rule out the possibility of an infectious cause for her respiratory failure. We'll continue to follow. She'll be kept in ICU.
[2019-01-06] MEDS: ACETAMINOPHEN TAB 325 MG TAB PO PRN ×2 (09:06→16:24)
[2019-01-06] MEDS: ONDANSETRON 4 MG/2 ML VIAL IVP PRN (09:35)
[2019-01-06] MEDS: methylPREDNISolone SOD SUCCI 40 MG/ML 1 ML VIAL IV SCH ×3 (09:36→23:37)
--- NOTE | 2019-01-06 10:56 | P.PN ---
Subjective Progress Note Date: 01/06/19 Principal diagnosis: Left radial styloid fracture This is a 78 year-old who we've been following for a left radial styloid fracture. She currently has a thumb spica splint in place. She was evaluated at the bedside today in ICU. She states her pain is controlled at this time. No new complaints. Objective - Vital Signs Vital signs: Vital Signs Temp 99 F 01/06/19 04:00 Pulse 79 01/06/19 10:00 Resp 17 01/06/19 10:00 BP 135/61 01/06/19 10:00 Pulse Ox 95 01/06/19 10:06 Intake & Output 01/05/19 01/06/19 01/06/19 18:59 06:59 18:59 Intake Total 400 0 0 Output Total 1835 1220 505 Balance -1435 -1220 -505 Weight 86.2 kg 86.4 kg Intake: IV 160 0 0 Sodium Chloride 0.9% 1, 160 0 0 000 ml @ 10 mls/hr IV . Q24H [facility] Rx#:[id number] Oral 240 Output: Urine 1835 1220 505 Other: Voiding Method Indwelling Catheter Indwelling Catheter # Voids 1 - Exam The patient is a 78-year-old female who is in no acute distress. The patient is sleepy but does arouse to voice but falls asleep quickly. Exam of the left upper extremity reveals a splint and Brandt wrap. Brandt wrap was loosened due to tightness around the hand. No open wounds are present. Finger stiffness present. Neurological and circulatory status is intact. - Labs CBC & Chem 7: 01/06/19 04:59 01/06/19 04:59 Labs: Abnormal Lab Results - Last 24 Hours (Table) 01/05/19 01/05/19 01/05/19 Range/Units 11:30 16:34 20:26 WBC (3.8-10.6) k/uL Plt Count (150-450) k/uL Lymphocytes # (1.0-4.8) k/uL BUN (7-17) mg/dL Creatinine (0.52-1.04) mg/dL Glucose (74-99) mg/dL POC Glucose (mg/dL) 124 H 127 H 126 H (75-99) mg/dL 01/06/19 01/06/19 01/06/19 Range/Units 04:59 04:59 06:42 WBC 3.7 L (3.8-10.6) k/uL Plt Count 140 L (150-450) k/uL Lymphocytes # 0.8 L (1.0-4.8) k/uL BUN 30 H (7-17) mg/dL Creatinine 1.15 H (0.52-1.04) mg/dL Glucose 105 H (74-99) mg/dL POC Glucose (mg/dL) 124 H (75-99) mg/dL Microbiology - Last 24 Hours (Table) 01/02/19 05:30 Urine Culture - Final Urine,Clean Catch Escherichia coli Assessment and Plan (1) Fall Current Visit: Yes Status: Acute Code(s): W19.XXXA - UNSPECIFIED FALL, INITIAL ENCOUNTER SNOMED Code(s): 0423410 (2) Radial styloid fracture Current Visit: Yes Status: Acute Code(s): S52.513A - DISP FX OF UNSP RADIAL STYLOID PROCESS, INIT FOR CLOS FX SNOMED Code(s): 284048192 Plan: The clinical and x-ray findings were discussed with the patient. Continue in current splint. Elevate and ice left wrist. Continue pain control if needed. We will convert to a cast if the patient remains in the hospital. Otherwise, we will recheck in the office on an outpatient basis. We will continue to follow peripherally and make further recommendations as needed.
[2019-01-06 11:36] LABS: Glucose,Whole Blood 148 mg/dL (75-99)
[2019-01-06] MEDS: DONEPEZIL 5 MG TAB PO SCH (16:12)
[2019-01-06 16:54] LABS: Glucose,Whole Blood 192 mg/dL (75-99)
[2019-01-06] MEDS: HYDROcodone/APAP 7.5-325MG 1 EACH TAB PO PRN (18:33)
[2019-01-06] MEDS: MELATONIN 3 MG TABLET PO SCH (20:05)
[2019-01-06 20:52] LABS: Glucose,Whole Blood 182 mg/dL (75-99)
--- NOTE | 2019-01-06 21:18 | P.PN ---
Progress Note - Text Progress Note Date: 01/06/19 Interval history: Patient presents with after [facility] She had no loss of consciousness. Normally uses a walker with assistance. Found to right- sided pneumothorax resolved with the chest tube insertion and was removed on January 04. Also has a left hand splint for her wrist fracture. Today-in the ICU. On 42 L-80% off. We'll. Decreased oral intake. Sinus rhythm. Tired Review of systems: Attempted for constitutional, cardiovascular, GI, pulmonary. relevant finding as above Active Medications Acetaminophen (Tylenol Tab) 650 mg PO Q4H PRN PRN Reason: Mild Pain or Fever > 100.5 Last Admin: 01/06/19 16:24 Dose: 650 mg Documented by: Hydrocodone Bitart/Acetaminophen ([place] 7.5-325) 1 each PO Q4H PRN PRN Reason: Moderate Pain Last Admin: 01/06/19 18:33 Dose: 1 each Documented by: Al Hydroxide/Mg Hydroxide (Maalox) 30 ml PO Q4HR PRN PRN Reason: GI Upset Last Admin: 01/02/19 15:33 Dose: 30 ml Documented by: Albuterol/Ipratropium (Duoneb 0.5 Mg-3 Mg/3 Ml Soln) 3 ml INHALATION RT-QID PRN PRN Reason: Shortness Of Breath Or Wheezing Albuterol/Ipratropium (Duoneb 0.5 Mg-3 Mg/3 Ml Soln) 3 ml INHALATION RT-QID [facility] Last Admin: 01/06/19 19:03 Dose: 3 ml Documented by: Amlodipine Besylate (Norvasc) 5 mg PO DAILY@0800 [facility] Last Admin: 01/06/19 08:19 Dose: 5 mg Documented by: Aspirin (Aspirin) 81 mg PO DAILY@0800 [facility] Last Admin: 01/06/19 08:19 Dose: 81 mg Documented by: Bisacodyl (Dulcolax) 10 mg RECTAL DAILY PRN PRN Reason: Constipation Brimonidine Tartrate (Alphagan P 0.2% Ophth Soln) 1 drops RIGHT EYE BID@0800,1700 [facility] Last Admin: 01/06/19 16:14 Dose: 1 drops Documented by: Budesonide (Pulmicort) 1 mg INHALATION RT-BID [facility] Last Admin: 01/06/19 19:03 Dose: 1 mg Documented by: Cholecalciferol (Vitamin D3 (25 Mcg = 1000 Iu)) 2,000 unit PO DAILY@0800 [facility] Last Admin: 01/06/19 08:19 Dose: 2,000 unit Documented by: Clopidogrel Bisulfate (Plavix) 75 mg PO DAILY@0800 [facility] Last Admin: 01/06/19 08:19 Dose: 75 mg Documented by: Donepezil HCl (Aricept) 5 mg PO DAILY@1700 [facility] Last Admin: 01/06/19 16:12 Dose: 5 mg Documented by: Dorzolamide HCl (Trusopt) 1 drops RIGHT EYE BID@0800,1700 [facility] Last Admin: 01/06/19 16:19 Dose: 1 drops Documented by: Escitalopram Oxalate (Lexapro) 5 mg PO DAILY@0800 [facility] Last Admin: 01/06/19 08:19 Dose: 5 mg Documented by: Formoterol Fumarate (Perforomist) 20 mcg INHALATION RT-BID [facility] Last Admin: 01/06/19 19:03 Dose: 20 mcg Documented by: Gabapentin (Neurontin) 100 mg PO BID@0800,1700 [facility] Last Admin: 01/06/19 16:12 Dose: 100 mg Documented by: Guaifenesin (Robitussin) 200 mg PO Q4H PRN PRN Reason: Cough Heparin Sodium (Porcine) (Heparin) 5,000 unit SQ Q12HR [facility] Last Admin: 01/06/19 20:04 Dose: 5,000 unit Documented by: Hydralazine HCl (Apresoline) 10 mg IVP Q6HR PRN PRN Reason: Blood Pressure - High Last Admin: 01/04/19 06:06 Dose: 10 mg Documented by: Sodium Chloride (Saline 0.9%) 1,000 mls @ 10 mls/hr IV .Q24H [facility] Last Admin: 01/06/19 01:13 Dose: Not Given Documented by: Insulin Aspart (Novolog) 0 unit SQ ACHS [facility]; Protocol Last Admin: 01/06/19 21:01 Dose: 4 unit Documented by: Isosorbide Mononitrate (Imdur) 60 mg PO DAILY@0800 [facility] Last Admin: 01/06/19 08:19 Dose: 60 mg Documented by: Levofloxacin (Levaquin) 250 mg PO HS@2300 [facility] Last Admin: 01/05/19 22:21 Dose: 250 mg Documented by: Losartan Potassium (Cozaar) 50 mg PO BID@0800,1700 [facility] Last Admin: 01/06/19 16:23 Dose: 50 mg Documented by: Magnesium Hydroxide (Milk Of Magnesia) 2,400 mg PO DAILY PRN PRN Reason: Constipation Melatonin (Melatonin) 3 mg PO HS@2100 [facility] Last Admin: 01/06/19 20:05 Dose: 3 mg Documented by: Methylprednisolone Sodium Succinate (Solu-Medrol) 40 mg IV Q8HR [facility] Last Admin: 01/06/19 16:12 Dose: 40 mg Documented by: Metoclopramide HCl (Reglan) 10 mg IVP Q6HR PRN PRN Reason: Nausea And Vomiting Last Admin: 01/02/19 12:17 Dose: 10 mg Documented by: Miscellaneous Information (Magnesium Per Protocol) 1 each MISCELLANE DAILY PRN; Protocol PRN Reason: Per Protocol Montelukast Sodium (Singulair) 10 mg PO DAILY@0800 [facility] Last Admin: 01/06/19 08:19 Dose: 10 mg Documented by: Naloxone HCl (Narcan) 0.2 mg IV Q2M PRN PRN Reason: Opioid Reversal Nitroglycerin (Nitrostat) 0.4 mg SUBLINGUAL Q5M PRN PRN Reason: Chest Pain Ondansetron HCl (Zofran) 4 mg IVP Q8HR PRN PRN Reason: Nausea And Vomiting Last Admin: 01/06/19 09:35 Dose: 4 mg Documented by: Pantoprazole Sodium (Protonix) 40 mg PO DAILY [facility] Last Admin: 01/06/19 08:19 Dose: 40 mg Documented by: Prednisolone Acetate (Pred Forte 1%) 1 drops LEFT EYE BID@0800,1700 [facility] Last Admin: 01/06/19 16:14 Dose: 1 drops Documented by: Ropinirole HCl (Requip) 0.5 mg PO HS@2100 [facility] Last Admin: 01/06/19 20:05 Dose: 0.5 mg Documented by: Sodium Biphosphate/Sodium Phosphate (Fleet Adult) 133 ml RECTAL DAILY PRN PRN Reason: Constipation Physical examination: VITAL SIGNS: 98.3, 66, 14, 124/50, 92 % on high flow Air-vo GENERAL: Laying bed tired,. EYES: Pupils equal. Conjunctiva normal. NECK: JVD unable to assess; masses not palpable. HEART: First and second heart sounds are normal; no edema. LUNGS: Respiratory rate increased, decreased breaths on occasional crackles. ABDOMEN: Soft, nontender, liver spleen not palpable, no masses palpable. PSYCH: She would also simple questions. EXTREMITY: Left wrist in a splint INVESTIGATIONS, reviewed in the clinical context: White count 3.7 hemoglobin 11.8 potassium 4 creatinine 1.15 Previous testing Potassium 3.9 hemoglobin 11 platelets 136 potassium 4.4 bun [address] chest-dependent consolidation and atelectasis, emphysema with bullous changes, reexpansion of the right-pneumothorax, CT chest abdomen pelvis on the 2018-moderate sized right-sided pneumothorax about 50%, emphysema, sigmoid diverticulosis Assessment: -Acute hypoxic respiratory failure requiring high flow oxygen secondary to pneumothorax, emphysema atelectasis/pneumonia, slow to respond -Right-sided traumatic pneumothorax 50% status post chest tube, now improved -Pneumonia suspect gram-negative organism -Obesity BMI 37.2 -Bullous emphysema -Macular degeneration with legal blindness -Diabetes mellitus type 2 -Essential hypertension -Coronary artery disease with stent to LAD in November 2016 -Anxiety depression not otherwise specified -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 -Left radial styloid mildly displaced fracture-in a thumb spica splint Plan: Remains in the ICU. Requiring high flow oxygen. Remains on bronchodilators. Levaquin. IV Solu-Medrol. Prognosis guarded.
[2019-01-06] MEDS: LEVOFLOXACIN 250 MG TAB PO SCH (23:37)
[2019-01-07] MEDS: SODIUM CHLORIDE 0.9% 1,000 ML IV SCH ×2 (00:46→23:19)
[2019-01-07 05:30] LABS: Basophils % (A) 0 %; Eosinophils % (A) 0 %; HCT 37.6 % (34.0-46.0); HGB 12.4 gm/dL (11.4-16.0); Lymphocytes # (A) 0.3 k/uL (1.0-4.8); Lymphocytes % (A) 11 %; MCH 29.5 pg (25.0-35.0); MCHC 33.1 g/dL (31.0-37.0); Monocytes # (A) 0.1 k/uL (0-1.0); Monocytes % (A) 2 %; Neutrophils # (A) 2.6 k/uL (1.3-7.7); Neutrophils % (A) 87 %; Platelet Count 141 k/uL (150-450); RBC 4.22 m/uL (3.80-5.40); RDW 14.1 % (11.5-15.5); WBC 2.9 k/uL (3.8-10.6)
[2019-01-07 05:57] LABS: Calcium 9.1 mg/dL (8.4-10.2); Potassium 4.4 mmol/L (3.5-5.1)
[2019-01-07] MEDS: HYDROcodone/APAP 7.5-325MG 1 EACH TAB PO PRN ×2 (06:21→20:52)
--- NOTE | 2019-01-07 06:46 | XR ---
EXAMINATION TYPE: XR chest 1V portable DATE OF EXAM: 01/07/2019 CLINICAL HISTORY: Difficulty breathing progress study. TECHNIQUE: Single AP portable semiupright view of the chest is obtained. COMPARISON: Chest x-ray from one day earlier and older studies. CTA chest 3 days ago. FINDINGS: Background chronic parenchymal changes with persistent left bibasilar opacity. Improved aeration right lung base noted. Cardiac silhouette size is stable and enlarged with atherosclerotic a bob. Overlying EKG leads are redemonstrated. Irregular right apical pneumothorax is thought stable. Osseous structures are intact. IMPRESSION: Irregular right apical lateral small pneumothorax remains present. Background chronic rosales nges and cardiomegaly with left basilar acute infiltrate and/or atelectasis redemonstrated. Interval improved aeration right lung base noted.
[2019-01-07 06:54] LABS: Glucose,Whole Blood 176 mg/dL (75-99)
[2019-01-07] MEDS: INSULIN ASPART (NovoLOG) 100 UNIT/ML VIAL SQ SCH ×4 (07:16→20:16)
[2019-01-07] MEDS: IPRATROPIUM-ALBUTEROL 3 ML NEB INHALATION SCH ×4 (07:33→19:42)
[2019-01-07] MEDS: BUDESONIDE 1 MG/2 ML NEBU INHALATION SCH ×2 (07:33→19:42)
[2019-01-07] MEDS: FORMOTEROL FUMARATE 20 MCG/2 ML NEBU INHALATION SCH ×2 (07:33→19:42)
[2019-01-07] MEDS: MONTELUKAST 10 MG TAB PO SCH (08:42)
[2019-01-07] MEDS: amLODIPine 5 MG TAB PO SCH (08:42)
[2019-01-07] MEDS: methylPREDNISolone SOD SUCCI 40 MG/ML 1 ML VIAL IV SCH ×3 (08:43→23:18)
[2019-01-07] MEDS: ASPIRIN 81 MG PO SCH (08:43)
[2019-01-07] MEDS: ISOSORBIDE MONONITRATE ER 60 MG TAB.ER.24H PO SCH (08:43)
[2019-01-07] MEDS: HEPARIN SODIUM,PORCINE 5,000 UNIT/ML 1 ML VIAL SQ SCH ×2 (08:43→20:07)
[2019-01-07] MEDS: PANTOPRAZOLE 40 MG TABLET PO SCH (08:43)
[2019-01-07] MEDS: CLOPIDOGREL 75 MG TAB PO SCH (08:43)
[2019-01-07] MEDS: LOSARTAN 50 MG TAB PO SCH ×2 (08:43→16:45)
[2019-01-07] MEDS: CHOLECALCIFEROL 1,000 UNIT TAB PO SCH (08:43)
[2019-01-07] MEDS: GABAPENTIN 100 MG CAP PO SCH ×2 (08:43→16:45)
[2019-01-07] MEDS: ESCITALOPRAM 5 MG TAB PO SCH (08:44)
[2019-01-07] MEDS: BRIMONIDINE TARTRATE 0.2% DROPS 5 ML BTL RIGHT EYE SCH ×2 (08:48→16:47)
[2019-01-07] MEDS: DORZOLAMIDE HCL 2% DROPS 10 ML BTL RIGHT EYE SCH ×2 (08:49→16:46)
[2019-01-07] MEDS: prednisoLONE ACETATE 1% OPHTH DROPS 5 ML BTL LEFT EYE SCH ×2 (08:50→16:47)
--- NOTE | 2019-01-07 09:38 | P.PN ---
Subjective Progress Note Date: 01/07/19 Today's evaluation of 01/07/2019, I'm seeing the patient for a follow-up. When the process of trying to wean down the FiO2. After putting her on 15 L high flow, the patient decompensated and she desaturated and she was placed on high flow oxygen again and currently she is running at 85% with a 50 L high flow oxygen. No reported chest pain. No significant bronchospasm wheezing. Chest x-ray shows a tiny right apical pneumothorax and cardiomegaly with improved aeration of the right lung base. The patient was given another dose of Lasix yesterday and she diureses very well and she is in a negative fluid balance of 2.6 L over the past 24 hours. No nausea. No vomiting. No abdominal pain. No chest pain. No swelling in lower extremities bilaterally. No angina. No palpitation. She is on a combination of Perforomist and Pulmicort neb last treatment twice a day and DuoNeb nebulized treatments around the clock. No other significant events otherwise for now. Objective - Vital Signs Vital signs: Vital Signs Temp 98.3 F 01/07/19 04:00 Pulse 61 01/07/19 07:55 Resp 12 01/07/19 07:00 BP 168/67 01/07/19 07:00 Pulse Ox 93 L 01/07/19 09:20 Intake & Output 01/06/19 01/07/19 01/07/19 18:59 06:59 18:59 Intake Total 240 480 Output Total 1110 935 50 Balance -870 -455 -50 Weight 86.6 kg Intake: IV 0 Sodium Chloride 0.9% 1, 0 000 ml @ 10 mls/hr IV . Q24H [facility] Rx#:[id number] Oral 240 480 Output: Urine 1110 935 50 Other: Voiding Method Indwelling Catheter Indwelling Catheter - Exam General. She is calm comfortable likely distress. She is wearing high flow oxygen nasally. The patient is legally blind. She seems to be a mouth breather as she breathes with her mouth open. No signs of any acute respiratory distress. She is not using accessory muscles of breathing. The patient remains on high flow oxygen. She is using incentive spirometer and she is pulling approximately 1500 Head exam was generally normal. There was no scleral icterus or corneal arcus. Mucous membranes were moist. Neck was supple and without jugular venous distension, thyromegaly, or carotid bruits. Carotids were easily palpable bilaterally. There was no adenopathy. Lungs sounds are diminished in the lung bases and there are bilateral coarse crackles in the lung bases. Breath sounds are equal and symmetrical. Scattered rhonchi heard throughout the lung lindquist bilaterally. There right-sided chest tube is removed. Cardiac exam revealed the PMI to be normally situated and sized. The rhythm was regular and no extrasystoles were noted during several minutes of auscultation. The first and second heart sounds were normal and physiologic splitting of the second heart sound was noted. There were no murmurs, rubs, clicks, or gallops. Abdominal exam revealed normal bowel sounds. The abdomen was soft, non-tender, and without masses, organomegaly, or appreciable enlargement of the abdominal aorta. Extremities the patient is wearing a splint in the left upper extremity. Pulses are equal and symmetrical. Neurologically the patient is legally blind secondary to macular degeneration. She will go 4 extremities without any limitation. Examination of the skin revealed no evidence of significant rashes, suspicious appearing nevi or other concerning lesions. - Labs CBC & Chem 7: 01/07/19 04:41 01/07/19 04:41 Labs: Abnormal Lab Results - Last 24 Hours (Table) 01/06/19 01/06/19 01/06/19 Range/Units 11:34 16:46 20:51 WBC (3.8-10.6) k/uL Plt Count (150-450) k/uL Lymphocytes # (1.0-4.8) k/uL BUN (7-17) mg/dL Creatinine (0.52-1.04) mg/dL Glucose (74-99) mg/dL POC Glucose (mg/dL) 148 H 192 H 182 H (75-99) mg/dL 01/07/19 01/07/19 01/07/19 Range/Units 04:41 04:41 06:53 WBC 2.9 L (3.8-10.6) k/uL Plt Count 141 L (150-450) k/uL Lymphocytes # 0.3 L (1.0-4.8) k/uL BUN 42 H (7-17) mg/dL Creatinine 1.34 H (0.52-1.04) mg/dL Glucose 184 H (74-99) mg/dL POC Glucose (mg/dL) 176 H (75-99) mg/dL Assessment and Plan Plan: 1 acute hypoxemia requiring high flow oxygen. The patient had a right-sided pneumothorax, traumatic in nature, resolved with a chest tube insertion and subsequent removal yesterday. Her hypoxemia is multifactorial. She has emphysema. The right-sided pneumothorax is pretty much recovered and there is probably a tiny right apical which is small and not affecting her overall pulmonary status. The CAT scan of the chest showed atelectatic changes in lung bases. Pneumonia is doubtful. I give her diuretics to keep her in a negative fluid balance and keep her dry. I think there may be a component of an acute lung injury/ARDS post trauma requiring high flow of oxygen. The patient was diuresed. She is a negative fluid balance. She is currently on a combination of bronchodilators and systemic steroids. She is on high flow oxygen. She is using incentive spirometer. 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 coli and the patient is on Levaquin. Plan Continue using incentive spirometer. Continue same treatment. Deep breathing. Pulmonary toileting. Chest PT. Incentive spirometer. Attempts to wean down the FiO2 and would allow his saturation above 90%. We'll continue to follow.
[2019-01-07 11:39] LABS: Glucose,Whole Blood 177 mg/dL (75-99)
[2019-01-07] MEDS: ACETAMINOPHEN TAB 325 MG TAB PO PRN (16:03)
[2019-01-07 16:34] LABS: Glucose,Whole Blood 171 mg/dL (75-99)
[2019-01-07] MEDS: DONEPEZIL 5 MG TAB PO SCH (16:45)
[2019-01-07] MEDS: ONDANSETRON 4 MG/2 ML VIAL IVP PRN (19:24)
[2019-01-07] MEDS: MELATONIN 3 MG TABLET PO SCH (20:07)
[2019-01-07 20:16] LABS: Glucose,Whole Blood 194 mg/dL (75-99)
[2019-01-07] MEDS: LEVOFLOXACIN 250 MG TAB PO SCH (21:57)
[2019-01-07] MEDS: ALPRAZolam 0.25 MG TAB PO PRN (22:43)
--- NOTE | 2019-01-07 22:46 | P.PN ---
Progress Note - Text Progress Note Date: 01/07/19 Interval history: Patient presents with after recent fall from bed, in [place]. She had no loss of consciousness. Normally uses a walker with assistance. Found to right- sided pneumothorax resolved with the chest tube insertion and was removed on January 04. Also has a left hand splint for her wrist fracture. Today-in the ICU. Oxygen requirement is controlled. Currently on 8 L. Telemetry shows sinus rhythm. Minimal oral intake.. Review of systems: Attempted for constitutional, cardiovascular, GI, pulmonary. relevant finding as above Active Medications Acetaminophen (Tylenol Tab) 650 mg PO Q4H PRN PRN Reason: Mild Pain or Fever > 100.5 Last Admin: 01/07/19 16:03 Dose: 650 mg Documented by: Hydrocodone Bitart/Acetaminophen ([place] 7.5-325) 1 each PO Q4H PRN PRN Reason: Moderate Pain Last Admin: 01/07/19 20:52 Dose: 1 each Documented by: Al Hydroxide/Mg Hydroxide (Maalox) 30 ml PO Q4HR PRN PRN Reason: GI Upset Last Admin: 01/02/19 15:33 Dose: 30 ml Documented by: Albuterol/Ipratropium (Duoneb 0.5 Mg-3 Mg/3 Ml Soln) 3 ml INHALATION RT-QID PRN PRN Reason: Shortness Of Breath Or Wheezing Albuterol/Ipratropium (Duoneb 0.5 Mg-3 Mg/3 Ml Soln) 3 ml INHALATION RT-QID [facility] Last Admin: 01/07/19 19:42 Dose: 3 ml Documented by: Alprazolam (Xanax) 0.25 mg PO TID PRN PRN Reason: Anxiety Last Admin: 01/07/19 22:43 Dose: 0.25 mg Documented by: Amlodipine Besylate (Norvasc) 5 mg PO DAILY@0800 [facility] Last Admin: 01/07/19 08:42 Dose: 5 mg Documented by: Aspirin (Aspirin) 81 mg PO DAILY@0800 [facility] Last Admin: 01/07/19 08:43 Dose: 81 mg Documented by: Bisacodyl (Dulcolax) 10 mg RECTAL DAILY PRN PRN Reason: Constipation Brimonidine Tartrate (Alphagan P 0.2% Ophth Soln) 1 drops RIGHT EYE BID@0800,1700 [facility] Last Admin: 01/07/19 16:47 Dose: 1 drops Documented by: Budesonide (Pulmicort) 1 mg INHALATION RT-BID [facility] Last Admin: 01/07/19 19:42 Dose: 1 mg Documented by: Cholecalciferol (Vitamin D3 (25 Mcg = 1000 Iu)) 2,000 unit PO DAILY@0800 [facility] Last Admin: 01/07/19 08:43 Dose: 2,000 unit Documented by: Clopidogrel Bisulfate (Plavix) 75 mg PO DAILY@0800 [facility] Last Admin: 01/07/19 08:43 Dose: 75 mg Documented by: Donepezil HCl (Aricept) 5 mg PO DAILY@1700 [facility] Last Admin: 01/07/19 16:45 Dose: 5 mg Documented by: Dorzolamide HCl (Trusopt) 1 drops RIGHT EYE BID@0800,1700 [facility] Last Admin: 01/07/19 16:46 Dose: 1 drops Documented by: Escitalopram Oxalate (Lexapro) 5 mg PO DAILY@0800 [facility] Last Admin: 01/07/19 08:44 Dose: 5 mg Documented by: Formoterol Fumarate (Perforomist) 20 mcg INHALATION RT-BID [facility] Last Admin: 01/07/19 19:42 Dose: 20 mcg Documented by: Gabapentin (Neurontin) 100 mg PO BID@0800,1700 [facility] Last Admin: 01/07/19 16:45 Dose: 100 mg Documented by: Guaifenesin (Robitussin) 200 mg PO Q4H PRN PRN Reason: Cough Heparin Sodium (Porcine) (Heparin) 5,000 unit SQ Q12HR [facility] Last Admin: 01/07/19 20:07 Dose: 5,000 unit Documented by: Hydralazine HCl (Apresoline) 10 mg IVP Q6HR PRN PRN Reason: Blood Pressure - High Last Admin: 01/04/19 06:06 Dose: 10 mg Documented by: Sodium Chloride (Saline 0.9%) 1,000 mls @ 10 mls/hr IV .Q24H [facility] Last Admin: 01/07/19 00:46 Dose: Not Given Documented by: Insulin Aspart (Novolog) 0 unit SQ [facility]; Protocol Last Admin: 01/07/19 20:16 Dose: 5 unit Documented by: Isosorbide Mononitrate (Imdur) 60 mg PO DAILY@0800 [facility] Last Admin: 01/07/19 08:43 Dose: 60 mg Documented by: Levofloxacin (Levaquin) 250 mg PO HS@2300 [facility] Last Admin: 01/07/19 21:57 Dose: 250 mg Documented by: Losartan Potassium (Cozaar) 50 mg PO BID@0800,1700 [facility] Last Admin: 01/07/19 16:45 Dose: 50 mg Documented by: Magnesium Hydroxide (Milk Of Magnesia) 2,400 mg PO DAILY PRN PRN Reason: Constipation Melatonin (Melatonin) 3 mg PO HS@2100 [facility] Last Admin: 01/07/19 20:07 Dose: 3 mg Documented by: Methylprednisolone Sodium Succinate (Solu-Medrol) 40 mg IV Q8HR [facility] Last Admin: 01/07/19 15:12 Dose: 40 mg Documented by: Metoclopramide HCl (Reglan) 10 mg IVP Q6HR PRN PRN Reason: Nausea And Vomiting Last Admin: 01/02/19 12:17 Dose: 10 mg Documented by: Miscellaneous Information (Magnesium Per Protocol) 1 each MISCELLANE DAILY PRN; Protocol PRN Reason: Per Protocol Montelukast Sodium (Singulair) 10 mg PO DAILY@0800 [facility] Last Admin: 01/07/19 08:42 Dose: 10 mg Documented by: Naloxone HCl (Narcan) 0.2 mg IV Q2M PRN PRN Reason: Opioid Reversal Nitroglycerin (Nitrostat) 0.4 mg SUBLINGUAL Q5M PRN PRN Reason: Chest Pain Ondansetron HCl (Zofran) 4 mg IVP Q8HR PRN PRN Reason: Nausea And Vomiting Last Admin: 01/07/19 19:24 Dose: 4 mg Documented by: Pantoprazole Sodium (Protonix) 40 mg PO DAILY [facility] Last Admin: 01/07/19 08:43 Dose: 40 mg Documented by: Prednisolone Acetate (Pred Forte 1%) 1 drops LEFT EYE BID@0800,1700 [facility] Last Admin: 01/07/19 16:47 Dose: 1 drops Documented by: Ropinirole HCl (Requip) 0.5 mg PO HS@2100 [facility] Last Admin: 01/07/19 20:08 Dose: 0.5 mg Documented by: Sodium Biphosphate/Sodium Phosphate (Fleet Adult) 133 ml RECTAL DAILY PRN PRN Reason: Constipation Physical examination: VITAL SIGNS: 98.6, 63, 16, 159/70, GENERAL: Laying bed tired,. EYES: Pupils equal. Conjunctiva normal. NECK: JVD unable to assess; masses not palpable. HEART: First and second heart sounds are normal; no edema. LUNGS: Respiratory rate increased, decreased breaths ABDOMEN: Soft, nontender, liver spleen not palpable, no masses palpable. PSYCH: Answering simple questions. EXTREMITY: Left wrist in a splint INVESTIGATIONS, reviewed in the clinical context: White count 2.9 hemoglobin 12.4 crit and 1.34 Previous testing Potassium 3.9 hemoglobin 11 platelets 136 potassium 4.4 bun [address] chest-dependent consolidation and atelectasis, emphysema with bullous changes, reexpansion of the right-pneumothorax, CT chest abdomen pelvis on the lumbar 2018-moderate sized right-sided pneumothorax about 50%, emphysema, sigmoid diverticulosis Assessment: -Acute hypoxic respiratory failure requiring high flow oxygen secondary to pneumothorax, emphysema atelectasis/pneumonia, improving slowly -Right-sided traumatic pneumothorax 50% status post chest tube, now improved -Pneumonia suspect gram-negative organism -Obesity BMI 37.2 -Bullous emphysema -Macular degeneration with legal blindness -Diabetes mellitus type 2 -Essential hypertension -Coronary artery disease with stent to LAD in November 2016 -Anxiety depression not otherwise specified -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 -Left radial styloid mildly displaced fracture-in a thumb spica splint Plan: Oxygen requirement coming down slowly. Remains on IV steroids and Levaquin. Other medications to continue. Improving slowly.
[2019-01-08] MEDS: hydrALAZINE HCL 20 MG/ML 1 ML VIAL IVP PRN (04:07)
[2019-01-08 05:32] LABS: Basophils % (A) 0 %; Eosinophils % (A) 0 %; HCT 37.5 % (34.0-46.0); HGB 12.5 gm/dL (11.4-16.0); Lymphocytes # (A) 0.4 k/uL (1.0-4.8); Lymphocytes % (A) 10 %; MCH 29.5 pg (25.0-35.0); MCHC 33.4 g/dL (31.0-37.0); MCV 88.5 fL (80.0-100.0); Mean Platelet Volume 6.2; Monocytes # (A) 0.1 k/uL (0-1.0); Monocytes % (A) 2 %; Neutrophils # (A) 3.5 k/uL (1.3-7.7); Neutrophils % (A) 88 %; Platelet Count 172 k/uL (150-450); RBC 4.24 m/uL (3.80-5.40); RDW 14.1 % (11.5-15.5)
[2019-01-08 05:58] LABS: Calcium 9.2 mg/dL (8.4-10.2); Potassium 4.5 mmol/L (3.5-5.1)
--- NOTE | 2019-01-08 06:29 | XR ---
EXAMINATION TYPE: XR chest 1V portable DATE OF EXAM: 01/08/2019 CLINICAL HISTORY: Difficulty breathing progress study. TECHNIQUE: Single AP portable semiupright view of the chest is obtained. COMPARISON: Chest x-ray from one day earlier and older studies. FINDINGS: Overlying EKG leads are redemonstrated. Irregular small right apical pneumothorax remains present. Background chronic emphysematous lung parenchymal changes with improving left basilar opacit y. Cardiomegaly with atherosclerotic and ectatic thoracic aorta is redemonstrated. Osseous structures are intact. IMPRESSION: Cardiomegaly and chronic changes with irregular small right apical pneumothorax redemonst rated. Improving left basilar acute infiltrate and/or atelectasis is noted.
[2019-01-08 06:42] LABS: Glucose,Whole Blood 166 mg/dL (75-99)
[2019-01-08] MEDS: INSULIN ASPART (NovoLOG) 100 UNIT/ML VIAL SQ SCH ×4 (06:45→22:03)
[2019-01-08] MEDS: FORMOTEROL FUMARATE 20 MCG/2 ML NEBU INHALATION SCH ×2 (08:09→21:43)
[2019-01-08] MEDS: IPRATROPIUM-ALBUTEROL 3 ML NEB INHALATION SCH ×4 (08:09→21:48)
[2019-01-08] MEDS: BUDESONIDE 1 MG/2 ML NEBU INHALATION SCH ×2 (08:09→21:47)
[2019-01-08] MEDS: methylPREDNISolone SOD SUCCI 40 MG/ML 1 ML VIAL IV SCH (08:11)
[2019-01-08] MEDS: ASPIRIN 81 MG PO SCH (08:16)
[2019-01-08] MEDS: CLOPIDOGREL 75 MG TAB PO SCH (08:16)
[2019-01-08] MEDS: ESCITALOPRAM 5 MG TAB PO SCH (08:16)
[2019-01-08] MEDS: MONTELUKAST 10 MG TAB PO SCH (08:16)
[2019-01-08] MEDS: PANTOPRAZOLE 40 MG TABLET PO SCH (08:16)
[2019-01-08] MEDS: amLODIPine 5 MG TAB PO SCH (08:16)
[2019-01-08] MEDS: CHOLECALCIFEROL 1,000 UNIT TAB PO SCH (08:16)
[2019-01-08] MEDS: ISOSORBIDE MONONITRATE ER 60 MG TAB.ER.24H PO SCH (08:17)
[2019-01-08] MEDS: GABAPENTIN 100 MG CAP PO SCH ×2 (08:17→17:18)
[2019-01-08] MEDS: HEPARIN SODIUM,PORCINE 5,000 UNIT/ML 1 ML VIAL SQ SCH ×2 (08:17→22:02)
[2019-01-08] MEDS: LOSARTAN 50 MG TAB PO SCH ×2 (08:17→17:43)
[2019-01-08] MEDS: BRIMONIDINE TARTRATE 0.2% DROPS 5 ML BTL RIGHT EYE SCH ×2 (08:56→17:19)
[2019-01-08] MEDS: prednisoLONE ACETATE 1% OPHTH DROPS 5 ML BTL LEFT EYE SCH ×2 (08:57→17:20)
[2019-01-08] MEDS: DORZOLAMIDE HCL 2% DROPS 10 ML BTL RIGHT EYE SCH ×2 (09:45→17:22)
--- NOTE | 2019-01-08 10:52 | P.PN ---
Subjective Progress Note Date: 01/08/19 On 01/08/2019 I'm pleased to report that the patient's oxygenation is improved. She was taken off the airvo and she was placed on 6 L of oxygen by nasal cannula. We are the process of titrating the FiO2 and the patient's pulse ox rate was in the order of 94%. No significant respiratory distress. She is utilizing incentive spirometer. She is on Levaquin. She is on IV steroids. The chest x-ray was repeated from today and there is no evidence of any significant pneumothorax. There is cardiomegaly. There is some limited atelectatic change in the left lung base. No fever. No chills. She has been diuresed well over the past 2 days and no further diuretics are given. She is on bronchodilators. She is on DuoNeb neb last treatment [id number]. She is also on examination Perforomist and Pulmicort updrafts twice a day. No swelling in the lower extremities. No aspiration. The fluid balance has been - 1.3 L over the past 24 hours and the patient continues to produce excellent urine output. Objective - Vital Signs Vital signs: Vital Signs Temp 97.8 F 01/08/19 08:00 Pulse 68 01/08/19 10:00 Resp 19 01/08/19 10:00 BP 140/81 01/08/19 10:00 Pulse Ox 96 01/08/19 10:00 Intake & Output 01/07/19 01/08/19 01/08/19 18:59 06:59 18:59 Intake Total 480 400 Output Total 790 610 245 Balance -310 -210 -245 Weight 86.6 kg Intake: Oral 480 400 Output: Urine 790 610 245 Other: Voiding Method Indwelling Catheter Indwelling Catheter Indwelling Catheter - Exam General. She is calm comfortable likely distress. She is on 6 L of oxygen by nasal cannula.. The patient is legally blind. She seems to be a mouth breather as she breathes with her mouth open. No signs of any acute respiratory distress. She is not using accessory muscles of breathing. The patient remains on high flow oxygen. She is using incentive spirometer and she is pulling approximately 1500 Head exam was generally normal. There was no scleral icterus or corneal arcus. Mucous membranes were moist. Neck was supple and without jugular venous distension, thyromegaly, or carotid bruits. Carotids were easily palpable bilaterally. There was no adenopathy. Lungs sounds are diminished in the lung bases and there are bilateral coarse crackles in the lung bases. Breath sounds are equal and symmetrical. Scattered rhonchi heard throughout the lung lindquist bilaterally. There right-sided chest tube is removed. Cardiac exam revealed the PMI to be normally situated and sized. The rhythm was regular and no extrasystoles were noted during several minutes of auscultation. The first and second heart sounds were normal and physiologic splitting of the second heart sound was noted. There were no murmurs, rubs, clicks, or gallops. Abdominal exam revealed normal bowel sounds. The abdomen was soft, non-tender, and without masses, organomegaly, or appreciable enlargement of the abdominal aorta. Extremities the patient is wearing a splint in the left upper extremity. Pulses are equal and symmetrical. Neurologically the patient is legally blind secondary to macular degeneration. She will go 4 extremities without any limitation. Examination of the skin revealed no evidence of significant rashes, suspicious appearing nevi or other concerning lesions. - Labs CBC & Chem 7: 01/08/19 04:49 01/08/19 04:49 Labs: Abnormal Lab Results - Last 24 Hours (Table) 01/06/19 01/07/19 01/07/19 Range/Units 04:59 11:38 16:33 Lymphocytes # (1.0-4.8) k/uL BUN (7-17) mg/dL Creatinine (0.52-1.04) mg/dL Glucose (74-99) mg/dL POC Glucose (mg/dL) 177 H 171 H (75-99) mg/dL Procalcitonin 0.10 H (0.02-0.09) ng/mL 01/07/19 01/08/19 01/08/19 Range/Units 20:14 04:49 04:49 Lymphocytes # 0.4 L (1.0-4.8) k/uL BUN 48 H (7-17) mg/dL Creatinine 1.31 H (0.52-1.04) mg/dL Glucose 172 H (74-99) mg/dL POC Glucose (mg/dL) 194 H (75-99) mg/dL Procalcitonin (0.02-0.09) ng/mL 11/30/19 Range/Units 06:41 Lymphocytes # (1.0-4.8) k/uL BUN (7-17) mg/dL Creatinine (0.52-1.04) mg/dL Glucose (74-99) mg/dL POC Glucose (mg/dL) 166 H (75-99) mg/dL Procalcitonin (0.02-0.09) ng/mL Assessment and Plan Plan: 1 acute hypoxemia respiratory failure which is gradually improving. The patient has emphysema. She had a right-sided pneumothorax which is much recovered post chest tube insertion. She has some left basilar atelectasis/infiltration. She was also given systemic steroids for a possibility of posttraumatic acute lung injury contributing to her severe hypoxemia. 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 coli and the patient is on Levaquin. Plan Discontinue the IV Solu Medrol and put the patient on prednisone burst taper. We'll start at 40 mg. Continue Levaquin. Continue bronchodilators. Continue using incentive spirometer. She is hemodynamically stable. Aspiration pr ecautions. Advance diet. We'll continue to follow. She can be transferred today medical surgical floor with telemetry monitoring.
[2019-01-08 11:53] LABS: Glucose,Whole Blood 210 mg/dL (75-99)
--- NOTE | 2019-01-08 15:53 | P.PN ---
Progress Note - Text Progress Note Date: 01/08/19 Interval history: Patient presents with after recent fall from bed, in long term. She had no loss of consciousness. Normally uses a walker with assistance. Found to right- sided pneumothorax resolved with the chest tube insertion and was removed on January 04. Also has a left hand splint for her wrist fracture. Treated for pneumonia. Patient had been a high flow oxygen and Air-vo. Today-in the ICU. Doing better this morning. Set up in a chair. Daughter 4 L oxygen. Oral intake somewhat better. Breathing better. Review of systems: Attempted for constitutional, cardiovascular, GI, pulmonary. relevant finding as above Active Medications Acetaminophen (Tylenol Tab) 650 mg PO Q4H PRN PRN Reason: Mild Pain or Fever > 100.5 Last Admin: 01/07/19 16:03 Dose: 650 mg Documented by: Hydrocodone Bitart/Acetaminophen (Basco 7.5-325) 1 each PO Q4H PRN PRN Reason: Moderate Pain Last Admin: 01/07/19 20:52 Dose: 1 each Documented by: Al Hydroxide/Mg Hydroxide (Maalox) 30 ml PO Q4HR PRN PRN Reason: GI Upset Last Admin: 01/02/19 15:33 Dose: 30 ml Documented by: Albuterol/Ipratropium (Duoneb 0.5 Mg-3 Mg/3 Ml Soln) 3 ml INHALATION RT-QID PRN PRN Reason: Shortness Of Breath Or Wheezing Albuterol/Ipratropium (Duoneb 0.5 Mg-3 Mg/3 Ml Soln) 3 ml INHALATION RT-QID RAYSHAWN Last Admin: 01/08/19 12:18 Dose: 3 ml Documented by: Alprazolam (Xanax) 0.25 mg PO TID PRN PRN Reason: Anxiety Last Admin: 01/07/19 22:43 Dose: 0.25 mg Documented by: Amlodipine Besylate (Norvasc) 5 mg PO DAILY@0800 [facility] Last Admin: 01/08/19 08:16 Dose: 5 mg Documented by: Aspirin (Aspirin) 81 mg PO DAILY@0800 [facility] Last Admin: 01/08/19 08:16 Dose: 81 mg Documented by: Bisacodyl (Dulcolax) 10 mg RECTAL DAILY PRN PRN Reason: Constipation Brimonidine Tartrate (Alphagan P 0.2% Oph Soln) 1 drops RIGHT EYE BID@0800,1700 [facility] Last Admin: 01/08/19 08:56 Dose: 1 drops Documented by: Budesonide (Pulmicort) 1 mg INHALATION RT-BID [facility] Last Admin: 01/08/19 08:09 Dose: 1 mg Documented by: Cholecalciferol (Vitamin D3 (25 Mcg = 1000 Iu)) 2,000 unit PO DAILY@0800 [facility] Last Admin: 01/08/19 08:16 Dose: 2,000 unit Documented by: Clopidogrel Bisulfate (Plavix) 75 mg PO DAILY@0800 [facility] Last Admin: 01/08/19 08:16 Dose: 75 mg Documented by: Donepezil HCl (Aricept) 5 mg PO DAILY@1700 [facility] Last Admin: 01/07/19 16:45 Dose: 5 mg Documented by: Dorzolamide HCl (Trusopt) 1 drops RIGHT EYE BID@0800,1700 [facility] Last Admin: 01/08/19 09:45 Dose: 1 drops Documented by: Escitalopram Oxalate (Lexapro) 5 mg PO DAILY@0800 [facility] Last Admin: 01/08/19 08:16 Dose: 5 mg Documented by: Formoterol Fumarate (Perforomist) 20 mcg INHALATION RT-BID [facility] Last Admin: 01/08/19 08:09 Dose: 20 mcg Documented by: Gabapentin (Neurontin) 100 mg PO BID@0800,1700 [facility] Last Admin: 01/08/19 08:17 Dose: 100 mg Documented by: Guaifenesin (Robitussin) 200 mg PO Q4H PRN PRN Reason: Cough Heparin Sodium (Porcine) (Heparin) 5,000 unit SQ Q12HR [facility] Last Admin: 01/08/19 08:17 Dose: 5,000 unit Documented by: Hydralazine HCl (Apresoline) 10 mg IVP Q6HR PRN PRN Reason: Blood Pressure - High Last Admin: 01/08/19 04:07 Dose: 10 mg Documented by: Sodium Chloride (Saline 0.9%) 1,000 mls @ 10 mls/hr IV .Q24H [facility] Last Admin: 01/07/19 23:19 Dose: Not Given Documented by: Insulin Aspart (Novolog) 0 unit SQ [facility]; Protocol Last Admin: 01/08/19 12:25 Dose: 6 unit Documented by: Isosorbide Mononitrate (Imdur) 60 mg PO DAILY@0800 [facility] Last Admin: 01/08/19 08:17 Dose: 60 mg Documented by: Levofloxacin (Levaquin) 250 mg PO HS@2300 [facility] Last Admin: 01/07/19 21:57 Dose: 250 mg Documented by: Losartan Potassium (Cozaar) 50 mg PO BID@0800,1700 [facility] Last Admin: 01/08/19 08:17 Dose: 50 mg Documented by: Magnesium Hydroxide (Milk Of Magnesia) 2,400 mg PO DAILY PRN PRN Reason: Constipation Melatonin (Melatonin) 3 mg PO HS@2100 [facility] Last Admin: 01/07/19 20:07 Dose: 3 mg Documented by: Metoclopramide HCl (Reglan) 10 mg IVP Q6HR PRN PRN Reason: Nausea And Vomiting Last Admin: 01/02/19 12:17 Dose: 10 mg Documented by: Miscellaneous Information (Magnesium Per Protocol) 1 each MISCELLANE DAILY PRN; Protocol PRN Reason: Per Protocol Montelukast Sodium (Singulair) 10 mg PO DAILY@0800 [facility] Last Admin: 01/08/19 08:16 Dose: 10 mg Documented by: Naloxone HCl (Narcan) 0.2 mg IV Q2M PRN PRN Reason: Opioid Reversal Nitroglycerin (Nitrostat) 0.4 mg SUBLINGUAL Q5M PRN PRN Reason: Chest Pain Ondansetron HCl (Zofran) 4 mg IVP Q8HR PRN PRN Reason: Nausea And Vomiting Last Admin: 01/07/19 19:24 Dose: 4 mg Documented by: Pantoprazole Sodium (Protonix) 40 mg PO DAILY [facility] Last Admin: 01/08/19 08:16 Dose: 40 mg Documented by: Prednisolone Acetate (Pred Forte 1%) 1 drops LEFT EYE BID@0800,1700 [facility] Last Admin: 01/08/19 08:57 Dose: 1 drops Documented by: Prednisone () 40 mg PO DAILY [facility] Ropinirole HCl (Requip) 0.5 mg PO HS@2100 [facility] Last Admin: 01/07/19 20:08 Dose: 0.5 mg Documented by: Sodium Biphosphate/Sodium Phosphate (Fleet Adult) 133 ml RECTAL DAILY PRN PRN Reason: Constipation Physical examination: VITAL SIGNS: Afebrile, 64, 15, 149/70, 94% on 4 L GENERAL: Sitting up in a chair, more comfortable. EYES: Pupils equal. Conjunctiva normal. NECK: JVD unable to assess; masses not palpable. HEART: First and second heart sounds are normal; no edema. LUNGS: Respiratory rate increased, decreased breaths ABDOMEN: Soft, nontender, liver spleen not palpable, no masses palpable. PSYCH: Answering simple questions. EXTREMITY: Left wrist in a splint INVESTIGATIONS, reviewed in the clinical context: White count 4 hemoglobin 12.5 pressure 4.5 BUN 48 crit 1.31 Chest x-ray film-personally reviewed by me shows improving infiltrates Previous testing Potassium 3.9 hemoglobin 11 platelets 136 potassium 4.4 bun [address] chest-dependent consolidation and atelectasis, emphysema with bullous changes, reexpansion of the right-pneumothorax, CT chest abdomen pelvis on the lumbar 2018-moderate sized right-sided pneumothorax about 50%, emphysema, sigmoid diverticulosis Assessment: -Acute hypoxic respiratory failure requiring high flow oxygen secondary to pneumothorax, emphysema atelectasis/pneumonia, improving, down to 4 L -Right-sided traumatic pneumothorax 50% status post chest tube, now improved -Pneumonia suspect gram-negative organism, clinically improved -Obesity BMI 37.2 -Bullous emphysema -Macular degeneration with legal blindness -Diabetes mellitus type 2 -Essential hypertension -Coronary artery disease with stent to LAD in November 2016 -Anxiety depression not otherwise specified -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 -Left radial styloid mildly displaced fracture-in a thumb spica splint Plan: Doing better. Continue current medication treatment plan. Patient be switched over to oral steroids in the morning.
[2019-01-08] MEDS: ACETAMINOPHEN TAB 325 MG TAB PO PRN (16:35)
[2019-01-08] MEDS: ALPRAZolam 0.25 MG TAB PO PRN (16:35)
[2019-01-08 16:49] LABS: Glucose,Whole Blood 191 mg/dL (75-99)
[2019-01-08] MEDS: DONEPEZIL 5 MG TAB PO SCH (17:18)
[2019-01-08 20:44] LABS: Glucose,Whole Blood 162 mg/dL (75-99)
[2019-01-08 21:54] LABS: Glucose,Whole Blood 165 mg/dL (75-99)
[2019-01-08] MEDS: MELATONIN 3 MG TABLET PO SCH (22:02)
[2019-01-08] MEDS: LEVOFLOXACIN 250 MG TAB PO SCH (22:05)
[2019-01-08] MEDS: SODIUM CHLORIDE 0.9% 1,000 ML IV SCH (22:06)
[2019-01-09 06:46] LABS: Glucose,Whole Blood 107 mg/dL (75-99)
[2019-01-09] MEDS: INSULIN ASPART (NovoLOG) 100 UNIT/ML VIAL SQ SCH ×4 (07:15→21:18)
[2019-01-09] MEDS: ISOSORBIDE MONONITRATE ER 60 MG TAB.ER.24H PO SCH (07:27)
[2019-01-09] MEDS: PANTOPRAZOLE 40 MG TABLET PO SCH (07:27)
[2019-01-09] MEDS: LOSARTAN 50 MG TAB PO SCH ×2 (07:28→17:37)
[2019-01-09] MEDS: MONTELUKAST 10 MG TAB PO SCH (07:28)
[2019-01-09] MEDS: amLODIPine 5 MG TAB PO SCH (07:28)
[2019-01-09] MEDS: CLOPIDOGREL 75 MG TAB PO SCH (07:28)
[2019-01-09] MEDS: GABAPENTIN 100 MG CAP PO SCH ×2 (07:28→17:37)
[2019-01-09] MEDS: CHOLECALCIFEROL 1,000 UNIT TAB PO SCH (07:28)
[2019-01-09] MEDS: predniSONE 20 MG TAB PO SCH (07:28)
[2019-01-09] MEDS: BRIMONIDINE TARTRATE 0.2% DROPS 5 ML BTL RIGHT EYE SCH ×2 (07:29→17:39)
[2019-01-09] MEDS: DORZOLAMIDE HCL 2% DROPS 10 ML BTL RIGHT EYE SCH ×2 (07:29→17:38)
[2019-01-09] MEDS: ASPIRIN 81 MG PO SCH (07:29)
[2019-01-09] MEDS: prednisoLONE ACETATE 1% OPHTH DROPS 5 ML BTL LEFT EYE SCH ×2 (07:30→17:39)
[2019-01-09] MEDS: HEPARIN SODIUM,PORCINE 5,000 UNIT/ML 1 ML VIAL SQ SCH ×2 (07:30→21:18)
[2019-01-09] MEDS: ESCITALOPRAM 5 MG TAB PO SCH (07:30)
[2019-01-09 07:37] LABS: Basophils % (A) 0 %; Eosinophils % (A) 0 %; HCT 37.1 % (34.0-46.0); HGB 12.6 gm/dL (11.4-16.0); Lymphocytes % (A) 24 %; MCH 30.5 pg (25.0-35.0); MCHC 33.8 g/dL (31.0-37.0); MCV 90.2 fL (80.0-100.0); Mean Platelet Volume 7.5; Monocytes # (A) 0.3 k/uL (0-1.0); Monocytes % (A) 7 %; Neutrophils # (A) 2.9 k/uL (1.3-7.7); Neutrophils % (A) 67 %; Platelet Count 151 k/uL (150-450); RBC 4.12 m/uL (3.80-5.40); RDW 14.6 % (11.5-15.5); WBC 4.3 k/uL (3.8-10.6)
[2019-01-09 07:48] LABS: Calcium 9.2 mg/dL (8.4-10.2); Potassium 4.6 mmol/L (3.5-5.1)
[2019-01-09] MEDS: IPRATROPIUM-ALBUTEROL 3 ML NEB INHALATION SCH ×4 (08:00→20:22)
[2019-01-09] MEDS: BUDESONIDE 1 MG/2 ML NEBU INHALATION SCH ×2 (08:00→20:22)
[2019-01-09] MEDS: FORMOTEROL FUMARATE 20 MCG/2 ML NEBU INHALATION SCH ×2 (08:00→20:22)
--- NOTE | 2019-01-09 10:47 | XR ---
EXAMINATION TYPE: XR chest 1V portable DATE OF EXAM: 01/09/2019 HISTORY: Shortness of breath. COMPARISON: 01/08/2019 TECHNIQUE: Single view of the chest is submitted. FINDINGS: Demonstrated are scattered senescent parenchymal change. There is no evidence for focal infiltrate. The heart is stable. Hilar and mediastinal structures are within normal limits. Degenerative changes are seen of the dorsal spine. IMPRESSION: 1. Chronic changes without evidence for acute pulmonary disease.
[2019-01-09 11:56] LABS: Glucose,Whole Blood 179 mg/dL (75-99)
--- NOTE | 2019-01-09 13:35 | P.PN ---
Subjective Progress Note Date: 01/09/19 On today's evaluation of 01/09/2019 the patient is on 4 L of oxygen by nasal cannula. No apparent respiratory distress. She feels tired. No nausea or vomiting tolerating her diet. No chest pain. No angina. No palpitations. Repeat chest x-ray from today shows no evidence of any pneumothorax. Some limited atelectatic changes in lung bases are still seen. The patient was admitted intensive care unit and she was moved up to a medical floor. She was diuresed adequately. She is on a combination of DuoNeb nebulized treatments around the clock and she is also receiving Perforomist and Pulmicort neb last 2 minutes twice a day. Objective - Vital Signs Vital signs: Vital Signs Temp 98.4 F 01/09/19 06:50 Pulse 68 01/09/19 11:34 Resp 15 01/09/19 07:15 BP 149/72 01/09/19 06:50 Pulse Ox 96 01/09/19 06:50 Intake & Output 01/08/19 01/09/19 01/09/19 18:59 06:59 18:59 Output Total 493 950 Balance -493 -950 Weight 86.5 kg Output: Urine 493 950 Other: Voiding Method Indwelling Catheter Indwelling Catheter # Voids 275 - Exam General. She is calm comfortable likely distress. She is on 4 L of oxygen by nasal cannula.. Head exam was generally normal. There was no scleral icterus or corneal arcus. Mucous membranes were moist. Neck was supple and without jugular venous distension, thyromegaly, or carotid bruits. Carotids were easily palpable bilaterally. There was no adenopathy. Lungs sounds are diminished in the lung bases and there are bilateral coarse crackles in the lung bases. Breath sounds are equal and symmetrical. Scattered rhonchi heard throughout the lung lindquist bilaterally. There right-sided chest tube is removed. Cardiac exam revealed the PMI to be normally situated and sized. The rhythm was regular and no extrasystoles were noted during several minutes of auscultation. The first and second heart sounds were normal and physiologic splitting of the second heart sound was noted. There were no murmurs, rubs, clicks, or gallops. Abdominal exam revealed normal bowel sounds. The abdomen was soft, non-tender, and without masses, organomegaly, or appreciable enlargement of the abdominal aorta. Extremities the patient is wearing a splint in the left upper extremity. Pulses are equal and symmetrical. Neurologically the patient is legally blind secondary to macular degeneration. She will go 4 extremities without any limitation. Examination of the skin revealed no evidence of significant rashes, suspicious appearing nevi or other concerning lesions. - Labs CBC & Chem 7: 01/09/19 06:40 01/09/19 06:40 Labs: Abnormal Lab Results - Last 24 Hours (Table) 01/08/19 01/08/19 01/08/19 Range/Units 16:48 20:41 21:43 Chloride (98-107) mmol/L BUN (7-17) mg/dL Creatinine (0.52-1.04) mg/dL Glucose (74-99) mg/dL POC Glucose (mg/dL) 191 H 162 H 165 H (75-99) mg/dL 01/09/19 01/09/19 01/09/19 Range/Units 06:40 06:41 11:39 Chloride 108 H (98-107) mmol/L BUN 55 H (7-17) mg/dL Creatinine 1.35 H (0.52-1.04) mg/dL Glucose 102 H (74-99) mg/dL POC Glucose (mg/dL) 107 H 179 H (75-99) mg/dL Assessment and Plan Plan: 1 acute hypoxemia respiratory failure which is gradually improving. The patient has emphysema. She had a right-sided pneumothorax which is much recovered post chest tube insertion. She has some left basilar atelectasis/infiltration. She was also given systemic steroids for a possibility of posttraumatic acute lung injury contributing to her severe hypoxemia. She gradually improved and currently she is on 4 L O2 by nasal cannula and she was taken off the airvo she was in the intensive care unit and she got moved out to a medical floor. She is off diuretics for she is completing a prednisone burst taper in the course of Levaquin in addition to the bronchodilators. 2 COPD 3 traumatic right-sided pneumothorax, recovered, possible residual tiny right apical is still present 4 right-sided chest wall pain secondary to above, improved 5 history of CVA 6 left wrist fracture currently wearing a splint 7 small bilateral pleural effusions 8 atelectatic changes in lung bases 9 macular degeneration with legal blindness 10 diabetes mellitus 11 hypertension 12 coronary artery disease with previous [place] 13 glucoma 14 UTI, secondary to E. coli and the patient is on Levaquin. Plan Continue oral prednisone burst taper. Continue Levaquin. Continue bronchodilators. Continue using incentive spirometer. She is hemodynamically stable. Aspiration precautions. Advance diet. We'll continue to follow. She was transferred out of the intensive care unit. We'll continue to follow.
[2019-01-09] MEDS: DONEPEZIL 5 MG TAB PO SCH (17:38)
[2019-01-09 17:43] LABS: Glucose,Whole Blood 195 mg/dL (75-99)
[2019-01-09 20:19] LABS: Glucose,Whole Blood 180 mg/dL (75-99)
--- NOTE | 2019-01-09 20:59 | P.PN ---
Progress Note - Text Progress Note Date: 01/09/19 nterval history: Patient presents with after recent fall from bed, in half-way. She had no loss of consciousness. Normally uses a walker with assistance. Found to right- sided pneumothorax resolved with the chest tube insertion and was removed on January 04. Also has a left hand splint for her wrist fracture. Treated for pneumonia. Patient had been a high flow oxygen and Air-vo. Was doing better. Moved out of the ICU. Today-feeling better.. Food intake about t 25% off breakfast and lunch. Breathing is better. Review of systems: Attempted for constitutional, cardiovascular, GI, pulmonary. relevant finding as above Active Medications Acetaminophen (Tylenol Tab) 650 mg PO Q4H PRN PRN Reason: Mild Pain or Fever > 100.5 Last Admin: 01/08/19 16:35 Dose: 650 mg Documented by: Hydrocodone Bitart/Acetaminophen ([place] 7.5-325) 1 each PO Q4H PRN PRN Reason: Moderate Pain Last Admin: 01/07/19 20:52 Dose: 1 each Documented by: Al Hydroxide/Mg Hydroxide (Maalox) 30 ml PO Q4HR PRN PRN Reason: GI Upset Last Admin: 01/02/19 15:33 Dose: 30 ml Documented by: Albuterol/Ipratropium (Duoneb 0.5 Mg-3 Mg/3 Ml Soln) 3 ml INHALATION RT-QID PRN PRN Reason: Shortness Of Breath Or Wheezing Albuterol/Ipratropium (Duoneb 0.5 Mg-3 Mg/3 Ml Soln) 3 ml INHALATION RT-QID [facility]WN Last Admin: 01/09/19 20:22 Dose: 3 ml Documented by: Alprazolam (Xanax) 0.25 mg PO TID PRN PRN Reason: Anxiety Last Admin: 01/08/19 16:35 Dose: 0.25 mg Documented by: Amlodipine Besylate (Norvasc) 5 mg PO DAILY@0800 [facility] Last Admin: 01/09/19 07:28 Dose: 5 mg Documented by: Aspirin (Aspirin) 81 mg PO DAILY@0800 [facility] Last Admin: 01/09/19 07:29 Dose: 81 mg Documented by: Bisacodyl (Dulcolax) 10 mg RECTAL DAILY PRN PRN Reason: Constipation Brimonidine Tartrate (Alphagan P 0.2% Oph Soln) 1 drops RIGHT EYE BID@0800,1700 [facility] Last Admin: 01/09/19 17:39 Dose: 1 drops Documented by: Budesonide (Pulmicort) 1 mg INHALATION RT-BID [facility] Last Admin: 01/09/19 20:22 Dose: 1 mg Documented by: Cholecalciferol (Vitamin D3 (25 Mcg = 1000 Iu)) 2,000 unit PO DAILY@0800 [facility] Last Admin: 01/09/19 07:28 Dose: 2,000 unit Documented by: Clopidogrel Bisulfate (Plavix) 75 mg PO DAILY@0800 [facility] Last Admin: 01/09/19 07:28 Dose: 75 mg Documented by: Donepezil HCl (Aricept) 5 mg PO DAILY@1700 [facility] Last Admin: 01/09/19 17:38 Dose: 5 mg Documented by: Dorzolamide HCl (Trusopt) 1 drops RIGHT EYE BID@0800,1700 [facility] Last Admin: 01/09/19 17:38 Dose: 1 drops Documented by: Escitalopram Oxalate (Lexapro) 5 mg PO DAILY@0800 [facility] Last Admin: 01/09/19 07:30 Dose: 5 mg Documented by: Formoterol Fumarate (Perforomist) 20 mcg INHALATION RT-BID [facility] Last Admin: 01/09/19 20:22 Dose: 20 mcg Documented by: Gabapentin (Neurontin) 100 mg PO BID@0800,1700 [facility] Last Admin: 01/09/19 17:37 Dose: 100 mg Documented by: Guaifenesin (Robitussin) 200 mg PO Q4H PRN PRN Reason: Cough Heparin Sodium (Porcine) (Heparin) 5,000 unit SQ Q12HR [facility] Last Admin: 01/09/19 07:30 Dose: 5,000 unit Documented by: Hydralazine HCl (Apresoline) 10 mg IVP Q6HR PRN PRN Reason: Blood Pressure - High Last Admin: 01/08/19 04:07 Dose: 10 mg Documented by: Sodium Chloride (Saline 0.9%) 1,000 mls @ 10 mls/hr IV .Q24H [facility] Last Admin: 01/08/19 22:06 Dose: 10 mls/hr Documented by: Insulin Aspart (Novolog) 0 unit SQ [facility]; Protocol Last Admin: 01/09/19 17:38 Dose: 5 unit Documented by: Isosorbide Mononitrate (Imdur) 60 mg PO DAILY@0800 [facility] Last Admin: 01/09/19 07:27 Dose: 60 mg Documented by: Levofloxacin (Levaquin) 250 mg PO HS@2300 [facility] Last Admin: 01/08/19 22:05 Dose: 250 mg Documented by: Losartan Potassium (Cozaar) 50 mg PO BID@0800,1700 [facility] Last Admin: 01/09/19 17:37 Dose: 50 mg Documented by: Magnesium Hydroxide (Milk Of Magnesia) 2,400 mg PO DAILY PRN PRN Reason: Constipation Melatonin (Melatonin) 3 mg PO HS@2100 [facility] Last Admin: 01/08/19 22:02 Dose: 3 mg Documented by: Metoclopramide HCl (Reglan) 10 mg IVP Q6HR PRN PRN Reason: Nausea And Vomiting Last Admin: 01/02/19 12:17 Dose: 10 mg Documented by: Miscellaneous Information (Magnesium Per Protocol) 1 each MISCELLANE DAILY PRN; Protocol PRN Reason: Per Protocol Montelukast Sodium (Singulair) 10 mg PO DAILY@0800 [facility] Last Admin: 01/09/19 07:28 Dose: 10 mg Documented by: Naloxone HCl (Narcan) 0.2 mg IV Q2M PRN PRN Reason: Opioid Reversal Nitroglycerin (Nitrostat) 0.4 mg SUBLINGUAL Q5M PRN PRN Reason: Chest Pain Ondansetron HCl (Zofran) 4 mg IVP Q8HR PRN PRN Reason: Nausea And Vomiting Last Admin: 01/07/19 19:24 Dose: 4 mg Documented by: Pantoprazole Sodium (Protonix) 40 mg PO DAILY [facility] Last Admin: 01/09/19 07:27 Dose: 40 mg Documented by: Prednisolone Acetate (Pred Forte 1%) 1 drops LEFT EYE BID@0800,1700 [facility] Last Admin: 01/09/19 17:39 Dose: 1 drops Documented by: Prednisone () 40 mg PO DAILY [facility] Last Admin: 01/09/19 07:28 Dose: 40 mg Documented by: Ropinirole HCl (Requip) 0.5 mg PO HS@2100 [facility] Last Admin: 01/08/19 22:05 Dose: 0.5 mg Documented by: Sodium Biphosphate/Sodium Phosphate (Fleet Adult) 133 ml RECTAL DAILY PRN PRN Reason: Constipation Physical examination: VITAL SIGNS: 98.2, 68, 15, 150/72, 95% on 4 L GENERAL: Laying in bed, not in distress EYES: Poor vision, chronic NECK: JVD unable to assess; masses not palpable. HEART: First and second heart sounds are normal; no edema. LUNGS: Respiratory rate increased, decreased breaths ABDOMEN: Soft, nontender, liver spleen not palpable, no masses palpable. PSYCH: Answering simple questions. EXTREMITY: Left wrist in a splint INVESTIGATIONS, reviewed in the clinical context: White count 4.3 hemoglobin 12.6 bun 55 creatinine 1.35 Previous testing Potassium 3.9 hemoglobin 11 platelets 136 potassium 4.4 bun [address] chest-dependent consolidation and atelectasis, emphysema with bullous changes, reexpansion of the right-pneumothorax, CT chest abdomen pelvis on the lumbar 2018-moderate sized right-sided pneumothorax about 50%, emphysema, sigmoid diverticulosis Assessment: -Acute hypoxic respiratory failure requiring high flow oxygen secondary to pneumothorax, emphysema atelectasis/pneumonia, improving, down to 4 L -Right-sided traumatic pneumothorax 50% status post chest tube, now improved -Pneumonia suspect gram-negative organism, clinically improved -Obesity BMI 37.2 -Bullous emphysema -Macular degeneration with legal blindness -Diabetes mellitus type 2 -Essential hypertension -Coronary artery disease with stent to LAD in November 2016 -Anxiety depression not otherwise specified -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 -Left radial styloid mildly displaced fracture-in a thumb spica splint Plan: Continues to improve.Current medications are reviewed that include: possible discharge in next 48 hours. Steroids to be slowly tapered.
[2019-01-09] MEDS: LEVOFLOXACIN 250 MG TAB PO SCH (21:17)
[2019-01-09] MEDS: MELATONIN 3 MG TABLET PO SCH (21:17)
[2019-01-10] MEDS: SODIUM CHLORIDE 0.9% 1,000 ML IV SCH (05:21)
[2019-01-10 07:01] LABS: Glucose,Whole Blood 108 mg/dL (75-99)
[2019-01-10] MEDS: INSULIN ASPART (NovoLOG) 100 UNIT/ML VIAL SQ SCH ×4 (07:51→20:18)
[2019-01-10] MEDS: PANTOPRAZOLE 40 MG TABLET PO SCH (08:04)
[2019-01-10] MEDS: predniSONE 20 MG TAB PO SCH (08:04)
[2019-01-10] MEDS: CLOPIDOGREL 75 MG TAB PO SCH (08:04)
[2019-01-10] MEDS: amLODIPine 5 MG TAB PO SCH (08:05)
[2019-01-10] MEDS: ASPIRIN 81 MG PO SCH (08:05)
[2019-01-10] MEDS: LOSARTAN 50 MG TAB PO SCH ×2 (08:05→17:40)
[2019-01-10] MEDS: GABAPENTIN 100 MG CAP PO SCH ×2 (08:05→17:39)
[2019-01-10] MEDS: prednisoLONE ACETATE 1% OPHTH DROPS 5 ML BTL LEFT EYE SCH ×2 (08:05→17:40)
[2019-01-10] MEDS: MONTELUKAST 10 MG TAB PO SCH (08:05)
[2019-01-10] MEDS: ISOSORBIDE MONONITRATE ER 60 MG TAB.ER.24H PO SCH (08:05)
[2019-01-10] MEDS: HEPARIN SODIUM,PORCINE 5,000 UNIT/ML 1 ML VIAL SQ SCH ×2 (08:05→20:17)
[2019-01-10] MEDS: BRIMONIDINE TARTRATE 0.2% DROPS 5 ML BTL RIGHT EYE SCH ×2 (08:05→17:40)
[2019-01-10] MEDS: ALPRAZolam 0.25 MG TAB PO PRN ×2 (08:05→17:44)
[2019-01-10] MEDS: CHOLECALCIFEROL 1,000 UNIT TAB PO SCH (08:05)
[2019-01-10] MEDS: DORZOLAMIDE HCL 2% DROPS 10 ML BTL RIGHT EYE SCH ×2 (08:06→17:40)
[2019-01-10] MEDS: ESCITALOPRAM 5 MG TAB PO SCH (08:07)
[2019-01-10] MEDS: BUDESONIDE 1 MG/2 ML NEBU INHALATION SCH ×2 (09:15→20:03)
[2019-01-10] MEDS: IPRATROPIUM-ALBUTEROL 3 ML NEB INHALATION SCH ×4 (09:15→20:03)
[2019-01-10] MEDS: FORMOTEROL FUMARATE 20 MCG/2 ML NEBU INHALATION SCH ×2 (09:15→20:03)
--- NOTE | 2019-01-10 09:27 | P.PN ---
Subjective Progress Note Date: 01/10/19 Principal diagnosis: Left radiostyloid fracture Patient is a pleasant 78-year-old female seen at bedside this morning. We are following her for her left distal radius/radial styloid fracture. She is abut one week from injury. She has been in a thumb spica splint. She states she has mild pain at the left wrist currently. She denies numbness or tingling in her fingers. She has no other complaints today. Objective - Vital Signs Vital signs: Vital Signs Temp 98.2 F 01/10/19 07:00 Pulse 64 01/10/19 09:17 Resp 12 01/10/19 07:00 BP 171/66 01/10/19 07:00 Pulse Ox 96 01/10/19 09:17 Intake & Output 01/09/19 01/10/19 01/10/19 18:59 06:59 18:59 Intake Total 917 Output Total 700 1450 500 Balance -700 -533 -500 Weight 87 kg Intake: Oral 917 Output: Urine 700 1450 500 Uretheral (Lo) 500 Other: Voiding Method Indwelling Catheter Indwelling Catheter - Exam Inspection of the left upper extremity and wrist shows thumb spica splint in place. It is appropriate fitting. There is tenderness at the distal radius as expected. There is mild swelling. There are no wounds. It is not hot and red. Neurovascular status is intact with motor and sensation grossly throughout the left upper extremity. All digits have sensation to light touch. There is less than 2 second capillary refill in all digits as well. There is 2+ radial pulse present. - Constitutional General appearance: Present: no acute distress - Labs CBC & Chem 7: 01/09/19 06:40 01/09/19 06:40 Labs: Abnormal Lab Results - Last 24 Hours (Table) 01/09/19 01/09/19 01/09/19 Range/Units 11:39 17:31 20:17 POC Glucose (mg/dL) 179 H 195 H 180 H (75-99) mg/dL 01/10/19 Range/Units 06:59 POC Glucose (mg/dL) 108 H (75-99) mg/dL Assessment and Plan (1) Radial styloid fracture Narrative/Plan: She is to remain in splint for left radial styloid fracture. Repeat xrays today shows stable fracture with healing and maintaining alignment. She is to be nonweightbearing with left upper extremity. Continue elevation and ice. Continue to monitor neurovascular status while in splint. She is to follow up in office in one week. She may be discharged from an orthopedic standpoint. Current Visit: Yes Status: Acute Priority: Medium Code(s): S52.513A - DISP FX OF UNSP RADIAL STYLOID PROCESS, INIT FOR CLOS FX SNOMED Code(s): 345653044 Time with Patient: Less than 30
--- NOTE | 2019-01-10 09:52 | XR ---
EXAMINATION TYPE: XR wrist limited LT DATE OF EXAM: 01/10/2019 CLINICAL HISTORY: Radial styloid fracture. TECHNIQUE: Frontal and lateral images of the left wrist are obtained. COMPARISON: Left wrist x-rays January 01, 2019. FINDINGS: Overlying fiberglass cast material is now seen which is noted to lower radiographic sensiti vity. There is oblique minimally displaced intra-articular fracture through the radial aspect distal radius redemonstrated. Alignment is stable. Mild to moderate narrowing with mild spurring at base of first metacarpal is again seen. Overlying soft tissue is unremarkable. IMPRESSION: There is stable positioning after casting of intra-articular oblique fracture radial asp ect distal radius.
[2019-01-10 11:43] LABS: Glucose,Whole Blood 169 mg/dL (75-99)
--- NOTE | 2019-01-10 12:14 | P.PN ---
Subjective Progress Note Date: 01/10/19 Principal diagnosis: Acute hypoxemic respiratory failure related to right-sided pneumothorax, and the possibility of acute lung injury, improved On 01/10/2019 patient seen in follow-up on a regular medical surgical floor. She is awake and alert, she is currently down to 3 L of oxygen, with a pulse ox of 96%, afebrile, hemodynamically patient is stable, her latest chest x-ray yesterday showed chronic changes without evidence for acute pulmonary disease, no pneumothorax, lung sounds reveal clear breath sounds, she is working on the incentive spirometer with assistance, and she is able to achieve [id number] on it today, she is on Levaquin for E. coli in the urine, and the E. coli was lynn susceptible. No cough or congestion, vital signs are stable. No new labs today, yesterday's labs have been reviewed, CBC was within normal limits, electrolytes were unremarkable and renal profile was stable with BUN at 55 and creatinine at 1.35. No acute events overnight, patient is anticipated to be discharged to [facility] sometime today Objective - Vital Signs Vital signs: Vital Signs Temp 98.2 F 01/10/19 07:00 Pulse 68 01/10/19 09:38 Resp 12 01/10/19 07:00 BP 171/66 01/10/19 07:00 Pulse Ox 96 01/10/19 09:17 Intake & Output 01/09/19 01/10/19 01/10/19 18:59 06:59 18:59 Intake Total 917 Output Total 700 1450 500 Balance -700 -533 -500 Weight 87 kg Intake: Oral 917 Output: Urine 700 1450 500 Uretheral (Lo) 500 Other: Voiding Method Indwelling Catheter Indwelling Catheter Indwelling Catheter - Exam GENERAL EXAM: Alert, very pleasant, 78-year-old blind female, on 3 L of oxygen with a pulse ox of 96% comfortable in no apparent distress. HEAD: Normocephalic/atraumatic. EYES: Normal reaction of pupils, equal size. Conjunctiva pink, sclera white. NOSE: Clear with pink turbinates. THROAT: No erythema or exudates. NECK: No masses, no JVD, no thyroid enlargement, no adenopathy. CHEST: No chest wall deformity. Symmetrical expansion. LUNGS: Equal air entry with no crackles, wheeze, rhonchi or dullness. CVS: Regular rate and rhythm, normal S1 and S2, no gallops, no murmurs, no rubs ABDOMEN: Soft, nontender. No hepatosplenomegaly, normal bowel sounds, no guarding or rigidity. EXTREMITIES: No clubbing, no edema, no cyanosis, 2+ pulses and upper and lower extremities. Patient has splint on her left wrist MUSCULOSKELETAL: Muscle strength and tone normal. SPINE: No scoliosis or deformity SKIN: No rashes CENTRAL NERVOUS SYSTEM: Alert and oriented -3. Patient is blind secondary to macular degeneration. No focal deficits, tone is normal in all 4 extremities. PSYCHIATRIC: Alert and oriented -3. Appropriate affect. Intact judgment and insight. - Labs CBC & Chem 7: 01/09/19 06:40 01/09/19 06:40 Labs: Abnormal Lab Results - Last 24 Hours (Table) 01/09/19 01/09/19 01/10/19 Range/Units 17:31 20:17 06:59 POC Glucose (mg/dL) 195 H 180 H 108 H (75-99) mg/dL 01/10/19 Range/Units 11:42 POC Glucose (mg/dL) 169 H (75-99) mg/dL Assessment and Plan Plan: 1 acute hypoxemia respiratory failure which is gradually improving. The patient has emphysema. She had a right-sided pneumothorax which is much recovered post chest tube insertion. She has some left basilar atelectasis/infiltration. She was also given systemic steroids for a po ssibility of posttraumatic acute lung injury contributing to her severe hypoxemia. She gradually improved and currently she is on 4 L O2 by nasal cannula and she was taken off the airvo she was in the intensive care unit and she got moved out to a medical floor. She is off diuretics for she is com pleting a prednisone burst taper in the course of Levaquin in addition to the bronchodilators. 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 coli and the patient is on Levaquin. Plan: She is doing well, clinically stable, no fever or chills, she is complaining of a course of Levaquin for her urinary tract infection, yesterday chest x-ray has been reviewed showing no pneumothorax, no acute pulmonary process, FiO2 is down to 3 L, no acute events overnight, from pulmonary perspective patient is stable for discharge to [facility] today. Continue encouraging deep breathing and coughing I performed a history & physical examination of the patient and discussed their management with my nurse practitioner, Annie Victor. I reviewed the nurse pra ctitioner's note and agree with the documented findings and plan of care. Lung sounds are positive for clear breath sounds. The findings and the impression was discussed with the patient. I attest to the documentation by the nurse practitioner. Time with Patient: Less than 30
[2019-01-10 15:58] VITALS: BMI 37.4
[2019-01-10 16:51] LABS: Glucose,Whole Blood 278 mg/dL (75-99)
[2019-01-10] MEDS: DONEPEZIL 5 MG TAB PO SCH (17:39)
[2019-01-10 20:02] LABS: Glucose,Whole Blood 154 mg/dL (75-99)
[2019-01-10] MEDS: MELATONIN 3 MG TABLET PO SCH (20:18)
[2019-01-10] MEDS: LEVOFLOXACIN 250 MG TAB PO SCH (20:18)
--- NOTE | 2019-01-10 23:55 | P.PN ---
Progress Note - Text Progress Note Date: 01/10/19 Interval history: Patient presents with after recent fall from bed, in [facility]. She had no loss of consciousness. Normally uses a walker with assistance. Found to right- sided pneumothorax resolved with the chest tube insertion and was removed on January 04. Also has a left hand splint for her wrist fracture. Treated for pneumonia. Patient had been a high flow oxygen and Air-vo. Was doing better. Moved out of the ICU. Oxygen requirement dropped down Today-Continues to feel better. Sitting upon a chair. Breathing is better. Review of systems: Attempted for constitutional, cardiovascular, GI, pulmonary. relevant finding as above Active Medications Acetaminophen (Tylenol Tab) 650 mg PO Q4H PRN PRN Reason: Mild Pain or Fever > 100.5 Last Admin: 01/08/19 16:35 Dose: 650 mg Documented by: Hydrocodone Bitart/Acetaminophen ([place] 7.5-325) 1 each PO Q4H PRN PRN Reason: Moderate Pain Last Admin: 01/07/19 20:52 Dose: 1 each Documented by: Al Hydroxide/Mg Hydroxide (Maalox) 30 ml PO Q4HR PRN PRN Reason: GI Upset Last Admin: 01/02/19 15:33 Dose: 30 ml Documented by: Albuterol/Ipratropium (Duoneb 0.5 Mg-3 Mg/3 Ml Soln) 3 ml INHALATION RT-QID PRN PRN Reason: Shortness Of Breath Or Wheezing Albuterol/Ipratropium (Duoneb 0.5 Mg-3 Mg/3 Ml Soln) 3 ml INHALATION RT-QID [facility] Last Admin: 01/10/19 20:03 Dose: 3 ml Documented by: Alprazolam (Xanax) 0.25 mg PO TID PRN PRN Reason: Anxiety Last Admin: 01/10/19 17:44 Dose: 0.25 mg Documented by: Amlodipine Besylate (Norvasc) 5 mg PO DAILY@0800 [facility] Last Admin: 01/10/19 08:05 Dose: 5 mg Documented by: Aspirin (Aspirin) 81 mg PO DAILY@0800 [facility] Last Admin: 01/10/19 08:05 Dose: 81 mg Documented by: Bisacodyl (Dulcolax) 10 mg RECTAL DAILY PRN PRN Reason: Constipation Brimonidine Tartrate (Alphagan P 0.2% Oph Soln) 1 drops RIGHT EYE BID@0800,1700 [facility] Last Admin: 01/10/19 17:40 Dose: 1 drops Documented by: Budesonide (Pulmicort) 1 mg INHALATION RT-BID [facility] Last Admin: 01/10/19 20:03 Dose: 1 mg Documented by: Cholecalciferol (Vitamin D3 (25 Mcg = 1000 Iu)) 2,000 unit PO DAILY@0800 [facility] Last Admin: 01/10/19 08:05 Dose: 2,000 unit Documented by: Clopidogrel Bisulfate (Plavix) 75 mg PO DAILY@0800 [facility] Last Admin: 01/10/19 08:04 Dose: 75 mg Documented by: Donepezil HCl (Aricept) 5 mg PO DAILY@1700 [facility] Last Admin: 01/10/19 17:39 Dose: 5 mg Documented by: Dorzolamide HCl (Trusopt) 1 drops RIGHT EYE BID@0800,1700 [facility] Last Admin: 01/10/19 17:40 Dose: 1 drops Documented by: Escitalopram Oxalate (Lexapro) 5 mg PO DAILY@0800 [facility] Last Admin: 01/10/19 08:07 Dose: 5 mg Documented by: Formoterol Fumarate (Perforomist) 20 mcg INHALATION RT-BID [facility] Last Admin: 01/10/19 20:03 Dose: 20 mcg Documented by: Gabapentin (Neurontin) 100 mg PO BID@0800,1700 [facility] Last Admin: 01/10/19 17:39 Dose: 100 mg Documented by: Guaifenesin (Robitussin) 200 mg PO Q4H PRN PRN Reason: Cough Heparin Sodium (Porcine) (Heparin) 5,000 unit SQ Q12HR [facility] Last Admin: 01/10/19 20:17 Dose: 5,000 unit Documented by: Hydralazine HCl (Apresoline) 10 mg IVP Q6HR PRN PRN Reason: Blood Pressure - High Last Admin: 01/08/19 04:07 Dose: 10 mg Documented by: Sodium Chloride (Saline 0.9%) 1,000 mls @ 10 mls/hr IV .Q24H [facility] Last Admin: 01/10/19 05:21 Dose: Not Given Documented by: Insulin Aspart (Novolog) 0 unit SQ [facility]; Protocol Last Admin: 01/10/19 20:18 Dose: Not Given Documented by: Isosorbide Mononitrate (Imdur) 60 mg PO DAILY@0800 [facility] Last Admin: 01/10/19 08:05 Dose: 60 mg Documented by: Losartan Potassium (Cozaar) 50 mg PO BID@0800,1700 [facility] Last Admin: 01/10/19 17:40 Dose: 50 mg Documented by: Magnesium Hydroxide (Milk Of Magnesia) 2,400 mg PO DAILY PRN PRN Reason: Constipation Melatonin (Melatonin) 3 mg PO HS@2100 [facility] Last Admin: 01/10/19 20:18 Dose: 3 mg Documented by: Metoclopramide HCl (Reglan) 10 mg IVP Q6HR PRN PRN Reason: Nausea And Vomiting Last Admin: 01/02/19 12:17 Dose: 10 mg Documented by: Miscellaneous Information (Magnesium Per Protocol) 1 each MISCELLANE DAILY PRN; Protocol PRN Reason: Per Protocol Montelukast Sodium (Singulair) 10 mg PO DAILY@0800 [facility] Last Admin: 01/10/19 08:05 Dose: 10 mg Documented by: Naloxone HCl (Narcan) 0.2 mg IV Q2M PRN PRN Reason: Opioid Reversal Nitroglycerin (Nitrostat) 0.4 mg SUBLINGUAL Q5M PRN PRN Reason: Chest Pain Ondansetron HCl (Zofran) 4 mg IVP Q8HR PRN PRN Reason: Nausea And Vomiting Last Admin: 01/07/19 19:24 Dose: 4 mg Documented by: Pantoprazole Sodium (Protonix) 40 mg PO DAILY [facility] Last Admin: 01/10/19 08:04 Dose: 40 mg Documented by: Prednisolone Acetate (Pred Forte 1%) 1 drops LEFT EYE BID@0800,1700 [facility] Last Admin: 01/10/19 17:40 Dose: 1 drops Documented by: Prednisone () 40 mg PO DAILY [facility] Last Admin: 01/10/19 08:04 Dose: 40 mg Documented by: Ropinirole HCl (Requip) 0.5 mg PO HS@2100 [facility] Last Admin: 01/10/19 20:18 Dose: 0.5 mg Documented by: Sodium Biphosphate/Sodium Phosphate (Fleet Adult) 133 ml RECTAL DAILY PRN PRN Reason: Constipation Physical examination: VITAL SIGNS: 98.2, 65, 12, 171/66, 96% on 3 L GENERAL: Sitting up in a chair. More comfortable EYES: Poor vision, chronic NECK: JVD unable to assess; masses not palpable. HEART: First and second heart sounds are normal; no edema. LUNGS: Respiratory rate increased, decreased breaths ABDOMEN: Soft, nontender, liver spleen not palpable, no masses palpable. PSYCH: Answering simple questions. EXTREMITY: Left wrist in a splint INVESTIGATIONS, reviewed in the clinical context: White count 4.3 hemoglobin 12.6 bun 55 creatinine 1.35 Previous testing Potassium 3.9 hemoglobin 11 platelets 136 potassium 4.4 bun [address] chest-dependent consolidation and atelectasis, emphysema with bullous changes, reexpansion of the right-pneumothorax, CT chest abdomen pelvis on the lumbar 2018-moderate sized right-sided pneumothorax about 50%, emphysema, sigmoid diverticulosis Assessment: -Acute hypoxic respiratory failure requiring high flow oxygen secondary to pneumothorax, emphysema atelectasis/pneumonia, improving, down to 4 L -Right-sided traumatic pneumothorax 50% status post chest tube, now improved -Pneumonia suspect gram-negative organism, clinically improved -Obesity BMI 37.2 -Bullous emphysema -Macular degeneration with legal blindness -Diabetes mellitus type 2 -Essential hypertension -Coronary artery disease with stent to LAD in November 2016 -Anxiety depression not otherwise specified -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 -Left radial styloid mildly displaced fracture-in a thumb spica splint Plan: Continues to improve slowly. On oral prednisone 40 mg. If remains stable then we'll discharge the patient to [facility] tomorrow. This was discussed with the patient.
[2019-01-11 01:31] VITALS: RESP 16; TEMP 97.9
[2019-01-11] MEDS: SODIUM CHLORIDE 0.9% 1,000 ML IV SCH (03:43)
[2019-01-11 06:56] LABS: Glucose,Whole Blood 99 mg/dL (75-99)
[2019-01-11] MEDS: BUDESONIDE 1 MG/2 ML NEBU INHALATION SCH (07:06)
[2019-01-11] MEDS: IPRATROPIUM-ALBUTEROL 3 ML NEB INHALATION SCH ×2 (07:06→10:31)
[2019-01-11] MEDS: FORMOTEROL FUMARATE 20 MCG/2 ML NEBU INHALATION SCH (07:06)
[2019-01-11] MEDS: INSULIN ASPART (NovoLOG) 100 UNIT/ML VIAL SQ SCH ×2 (08:17→12:14)
[2019-01-11] MEDS: HEPARIN SODIUM,PORCINE 5,000 UNIT/ML 1 ML VIAL SQ SCH (08:29)
[2019-01-11] MEDS: MONTELUKAST 10 MG TAB PO SCH (08:29)
[2019-01-11] MEDS: PANTOPRAZOLE 40 MG TABLET PO SCH (08:29)
[2019-01-11] MEDS: CLOPIDOGREL 75 MG TAB PO SCH (08:29)
[2019-01-11] MEDS: predniSONE 20 MG TAB PO SCH (08:29)
[2019-01-11] MEDS: ESCITALOPRAM 5 MG TAB PO SCH (08:29)
[2019-01-11] MEDS: ISOSORBIDE MONONITRATE ER 60 MG TAB.ER.24H PO SCH (08:29)
[2019-01-11] MEDS: LOSARTAN 50 MG TAB PO SCH (08:29)
[2019-01-11] MEDS: GABAPENTIN 100 MG CAP PO SCH (08:29)
[2019-01-11] MEDS: CHOLECALCIFEROL 1,000 UNIT TAB PO SCH (08:29)
[2019-01-11] MEDS: ASPIRIN 81 MG PO SCH (08:29)
[2019-01-11] MEDS: amLODIPine 5 MG TAB PO SCH (08:29)
[2019-01-11] MEDS: DORZOLAMIDE HCL 2% DROPS 10 ML BTL RIGHT EYE SCH (08:30)
[2019-01-11] MEDS: prednisoLONE ACETATE 1% OPHTH DROPS 5 ML BTL LEFT EYE SCH (08:30)
[2019-01-11] MEDS: BRIMONIDINE TARTRATE 0.2% DROPS 5 ML BTL RIGHT EYE SCH (08:30)
[2019-01-11 08:37] VITALS: BP 122/53
[2019-01-11 10:34] VITALS: PULSE 72
[2019-01-11 11:17] LABS: Glucose,Whole Blood 147 mg/dL (75-99)
--- NOTE | 2019-01-11 13:17 | P.DS ---
Providers Date of admission: 01/01/19 23:03 Expected date of discharge: 01/11/19 Attending physician: Mayo Tong Consults: 01/01/19 10:43 Consult Physician Routine Consulting Provider: José Parada Consult Reason/Comments: radial sytloid fracture, right hip pain, fall Do you want consulting provider notified?: Yes 01/01/19 20:57 Consult Physician Stat Consulting Provider: Hector Byrd Consult Reason/Comments: Pneumothorax, hx of COPD, trauma Do you want consulting provider notified?: Already Contacted 01/04/19 07:29 Consult Physician Routine Consulting Provider: Rafia Boyd Consult Reason/Comments: Bleb disease, reaccumulation pneumothorax after trauma Do you want consulting provider notified?: Yes 01/04/19 12:34 Consult Physician Routine Consulting Provider: Nicky Cherry Consult Reason/Comments: pneumothorax Do you want consulting provider notified?: Already Contacted Primary care physician: [facility] Hospital Course: Interval history: Patient presents with after recent fall from bed, in retirement. She had no loss of consciousness. Normally uses a walker with assistance. Found to have right-sided pneumothorax resolved with the chest tube insertion and was removed on January 04. Also has a left hand splint for her wrist fracture. Treated for pneumonia. Patient had been a high flow oxygen and Air-vo. doing better. Moved out of the ICU. Oxygen requirement dropped down. Left radial styloid mildly displaced fracture. In thumb spica splint. Today-tolerating a diet. Breathing better. Feeling well. Review of systems: Attempted for constitutional, cardiovascular, GI, pulmonary. relevant finding as above Consultation: Dr. jesus at all from pulmonary Dr. Metzger from cardiothoracic surgery Dr. Parada from orthopedics Physical examination: VITAL SIGNS: 98.2, 65, 12, 171/66, 96% on 3 L GENERAL: Sitting up in a chair. More comfortable EYES: Poor vision, chronic NECK: JVD unable to assess; masses not palpable. HEART: First and second heart sounds are normal; no edema. LUNGS: Respiratory rate increased, decreased breaths ABDOMEN: Soft, nontender, liver spleen not palpable, no masses palpable. PSYCH: Answering simple questions. EXTREMITY: Left wrist in a splint INVESTIGATIONS, reviewed in the clinical context: White count 4.3 hemoglobin 12.6 bun 55 creatinine 1.35 Previous testing Potassium 3.9 hemoglobin 11 platelets 136 potassium 4.4 bun [address] chest-dependent consolidation and atelectasis, emphysema with bullous changes, reexpansion of the right-pneumothorax, CT chest abdomen pelvis on the lumbar 2018-moderate sized right-sided pneumothorax about 50%, emphysema, sigmoid diverticulosis Assessment: -Acute hypoxic respiratory failure requiring high flow oxygen secondary to pneumothorax, emphysema atelectasis/pneumonia, improving, down to 4 L -Right-sided traumatic pneumothorax 50% status post chest tube, now improved -Pneumonia suspect gram-negative organism, clinically improved -Obesity BMI 37.2 -Bullous emphysema -Macular degeneration with legal blindness -Diabetes mellitus type 2 -Essential hypertension -Coronary artery disease with stent to LAD in November 2016 -Anxiety depression not otherwise specified -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 -Left radial styloid mildly displaced fracture-in a thumb spica splint -Chronic kidney disease stage III with a baseline creatinine around 1.3-1.5, from diabetic nephropathy and hypertensive nephrosclerosis Disposition: [facility] Patient Condition at Discharge: Stable Plan - Discharge Summary Discharge Rx Participant: No New Discharge Prescriptions: New HYDROcodone/APAP 5-325MG [[place] 5-325] 1 tab PO Q4HR PRN #42 tab PRN Reason: Pain Ipratropium-Albuterol Nebulize [Duoneb 0.5 mg-3 mg/3 ml Soln] 3 ml INHALATION TID #1 ampul.neb predniSONE 0 mg PO DIRECTED #10 tab Continue Montelukast [Singulair] 10 mg PO DAILY@0800 Clopidogrel [Plavix] 75 mg PO DAILY@0800 Brimonidine Tartrate [Alphagan P 0.1% Ophth Soln] 1 drop RIGHT EYE BID@0800,1 700 prednisoLONE ACETATE 1% OPHTH [Pred Forte 1%] 1 drop LEFT EYE BID@0800,1700 Melatonin 3 mg PO HS@2100 Cholecalciferol [Vitamin D3 (25 Mcg = 1000 Iu)] 2,000 unit PO DAILY@0800 Nitroglycerin Sl Tabs [Nitrostat] 0.4 mg SUBLINGUAL Q5M PRN tab PRN Reason: Chest Pain Losartan Potassium [Cozaar] 50 mg PO BID@0800,1700 Aspirin 81 mg PO DAILY@0800 amLODIPine [Norvasc] 5 mg PO DAILY@0800 guaiFENesin SYRUP 100MG/5ML [Robitussin] 200 mg PO Q4H PRN PRN Reason: Cough Na Phos,M-B/Na Phos,Di-Ba [Fleet Adult] 133 ml RECTAL DAILY PRN PRN Reason: Constipation Magnesium Hydroxide [Milk of Magnesia] 2,400 mg PO DAILY PRN PRN Reason: Constipation Bisacodyl [Dulcolax] 10 mg RECTAL DAILY PRN PRN Reason: Constipation Albuterol Inhaler [Ventolin Hfa Inhaler] 2 puff INHALATION RT-Q6H PRN PRN Reason: Wheezing Acetaminophen Tab [Tylenol] 650 mg PO Q4H PRN PRN Reason: Pain Or Fever > 100.5 Dorzolamide 2% [Trusopt 2%] 1 drops RIGHT EYE BID@0800,1700 Acetaminophen Tab [Tylenol] 500 mg PO BID rOPINIRole HCL [Requip] 0.5 mg PO HS@2100 Isosorbide Mononitrate ER [Imdur] 60 mg PO DAILY@0800 Escitalopram [Lexapro] 5 mg PO DAILY@0800 Donepezil [Aricept] 5 mg PO DAILY@1700 Sodium Chloride [Saline Nasal [place]] 1 spray EA NOSTRIL Q2H PRN PRN Reason: Congestion Pantoprazole [Protonix] 40 mg PO DAILY@0800 Metoprolol Tartrate [Lopressor] 12.5 mg PO BID@0800,1700 Budesonide-Formot 160-4.5 Mcg [Symbicort 160-4.5 Mcg Inhaler] 2 puff INHALATION RT-BID@0800,1700 Gabapentin [Neurontin] 100 mg PO BID@0800,1700 #6 cap Discharge Medication List Clopidogrel [Plavix] 75 mg PO DAILY@0800 09/29/13 [History] Montelukast [Singulair] 10 mg PO DAILY@0800 09/29/13 [History] Brimonidine Tartrate [Alphagan P 0.1% Ophth Soln] 1 drop RIGHT EYE BID@0800,1700 11/26/15 [History] prednisoLONE ACETATE 1% OPHTH [Pred Forte 1%] 1 drop LEFT EYE BID@0800,1700 11/26/15 [History] Melatonin 3 mg PO HS@2100 05/11/16 [History] Cholecalciferol [Vitamin D3 (25 Mcg = 1000 Iu)] 2,000 unit PO DAILY@0800 06/30/16 [History] Nitroglycerin Sl Tabs [Nitrostat] 0.4 mg SUBLINGUAL Q5M PRN tab 12/09/16 [Rx] Losartan Potassium [Cozaar] 50 mg PO BID@0800,1700 01/26/17 [History] Aspirin 81 mg PO DAILY@0800 03/27/17 [History] amLODIPine [Norvasc] 5 mg PO DAILY@0800 03/27/17 [History] Acetaminophen Tab [Tylenol] 500 mg PO BID 01/01/19 [History] Acetaminophen Tab [Tylenol] 650 mg PO Q4H PRN 01/01/19 [History] Albuterol Inhaler [Ventolin Hfa Inhaler] 2 puff INHALATION RT-Q6H PRN 01/01/19 [History] Bisacodyl [Dulcolax] 10 mg RECTAL DAILY PRN 01/01/19 [History] Budesonide-Formot 160-4.5 Mcg [Symbicort 160-4.5 Mcg Inhaler] 2 puff INHALATION RT-BID@0800,1700 01/01/19 [History] Donepezil [Aricept] 5 mg PO DAILY@17001/01/19 [History] Dorzolamide 2% [Trusopt 2%] 1 drops RIGHT EYE BID@0800,1700 01/01/19 [History] Escitalopram [Lexapro] 5 mg PO DAILY@0800 01/01/19 [History] Isosorbide Mononitrate ER [Imdur] 60 mg PO DAILY@0800 01/01/19 [History] Magnesium Hydroxide [Milk of Magnesia] 2,400 mg PO DAILY PRN 01/01/19 [History] Metoprolol Tartrate [Lopressor] 12.5 mg PO BID@0800,1700 01/01/19 [History] Na Phos,M-B/Na Phos,Di-Ba [Fleet Adult] 133 ml RECTAL DAILY PRN 01/01/19 [History] Pantoprazole [Protonix] 40 mg PO DAILY@0800 01/01/19 [History] Sodium Chloride [Saline Nasal [place]] 1 spray EA NOSTRIL Q2H PRN 01/01/19 [History] guaiFENesin SYRUP 100MG/5ML [Robitussin] 200 mg PO Q4H PRN 01/01/19 [History] rOPINIRole HCL [Requip] 0.5 mg PO HS@2100 01/01/19 [History] HYDROcodone/APAP 5-325MG [[place] 5-325] 1 tab PO Q4HR PRN #42 tab 01/10/19 [Rx] Gabapentin [Neurontin] 100 mg PO BID@0800,1700 #6 cap 01/11/19 [Rx] Ipratropium-Albuterol Nebulize [Duoneb 0.5 mg-3 mg/3 ml Soln] 3 ml INHALATION TID #1 ampul.neb 01/11/19 [Rx] predniSONE 0 mg PO DIRECTED #10 tab 01/11/19 [Rx] Follow up Appointment(s)/Referral(s): Anand Jesus MD [STAFF PHYSICIAN] - 1 Week Nicholas Villegas DO [Primary Care Provider] - 1-2 days José Parada MD [STAFF PHYSICIAN] - 01/19/19 9:00 am Activity/Diet/Wound Care/Special Instructions: maintain splint non-weightbearing left upper extremity keep splint clean and dry f/u in office at [facility] in one week Discharge Disposition: TRANSFER TO SNF/ECF
== END 2019-01-11 13:24 | DRG 199 ==
LOC: EC 08:18 → 3NMEDONC 10:39 → OBSVTOIN 23:03 → 2SICU 01-02 01:16 → 4SSUR 01-08 18:37
PROVIDERS: ADMIT Hospitalist; ATTEND Hospitalist
PROC: 0W9930Z Drainage of Right Pleural Cavity with Drainage Device, Percutaneous Approach (ICD-10-PCS; principal; 2019-01-01)
DX: S27.0XXA Traumatic pneumothorax, initial encounter (principal); J15.6 Pneumonia due to other Gram-negative bacteria; J96.01 Acute respiratory failure with hypoxia; S52.512A Displaced fracture of left radial styloid process, initial encounter for closed fracture; J45.901 Unspecified asthma with (acute) exacerbation; J98.11 Atelectasis; N39.0 Urinary tract infection, site not specified; T79.7XXA Traumatic subcutaneous emphysema, initial encounter; B96.89 Other specified bacterial agents as the cause of diseases classified elsewhere; E11.22 Type 2 diabetes mellitus with diabetic chronic kidney disease; E66.9 Obesity, unspecified; E78.5 Hyperlipidemia, unspecified; F41.9 Anxiety disorder, unspecified; F32.9 Major depressive disorder, single episode, unspecified; H35.30 Unspecified macular degeneration; H54.8 Legal blindness, as defined in USA; I12.9 Hypertensive chronic kidney disease with stage 1 through stage 4 chronic kidney disease, or unspecified chronic kidney disease; I25.10 Atherosclerotic heart disease of native coronary artery without angina pectoris; I25.2 Old myocardial infarction; I51.7 Cardiomegaly; M19.90 Unspecified osteoarthritis, unspecified site; N18.3 Chronic kidney disease, stage 3 (moderate); W19.XXXA Unspecified fall, initial encounter; W22.8XXA Striking against or struck by other objects, initial encounter; Y92.129 Unspecified place in nursing home as the place of occurrence of the external cause; Z68.37 Body mass index [BMI] 37.0-37.9, adult; Z79.02 Long term (current) use of antithrombotics/antiplatelets; Z79.51 Long term (current) use of inhaled steroids; Z79.82 Long term (current) use of aspirin; Z79.899 Other long term (current) drug therapy; Z82.1 Family history of blindness and visual loss; Z82.49 Family history of ischemic heart disease and other diseases of the circulatory system; Z82.5 Family history of asthma and other chronic lower respiratory diseases; Z86.73 Personal history of transient ischemic attack (TIA), and cerebral infarction without residual deficits; Z87.891 Personal history of nicotine dependence; Z90.49 Acquired absence of other specified parts of digestive tract; Z90.710 Acquired absence of both cervix and uterus; Z95.5 Presence of coronary angioplasty implant and graft; Z96.651 Presence of right artificial knee joint; Z98.41 Cataract extraction status, right eye; Z99.3 Dependence on wheelchair; Z88.5 Allergy status to narcotic agent; Z88.8 Allergy status to other drugs, medicaments and biological substances
CPT/HCPCS: 29125; 36415; 70450; 71045; 71046; 71250; 71275; 72125; 73521; 74176; 80048; 80053; 81001; 83036; 83735; 84145; 85025; 87077; 87086; 87186; 93005; 94640; 94760; 99285

== ENCOUNTER 2019-01-14 12:31 | Inpatient (IN) | payer MEDICARE, OTHER ==
[2019-01-14] MEDS ORDERED: SODIUM CHLORIDE 0.9% 1,000 ML IV ONE (13:18)
[2019-01-14] MEDS ORDERED: MORPHINE SULFATE 4 MG/ML SYRINGE IVP STA (13:53)
[2019-01-14] MEDS: SODIUM CHLORIDE 0.9% 1,000 ML IV SCH (13:55)
[2019-01-14 14:00] LABS: Basophils % (A) 0 %; Eosinophils # (A) 0.2 k/uL (0-0.7); Eosinophils % (A) 2 %; HCT 37.3 % (34.0-46.0); HGB 12.2 gm/dL (11.4-16.0); Lymphocytes # (A) 1.3 k/uL (1.0-4.8); Lymphocytes % (A) 13 %; MCH 29.3 pg (25.0-35.0); MCHC 32.8 g/dL (31.0-37.0); MCV 89.2 fL (80.0-100.0); Mean Platelet Volume 6.8; Monocytes # (A) 0.5 k/uL (0-1.0); Monocytes % (A) 5 %; Neutrophils # (A) 7.8 k/uL (1.3-7.7); Neutrophils % (A) 79 %; Platelet Count 217 k/uL (150-450); RBC 4.18 m/uL (3.80-5.40); RDW 14.5 % (11.5-15.5); WBC 9.9 k/uL (3.8-10.6)
[2019-01-14] MEDS ORDERED: KETOROLAC 30 MG/ML 1 ML VIAL IVP STA (14:01)
[2019-01-14 14:09] LABS: Albumin 3.2 g/dL (3.5-5.0); Calcium 8.7 mg/dL (8.4-10.2); Potassium 4.5 mmol/L (3.5-5.1); Total Bilirubin 0.7 mg/dL (0.2-1.3); Total Protein 5.9 g/dL (6.3-8.2)
[2019-01-14] MEDS ORDERED: VANCOMYCIN IV PER PHARMACY 1 EACH MISC MISCELLANE PRN (14:51)
--- NOTE | 2019-01-14 14:51 | ED ---
Skin/Abscess/FB HPI - General Chief complaint: Skin/Abscess/Foreign Body Stated complaint: abcess Time Seen by Provider: 01/14/19 12:41 Source: patient, RN notes reviewed, old records reviewed Mode of arrival: ambulatory Limitations: no limitations - History of Present Illness Initial comments: Patient is a pleasant 78-year-old female accompanied medical history. She is currently in a correction after a fall. She does have history of blindness. Patient states that she's been having some irritation and swelling over her left breast. She first noted this area 2 days ago. The [facility]CF started the Patient on Keflex. Since that time she's had worsening redness and swelling. She complains of some chills. Patient states she's had no recent falls. She is being treated for a left radial fracture. She also was found to have a pneumothorax from her fall on her last admission. - Related Data Home Medications Medication Instructions Recorded Confirmed Clopidogrel [Plavix] 75 mg PO DAILY@0800 09/29/13 01/01/19 Montelukast [Singulair] 10 mg PO DAILY@0800 09/29/13 01/01/19 Brimonidine Tartrate [Alphagan P 1 drop RIGHT EYE BID@0800,1700 11/26/15 01/01/19 0.1% Ophth Soln] prednisoLONE ACETATE 1% OPHTH 1 drop LEFT EYE BID@0800,1700 11/26/15 01/01/19 [Pred Forte 1%] Melatonin 3 mg PO HS@2100 05/11/16 01/01/19 Cholecalciferol [Vitamin D3 (25 2,000 unit PO DAILY@0800 06/30/16 01/01/19 Mcg = 1000 Iu)] Losartan Potassium [Cozaar] 50 mg PO BID@0800,1700 01/26/17 01/01/19 Aspirin 81 mg PO DAILY@0800 03/27/17 01/01/19 amLODIPine [Norvasc] 5 mg PO DAILY@0800 03/27/17 01/01/19 Acetaminophen Tab [Tylenol] 500 mg PO BID 01/01/19 01/01/19 Acetaminophen Tab [Tylenol] 650 mg PO Q4H PRN 01/01/19 01/01/19 Albuterol Inhaler [Ventolin Hfa 2 puff INHALATION RT-Q6H PRN 01/01/19 01/01/19 Inhaler] Bisacodyl [Dulcolax] 10 mg RECTAL DAILY PRN 01/01/19 01/01/19 Budesonide-Formot 160-4.5 Mcg 2 puff INHALATION RT-BID@0800,1700 01/01/19 01/01/19 [Symbicort 160-4.5 Mcg Inhaler] Donepezil [Aricept] 5 mg PO DAILY@1700 01/01/19 01/01/19 Dorzolamide 2% [Trusopt 2%] 1 drops RIGHT EYE BID@0800,1700 01/01/19 01/01/19 Escitalopram [Lexapro] 5 mg PO DAILY@0800 01/01/19 01/01/19 Isosorbide Mononitrate ER [Imdur] 60 mg PO DAILY@0800 01/01/19 01/01/19 Magnesium Hydroxide [Milk of 2,400 mg PO DAILY PRN 01/01/19 01/01/19 Magnesia] Metoprolol Tartrate [Lopressor] 12.5 mg PO BID@0800,1700 01/01/19 01/01/19 Na Phos,M-B/Na Phos,Di-Ba [Fleet 133 ml RECTAL DAILY PRN 01/01/19 01/01/19 Adult] Pantoprazole [Protonix] 40 mg PO DAILY@0800 01/01/19 01/01/19 Sodium Chloride [Saline Nasal 1 spray EA NOSTRIL Q2H PRN 01/01/19 01/01/19 [place]] guaiFENesin SYRUP 100MG/5ML 200 mg PO Q4H PRN 01/01/19 01/01/19 [Robitussin] rOPINIRole HCL [Requip] 0.5 mg PO HS@2100 01/01/19 01/01/19 Previous Rx's Medication Instructions Recorded Nitroglycerin Sl Tabs [Nitrostat] 0.4 mg SUBLINGUAL Q5M PRN tab 12/09/16 HYDROcodone/APAP 5-325MG [[place] 1 tab PO Q4HR PRN #42 tab 01/10/19 5-325] Gabapentin [Neurontin] 100 mg PO BID@0800,1700 #6 cap 01/11/19 Ipratropium-Albuterol Nebulize 3 ml INHALATION TID #1 ampul.neb 01/11/19 [Duoneb 0.5 mg-3 mg/3 ml Soln] predniSONE 0 mg PO DIRECTED #10 tab 01/11/19 Allergies Allergy/AdvReac Type Severity Reaction Status Date / Time [id number] Reductase Allergy Unknown Verified 01/14/19 16:20 Inhibitor morphine AdvReac Confusion Verified 01/14/19 16:20 Review of Systems ROS Statement: Those systems with pertinent positive or pertinent negative responses have been documented in the HPI. ROS Other: All systems not noted in ROS Statement are negative. 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 macular degeneration, emphysema, hypertension, hyperlipidemia, previous coronary intervention and stenting of the LAD in November 2016 Last Myocardial Infarction Date:: 12/06/2016 History of Any Multi-Drug Resistant Organisms: None Reported Past Surgical History: Appendectomy, Cholecystectomy, Heart Catheterization With Stent, Hysterectomy, Joint Replacement, Tonsillectomy Additional Past Surgical History / Comment(s): Right knee replacement, right cataract surgery, heart cath with stents x 2 , 11/2016 Past Anesthesia/Blood Transfusion Reactions: No Reported Reaction Date of Last Stent Placement:: 12/06/2016 Past Psychological History: Anxiety, Depression Smoking Status: Former smoker Past Alcohol Use History: None Reported Past Drug Use History: None Reported - Past Family History Mother Family Medical History: Congestive Heart Failure (CHF) Father Additional Family Medical History / Comment(s): empyhsema, blindness. O2 dependent General Exam - General Exam Comments Initial Comments: His is a 78-year-old female. Alert and oriented 3. Patient is blind. Limitations: no limitations Head exam: Present: atraumatic, normocephalic, normal inspection Eye exam: Present: normal appearance, PERRL, EOMI. Absent: scleral icterus, conjunctival injection, periorbital swelling ENT exam: Present: normal exam, mucous membranes moist Neck exam: Present: normal inspection. Absent: tenderness, meningismus, lymphadenopathy Respiratory exam: Present: normal lung sounds bilaterally, other (She has extensive cellulitis over the left breast. There is an area of abscess. EKG bolus used to open this and purulent fluid was removed. Approximately 10 mL.). Absent: respiratory distress, wheezes, rales, rhonchi, stridor Cardiovascular Exam: Present: regular rate, normal rhythm, normal heart sounds. Absent: systolic murmur, diastolic murmur, rubs, gallop, clicks GI/Abdominal exam: Present: soft, normal bowel sounds. Absent: distended, tenderness, guarding, rebound, rigid Neurological exam: Present: alert, oriented X3, CN II-XII intact Psychiatric exam: Present: normal affect, normal mood Skin exam: Present: warm, dry, intact, normal color, erythema (This is cellulitis of her left breast.) Course Vital Signs 01/14/19 01/14/19 01/14/19 12:40 14:17 15:49 Temperature 99.3 F Pulse Rate 54 L 94 80 Respiratory 18 18 18 Rate Blood Pressure 134/60 132/68 149/66 O2 Sat by Pulse 90 L 95 96 Oximetry Procedures - Incision & Drainage Consent Obtained: verbal consent Size (cm): 4 Needle Aspiration Performed?: Yes (18g used open up the area.) I&D Drainage Obtained: Pus, Blood Culture Obtained?: Yes Patient Tolerated Procedure: well Medical Decision Making - Medical Decision Making 78-year-old female presents for failure of outpatient treatment. Patient treatment for left breast abscess and cellulitis. Symptoms started 3 days ago. She was on Keflex for the past 2 days. They report that the redness and erythema and abscess has increased in size and a feeling. 18-gauge needle was used to open up this area and approximately 10 mL of purulent fluid was removed. Patient had a wound culture obtained. Patient was started on Kefzol and vancomycin for concern for failure of outpatient treatment and possible MRSA. Patient is agreeable to admission and family is agreeable to this care. - Lab Data Result diagrams: 01/14/19 13:39 01/14/19 13:39 Lab Results 01/14/19 01/14/19 12 Range/Units 13:39 13:39 13:39 WBC 9.9 (3.8-10.6) k/uL RBC 4.18 (3.80-5.40) m/uL Hgb 12.2 (11.4-16.0) gm/dL Hct 37.3 (34.0-46.0) % MCV 89.2 (80.0-100.0) fL MCH 29.3 (25.0-35.0) pg MCHC 32.8 (31.0-37.0) g/dL RDW 14.5 (11.5-15.5) % Plt Count 217 (150-450) k/uL Neutrophils % 79 % Lymphocytes % 13 % Monocytes % 5 % Eosinophils % 2 % Basophils % 0 % Neutrophils # 7.8 H (1.3-7.7) k/uL Lymphocytes # 1.3 (1.0-4.8) k/uL Monocytes # 0.5 (0-1.0) k/uL Eosinophils # 0.2 (0-0.7) k/uL Basophils # 0.0 (0-0.2) k/uL Sodium 137 (137-145) mmol/L Potassium 4.5 (3.5-5.1) mmol/L Chloride 105 (98-107) mmol/L Carbon Dioxide 24 (22-30) mmol/L Anion Gap 8 mmol/L BUN 42 H (7-17) mg/dL Creatinine 1.42 H (0.52-1.04) mg/dL Est GFR (CKD-EPI)AfAm 41 (>60 ml/min/1.73 sqM) Est GFR (CKD-EPI)NonAf 35 (>60 ml/min/1.73 sqM) Glucose 113 H (74-99) mg/dL Plasma Lactic Acid Oleksandr 0.8 (0.7-2.0) mmol/L Calcium 8.7 (8.4-10.2) mg/dL Total Bilirubin 0.7 (0.2-1.3) mg/dL AST 42 H (14-36) U/L ALT 55 H (9-52) U/L Alkaline Phosphatase 63 (38-126) U/L Total Protein 5.9 L (6.3-8.2) g/dL Albumin 3.2 L (3.5-5.0) g/dL - Radiology Data Radiology results: report reviewed Interpreted by me: Patient did have breast ultrasound unable to review report this time. Disposition Clinical Impression: Cellulitis of left breast, Breast abscess, Failure of outpatient treatment Disposition: ADMITTED IP TO THIS HOSP Condition: Stable Is patient prescribed a controlled substance at d/c from ED?: No Referrals: Nicholas Villegas DO [Primary Care Provider] - 1-2 days Time of Disposition: 16:25
[2019-01-14] MEDS ORDERED: VANCOMYCIN 1,500 MG in SODIUM CHLORIDE 0.9% 250 ML IVPB ONE (15:00)
[2019-01-14] MEDS ORDERED: ACETAMINOPHEN TAB 325 MG TAB PO PRN ×2 (16:25→20:57)
[2019-01-14] MEDS ORDERED: IBUPROFEN 400 MG TAB PO PRN (16:25)
[2019-01-14] MEDS ORDERED: NALOXONE 0.4 MG/ML 1 ML VIAL IV PRN (16:25)
--- NOTE | 2019-01-14 18:18 | XR ---
EXAMINATION TYPE: XR chest 2V DATE OF EXAM: 01/14/2019 COMPARISON: 01/09/2019 HISTORY: Left breast abscess TECHNIQUE: Frontal and lateral views of the chest are obtained. FINDINGS: Heart is slightly enlarged. There is no heart failure. There is small linear density at th e left lung base. Thoracic aorta is atheromatous. There are no hilar masses. There is some mild pleur al thickening at the lung apices. There is spurring in the thoracic spine. IMPRESSION: Mild scarring at the lung apices. Minimal scarring or subsegmental atelectasis left lung base. There is overall not adverse change compared to last exam.
[2019-01-14] MEDS ORDERED: NA PHOS,M-B/NA PHOS,DI-BA 133 ML ENEMA RECTAL PRN (20:57)
[2019-01-14] MEDS ORDERED: MAGNESIUM HYDROXIDE 2,400 MG/10 ML CUP PO PRN (20:57)
[2019-01-14] MEDS ORDERED: BISACODYL 10 MG SUPP RECTAL PRN (20:57)
[2019-01-14] MEDS ORDERED: guaiFENesin SYRUP 100MG/5ML 200 MG/10 ML CUP PO PRN (20:57)
[2019-01-14] MEDS ORDERED: NITROGLYCERIN SL TABS 0.4 MG TAB SUBLINGUAL PRN (20:57)
[2019-01-14] MEDS ORDERED: SODIUM CHLORIDE 0.65% NASAL SPRAY 44 ML BTL INTRANASAL PRN (20:57)
[2019-01-14] MEDS ORDERED: ALBUTEROL NEBULIZED 2.5 MG/3 ML INHALATION PRN (20:57)
[2019-01-14] MEDS: MELATONIN 3 MG TABLET PO SCH (22:10)
[2019-01-14] MEDS: METOPROLOL TARTRATE 12.5 MG TAB PO SCH (22:11)
[2019-01-15] MEDS: SODIUM CHLORIDE 0.9% 1,000 ML IV SCH ×3 (01:27→20:14)
[2019-01-15] MEDS: SYMBICORT 160-4.5 MCG INHALER INHALATION SCH ×2 (07:27→18:58)
[2019-01-15] MEDS ORDERED: SYMBICORT 160-4.5 MCG INHALER INHALATION SCH (08:00)
[2019-01-15] MEDS: GABAPENTIN 100 MG CAP PO SCH ×2 (08:22→16:16)
[2019-01-15] MEDS: CLOPIDOGREL 75 MG TAB PO SCH (08:22)
[2019-01-15] MEDS: ESCITALOPRAM 5 MG TAB PO SCH (08:22)
[2019-01-15] MEDS: CHOLECALCIFEROL 1,000 UNIT TAB PO SCH (08:22)
[2019-01-15] MEDS: ISOSORBIDE MONONITRATE ER 60 MG TAB.ER.24H PO SCH (08:22)
[2019-01-15] MEDS: PANTOPRAZOLE 40 MG TABLET PO SCH (08:22)
[2019-01-15] MEDS: ASPIRIN 81 MG PO SCH (08:23)
[2019-01-15] MEDS: LOSARTAN 50 MG TAB PO SCH ×2 (08:23→16:16)
[2019-01-15] MEDS: amLODIPine 5 MG TAB PO SCH (08:23)
[2019-01-15] MEDS: METOPROLOL TARTRATE 12.5 MG TAB PO SCH ×2 (08:23→20:21)
[2019-01-15] MEDS: BRIMONIDINE TARTRATE 0.2% DROPS 5 ML BTL RIGHT EYE SCH ×2 (08:23→16:16)
[2019-01-15] MEDS: prednisoLONE ACETATE 1% OPHTH DROPS 5 ML BTL LEFT EYE SCH ×2 (08:27→16:16)
[2019-01-15] MEDS: DORZOLAMIDE HCL 2% DROPS 10 ML BTL RIGHT EYE SCH ×2 (08:28→16:16)
[2019-01-15] MEDS: DONEPEZIL 5 MG TAB PO SCH (16:16)
[2019-01-15] MEDS ORDERED: ALPRAZolam 0.25 MG TAB PO PRN (16:38)
[2019-01-15] MEDS: VANCOMYCIN 1,500 MG in SODIUM CHLORIDE 0.9% 250 ML IVPB SCH (17:17)
[2019-01-15] MEDS: HEPARIN SODIUM,PORCINE 5,000 UNIT/ML 1 ML VIAL SQ SCH (20:14)
[2019-01-15] MEDS: MELATONIN 3 MG TABLET PO SCH (20:14)
--- NOTE | 2019-01-15 20:23 | HP ---
HISTORY AND PHYSICAL . DATE OF SERVICE: 01/15/2019. CHIEF COMPLAINT: Pain and swelling and abscess of the left chest wall and breast area. This 78-year-old gentleman with a past medical history of multiple medical problems including history of asthma, COPD, CVA, TIA, hypertension, hyperlipidemia, myocardial infarction, COPD, being followed by Dr. Villegas in the [facility], also had history of coronary artery disease stent. Also the patient is admitted with acute hypoxic respiratory failure, possibly secondary to pneumothorax. The patient also had suspected pneumonia. Patient improved significantly. The patient was subsequently sent to [facility] for rehabilitation, but currently the patient is complaining of pain and swelling of the left chest and breast area which is increased in intensity with severe pain and induration with not much discharge and the patient was [facility] to [facility] and admitted to the hospital for further evaluation and treatment. There is no history of any fever, rigors or chills. No history of headache, loss of consciousness, seizures. Patient has history of blindness. The patient is started on Keflex, IV cefazolin was initiated and as well as vancomycin initiated and the patient admitted for further evaluation and treatment. The patient also had left radial fracture. Patient had multiple falls also recently. There is no history of any fever, rigors. No history of headache, loss of consciousness or seizures. A detailed history cannot be taken from the patient because the patient is mildly confused. Most of the history taken from my discussion with staff as well as review of chart. PAST MEDICAL HISTORY: History of asthma, COPD, history of recent pneumothorax, hypertension, hyperlipidemia, history of pneumonia, history of respiratory disorders, COPD and CAD stent. MEDICATIONS: Home medications are reviewed and include: 1. Milk of Magnesia 2.4 g daily. 2. [place] 5 mg q.4 p.r.n. 3. Prednisone taper. 4. Pred Forte 1 drop left eye b.i.d. 5. Lopressor 12.5 mg p.o. b.i.d. 6. Neurontin 1 drop right eye b.i.d. 7. Trusopt 2% 1 drop right eye. 8. Keflex 500 mg q.8h. 9. Symbicort 160/4.5 two puffs b.i.d. 10.Requip 0.5 mg q.h.s. 11.Bactroban 2% 1 application b.i.d. 12.Cozaar 50 mg p.o. b.i.d. 13.Vitamin D3 2000 daily. 14.Alphagan 1 drop right eye b.i.d. 15.Tylenol 500 mg p.o. b.i.d. 16.Norvasc 5 mg p.o. daily. 17.Protonix 40 mg p.o. daily. 18.Plavix 75 mg p.o. daily. 19.Melatonin 3 mg q.h.s. 20.Imdur 60 mg p.o. daily. 21.Lexapro 5 mg p.o. daily. 22.Aricept 5 mg p.o. daily. 23.Aspirin 81 mg p.o. daily. 24.Ventolin 2 puffs q.6h p.r.n. 25.Tylenol 650 q.4 p.r.n. 26.Saline nasal spray 1 spray q.2h p.r.n. 27.[place] 5 mg q.4 p.r.n. 28.Nitrostat 0.4 sublingual p.r.n. 29.Robitussin 200 mg q.4 p.r.n. 30.Fleets 1 p.r.n. 31.Dulcolax 10 mg daily p.r.n. 32.Biofreeze b.i.d. ALLERGIES: STATINS AND MORPHINE. FAMILY HISTORY: History of congestive heart failure. No history of any other heart disease, a stroke. SOCIAL HISTORY: Previous history per chart. Previous history of smoking. REVIEW OF SYSTEMS: Review of systems could not be taken because of change in mental status. PHYSICAL EXAM: Patient is conscious, mildly confused. Pulse 58, Pressure 109/61, respiration 18, temperature 98.2, pulse ox 97% on 2 L. HEENT is conjunctivae normal. Oral mucosa moist. NECK is no jugular venous distention. No carotid bruit. No lymph node enlargement. CARDIOVASCULAR System: S1, S2 muffled. No S3, no S4. RESPIRATORY: Breath sounds diminished in the bases. A few scattered rhonchi and crackles. ABDOMEN: Soft, nontender. No mass palpable. LEGS: No edema. No swelling. Nervous system: Higher functions as mentioned earlier. Otherwise, moves all four limbs. Mild diffuse weakness. Lymphatics: No lymph nodes palpable in the neck, axillae or groin. SKIN: Significant erythema, swelling and abscess formation of the left chest wall area present. Otherwise, no discharges noted. Some fluctuance and severe tenderness also noted. Otherwise skin no ulcer, rash or bleeding. JOINTS: No active deforming arthropathy. LABS: CBC within normal limits. Sodium 137, potassium 4.5, creatinine is 1.42, albumin 3.2. ASSESSMENT: 1. Left chest wall abscess with severe acute respiratory syndrome with severe pain with failure of outpatient treatment. Increased creatinine with chronic kidney disease stage III. 2. History of recent pneumothorax, right with chest tube drainage. 3. History of recent suspected pneumonia. 4. Chronic obstructive pulmonary disease/asthma. 5. Cerebrovascular accident, transient ischemic attack. 6. Hypertension. 7. Hyperlipidemia. 8. Myocardial infarction. 9. History of chronic obstructive pulmonary disease with FEV1 2.1 88 percent of predicted. 10.History of legal blindness secondary to glaucoma and macular degeneration. 11.Coronary artery disease/stent. 12.History of degenerative joint disease. 13.Anxiety, depression. 14.Obesity with body mass of 32.6. 15.FULL CODE. RECOMMENDATIONS AND DISCUSSION: In this 78-year-old woman who presented with multiple complex medical issues, we will monitor the patient closely. Continue the current medications, management and symptomatic treatment. Otherwise, at this time, initiate broad-spectrum IV antibiotics. Resume the home medications. Monitor electrolytes closely. Prognosis guarded because of multiple complex medical issues. Further recommendations to follow. Infectious Disease has been consulted as well. The patient is started on a combination of Keflex and vancomycin. The microbiology is negative so far. The patient had previous history of E coli and multiple episodes of E coli and Staph aureus from the urine. Guarded prognosis. Further recommendations to follow. MMODL / IJN: [id number] /
[2019-01-15] MEDS: HYDROcodone/APAP 5-325MG 1 EACH TAB PO PRN (20:25)
[2019-01-15] MEDS: MUPIROCIN 2% OINT 22 GM TUBE TOPICAL SCH (20:36)
--- NOTE | 2019-01-15 23:10 | P.CONS ---
History of Present Illness - Reason for Consult Consult date: 01/15/19 left chestwall/breast abscess/cellulitis Requesting physician: Saadia Breaux - Chief Complaint pain left side chest x 2 days - History of Present Illness Patient is a 78-year-old female legally blind currently a penitentiary resident patient has been sent to the ER at [facility] for evaluation of left-sided chest wall pain swelling redness that has been noticed about 2 days ago patient denies any history of any trauma pain to the left side of the chest wall is more of a dull aching to sharp almost 7-on arrival to the ER the patient did have low-grade fever of 99.3 patient white count was normal patient did have a blood and local wound culture was obtained she has been started on cefazolin and vancomycin infectious disease was consulted for further recommendation about antibiotic therapy 8 out of 10 and no radiation with associated swelling and r edness the patient has been started on oral Keflex however the patient did have worsening pain swelling redness for the patient to be sent to the ER patient denies high-grade fever however did have some chills , on arrival to the ER the patient had did have a low-grade fever of 99.3 her white count is normal patient did have blood and local cultures obtained she has been started on cefazolin and vancomycin infectious disease was consulted for further recommendation for antibiotic therapy Review of Systems Positive point has been mentioned in HPI rest of the systems are negative Past Medical History Past Medical History: Asthma, COPD, CVA/TIA, Eye Disorder, Hyperlipidemia, Hypertension, Myocardial Infarction (RI), Respiratory Disorder Additional Past Medical History / Comment(s): COPD mild in severity with an FEV1 of 2.1 L which is 88% of predicted, bronchial asthma, previous history of pneumo thorax requiring a chest tube insertion and subsequent removal, 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 macular degeneration, emphysema, previous coronary intervention and stenting of the LAD in November 2016 Last Myocardial Infarction Date:: 12/06/2016 History of Any Multi-Drug Resistant Organisms: None Reported Past Surgical History: Appendectomy, Cholecystectomy, Heart Catheterization With Stent, Hysterectomy, Joint Replacement, Tonsillectomy Additional Past Surgical History / Comment(s): Right knee replacement, right cataract surgery, heart cath with stents x 2 , 11/2016 Past Anesthesia/Blood Transfusion Reactions: No Reported Reaction Date of Last Stent Placement:: 12/06/2016 Past Psychological History: Anxiety, Depression Smoking Status: Former smoker Past Alcohol Use History: None Reported Past Drug Use History: None Reported - Past Family History Mother Family Medical History: Congestive Heart Failure (CHF) Father Family Medical History: COPD Additional Family Medical History / Comment(s): empyhsema, blindness. O2 d ependent Medications and Allergies Home Medications Medication Instructions Recorded Confirmed Type Clopidogrel [Plavix] 75 mg PO DAILY@0800 09/29/13 01/14/19 History Brimonidine Tartrate [Alphagan P 1 drop RIGHT EYE BID@0800,1700 11/26/15 9 History 0.1% Ophth Soln] prednisoLONE ACETATE 1% OPHTH 1 drop LEFT EYE BID@0800,1700 11/26/15 01/14/19 History [Pred Forte 1%] Melatonin 3 mg PO HS@2100 05/11/16 01/14/19 History Cholecalciferol [Vitamin D3 (25 2,000 unit PO DAILY@0800 06/30/16 01/14/19 History Mcg = 1000 Iu)] Nitroglycerin Sl Tabs [Nitrostat] 0.4 mg SUBLINGUAL Q5M PRN tab 12/09/16 01/14/19 Rx Losartan Potassium [Cozaar] 50 mg PO BID@0800,1700 01/26/17 01/14/19 History Aspirin 81 mg PO DAILY@0800 03/27/17 01/14/19 History amLODIPine [Norvasc] 5 mg PO DAILY@0800 03/27/17 01/14/19 History Acetaminophen Tab [Tylenol] 500 mg PO BID 01/01/19 01/14/19 History Acetaminophen Tab [Tylenol] 650 mg PO Q4H PRN 01/01/19 01/14/19 History Albuterol Inhaler [Ventolin Hfa 2 puff INHALATION RT-Q6H PRN 01/01/19 01/14/19 History Inhaler] Bisacodyl [Dulcolax] 10 mg RECTAL DAILY PRN 01/01/19 01/14/19 History Budesonide-Formot 160-4.5 Mcg 2 puff INHALATION RT-BID@0800,1700 01/01/19 01/14/19 History [Symbicort 160-4.5 Mcg Inhaler] Donepezil [Aricept] 5 mg PO DAILY@1700 01/01/19 01/14/19 History Dorzolamide 2% [Trusopt 2%] 1 drops RIGHT EYE BID@0800,1700 01/01/19 01/14/19 History Escitalopram [Lexapro] 5 mg PO DAILY@0800 01/01/19 01/14/19 History Isosorbide Mononitrate ER [Imdur] 60 mg PO DAILY@0800 01/01/19 01/14/19 History Magnesium Hydroxide [Milk of 2,400 mg PO DAILY PRN 01/01/19 01/14/19 History Magnesia] Na Phos,M-B/Na Phos,Di-Ba [Fleet 133 ml RECTAL DAILY PRN 01/01/19 01/14/19 History Adult] Pantoprazole [Protonix] 40 mg PO DAILY@0800 01/01/19 01/14/19 History Sodium Chloride [Saline Nasal 1 spray EA NOSTRIL Q2H PRN 01/01/19 01/14/19 History [place]] guaiFENesin SYRUP 100MG/5ML 200 mg PO Q4H PRN 01/01/19 01/14/19 History [Robitussin] rOPINIRole HCL [Requip] 0.5 mg PO HS@2100 01/01/19 01/14/19 History Gabapentin [Neurontin] 100 mg PO BID@0800,1700 #6 cap 01/11/19 01/14/19 Rx Cephalexin [Keflex] 500 mg PO Q8HR 01/14/19 01/14/19 History HYDROcodone/APAP 5-325MG [Pimento 1 tab PO Q4HR PRN 01/14/19 01/14/19 History 5-325] HYDROcodone/APAP 5-325MG [Pimento 2 tab PO Q4H PRN 01/14/19 01/14/19 History 5-325] Menthol [Biofreeze] 1 applic TOPICAL BID 01/14/19 01/14/19 History Metoprolol Tartrate [Lopressor] 12.5 mg PO BID 01/14/19 01/14/19 History Mupirocin 2% Oint [Bactroban 2% 1 applic TOPICAL BID 01/14/19 01/14/19 History Oint] Allergies Allergy/AdvReac Type Severity Reaction Status Date / Time Adaoelj-Zql-Ocx Reductase Allergy Unknown Verified 01/14/19 16:20 Inhibitor morphine AdvReac Confusion Verified 01/14/19 16:20 Physical Exam Vitals: Vital Signs Temp Pulse Pulse Pulse Resp BP BP 01/15/19 08:38 72 01/15/19 05:37 98.9 F 58 L 15 152/53 01/14/19 20:02 98.7 F 61 15 148/52 01/14/19 18:13 98.8 F 55 L 18 176/82 01/14/19 15:49 80 18 149/66 Pulse Ox 01/15/19 08:38 01/15/19 05:37 97 01/14/19 20:02 94 L 01/14/19 18:13 94 L 01/14/19 15:49 96 Intake and Output 01/14/19 01/15/19 01/15/19 22:59 06:59 14:59 Intake Total 850 Balance 850 Intake: IV 850 Sodium Chloride 0.9% 1, 800 000 ml @ 100 mls/hr IV . Q10H [facility] Rx#:[id number] ceFAZolin 2 gm In Sodium 50 Chloride 0.9% 50 ml @ 100 mls/hr IVPB ONCE ONE Rx# :[id number] Other: # Voids 2 Weight 85.457 kg GENERAL DESCRIPTION: Elderly female lying in bed, no distress. No tachypnea or accessory muscle of respiration use. HEENT: Shows Pallor , no scleral icterus. Oral mucous membrane is dry. NECK: Trachea central, no thyromegaly. LUNGS: Unlabored breathing. Clear to auscultation anteriorly. No wheeze or crackle. HEART: S1, S2, regular rate and rhythm. ABDOMEN: Soft, no tenderness , guarding or rigidity EXTREMITIES: No edema of feet. SKIN: Left-sided chest wall did have a erythema warmth to touch and area of induration with a small wound minimal drainage no foul-smelling NEUROLOGICAL: The patient is awake, alert, oriented x2, mood and affect normal Results CBC & Chem 7: 01/14/19 13:39 01/14/19 13:39 Labs: Microbiology - Last 24 Hours (Table) 01/14/19 15:42 Gram Stain - Preliminary Breast - Left Wound Culture - Preliminary Assessment and Plan Assessment: 1-patient with left chest wall abscess and cellulitis likely from gram-positive skin beulah in this patient who is a penitentiary resident and failed to respond to the oral Keflex concerning likely for MRSA infection (1) Cellulitis of left breast Current Visit: Yes Status: Acute Code(s): N61.0 - MASTITIS WITHOUT ABSCESS SNOMED Code(s): 51545397 Plan: 1-general surgery evaluation and drainage of this abscess and sent specimen for deep culture 2-vancomycin pharmacy to dose her with a target trough of 15 while watching her kidney function and Vanco trough closely. 3-dry protective dressing change every 12 hours We will follow on clinical condition and cultures to further adjust medication if needed Thank you for this consultation we will follow the patient along with you Time with Patient: Greater than 30
[2019-01-16] MEDS: SODIUM CHLORIDE 0.9% 1,000 ML IV SCH ×2 (02:16→16:44)
[2019-01-16] MEDS ORDERED: SIMETHICONE 40 MG/0.6 ML DROPS 2,000 MG/30 ML BOTTLE PO PRN (02:56)
[2019-01-16] MEDS: SYMBICORT 160-4.5 MCG INHALER INHALATION SCH ×2 (07:23→19:02)
[2019-01-16 08:00] LABS: Basophils % (A) 0 %; Eosinophils # (A) 0.2 k/uL (0-0.7); Eosinophils % (A) 3 %; HCT 37.1 % (34.0-46.0); HGB 12.1 gm/dL (11.4-16.0); Lymphocytes % (A) 15 %; MCH 29.5 pg (25.0-35.0); MCHC 32.6 g/dL (31.0-37.0); MCV 90.4 fL (80.0-100.0); Mean Platelet Volume 7.5; Monocytes # (A) 0.3 k/uL (0-1.0); Monocytes % (A) 5 %; Neutrophils % (A) 76 %; Platelet Count 216 k/uL (150-450); RDW 14.4 % (11.5-15.5); WBC 6.6 k/uL (3.8-10.6)
[2019-01-16 08:15] LABS: Calcium 8.4 mg/dL (8.4-10.2); Potassium 3.9 mmol/L (3.5-5.1)
[2019-01-16] MEDS: ISOSORBIDE MONONITRATE ER 60 MG TAB.ER.24H PO SCH (08:41)
[2019-01-16] MEDS: METOPROLOL TARTRATE 12.5 MG TAB PO SCH ×2 (08:41→21:23)
[2019-01-16] MEDS: CLOPIDOGREL 75 MG TAB PO SCH (08:41)
[2019-01-16] MEDS: CHOLECALCIFEROL 1,000 UNIT TAB PO SCH (08:41)
[2019-01-16] MEDS: HYDROcodone/APAP 5-325MG 1 EACH TAB PO PRN ×2 (08:41→16:45)
[2019-01-16] MEDS: GABAPENTIN 100 MG CAP PO SCH ×2 (08:41→16:45)
[2019-01-16] MEDS: PANTOPRAZOLE 40 MG TABLET PO SCH (08:41)
[2019-01-16] MEDS: ASPIRIN 81 MG PO SCH (08:41)
[2019-01-16] MEDS: LOSARTAN 50 MG TAB PO SCH ×2 (08:41→17:39)
[2019-01-16] MEDS: prednisoLONE ACETATE 1% OPHTH DROPS 5 ML BTL LEFT EYE SCH ×2 (08:42→17:34)
[2019-01-16] MEDS: ESCITALOPRAM 5 MG TAB PO SCH (08:42)
[2019-01-16] MEDS: amLODIPine 5 MG TAB PO SCH (08:42)
[2019-01-16] MEDS: DORZOLAMIDE HCL 2% DROPS 10 ML BTL RIGHT EYE SCH ×2 (08:42→17:34)
[2019-01-16] MEDS: HEPARIN SODIUM,PORCINE 5,000 UNIT/ML 1 ML VIAL SQ SCH ×2 (08:43→21:29)
[2019-01-16] MEDS: BRIMONIDINE TARTRATE 0.2% DROPS 5 ML BTL RIGHT EYE SCH ×2 (08:43→17:34)
[2019-01-16] MEDS: MUPIROCIN 2% OINT 22 GM TUBE TOPICAL SCH ×2 (16:39→21:24)
[2019-01-16] MEDS: VANCOMYCIN 1,500 MG in SODIUM CHLORIDE 0.9% 250 ML IVPB SCH (17:32)
[2019-01-16] MEDS: DONEPEZIL 5 MG TAB PO SCH (17:34)
--- NOTE | 2019-01-16 19:10 | PN ---
PROGRESS NOTE DATE OF SERVICE: 01/16/2019 This 78-year-old woman with a past medical history of multiple medical problems admitted to the hospital with left chest wall abscess and infection, is being closely monitored. No chest pain. No palpitations. No fever. Surgery and Infectious Disease following the patient closely. EXAM: Alert and oriented x2. Pulse is 54, blood pressure 144/75, respiration 14, temp 98.2, pulse ox 92% on 2 L. HEENT: Conjunctivae normal. NECK: No jugular venous distention. CARDIOVASCULAR: S1, S2 muffled. RESPIRATORY: Breath sounds diminished in the bases. Scattered rhonchi and crackles. ABDOMEN is soft, nontender. LEGS are no edema. No swelling. CENTRAL NERVOUS SYSTEM: No focal deficits. Examination of left chest wall significant swelling and abscess and cellulitis present on the left side of the chest wall. LABS: WBC 6.2, hemoglobin 12.1. Other labs are noted. Creatinine 1.06. ASSESSMENT: 1. Left chest wall abscess with severe acute respiratory syndrome with severe pain and failure of outpatient treatment. 2. Increased creatinine with acute on chronic kidney disease with acute tubular necrosis, prerenal renal failure. 3. Chronic kidney stage III. 4. History of recent pneumothorax, right with chest tube drainage. 5. 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 6. History of recently suspected pneumonia. 7. Chronic obstructive pulmonary disease/asthma. 8. History of cerebrovascular accident/transient ischemic attack. 9. Hypertension. 10.Hyperlipidemia. 11.Myocardial infarction. 12.History of chronic obstructive pulmonary disease with FEV1 of 2.1, 88% of predicted. 13.Coronary artery disease, stent. 14.History of degenerative joint disease. 15.Anxiety, depression. 16.Obesity with body mass index of 32.6. 17.FULL CODE. RECOMMENDATIONS AND DISCUSSION: I recommend to continue current medications, management and symptomatic treatment. Continue with IV antibiotics. Follow the cultures. Infectious Disease and surgery consultations. Guarded prognosis. Further recommendations to follow. MMODL / IJN: [id number] /
[2019-01-16] MEDS: MELATONIN 3 MG TABLET PO SCH (21:24)
--- NOTE | 2019-01-16 23:34 | PN ---
PROGRESS NOTE DATE OF SERVICE: 01/16/2019 REASON FOR FOLLOWUP: Left lateral chest wall abscess and cellulitis. INTERVAL HISTORY: The patient is currently afebrile. Patient has been breathing comfortably. The patient mentioning overall slight improvement in the pain to the left lateral chest wall. Denies having any chest pain, cough. No abdominal pain. No diarrhea. PHYSICAL EXAMINATION: Blood pressure 144/75 with a pulse of 54, temperature 98.2. She is 92% on 2 L nasal cannula. GENERAL DESCRIPTION is an elderly female, lying in bed in no distress. RESPIRATORY SYSTEM: Unlabored breathing, clear to auscultation anteriorly. HEART S1, S2. Abdomen: Soft, no tenderness. EXTREMITIES: No edema of the feet. The left lateral chest wall swelling slightly decreased induration. No further drainage was noticed. LABS: Hemoglobin is 12.1, white count 6.6, BUN of 17, creatinine 1.06. Wound culture finalized with MSSA. DIAGNOSTIC IMPRESSION AND PLAN: Patient with left lateral chest wall abscess and cellulitis. Culture with MSSA. Antibiotic will be adjusted to cefazolin 2 g q.8 hours and discontinue the vancomycin. General surgery evaluation for drainage of this abscess. Family at the bedside, questions were answered. MMODL / IJN: [id number] /
[2019-01-17] MEDS: SODIUM CHLORIDE 0.9% 1,000 ML IV SCH (01:02)
[2019-01-17] MEDS: SYMBICORT 160-4.5 MCG INHALER INHALATION SCH ×2 (07:05→19:22)
--- NOTE | 2019-01-17 07:22 | P.PN ---
Subjective This is a pleasant 78 years old female with past medical history of asthma, COPD, CVA/TIA, hyperlipidemia, hypertension, coronary artery disease, hearing difficulty, 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 macular degeneration. Presents because of left breast abscess and cellulitis and she is been treated with antibiotics of cefazolin secondary to MSSA in the culture, infectious disease and surgical team has been consulted, Vitas looks stable and patient is afebrile however her blood pressure on the high side 173/78. Labs show no leukocytosis and her creatinine from yesterday was improved to 1.0 compared to 1.4 on admission. Labs from today is pending. Objective - Vital Signs Vital signs: Vital Signs Temp 97.7 F 01/17/19 05:04 Pulse 58 L 01/17/19 05:04 Resp 20 01/17/19 05:04 BP 173/78 01/17/19 05:04 Pulse Ox 92 L 01/17/19 05:04 Intake & Output 01/16/19 01/17/19 01/17/19 18:59 06:59 18:59 Intake Total 1620 600 Output Total 800 300 Balance 820 300 Intake: Oral 1620 600 Output: Urine 800 300 Other: # Voids 1 # Bowel Movements 0 - Exam GENERAL: The patient is alert and oriented x3, not in any acute distress. Well developed, well nourished. HEENT: Pupils are round and equally reacting to light. EOMI. No scleral icterus. No conjunctival pallor. Normocephalic, atraumatic. No pharyngeal erythema. No thyromegaly. CARDIOVASCULAR: S1 and S2 present. No murmurs, rubs, or gallops. PULMONARY: Chest is clear to auscultation, no wheezing or crackles. -Breast exam: Left breast with lateral area of cellulitis about 2 inches in diameter, no significant swelling or fluctuation. No open wound ABDOMEN: Soft, nontender, nondistended, normoactive bowel sounds. No palpable organomegaly. MUSCULOSKELETAL: No joint swelling or deformity. EXTREMITIES: No cyanosis, clubbing, or pedal edema. NEUROLOGICAL: Gross neurological examination did not reveal any focal deficits. SKIN: No rashes. no petechiae. 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 Continue same treatment. Continue with symptomatic treatment. Resume home medication. Monitor lytes and vitals. DVT and GI prophylaxis. Further recommendations of the clinical course of the patient DVT prophylaxis: Subcutaneous heparin GI Prophylaxis: PPI Prognosis is guarded
[2019-01-17] MEDS: LOSARTAN 50 MG TAB PO SCH ×2 (07:38→17:36)
[2019-01-17] MEDS: CHOLECALCIFEROL 1,000 UNIT TAB PO SCH (07:38)
[2019-01-17] MEDS: ISOSORBIDE MONONITRATE ER 60 MG TAB.ER.24H PO SCH (07:38)
[2019-01-17] MEDS: HEPARIN SODIUM,PORCINE 5,000 UNIT/ML 1 ML VIAL SQ SCH (07:38)
[2019-01-17] MEDS: GABAPENTIN 100 MG CAP PO SCH ×2 (07:38→17:36)
[2019-01-17] MEDS: PANTOPRAZOLE 40 MG TABLET PO SCH (07:38)
[2019-01-17] MEDS: ASPIRIN 81 MG PO SCH (07:38)
[2019-01-17] MEDS: METOPROLOL TARTRATE 12.5 MG TAB PO SCH (07:38)
[2019-01-17] MEDS: CLOPIDOGREL 75 MG TAB PO SCH (07:38)
[2019-01-17] MEDS: amLODIPine 5 MG TAB PO SCH (07:39)
[2019-01-17] MEDS: prednisoLONE ACETATE 1% OPHTH DROPS 5 ML BTL LEFT EYE SCH ×2 (07:39→17:55)
[2019-01-17] MEDS: ESCITALOPRAM 5 MG TAB PO SCH (07:39)
[2019-01-17] MEDS: DORZOLAMIDE HCL 2% DROPS 10 ML BTL RIGHT EYE SCH ×2 (07:39→17:55)
[2019-01-17] MEDS: MUPIROCIN 2% OINT 22 GM TUBE TOPICAL SCH (07:40)
[2019-01-17] MEDS: BRIMONIDINE TARTRATE 0.2% DROPS 5 ML BTL RIGHT EYE SCH ×2 (07:46→17:55)
--- NOTE | 2019-01-17 08:01 | USB ---
Reason for exam: clinical finding. History: Patient is postmenopausal. Family history of breast cancer. US Breast Limited LT Left limited breast ultrasound including focal area of concern, retroareolar and axilla demonstrates no skin thickening, no edema, no cystic or solid mass, no abscess seen. ASSESSMENT: Negative, BI-RAD 1 RECOMMENDATION: Routine screening mammogram of both breasts. Back on schedule.
[2019-01-17 09:07] LABS: Basophils % (A) 0 %; Eosinophils # (A) 0.1 k/uL (0-0.7); Eosinophils % (A) 2 %; HCT 35.3 % (34.0-46.0); HGB 11.4 gm/dL (11.4-16.0); Lymphocytes # (A) 0.9 k/uL (1.0-4.8); Lymphocytes % (A) 17 %; MCHC 32.2 g/dL (31.0-37.0); Mean Platelet Volume 6.6; Monocytes # (A) 0.2 k/uL (0-1.0); Monocytes % (A) 4 %; Neutrophils # (A) 4.1 k/uL (1.3-7.7); Neutrophils % (A) 75 %; Platelet Count 202 k/uL (150-450); RBC 3.92 m/uL (3.80-5.40); RDW 14.3 % (11.5-15.5); WBC 5.5 k/uL (3.8-10.6)
[2019-01-17 09:18] LABS: Calcium 8.3 mg/dL (8.4-10.2); Potassium 3.8 mmol/L (3.5-5.1)
--- NOTE | 2019-01-17 11:46 | P.GSCN ---
History of Present Illness Consult date: 01/17/19 History of present illness: CHIEF COMPLAINT: Left chest wall abscess HISTORY OF PRESENT ILLNESS: The patient is a 78 year old female who is admitted secondary to failed outpatient management of left chest wall abscess ongoing for more than 2-3 days. She's been seen by infectious disease provider. She is blind. Despite antibiotics, her symptoms continued to worsen. No leukocytosis in the last 24 hours. Secondary to failed outpatient management including conservative measures, incision and drainage of the chest wall abscess is requested. PAST MEDICAL HISTORY: See list. PAST SURGICAL HISTORY: See list. MEDICATIONS: See list. ALLERGIES: See list. SOCIAL HISTORY: See list. FAMILY HISTORY: See list. REVIEW OF ORGAN SYSTEMS: CONSTITUTIONAL: No fevers or chills. No recent weight loss. EYES: She is blind. HEENT: No difficulties with hearing. No nosebleeds. No difficulty swallowing. RESPIRATORY: Past pneumonia. CARDIOVASCULAR: History of congestive heart failure GASTROINTESTINAL: Denies fatty food intolerance. Has chronic constipation GENITOURINARY: Denies any blood in urine or increased urinary frequency. NEUROLOGICAL: Has numbness or tingling along the distal extremities. No seizure disorders or headaches. MUSCULOSKELETAL: Has back pain, stiffness or joint arthritis. SKIN: No current skin cancer. No rash. PSYCHIATRIC: Has dementia. Has depression. ENDOCRINE: Denies current thyroid disorders. Denies any blood sugar glucose i ntolerance. HEME/LYMPHATIC: Denies any lumps and bumps around the neck. No recent deep venous thrombosis. ALLERGY/IMMUNOLOGY: No immunoglobulin therapy. No immune deficiencies. BREAST: No recent mammogram the last year. PHYSICAL EXAM: VITALS: Reviewed CONSTITUTIONAL: Well developed and in no acute distress. EYES: She is blind. Extraocular movements grossly intact. HEAD, EARS, NOSE, THROAT: Moist buccal mucosa. Head is atraumatic, normocephalic. Hears conversational speech. No nasal drainage. NECK: Supple.No thyroidomegaly. RESPIRATORY: Non-labored respirations and equal bilateral excursions. No gross wheezes. CARDIOVASCULAR: Palpable 2+ radial pulses. ABDOMEN: Soft. Non-tender. Nondistended. MUSCULOSKELETAL: Nail and fingers with good capillary refill. SKIN: Warm and well perfused with good skin turgor. Along the left chest wall at posterior axillary line between 7-8 ribs, 5 cm cellulitis with abscess minimal drainage. NEUROLOGIC: Sensation upper and extremities intact. No focal or lateralizing signs. PSYCH: Appropriate affect. CLINCAL LABS: Reviewed. WBC normal RADIOLOGY: Report reviewed without active pneumonia IMAGING: Independently reviewed of left chest wall without discernible fluid collection regarding ultrasound of the left breast RECORDS: Recent hospitalization the last 2 months consistent with right rib fractures and chest tube placement ASSESSMENT: 1. Failed outpatient left chest wall abscess over 5 cm PLAN: 1. Continue IV antibiotics. 2. Will proceed with incision and drainage left chest wall. Benefits and risks reviewed with the patient. Thank you for this kind consultation. Past Medical History Past Medical History: Asthma, COPD, CVA/TIA, Eye Disorder, Hyperlipidemia, Hypertension, Myocardial Infarction (PR), Respiratory Disorder Additional Past Medical History / Comment(s): COPD mild in severity with an FEV1 of 2.1 L which is 88% of predicted, bronchial asthma, previous history of pneumothorax requiring a chest tube insertion and subsequent removal, 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 macular degeneration, emphysema, previous coronary intervention and stenting of the LAD in November 2016 Last Myocardial Infarction Date:: 12/06/2016 History of Any Multi-Drug Resistant Organisms: None Reported Past Surgical History: Appendectomy, Cholecystectomy, Heart Catheterization With Stent, Hysterectomy, Joint Replacement, Tonsillectomy Additional Past Surgical History / Comment(s): Right knee replacement, right cataract surgery, heart cath with stents x 2 , 11/2016 Past Anesthesia/Blood Transfusion Reactions: No Reported Reaction Date of Last Stent Placement:: 12/06/2016 Past Psychological History: Anxiety, Depression Smoking Status: Former smoker Past Alcohol Use History: None Reported Past Drug Use History: None Reported - Past Family History Mother Family Medical History: Congestive Heart Failure (CHF) Father Family Medical History: COPD Additional Family Medical History / Comment(s): empyhsema, blindness. O2 dependent Medications and Allergies Home Medications Medication Instructions Recorded Confirmed Type Clopidogrel [Plavix] 75 mg PO DAILY@0800 09/29/13 01/14/19 History Brimonidine Tartrate [Alphagan P 1 drop RIGHT EYE BID@0800,1700 11/26/15 01/14/19 History 0.1% Ophth Soln] prednisoLONE ACETATE 1% OPHTH 1 drop LEFT EYE BID@0800,1700 11/26/15 01/14/19 History [Pred Forte 1%] Melatonin 3 mg PO HS@2100 05/11/16 01/14/19 History Cholecalciferol [Vitamin D3 (25 2,000 unit PO DAILY@0800 06/30/16 01/14/19 History Mcg = 1000 Iu)] Nitroglycerin Sl Tabs [Nitrostat] 0.4 mg SUBLINGUAL Q5M PRN tab 12/09/16 01/14/19 Rx Losartan Potassium [Cozaar] 50 mg PO BID@0800,1700 01/26/17 01/14/19 History Aspirin 81 mg PO DAILY@0800 03/27/17 01/14/19 History amLODIPine [Norvasc] 5 mg PO DAILY@0800 03/27/17 01/14/19 History Acetaminophen Tab [Tylenol] 500 mg PO BID 01/01/19 01/14/19 History Acetaminophen Tab [Tylenol] 650 mg PO Q4H PRN 01/01/19 01/14/19 History Albuterol Inhaler [Ventolin Hfa 2 puff INHALATION RT-Q6H PRN 01/01/19 01/14/19 History Inhaler] Bisacodyl [Dulcolax] 10 mg RECTAL DAILY PRN 01/01/19 01/14/19 History Budesonide-Formot 160-4.5 Mcg 2 puff INHALATION RT-BID@0800,1700 01/01/19 01/14/19 History [Symbicort 160-4.5 Mcg Inhaler] Donepezil [Aricept] 5 mg PO DAILY@1700 01/01/19 01/14/19 History Dorzolamide 2% [Trusopt 2%] 1 drops RIGHT EYE BID@0800,1700 01/01/19 01/14/19 History Escitalopram [Lexapro] 5 mg PO DAILY@0800 01/01/19 01/14/19 History Isosorbide Mononitrate ER [Imdur] 60 mg PO DAILY@0800 01/01/19 01/14/19 History Magnesium Hydroxide [Milk of 2,400 mg PO DAILY PRN 01/01/19 01/14/19 History Magnesia] Na Phos,M-B/Na Phos,Di-Ba [Fleet 133 ml RECTAL DAILY PRN 01/01/19 01/14/19 History Adult] Pantoprazole [Protonix] 40 mg PO DAILY@0800 01/01/19 01/14/19 History Sodium Chloride [Saline Nasal 1 spray EA NOSTRIL Q2H PRN 01/01/19 01/14/19 History Miller] guaiFENesin SYRUP 100MG/5ML 200 mg PO Q4H PRN 01/01/19 01/14/19 History [Robitussin] rOPINIRole HCL [Requip] 0.5 mg PO HS@2100 01/01/19 01/14/19 History Gabapentin [Neurontin] 100 mg PO BID@0800,1700 #6 cap 01/11/19 01/14/19 Rx Cephalexin [Keflex] 500 mg PO Q8HR 01/14/19 01/14/19 History HYDROcodone/APAP 5-325MG [Somis 1 tab PO Q4HR PRN 01/14/19 01/14/19 History 5-325] HYDROcodone/APAP 5-325MG [Somis 2 tab PO Q4H PRN 01/14/19 01/14/19 History 5-325] Menthol [Biofreeze] 1 applic TOPICAL BID 01/14/19 01/14/19 History Metoprolol Tartrate [Lopressor] 12.5 mg PO BID 01/14/19 01/14/19 History Mupirocin 2% Oint [Bactroban 2% 1 applic TOPICAL BID 01/14/19 01/14/19 History Oint] Allergies Allergy/AdvReac Type Severity Reaction Status Date / Time Bikgobd-Jen-Nuw Reductase Allergy Unknown Verified 01/14/19 16:20 Inhibitor morphine AdvReac Confusion Verified 01/14/19 16:20 Surgical - Exam Vital Signs Temp Pulse Resp BP Pulse Ox 99.3 F 54 L 18 134/60 90 L 01/14/19 12:40 01/14/19 12:40 01/14/19 12:40 01/14/19 12:40 01/14/19 12:40 Results - Labs 01/17/19 08:13 01/17/19 08:13 Abnormal Lab Results - Last 24 Hours (Table) 01/17/19 01/17/19 Range/Units 08:13 08:13 Lymphocytes # 0.9 L (1.0-4.8) k/uL Chloride 111 H (98-107) mmol/L Glucose 130 H (74-99) mg/dL Calcium 8.3 L (8.4-10.2) mg/dL Microbiology - Last 24 Hours (Table) 01/14/19 15:42 Gram Stain - Final Breast - Left Wound Culture - Final Staphylococcus aureus 01/14/19 13:39 Blood Culture - Preliminary Blood No Growth after 48 hours Diabetes panel 01/17/19 Range/Units 08:13 Sodium 141 (137-145) mmol/L Potassium 3.8 (3.5-5.1) mmol/L Chloride 111 H (98-107) mmol/L Carbon Dioxide 23 (22-30) mmol/L BUN 14 (7-17) mg/dL Creatinine 0.95 (0.52-1.04) mg/dL Glucose 130 H (74-99) mg/dL Calcium 8.3 L (8.4-10.2) mg/dL Calcium panel 01/17/19 Range/Units 08:13 Calcium 8.3 L (8.4-10.2) mg/dL Pituitary panel 01/17/19 Range/Units 08:13 Sodium 141 (137-145) mmol/L Potassium 3.8 (3.5-5.1) mmol/L Chloride 111 H (98-107) mmol/L Carbon Dioxide 23 (22-30) mmol/L BUN 14 (7-17) mg/dL Creatinine 0.95 (0.52-1.04) mg/dL Glucose 130 H (74-99) mg/dL Calcium 8.3 L (8.4-10.2) mg/dL Adrenal panel 01/17/19 Range/Units 08:13 Sodium 141 (137-145) mmol/L Potassium 3.8 (3.5-5.1) mmol/L Chloride 111 H (98-107) mmol/L Carbon Dioxide 23 (22-30) mmol/L BUN 14 (7-17) mg/dL Creatinine 0.95 (0.52-1.04) mg/dL Glucose 130 H (74-99) mg/dL Calcium 8.3 L (8.4-10.2) mg/dL Assessment and Plan (1) Breast abscess Current Visit: Yes Status: Acute Code(s): N61.1 - ABSCESS OF THE BREAST AND NIPPLE SNOMED Code(s): 52030415 (2) Cellulitis of left breast Current Visit: Yes Status: Acute Code(s): N61.0 - MASTITIS WITHOUT ABSCESS SNOMED Code(s): 22605562 (3) Failure of outpatient treatment Current Visit: Yes Status: Acute Code(s): Z78.9 - OTHER SPECIFIED HEALTH STATUS SNOMED Code(s): 891432911
[2019-01-17] MEDS: KETOROLAC 30 MG/ML 1 ML VIAL IVP PRN (16:20)
[2019-01-17] MEDS: DONEPEZIL 5 MG TAB PO SCH (17:36)
[2019-01-17] MEDS ORDERED: LACTATED RINGERS 1,000 ML IV ONE (19:40)
[2019-01-17] MEDS ORDERED: MIDAZOLAM 2 MG/2 ML VIAL ONE (20:27)
[2019-01-17] MEDS ORDERED: fentaNYL (PF) 50 MCG/ML 2 ML AMP ONE (20:27)
[2019-01-17] MEDS ORDERED: PROPOFOL 10 MG/ML 20 ML VIAL IV ONE (20:27)
[2019-01-17] MEDS ORDERED: LIDOCAINE 1%-EPI 1:100,000 20 ML VIAL SQ ONE (20:53)
[2019-01-17] MEDS ORDERED: SODIUM CHLORIDE 0.9% 500 ML 500 ML IV ONE (20:58)
--- NOTE | 2019-01-17 21:13 | P.OP ---
Date of Procedure: 01/17/19 Description of Procedure: SURGEON: RACHEAL COTTON MD [employer] [facility] SHERIFF'S OFFICE: NONE. PREOPERATIVE DIAGNOSES: 1. Failure of outpatient management for left chest wall cellulitis with abscess 2. Congestive heart failure 3. Legally blind 4. Dementia 5. Chronic obstructive lung disease with emphysema 6. History of myocardial infarction 7. Coronary artery disease status post stenting 8. Generalized anxiety disorder 9. Depressive disorder 10. Glaucoma POSTOPERATIVE DIAGNOSES: 1. Failure of outpatient management for left chest wall cellulitis with abscess, subcutaneous, 11 x 7 cm 2. Congestive heart failure 3. Legally blind 4. Dementia 5. Chronic obstructive lung disease with emphysema 6. History of myocardial infarction 7. Coronary artery disease status post stenting 8. Generalized anxiety disorder 9. Depressive disorder 10. Glaucoma OPERATION: 1. Incision and drainage of left subcutaneous chest wall abscess, 11 x 7 cm ANESTHESIA: MAC with local anesthetic ESTIMATED BLOOD LOSS: 5 mL. SPECIMENS REMOVED: 1. Aerobic, anaerobic culture of the left chest wall abscess COMPLICATIONS: None. FINDINGS: 1. Subcutaneous left chest wall cellulitis 11 x 7 cm drained with cultures obtained INDICATIONS: The patient 78-year-old female who presents with history of failed outpatient management for left chest wall abscess. Surgical drainage was sought. Benefits and risks were reviewed. Informed consent was obtained. DESCRIPTION OF PROCEDURE: Patient was brought into the operating room and laid in supine position. After adequate IV sedation, the patient was repositioned in right lateral decubitus position. The left chest was prepped and draped in standard sterile fashion. A timeout protocol was confirmed. Attention was then brought to the left chest wall measured 11 x 7 cm. The skin was localized. A transverse incision 4 cm was made. Hemostat was used to deep en into subcutaneous tissue. Anaerobic and aerobic cultures were obtained. Non-malodorous drainage was obtained. The skin was cleansed with dilute hydrogen peroxide covered with a 4 x 4 gauze followed by 6 inch Medipore tape. The patient was awoken from anesthesia. All sponge and instrument counts were verified correct by certified surgical first assistant. The patient was transferred to postanesthesia care unit in stable condition and pain free.
--- NOTE | 2019-01-17 23:34 | PN ---
PROGRESS NOTE DATE OF SERVICE: 01/17/2019. REASON FOR FOLLOW UP: Left lateral chest wall abscess. INTERVAL HISTORY: The patient was seen on rounds this morning. The patient waiting for surgical drainage of the lateral chest wall abscess. The patient denies any chest pain, shortness of breath or cough. No nausea, vomiting. No abdominal pain. No diarrhea. PHYSICAL EXAMINATION: Blood pressure 117/67, pulse of 68, temperature 97.4, she is 91% on 2 L nasal cannula. General description is an elderly female lying in bed in no distress. Respiratory system: Unlabored breathing, clear to auscultation anteriorly. HEART S1, S2. Regular rate and rhythm. ABDOMEN: Soft, no tenderness. EXTREMITIES: No edema of the feet. LABS: Hemoglobin 11.4, white count 5.5. BUN of 14, creatinine 0.95. Wound culture with MSSA. DIAGNOSTIC IMPRESSION AND PLAN: Patient with left lateral chest wall abscess, status post surgical drainage. We will wait for the deep culture to finalize. Keep the patient on cefazolin 2 g q.8 hours. Reevaluate the patient tomorrow. Continue supportive care. MMODL / IJN: [id number] /
[2019-01-18] MEDS: METOPROLOL TARTRATE 12.5 MG TAB PO SCH ×3 (00:07→21:40)
[2019-01-18] MEDS: MELATONIN 3 MG TABLET PO SCH ×2 (00:07→21:40)
[2019-01-18] MEDS: MUPIROCIN 2% OINT 22 GM TUBE TOPICAL SCH ×2 (00:08→07:15)
[2019-01-18] MEDS: HEPARIN SODIUM,PORCINE 5,000 UNIT/ML 1 ML VIAL SQ SCH ×3 (00:08→21:39)
[2019-01-18] MEDS: KETOROLAC 30 MG/ML 1 ML VIAL IVP PRN (03:44)
[2019-01-18] MEDS: CLOPIDOGREL 75 MG TAB PO SCH (07:12)
[2019-01-18] MEDS: CHOLECALCIFEROL 1,000 UNIT TAB PO SCH (07:12)
[2019-01-18] MEDS: amLODIPine 5 MG TAB PO SCH (07:13)
[2019-01-18] MEDS: LOSARTAN 50 MG TAB PO SCH ×2 (07:13→16:07)
[2019-01-18] MEDS: ISOSORBIDE MONONITRATE ER 60 MG TAB.ER.24H PO SCH (07:13)
[2019-01-18] MEDS: ASPIRIN 81 MG PO SCH (07:13)
[2019-01-18] MEDS: PANTOPRAZOLE 40 MG TABLET PO SCH (07:13)
[2019-01-18] MEDS: ESCITALOPRAM 5 MG TAB PO SCH (07:13)
[2019-01-18] MEDS: GABAPENTIN 100 MG CAP PO SCH ×2 (07:13→16:07)
[2019-01-18] MEDS: SYMBICORT 160-4.5 MCG INHALER INHALATION SCH ×2 (07:16→22:39)
[2019-01-18] MEDS: DORZOLAMIDE HCL 2% DROPS 10 ML BTL RIGHT EYE SCH ×2 (07:19→16:08)
[2019-01-18] MEDS: prednisoLONE ACETATE 1% OPHTH DROPS 5 ML BTL LEFT EYE SCH ×2 (07:19→16:07)
[2019-01-18] MEDS: BRIMONIDINE TARTRATE 0.2% DROPS 5 ML BTL RIGHT EYE SCH ×2 (07:31→16:10)
[2019-01-18 08:59] LABS: Basophils % (A) 0 %; Eosinophils # (A) 0.1 k/uL (0-0.7); Eosinophils % (A) 2 %; HCT 35.4 % (34.0-46.0); HGB 11.7 gm/dL (11.4-16.0); Lymphocytes # (A) 0.8 k/uL (1.0-4.8); Lymphocytes % (A) 17 %; MCH 29.8 pg (25.0-35.0); MCHC 33.1 g/dL (31.0-37.0); MCV 90.1 fL (80.0-100.0); Mean Platelet Volume 7.4; Monocytes # (A) 0.2 k/uL (0-1.0); Monocytes % (A) 5 %; Neutrophils # (A) 3.6 k/uL (1.3-7.7); Neutrophils % (A) 75 %; Platelet Count 219 k/uL (150-450); RBC 3.93 m/uL (3.80-5.40); RDW 14.3 % (11.5-15.5); WBC 4.8 k/uL (3.8-10.6)
[2019-01-18 09:11] LABS: Calcium 8.4 mg/dL (8.4-10.2); Potassium 3.7 mmol/L (3.5-5.1)
--- NOTE | 2019-01-18 12:45 | P.PN ---
<Mirian Garrett - Last Filed: 01/18/19 12:42> Subjective Progress Note Date: 01/18/19 CHIEF COMPLAINT: Left chest wall abscess HISTORY OF PRESENT ILLNESS: Patient is status post incision and drainage of left subcutaneous chest wall abscess. Postoperative day 1. Patient denies discomfort to surgical site. She is tolerating diet without nausea or vomiting. She is afebrile. PHYSICAL EXAM: VITAL SIGNS: Reviewed GENERAL: Well-developed in no acute distress. HEENT: No sclera icterus. Extraocular movements grossly intact. Moist buccal mucosa. Head is atraumatic, normocephalic. Hears conversational speech. No nasal drainage. NECK: Supple without lymphadenopathy. CHEST: Non-labored respirations and equal bilateral excursions. CARDIOVASCULAR: Regular rate with regular rhythm. Palpable 2+ radial pulses. ABDOMEN: Soft. Nondistended. Nontender. MUSCULOSKELETAL: No clubbing, cyanosis or edema. NEUROLOGIC: No focal or lateralizing signs. Cranial nerves II through XII grossly intact. PSYCH: Appropriate affect. Alert and oriented to person, place and time. SKIN: Dressing to left posterior chest wall intact with serosanguineous drain age. Well perfused. Good skin turgor. ASSESSMENT: 1. Left subcutaneous chest wall abscess, status post incision and drainage PLAN: -Continue daily dressing changes with 4 x 4's and ABDs pad -Stable for discharge from a surgical standpoint. Will defer to primary medicine. Nurse practitioner note has been reviewed by physician. Signing provider agrees with the documented findings, assessment, and plan of care. Objective - Vital Signs Vital signs: Vital Signs Temp 97.7 F 01/18/19 04:58 Pulse 59 L 01/18/19 04:58 Resp 20 01/18/19 04:58 BP 169/78 01/18/19 04:58 Pulse Ox 91 L 01/18/19 04:58 Intake & Output 01/17/19 01/18/19 01/18/19 18:59 06:59 18:59 Intake Total 500 350 300 Output Total 700 1103 Balance -200 -753 300 Intake: IV 250 Oral 500 100 300 Output: Urine 700 1100 Estimated Blood Loss 3 Other: # Voids 0 0 # Bowel Movements 0 0 0 - Labs CBC & Chem 7: 01/18/19 08:33 01/18/19 08:33 Labs: Abnormal Lab Results - Last 24 Hours (Table) 01/18/19 01/18/19 Range/Units 08:33 08:33 Lymphocytes # 0.8 L (1.0-4.8) k/uL Chloride 112 H (98-107) mmol/L Glucose 122 H (74-99) mg/dL Microbiology - Last 24 Hours (Table) 01/17/19 20:55 Wound Culture - Preliminary Chest 01/17/19 20:55 Anaerobic Culture - Preliminary Chest 01/14/19 13:39 Blood Culture - Preliminary Blood No Growth after 72 hours <Lakesha Erazo N - Last Filed: 01/18/19 20:56> Objective - Vital Signs Vital signs: Vital Signs Temp 99.0 F 01/18/19 13:03 Pulse 62 01/18/19 15:12 Resp 16 01/18/19 15:12 BP 147/73 01/18/19 13:03 Pulse Ox 93 L 01/18/19 13:03 Intake & Output 01/18/19 01/18/19 01/19/19 06:59 18:59 06:59 Intake Total 350 1440 Output Total 1103 1252 Balance -753 188 Intake: IV 250 Oral 100 1440 Output: Urine 1100 1250 Stool 2 Estimated Blood Loss 3 Other: # Voids 0 0 # Bowel Movements 0 1 - Labs CBC & Chem 7: 01/18/19 08:33 01/18/19 08:33 Labs: Abnormal Lab Results - Last 24 Hours (Table) 01/18/19 01/18/19 Range/Units 08:33 08:33 Lymphocytes # 0.8 L (1.0-4.8) k/uL Chloride 112 H (98-107) mmol/L Glucose 122 H (74-99) mg/dL Microbiology - Last 24 Hours (Table) 01/14/19 13:39 Blood Culture - Preliminary Blood No Growth after 96 hours 01/17/19 20:55 Gram Stain - Preliminary Chest Wound Culture - Preliminary 01/17/19 20:55 Anaerobic Culture - Preliminary Chest Assessment and Plan (1) Breast abscess Current Visit: Yes Status: Acute Code(s): N61.1 - ABSCESS OF THE BREAST AND NIPPLE SNOMED Code(s): 58167930 (2) Cellulitis of left breast Current Visit: Yes Status: Acute Code(s): N61.0 - MASTITIS WITHOUT ABSCESS SNOMED Code(s): 55194384 (3) Failure of outpatient treatment Current Visit: Yes Status: Acute Code(s): Z78.9 - OTHER SPECIFIED HEALTH STATUS SNOMED Code(s): 392645212
--- NOTE | 2019-01-18 13:23 | PN ---
PROGRESS NOTE DATE OF SERVICE: 01/18/2019 REASON FOR FOLLOWUP: Left lateral chest wall abscess and cellulitis. INTERVAL HISTORY: The patient is currently afebrile. The patient has been breathing comfortably. The patient denies having any chest pain or any cough. No nausea, vomiting, or any worsening of pain to the left lateral chest wall area. PHYSICAL EXAMINATION: Blood pressure 169/78 with a pulse of 59, temperature 97.7. She is on 91% on 2 L nasal cannula. General description is an elderly female, lying in bed in no distress. RESPIRATORY SYSTEM: Unlabored breathing, clear to auscultation anteriorly. HEART: S1, S2. Regular rate and rhythm. ABDOMEN: Soft, no tenderness. LABS: Hemoglobin 11.7, white count 4.8. BUN of 11, creatinine 1.01. DIAGNOSTIC IMPRESSION AND PLAN: Patient with MSSA left lateral chest wall abscess, status post drainage. The patient at this time covered with Cefazolin; to continue the wound to determine local wound care. Monitor clinical course closely. Continue supportive care. MMODL / IJN: [id number] /
[2019-01-18] MEDS: DONEPEZIL 5 MG TAB PO SCH (16:07)
--- NOTE | 2019-01-18 23:40 | P.PN ---
Progress Note - Text Progress Note Date: 01/18/19 Interval history: Patient presents with left lateral wall abscess. I&D was carried out. Today-pain is controlled. Dressing over the wound site. Did tolerate her diet. Breathing is stable. No fever no chills. Review of systems: Attempted for constitutional, cardiovascular, GI, pulmonary. relevant finding as above Active Medications Acetaminophen (Tylenol Tab) 650 mg PO Q4H PRN PRN Reason: Pain or Fever > 100.5 Last Admin: 01/18/19 22:27 Dose: 650 mg Documented by: Hydrocodone Bitart/Acetaminophen ([place] 5-325) 1 each PO Q4HR PRN PRN Reason: Moderate Pain Last Admin: 01/16/19 16:45 Dose: 1 each Documented by: Albuterol Sulfate (Ventolin Nebulized) 2.5 mg INHALATION RT-Q6H PRN PRN Reason: Wheezing Alprazolam (Xanax) 0.25 mg PO TID PRN PRN Reason: Anxiety Amlodipine Besylate (Norvasc) 5 mg PO DAILY@0800 [facility] Last Admin: 01/18/19 07:13 Dose: 5 mg Documented by: Aspirin (Aspirin) 81 mg PO DAILY@0800 [facility] Last Admin: 01/18/19 07:13 Dose: 81 mg Documented by: Bisacodyl (Dulcolax) 10 mg RECTAL DAILY PRN PRN Reason: Constipation Brimonidine Tartrate (Alphagan P 0.2% [facility] Sol) 1 drops RIGHT EYE BID@0800,1700 [facility] Last Admin: 01/18/19 16:10 Dose: 1 drops Documented by: Budesonide/Formoterol Fumarate (Symbicort 160-4.5 Mcg Inhaler) 2 puff INHALATION RT-BID [facility] Last Admin: 01/18/19 22:39 Dose: Not Given Documented by: Cholecalciferol (Vitamin D3 (25 Mcg = 1000 Iu)) 2,000 unit PO DAILY@0800 [facility] Last Admin: 01/18/19 07:12 Dose: 2,000 unit Documented by: Clopidogrel Bisulfate (Plavix) 75 mg PO DAILY@0800 [facility] Last Admin: 01/18/19 07:12 Dose: 75 mg Documented by: Donepezil HCl (Aricept) 5 mg PO DAILY@1700 [facility] Last Admin: 01/18/19 16:07 Dose: 5 mg Documented by: Dorzolamide HCl (Trusopt) 1 drops RIGHT EYE BID@0800,1700 [facility] Last Admin: 01/18/19 16:08 Dose: 1 drops Documented by: Escitalopram Oxalate (Lexapro) 5 mg PO DAILY@0800 [facility] Last Admin: 01/18/19 07:13 Dose: 5 mg Documented by: Gabapentin (Neurontin) 100 mg PO BID@0800,1700 [facility] Last Admin: 01/18/19 16:07 Dose: 100 mg Documented by: Guaifenesin (Robitussin) 200 mg PO Q4H PRN PRN Reason: Cough Heparin Sodium (Porcine) (Heparin) 5,000 unit SQ Q12HR [facility] Last Admin: 01/18/19 21:39 Dose: 5,000 unit Documented by: Cefazolin Sodium 2 gm/ Sodium (Chloride) 50 mls @ 100 mls/hr IVPB Q8HR [facility] Last Admin: 01/18/19 23:15 Dose: 100 mls/hr Documented by: Ibuprofen (Motrin) 400 mg PO Q6HR PRN PRN Reason: Mild Pain or Fever > 100.5 Isosorbide Mononitrate (Imdur) 60 mg PO DAILY@0800 [facility] Last Admin: 01/18/19 07:13 Dose: 60 mg Documented by: Ketorolac Tromethamine (Toradol) 30 mg IVP Q6HR PRN PRN Reason: Moderate Pain Stop: 01/19/19 16:26 Last Admin: 01/18/19 03:44 Dose: 30 mg Documented by: Losartan Potassium (Cozaar) 50 mg PO BID@0800,1700 [facility] Last Admin: 01/18/19 16:07 Dose: 50 mg Documented by: Magnesium Hydroxide (Milk Of Magnesia) 2,400 mg PO DAILY PRN PRN Reason: Constipation Last Admin: 01/18/19 10:47 Dose: 2,400 mg Documented by: Melatonin (Melatonin) 3 mg PO HS@2100 [facility] Last Admin: 01/18/19 21:40 Dose: 3 mg Documented by: Metoprolol Tartrate (Lopressor) 12.5 mg PO BID [facility] Last Admin: 01/18/19 21:40 Dose: 12.5 mg Documented by: Naloxone HCl (Narcan) 0.2 mg IV Q2M PRN PRN Reason: Opioid Reversal Nitroglycerin (Nitrostat) 0.4 mg SUBLINGUAL Q5M PRN PRN Reason: Chest Pain Pantoprazole Sodium (Protonix) 40 mg PO DAILY@0800 [facility] Last Admin: 01/18/19 07:13 Dose: 40 mg Documented by: Prednisolone Acetate (Pred Forte 1%) 1 drops LEFT EYE BID@0800,1700 [facility] Last Admin: 01/18/19 16:07 Dose: 1 drops Documented by: Ropinirole HCl (Requip) 0.5 mg PO HS@2100 [facility] Last Admin: 01/18/19 21:40 Dose: 0.5 mg Documented by: Simethicone (Mylicon Drops) 40 mg PO QID PRN PRN Reason: Heartburn Last Admin: 01/16/19 03:09 Dose: 40 mg Documented by: Sodium Biphosphate/Sodium Phosphate (Fleet Adult) 133 ml RECTAL DAILY PRN PRN Reason: Constipation Sodium Chloride ([place]) 1 spray INTRANASAL Q2H PRN PRN Reason: Congestion Physical examination: VITAL SIGNS: 97.7, 59, 20, 169/78, 91% on 2 L GENERAL: Laying in bed, comfortable EYES: Poor vision, chronic NECK: JVD unable to assess; masses not palpable. HEART: First and second heart sounds are normal; no edema. LUNGS: Respiratory rate increased, decreased breaths ABDOMEN: Soft, nontender, liver spleen not palpable, no masses palpable. PSYCH: Answering simple questions. 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 -Left radial styloid mildly displaced fracture-in a thumb spica splint -Chronic kidney disease stage III with a baseline creatinine around 1.3-1.5, from diabetic nephropathy and hypertensive nephrosclerosis Plan: Wound dressing to continue. Patient is on IV Ancef. Other medications to continue. Discussed with patient.
[2019-01-19 05:19] VITALS: RESP 16
[2019-01-19] MEDS: SYMBICORT 160-4.5 MCG INHALER INHALATION SCH (07:04)
[2019-01-19] MEDS: METOPROLOL TARTRATE 12.5 MG TAB PO SCH (08:40)
[2019-01-19] MEDS: PANTOPRAZOLE 40 MG TABLET PO SCH (08:40)
[2019-01-19] MEDS: ASPIRIN 81 MG PO SCH (08:40)
[2019-01-19] MEDS: ESCITALOPRAM 5 MG TAB PO SCH (08:40)
[2019-01-19] MEDS: HEPARIN SODIUM,PORCINE 5,000 UNIT/ML 1 ML VIAL SQ SCH (08:40)
[2019-01-19] MEDS: CLOPIDOGREL 75 MG TAB PO SCH (08:40)
[2019-01-19] MEDS: amLODIPine 5 MG TAB PO SCH (08:41)
[2019-01-19] MEDS: ISOSORBIDE MONONITRATE ER 60 MG TAB.ER.24H PO SCH (08:41)
[2019-01-19] MEDS: CHOLECALCIFEROL 1,000 UNIT TAB PO SCH (08:41)
[2019-01-19] MEDS: prednisoLONE ACETATE 1% OPHTH DROPS 5 ML BTL LEFT EYE SCH (08:41)
[2019-01-19] MEDS: GABAPENTIN 100 MG CAP PO SCH (08:41)
[2019-01-19] MEDS: LOSARTAN 50 MG TAB PO SCH (08:41)
[2019-01-19] MEDS: DORZOLAMIDE HCL 2% DROPS 10 ML BTL RIGHT EYE SCH (08:42)
[2019-01-19] MEDS: BRIMONIDINE TARTRATE 0.2% DROPS 5 ML BTL RIGHT EYE SCH (08:43)
--- NOTE | 2019-01-19 12:39 | P.DS ---
Providers Date of admission: 01/16/19 09:45 Expected date of discharge: 01/19/19 Attending physician: Mayo Tong Consults: 01/15/19 14:22 Consult Physician Routine Consulting Provider: Carolina Mcgrath Consult Reason/Comments: LEFT BACK SKIN INFECTION Do you want consulting provider notified?: Yes 01/16/19 14:00 Consult Physician Routine Consulting Provider: Lakesha Erazo Consult Reason/Comments: left lateral chest wall abscess for I &D Do you want consulting provider notified?: Yes Primary care physician: [facility] Course: Hospital course: Patient presents with left lateral chest wall abscess. I&D was carried out. Cultures grew MSSA. Okay today by surgical team and Dr. mcgrath to be discharged. Patient tolerating a diet. Doing well. Patient will get 2 more weeks of Keflex. Consultants: Dr. Mcgrath from ID Dr. Choi from general surgery Physical examination: VITAL SIGNS: 98.3, 53, 16, 133/83, 93% on 2 L GENERAL: Laying in bed, comfortable EYES: Poor vision, chronic NECK: JVD unable to assess; masses not palpable. HEART: First and second heart sounds are normal; no edema. LUNGS: Respiratory rate increased, decreased breaths ABDOMEN: Soft, nontender, liver spleen not palpable, no masses palpable. PSYCH: Answering simple questions. 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 -Left radial styloid mildly displaced fracture-in a thumb spica splint -Chronic kidney disease stage III with a baseline creatinine around 1.3-1.5, from diabetic nephropathy and hypertensive nephrosclerosis Disposition: [place]/F Patient Condition at Discharge: Stable Plan - Discharge Summary Discharge Rx Participant: No New Discharge Prescriptions: Continue Clopidogrel [Plavix] 75 mg PO DAILY@0800 Brimonidine Tartrate [Alphagan P 0.1% Ophth Soln] 1 drop RIGHT EYE BID@0800,1700 prednisoLONE ACETATE 1% OPHTH [Pred Forte 1%] 1 drop LEFT EYE BID@0800,1700 Melatonin 3 mg PO HS@2100 Cholecalciferol [Vitamin D3 (25 Mcg = 1000 Iu)] 2,000 unit PO DAILY@0800 Nitroglycerin Sl Tabs [Nitrostat] 0.4 mg SUBLINGUAL Q5M PRN tab PRN Reason: Chest Pain Losartan Potassium [Cozaar] 50 mg PO BID@0800,1700 Aspirin 81 mg PO DAILY@0800 amLODIPine [Norvasc] 5 mg PO DAILY@0800 guaiFENesin SYRUP 100MG/5ML [Robitussin] 200 mg PO Q4H PRN PRN Reason: Cough Na Phos,M-B/Na Phos,Di-Ba [Fleet Adult] 133 ml RECTAL DAILY PRN PRN Reason: Constipation Magnesium Hydroxide [Milk of Magnesia] 2,400 mg PO DAILY PRN PRN Reason: Constipation Bisacodyl [Dulcolax] 10 mg RECTAL DAILY PRN PRN Reason: Constipation Albuterol Inhaler [Ventolin Hfa Inhaler] 2 puff INHALATION RT-Q6H PRN PRN Reason: Wheezing Acetaminophen Tab [Tylenol] 650 mg PO Q4H PRN PRN Reason: Pain Or Fever > 100.5 Dorzolamide 2% [Trusopt 2%] 1 drops RIGHT EYE BID@0800,1700 Acetaminophen Tab [Tylenol] 500 mg PO BID rOPINIRole HCL [Requip] 0.5 mg PO HS@2100 Isosorbide Mononitrate ER [Imdur] 60 mg PO DAILY@0800 Escitalopram [Lexapro] 5 mg PO DAILY@0800 Donepezil [Aricept] 5 mg PO DAILY@1700 Sodium Chloride [Saline Nasal [place]] 1 spray EA NOSTRIL Q2H PRN PRN Reason: Congestion Pantoprazole [Protonix] 40 mg PO DAILY@0800 Budesonide-Formot 160-4.5 Mcg [Symbicort 160-4.5 Mcg Inhaler] 2 puff INHALATION RT-BID@0800,1700 Metoprolol Tartrate [Lopressor] 12.5 mg PO BID Menthol [Biofreeze] 1 applic TOPICAL BID Cephalexin [Keflex] 500 mg PO Q8HR #42 Gabapentin [Neurontin] 100 mg PO BID@0800,1700 #6 cap HYDROcodone/APAP 5-325MG [[place] 5-325] 1 tab PO Q4HR PRN #10 tab PRN Reason: Moderate Pain HYDROcodone/APAP 5-325MG [[place] 5-325] 2 tab PO Q4H PRN #10 tab PRN Reason: Severe Pain Discontinued Mupirocin 2% Oint [Bactroban 2% Oint] 1 applic TOPICAL BID Discharge Medication List Clopidogrel [Plavix] 75 mg PO DAILY@0800 09/29/13 [History] Brimonidine Tartrate [Alphagan P 0.1% Ophth Soln] 1 drop RIGHT EYE BID@0800,1700 11/26/15 [History] prednisoLONE ACETATE 1% OPHTH [Pred Forte 1%] 1 drop LEFT EYE BID@0800,1700 11/26/15 [History] Melatonin 3 mg PO HS@2100 05/11/16 [History] Cholecalciferol [Vitamin D3 (25 Mcg = 1000 Iu)] 2,000 unit PO DAILY@0800 06/30/16 [History] Nitroglycerin Sl Tabs [Nitrostat] 0.4 mg SUBLINGUAL Q5M PRN tab 12/09/16 [Rx] Losartan Potassium [Cozaar] 50 mg PO BID@0800,1700 01/26/17 [History] Aspirin 81 mg PO DAILY@0800 03/27/17 [History] amLODIPine [Norvasc] 5 mg PO DAILY@0800 03/27/17 [History] Acetaminophen Tab [Tylenol] 500 mg PO BID 01/01/19 [History] Acetaminophen Tab [Tylenol] 650 mg PO Q4H PRN 01/01/19 [History] Albuterol Inhaler [Ventolin Hfa Inhaler] 2 puff INHALATION RT-Q6H PRN 01/01/19 [History] Bisacodyl [Dulcolax] 10 mg RECTAL DAILY PRN 01/01/19 [History] Budesonide-Formot 160-4.5 Mcg [Symbicort 160-4.5 Mcg Inhaler] 2 puff INHALATION RT-BID@0800,1700 01/01/19 [History] Donepezil [Aricept] 5 mg PO DAILY@1700 01/01/19 [History] Dorzolamide 2% [Trusopt 2%] 1 drops RIGHT EYE BID@0800,1700 01/01/19 [History] Escitalopram [Lexapro] 5 mg PO DAILY@0800 01/01/19 [History] Isosorbide Mononitrate ER [Imdur] 60 mg PO DAILY@0800 01/01/19 [History] Magnesium Hydroxide [Milk of Magnesia] 2,400 mg PO DAILY PRN 01/01/19 [History] Na Phos,M-B/Na Phos,Di-Ba [Fleet Adult] 133 ml RECTAL DAILY PRN 01/01/19 [History] Pantoprazole [Protonix] 40 mg PO DAILY@0800 01/01/19 [History] Sodium Chloride [Saline Nasal [place]] 1 spray EA NOSTRIL Q2H PRN 01/01/19 [History] guaiFENesin SYRUP 100MG/5ML [Robitussin] 200 mg PO Q4H PRN 01/01/19 [History] rOPINIRole HCL [Requip] 0.5 mg PO HS@2100 01/01/19 [History] Menthol [Biofreeze] 1 applic TOPICAL BID 01/14/19 [History] Metoprolol Tartrate [Lopressor] 12.5 mg PO BID 01/14/19 [History] Cephalexin [Keflex] 500 mg PO Q8HR #42 01/19/19 [Rx] Gabapentin [Neurontin] 100 mg PO BID@0800,1700 #6 cap 01/19/19 [Rx] HYDROcodone/APAP 5-325MG [[place] 5-325] 1 tab PO Q4HR PRN #10 tab 01/19/19 [Rx] HYDROcodone/APAP 5-325MG [[place] 5-325] 2 tab PO Q4H PRN #10 tab 01/19/19 [Rx] Follow up Appointment(s)/Referral(s): Nicholas Villegas DO [Primary Care Provider] - 1-2 days Lakesha Erazo MD [STAFF PHYSICIAN] - 1 Week
[2019-01-19 13:53] VITALS: BP 148/74; PULSE 64; TEMP 98.6
--- NOTE | 2019-01-19 14:52 | PN ---
PROGRESS NOTE DATE OF SERVICE: 01/19/2019 REASON FOR FOLLOWUP: Left lateral chest wall MSSA abscess and cellulitis. INTERVAL HISTORY: The patient is currently afebrile. The patient is breathing comfortably. Pain in the left lateral chest wall is currently controlled. No nausea. No vomiting. No abdominal pain. No diarrhea. PHYSICAL EXAMINATION: Blood pressure 133/83 with a pulse of 53, temperature 98.3, 93% on 2 liters nasal cannula. General description is an elderly female in the chair in no distress. RESPIRATORY SYSTEM: Unlabored breathing. Clear to auscultation bilaterally. HEART: S1, S2. Regular rate and rhythm. ABDOMEN: Soft, no tenderness. Left lateral chest wall wound with some induration, minimal redness, no drainage. LABS: White count 4.8. Creatinine is 1.01. Wound culture with MSSA. DIAGNOSTIC IMPRESSION AND PLAN: Patient with MSSA, left lateral chest wall abscess and cellulitis, status post surgical drainage. Plan at this time is to finish therapy with oral Keflex for 10 days. To followup with wound care in one week. Continue supportive care. MMODL / IJN: [id number] /
--- NOTE | 2019-01-24 06:54 | CDI ---
Documentation Clarification Form Date: 01/24/2019 6:46:29 AM From: Jessenia Florez Phone: If you have a question about this query, please contact [place] [employer] at [phone] between 8am and 5pm. Admit Date: 01/16/2019 9:45:00 AM Patient Name: Juliann Davalos Visit Number: [id number] Discharge Date: 01/19/2019 2:31:00 PM ATTENTION: The Clinical Documentation Specialists (CDI) and [facility] Coding Staff appreciate your assistance in clarifying documentation. Please respond to the clarification below the line at the bottom and electronically sign. The CDI & [facility] Coding staff will review the response and follow-up if needed. Please note: Queries are made part of the Legal Health Record. If you have any questions, please contact the author of this message via ITS. Dr. Mayo Tong Conflicting documentation has been found in the medical record: H and P documents abscess/cellulitis left breast. Op report documents abscess/cellulitis LT breast. Please clarify if abscess/cellulitis was left chest wall or left breast. History: Abscess and cellulitis failed OP treatment Treatment: I and D Left lateral chest wall In your opinion, what is the most clinically appropriate diagnosis for this patient? abscess/cellulitis left chest wall abscess/cellulitis left breast Other explanation of clinical findings Unable to determine (no explanation for clinical findings) _Left lateral chest wall abscess and cellulitis, POA _ MTDD
== END 2019-01-19 14:31 | DRG 602 ==
LOC: EC 12:31 → 4MS4W 16:15 → OBSVTOIN 01-16 09:45
PROVIDERS: ADMIT Hospitalist; ATTEND Hospitalist
PROC: 0W980ZX Drainage of Chest Wall, Open Approach, Diagnostic (ICD-10-PCS; principal; 2019-01-17 16:35)
DX: L02.213 Cutaneous abscess of chest wall (principal); N17.0 Acute kidney failure with tubular necrosis; I13.0 Hypertensive heart and chronic kidney disease with heart failure and stage 1 through stage 4 chronic kidney disease, or unspecified chronic kidney disease; B95.61 Methicillin susceptible Staphylococcus aureus infection as the cause of diseases classified elsewhere; E11.22 Type 2 diabetes mellitus with diabetic chronic kidney disease; E66.9 Obesity, unspecified; E78.5 Hyperlipidemia, unspecified; F03.90 Unspecified dementia, unspecified severity, without behavioral disturbance, psychotic disturbance, mood disturbance, and anxiety; F41.1 Generalized anxiety disorder; H35.30 Unspecified macular degeneration; H40.9 Unspecified glaucoma; H54.8 Legal blindness, as defined in USA; I25.2 Old myocardial infarction; I25.10 Atherosclerotic heart disease of native coronary artery without angina pectoris; I50.9 Heart failure, unspecified; Z86.73 Personal history of transient ischemic attack (TIA), and cerebral infarction without residual deficits; Z87.01 Personal history of pneumonia (recurrent); J43.9 Emphysema, unspecified; L03.313 Cellulitis of chest wall; N18.3 Chronic kidney disease, stage 3 (moderate); W19.XXXA Unspecified fall, initial encounter; S52.512D Displaced fracture of left radial styloid process, subsequent encounter for closed fracture with routine healing; Z68.32 Body mass index [BMI] 32.0-32.9, adult; Z79.02 Long term (current) use of antithrombotics/antiplatelets; Z79.51 Long term (current) use of inhaled steroids; Z79.82 Long term (current) use of aspirin; Z79.899 Other long term (current) drug therapy; Z79.2 Long term (current) use of antibiotics; Z79.891 Long term (current) use of opiate analgesic; Z79.52 Long term (current) use of systemic steroids; Z82.1 Family history of blindness and visual loss; Z82.49 Family history of ischemic heart disease and other diseases of the circulatory system; Z82.5 Family history of asthma and other chronic lower respiratory diseases; Z87.891 Personal history of nicotine dependence; Z90.710 Acquired absence of both cervix and uterus; Z95.5 Presence of coronary angioplasty implant and graft; Z96.651 Presence of right artificial knee joint; Z98.41 Cataract extraction status, right eye; M19.90 Unspecified osteoarthritis, unspecified site; Z88.5 Allergy status to narcotic agent; Z88.8 Allergy status to other drugs, medicaments and biological substances
CPT/HCPCS: 10160; 36415; 71046; 80048; 80053; 83605; 85025; 87040; 87070; 87075; 87077; 87186; 87205; 87324; 94640; 96361; 96365; 96375; 99285

== ENCOUNTER 2020-01-30 05:10 | Inpatient (IN) | payer MEDICARE, OTHER ==
--- NOTE | 2020-01-30 05:48 | XR ---
EXAM: XR Chest, 1 View CLINICAL HISTORY: ITS.REASON XR Reason: dyspnea TECHNIQUE: Frontal view of the chest. COMPARISON: 01/14/2019 IMPRESSION: Increased interstitial opacities in the right lower lobe. Correlate with edema or infectious process. Unchanged heart size. No pleural effusion.
[2020-01-30 06:03] LABS: Basophils # (A) 0.1 k/uL (0-0.2); Basophils % (A) 1 %; Eosinophils % (A) 1 %; HCT 43.3 % (34.0-46.0); HGB 14.8 gm/dL (11.4-16.0); Lymphocytes # (A) 0.6 k/uL (1.0-4.8); Lymphocytes % (A) 12 %; MCH 31.1 pg (25.0-35.0); MCHC 34.2 g/dL (31.0-37.0); MCV 91.1 fL (80.0-100.0); Mean Platelet Volume 7.5; Monocytes # (A) 0.2 k/uL (0-1.0); Monocytes % (A) 4 %; Neutrophils % (A) 81 %; Platelet Count 110 k/uL (150-450); Poikilocytosis Slight; RBC 4.75 m/uL (3.80-5.40); RDW 14.4 % (11.5-15.5); WBC 4.9 k/uL (3.8-10.6)
--- NOTE | 2020-01-30 06:04 | ED ---
SOB HPI - General Chief Complaint: Shortness of Breath Stated Complaint: SOB Time Seen by Provider: 01/30/20 05:18 Source: EMS Mode of arrival: EMS Limitations: no limitations - History of Present Illness Initial Comments: This patient is an 79-year-old woman who had recent positive test for coronavirus. The patient comes from her long-term care facility to have evaluation for having apparent respiratory distress and lower pulse oximetry numbers. History from the patient herself is limited as she does appear to have some dementia versus delirium. The patient is denying symptoms other than some low back aches. Patient denies dyspnea. MD Complaint: shortness of breath -: unknown Radiation: back Severity: mild Quality: aching Associated Symptoms: cough - Related Data Home Oxygen Therapy: No Home Medications Medication Instructions Recorded Confirmed Clopidogrel [Plavix] 75 mg PO DAILY@0800 09/29/13 01/30/20 Brimonidine Tartrate [Alphagan P 1 drop RIGHT EYE BID@0800,1700 11/26/15 01/30/20 0.1% Ophth Soln] prednisoLONE ACETATE 1% OPHTH 1 drop LEFT EYE BID@0800,1700 11/26/15 01/30/20 [Pred Forte 1%] Melatonin 3 mg PO HS@2100 05/11/16 01/30/20 Cholecalciferol [Vitamin D3 (25 3,000 unit PO DAILY@0800 06/30/16 01/30/20 Mcg = 1000 Iu)] Losartan Potassium [Cozaar] 50 mg PO BID@0800,1700 01/26/17 01/30/20 Aspirin 81 mg PO DAILY@0800 03/27/17 01/30/20 amLODIPine [Norvasc] 5 mg PO DAILY@0800 03/27/17 01/30/20 Acetaminophen Tab [Tylenol] 500 mg PO BID@0800,1700 01/01/19 01/30/20 Acetaminophen Tab [Tylenol] 650 mg PO Q4H PRN 01/01/19 01/30/20 Budesonide-Formot 160-4.5 Mcg 2 puff INHALATION RT-BID@0800,1700 01/01/19 01/30/20 [Symbicort 160-4.5 Mcg Inhaler] Donepezil [Aricept] 5 mg PO DAILY@1700 01/01/19 01/30/20 Dorzolamide 2% [Trusopt 2%] 1 drops RIGHT EYE BID@0800,1700 01/01/19 01/30/20 Escitalopram [Lexapro] 5 mg PO DAILY@0800 01/01/19 01/30/20 Isosorbide Mononitrate ER [Imdur] 60 mg PO DAILY@0800 01/01/19 01/30/20 Magnesium Hydroxide [Milk of 2,400 mg PO DAILY PRN 01/01/19 01/30/20 Magnesia] bisacodyL [Dulcolax] 10 mg RECTAL DAILY PRN 01/01/19 01/30/20 guaiFENesin SYRUP 100MG/5ML 200 mg PO Q4H PRN 01/01/19 01/30/20 [Robitussin] rOPINIRole HCL [Requip] 0.5 mg PO HS@2100 01/01/19 01/30/20 Metoprolol Tartrate [Lopressor] 12.5 mg PO BID@0800,1700 01/14/19 01/30/20 Albuterol Sulfate [Ventolin HFA] 2 puff INHALATION RT-Q6H PRN 01/30/20 01/30/20 Ascorbic Acid [Vitamin C] 1,000 mg PO DAILY@1700 01/30/20 01/30/20 Docusate [Colace] 100 mg PO BID@0800,1700 01/30/20 01/30/20 Ipratropium-Albuterol Nebulize 3 ml INHALATION RT-Q6H PRN 01/30/20 01/30/20 [Duoneb 0.5 mg-3 mg/3 ml Soln] Mirabegron [Myrbetriq] 25 mg PO DAILY 01/30/20 01/30/20 Neomycin/Polymyxin B/Dexametha 1 drop LEFT EYE DAILY 01/30/20 01/30/20 [Maxitrol Ophth Susp] Ondansetron HCl [Zofran] 4 mg PO Q8H PRN 01/30/20 01/30/20 Zinc 50 mg PO DAILY 01/30/20 01/30/20 Previous Rx's Medication Instructions Recorded Nitroglycerin Sl Tabs [Nitrostat] 0.4 mg SUBLINGUAL Q5M PRN tab 10/31/17 Gabapentin [Neurontin] 100 mg PO BID@0800,1700 #6 cap 01/19/19 HYDROcodone/APAP 5-325MG [[place] 1 tab PO Q4HR PRN #10 tab 01/19/19 5-325] HYDROcodone/APAP 5-325MG [[place] 2 tab PO Q4H PRN #10 tab 01/19/19 5-325] Allergies Allergy/AdvReac Type Severity Reaction Status Date / Time Jrztuei-Bej-Kcm Reductase Allergy Unknown Verified 01/30/20 06:55 Inhibitor morphine AdvReac Confusion Verified 01/30/20 06:55 Review of Systems ROS Statement: Those systems with pertinent positive or pertinent negative responses have been documented in the HPI. ROS Other: All systems not noted in ROS Statement are negative. Limitations: ROS unobtainable due to patients medical condition (History Limited by dementia versus delirium) Constitutional: Reports: fever, weakness Respiratory: Reports: cough, dyspnea Musculoskeletal: Reports: back pain Past Medical History Past Medical History: Asthma, COPD, CVA/TIA, Eye Disorder, Hyperlipidemia, Hypertension, Myocardial Infarction (MT), Respiratory Disorder Additional Past Medical History / Comment(s): COPD mild in severity with an FEV1 of 2.1 L which is 88% of predicted, bronchial asthma, previous history of pneumothorax requiring a chest tube insertion and subsequent removal, 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 macular degeneration, emphysema, previous coronary intervention and stenting of the LAD in November 2016 Last Myocardial Infarction Date:: 12/06/2016 History of Any Multi-Drug Resistant Organisms: None Reported Past Surgical History: Appendectomy, Cholecystectomy, Heart Catheterization With Stent, Hysterectomy, Joint Replacement, Tonsillectomy Additional Past Surgical History / Comment(s): Right knee replacement, right cataract surgery, heart cath with stents x 2 , 11/2016 Past Anesthesia/Blood Transfusion Reactions: No Reported Reaction Date of Last Stent Placement:: 12/06/2016 Past Psychological History: Anxiety, Depression Smoking Status: Unknown if ever smoked Past Alcohol Use History: None Reported Past Drug Use History: None Reported - Past Family History Mother Family Medical History: Congestive Heart Failure (CHF) Father Family Medical History: COPD Additional Family Medical History / Comment(s): empyhsema, blindness. O2 dependent General Exam Limitations: no limitations General appearance: alert, in distress Head exam: Present: atraumatic, normocephalic Eye exam: Present: normal appearance. Absent: scleral icterus, conjunctival injection ENT exam: Present: mucous membranes dry Neck exam: Present: normal inspection, full ROM. Absent: meningismus Respiratory exam: Present: rales, rhonchi. Absent: wheezes, stridor, chest wall tenderness, accessory muscle use, decreased breath sounds, prolonged expiratory Cardiovascular Exam: Present: regular rate, normal rhythm, systolic murmur. Absent: diastolic murmur, rubs, gallop GI/Abdominal exam: Present: soft. Absent: distended, tenderness, guarding, rebound, rigid, mass Extremities exam: Present: normal inspection, normal capillary refill. Absent: pedal edema, calf tenderness Back exam: Present: normal inspection. Absent: CVA tenderness (R), CVA tenderness (L) Neurological exam: Present: alert Skin exam: Present: warm, dry, intact, normal color. Absent: rash Course Vital Signs 01/30/20 01/30/20 01/30/20 05:12 06:07 07:34 Temperature 98.9 F Pulse Rate 94 92 85 Respiratory 18 22 18 Rate Blood Pressure 125/90 115/99 132/56 O2 Sat by Pulse 92 L 97 97 Oximetry 01/30/20 01/30/20 01/30/20 08:58 09:53 11:38 Temperature Pulse Rate 86 69 75 Respiratory 18 18 18 Rate Blood Pressure 146/61 140/63 162/63 O2 Sat by Pulse 100 100 94 L Oximetry Medical Decision Making - Medical Decision Making Patient is an 79-year-old woman diagnosed with coronavirus, sent for evaluation of respiratory distress. Sats have improved with the increased oxygen. Patient's workup is concerning for possible pulmonary embolism. The patient's renal function does not support computed tomography scan, therefore patient started on heparin and VQ scan is ordered. Case is discussed with Dr. Michel, who is handling Dr. Ran rivers. Cardiology consultation for the elevated troponin and infectious disease consultation. - Lab Data Result diagrams: 02/02/20 06:54 02/02/20 06:54 Lab Results 01/30/20 01/30/20 01/30/20 Range/Units 05:31 05:31 05:31 WBC 4.9 (3.8-10.6) k/uL RBC 4.75 (3.80-5.40) m/uL Hgb 14.8 (11.4-16.0) gm/dL Hct 43.3 (34.0-46.0) % MCV 91.1 (80.0-100.0) fL MCH 31.1 (25.0-35.0) pg MCHC 34.2 (31.0-37.0) g/dL RDW 14.4 (11.5-15.5) % Plt Count 110 L (150-450) k/uL MPV 7.5 Neutrophils % 81 % Lymphocytes % 12 % Monocytes % 4 % Eosinophils % 1 % Basophils % 1 % Neutrophils # 4.0 (1.3-7.7) k/uL Lymphocytes # 0.6 L (1.0-4.8) k/uL Monocytes # 0.2 (0-1.0) k/uL Eosinophils # 0.0 (0-0.7) k/uL Basophils # 0.1 (0-0.2) k/uL Poikilocytosis Slight PT 10.1 (9.0-12.0) sec INR 1.0 (<1.2) APTT 23.6 (22.0-30.0) sec D-Dimer 1.35 H (<0.60) mg/L FEU Sodium 138 (137-145) mmol/L Potassium 4.1 (3.5-5.1) mmol/L Chloride 106 (98-107) mmol/L Carbon Dioxide 21 L (22-30) mmol/L Anion Gap 11 mmol/L BUN 41 H (7-17) mg/dL Creatinine 2.01 H (0.52-1.04) mg/dL Est GFR (CKD-EPI)AfAm 26 (>60 ml/min/1.73 sqM) Est GFR (CKD-EPI)NonAf 23 (>60 ml/min/1.73 sqM) Glucose 126 H (74-99) mg/dL Plasma Lactic Acid Oleksandr (0.7-2.0) mmol/L Calcium 8.7 (8.4-10.2) mg/dL Total Bilirubin 0.7 (0.2-1.3) mg/dL AST 65 H (14-36) U/L ALT 27 (4-34) U/L Alkaline Phosphatase 54 (38-126) U/L Troponin I (0.000-0.034) ng/mL NT-Pro-B Natriuret Pep pg/mL Total Protein 6.9 (6.3-8.2) g/dL Albumin 3.9 (3.5-5.0) g/dL 01/30/20 01/30/20 01/30/20 Range/Units 05:31 05:31 05:31 WBC (3.8-10.6) k/uL RBC (3.80-5.40) m/uL Hgb (11.4-16.0) gm/dL Hct (34.0-46.0) % MCV (80.0-100.0) fL MCH (25.0-35.0) pg MCHC (31.0-37.0) g/dL RDW (11.5-15.5) % Plt Count (150-450) k/uL MPV Neutrophils % % Lymphocytes % % Monocytes % % Eosinophils % % Basophils % % Neutrophils # (1.3-7.7) k/uL Lymphocytes # (1.0-4.8) k/uL Monocytes # (0-1.0) k/uL Eosinophils # (0-0.7) k/uL Basophils # (0-0.2) k/uL Poikilocytosis PT (9.0-12.0) sec INR (<1.2) APTT (22.0-30.0) sec D-Dimer (<0.60) mg/L FEU Sodium (137-145) mmol/L Potassium (3.5-5.1) mmol/L Chloride (98-107) mmol/L Carbon Dioxide (22-30) mmol/L Anion Gap mmol/L BUN (7-17) mg/dL Creatinine (0.52-1.04) mg/dL Est GFR (CKD-EPI)AfAm (>60 ml/min/1.73 sqM) Est GFR (CKD-EPI)NonAf (>60 ml/min/1.73 sqM) Glucose (74-99) mg/dL Plasma Lactic Acid Oleksandr 0.9 (0.7-2.0) mmol/L Calcium (8.4-10.2) mg/dL Total Bilirubin (0.2-1.3) mg/dL AST (14-36) U/L ALT (4-34) U/L Alkaline Phosphatase (38-126) U/L Troponin I 3.770 H* (0.000-0.034) ng/mL NT-Pro-B Natriuret Pep 3860 pg/mL Total Protein (6.3-8.2) g/dL Albumin (3.5-5.0) g/dL - EKG Data -: EKG Interpreted by Me EKG shows normal: sinus rhythm, axis (Normal), intervals (Normal), QRS complexes (Normal), ST-T waves (Inferior T changes concerning for possible ischemia.) Disposition Clinical Impression: COVID-19, Elevated troponin I level, Elevated d-dimer Disposition: ADMITTED IP TO THIS HOSP Condition: Critical
[2020-01-30 06:11] LABS: Albumin 3.9 g/dL (3.5-5.0); Calcium 8.7 mg/dL (8.4-10.2); Potassium 4.1 mmol/L (3.5-5.1); Total Bilirubin 0.7 mg/dL (0.2-1.3); Total Protein 6.9 g/dL (6.3-8.2)
[2020-01-30] MEDS ORDERED: SODIUM CHLORIDE 0.9% 500 ML 500 ML IV STA (06:14)
[2020-01-30 06:19] LABS: Partial Thromboplastin Time 23.6 sec (22.0-30.0); Prothrombin Time 10.1 sec (9.0-12.0)
[2020-01-30 06:22] LABS: D-Dimer 1.35 mg/L FEU (<0.60)
[2020-01-30] MEDS ORDERED: ENOXAPARIN 80 MG/0.8 ML SYRINGE SQ STA (06:23)
[2020-01-30] MEDS ORDERED: HEPARIN SODIUM,PORCINE 10,000 UNIT/ML 1 ML VIAL IV ONE (06:42)
[2020-01-30] MEDS ORDERED: HEPARIN SODIUM,PORCINE 5,000 UNIT/ML 1 ML VIAL IV PRN (06:42)
[2020-01-30] MEDS ORDERED: NALOXONE 0.4 MG/ML 1 ML VIAL IV PRN (06:53)
[2020-01-30] MEDS ORDERED: IPRATROPIUM-ALBUTEROL 3 ML NEB INHALATION PRN (06:53)
[2020-01-30] MEDS: HEPARIN SOD,PORK IN 0.45% NACL 25,000 UNIT in 0.45% NACL 1 250ML.BAG IV SCH (07:14)
[2020-01-30] MEDS: SODIUM CHLORIDE 0.9% 1,000 ML IV SCH (07:42)
[2020-01-30] MEDS ORDERED: FAMOTIDINE 20 MG/2 ML VIAL IV SCH (09:00)
--- NOTE | 2020-01-30 09:42 | NM ---
EXAMINATION TYPE: NM pul perfusion DATE OF EXAM: 01/30/2020 COMPARISON: NONE HISTORY: Shortness of breath rule out PE Following administration of 5.3 mCi Tc 99m MAA. Images obtained post injection. FINDINGS: There is homogeneous distribution of radiotracer without evidence for wedge-shaped defect at this chace e. IMPRESSION: No perfusion abnormality is identified.
[2020-01-30] MEDS: DEXAMETHASONE SOD PHOSPHATE 10 MG/ML 1 ML VIAL IV SCH (09:58)
--- NOTE | 2020-01-30 13:14 | P.HPIM ---
History of Present Illness H&P Date: 01/30/20 Chief Complaint: Shortness of breath This is a 79-year-old female with the history of shortness of breath patient has advanced dementia has well she is a resident of extended care facility, she was transferred over here for evaluation of cold with 19 pneumonia as well as hyp oxia related to that during my evaluation patient somnolent but arousable on 5 L nasal cannula, it is stable, review of the data revealed that patient significant history of COPD also prior history of pneumothorax, legally blind, history of macular degeneration, patient has a stent placed in LAD, Review of Systems ROS unobtainable: due to mental status All systems: negative Past Medical History Past Medical History: Asthma, COPD, CVA/TIA, Eye Disorder, Hyperlipidemia, Hypertension, Myocardial Infarction ([place]), Respiratory Disorder Additional Past Medical History / Comment(s): COPD mild in severity with an FEV1 of 2.1 L which is 88% of predicted, bronchial asthma, previous history of pneumothorax requiring a chest tube insertion and subsequent removal, legally b jarret secondary to glaucoma and macular degeneration, emphysema, previous coronary intervention and stenting of the LAD in November 2016 Last Myocardial Infarction Date:: 12/06/2016 History of Any Multi-Drug Resistant Organisms: None Reported Past Surgical History: Appendectomy, Cholecystectomy, Heart Catheterization With Stent, Hysterectomy, Joint Replacement, Tonsillectomy Additional Past Surgical History / Comment(s): Right knee replacement, right cataract surgery, heart cath with stents x 2 , 11/2016 Past Anesthesia/Blood Transfusion Reactions: No Reported Reaction Date of Last Stent Placement:: 12/06/2016 Past Psychological History: Anxiety, Depression Smoking Status: Unknown if ever smoked Past Alcohol Use History: None Reported Past Drug Use History: None Reported - Past Family History Mother Family Medical History: Congestive Heart Failure (CHF) Father Family Medical History: COPD Additional Family Medical History / Comment(s): empyhsema, blindness. O2 dependent Medications and Allergies Home Medications Medication Instructions Recorded Confirmed Type Clopidogrel [Plavix] 75 mg PO DAILY@0800 09/29/13 01/30/20 History Brimonidine Tartrate [Alphagan P 1 drop RIGHT EYE BID@0800,1700 11/26/15 01/30/20 History 0.1% Ophth Soln] prednisoLONE ACETATE 1% OPHTH 1 drop LEFT EYE BID@0800,1700 11/26/15 01/30/20 History [Pred Forte 1%] Melatonin 3 mg PO HS@2100 05/11/16 01/30/20 History Cholecalciferol [Vitamin D3 (25 3,000 unit PO DAILY@0800 06/30/16 01/30/20 History Mcg = 1000 Iu)] Nitroglycerin Sl Tabs [Nitrostat] 0.4 mg SUBLINGUAL Q5M PRN tab 12/09/16 01/30/20 Rx Losartan Potassium [Cozaar] 50 mg PO BID@0800,1700 01/26/17 01/30/20 History Aspirin 81 mg PO DAILY@0800 03/27/17 01/30/20 History amLODIPine [Norvasc] 5 mg PO DAILY@0800 03/27/17 01/30/20 History Acetaminophen Tab [Tylenol] 500 mg PO BID@0800,1700 01/01/19 01/30/20 History Acetaminophen Tab [Tylenol] 650 mg PO Q4H PRN 01/01/19 01/30/20 History Budesonide-Formot 160-4.5 Mcg 2 puff INHALATION RT-BID@0800,1700 01/01/19 01/30/20 History [Symbicort 160-4.5 Mcg Inhaler] Donepezil [Aricept] 5 mg PO DAILY@1700 01/01/19 01/30/20 History Dorzolamide 2% [Trusopt 2%] 1 drops RIGHT EYE BID@0800,1700 01/01/19 01/30/20 History Escitalopram [Lexapro] 5 mg PO DAILY@0800 01/01/19 01/30/20 History Isosorbide Mononitrate ER [Imdur] 60 mg PO DAILY@0800 01/01/19 01/30/20 History Magnesium Hydroxide [Milk of 2,400 mg PO DAILY PRN 01/01/19 01/30/20 History Magnesia] bisacodyL [Dulcolax] 10 mg RECTAL DAILY PRN 01/01/19 01/30/20 History guaiFENesin SYRUP 100MG/5ML 200 mg PO Q4H PRN 01/01/19 01/30/20 History [Robitussin] rOPINIRole HCL [Requip] 0.5 mg PO HS@2100 01/01/19 01/30/20 History Metoprolol Tartrate [Lopressor] 12.5 mg PO BID@0800,1700 01/14/19 01/30/20 History Gabapentin [Neurontin] 100 mg PO BID@0800,1700 #6 cap 01/19/19 01/30/20 Rx HYDROcodone/APAP 5-325MG [[place] 1 tab PO Q4HR PRN #10 tab 01/19/19 01/30/20 Rx 5-325] HYDROcodone/APAP 5-325MG [[place] 2 tab PO Q4H PRN #10 tab 01/19/19 01/30/20 Rx 5-325] Albuterol Sulfate [Ventolin HFA] 2 puff INHALATION RT-Q6H PRN 01/30/20 01/30/20 History Ascorbic Acid [Vitamin C] 1,000 mg PO DAILY@1700 01/30/20 01/30/20 History Docusate [Colace] 100 mg PO BID@0800,1700 01/30/20 01/30/20 History Ipratropium-Albuterol Nebulize 3 ml INHALATION RT-Q6H PRN 01/30/20 01/30/20 History [Duoneb 0.5 mg-3 mg/3 ml Soln] Mirabegron [Myrbetriq] 25 mg PO DAILY 01/30/20 01/30/20 History Neomycin/Polymyxin B/Dexametha 1 drop LEFT EYE DAILY 01/30/20 01/30/20 History [Maxitrol Ophth Susp] Ondansetron HCl [Zofran] 4 mg PO Q8H PRN 01/30/20 01/30/20 History Zinc 50 mg PO DAILY 01/30/20 01/30/20 History Allergies Allergy/AdvReac Type Severity Reaction Status Date / Time Ufnxtfs-Sgy-Jat Reductase Allergy Unknown Verified 01/30/20 06:55 Inhibitor morphine AdvReac Confusion Verified 01/30/20 06:55 Physical Exam Vitals: Vital Signs Temp Pulse Resp BP Pulse Ox 01/30/20 11:38 75 18 162/63 94 L 01/30/20 09:53 69 18 140/63 100 01/30/20 08:58 86 18 146/61 100 01/30/20 07:34 85 18 132/56 97 01/30/20 06:07 92 22 115/99 97 01/30/20 05:12 98.9 F 94 18 125/90 92 L Intake and Output 01/29/20 01/30/20 01/30/20 22:59 06:59 14:59 Intake Total 50 Balance 50 Intake: Oral 50 Other: # Voids 1 Weight 79.832 kg - Constitutional General appearance: average body habitus, cooperative, disheveled - EENT Eyes: PERRLA - Neck Carotids: bilateral: upstroke normal Thyroid: bilateral: normal size - Respiratory Respiratory: bilateral: diminished - Cardiovascular Rhythm: regular Heart sounds: normal: S1, S2 - Gastrointestinal General gastrointestinal: soft - Integumentary Integumentary: normal turgor - Musculoskeletal Musculoskeletal: generalized weakness Results CBC & Chem 7: 01/30/20 05:31 01/30/20 05:31 Labs: Abnormal Lab Results - Last 24 Hours (Table) 01/30/20 01/30/20 01/30/20 Range/Units 05:31 05:31 05:31 Plt Count 110 L (150-450) k/uL Lymphocytes # 0.6 L (1.0-4.8) k/uL D-Dimer 1.35 H (<0.60) mg/L FEU Carbon Dioxide 21 L (22-30) mmol/L BUN 41 H (7-17) mg/dL Creatinine 2.01 H (0.52-1.04) mg/dL Glucose 126 H (74-99) mg/dL AST 65 H (14-36) U/L Troponin I (0.000-0.034) ng/mL 01/30/20 Range/Units 05:31 Plt Count (150-450) k/uL Lymphocytes # (1.0-4.8) k/uL D-Dimer (<0.60) mg/L FEU Carbon Dioxide (22-30) mmol/L BUN (7-17) mg/dL Creatinine (0.52-1.04) mg/dL Glucose (74-99) mg/dL AST (14-36) U/L Troponin I 3.770 H* (0.000-0.034) ng/mL Assessment and Plan Assessment: Acute covid 19 pneumonia Acute hypoxic respiratory failure Acute exacerbation of congestive heart failure likely acute on chronic diastolic heart failure and systolic heart failure Coronary artery disease COPD Advanced dementia exam is disease Hypertension hypertensive cardiovascular disease Plan: Cardiology consult ID consult Decadron IV in remdesivir Further recommendations pending plan of care as per clinical response of the patient Time with Patient: Greater than 30
--- NOTE | 2020-01-30 14:39 | P.CRDCN ---
History of Present Illness Consult date: 01/30/20 History of present illness: CHIEF COMPLAINT: abnormal troponins HISTORY OF PRESENT ILLNESS: This is a 79-year-old female with with a past medical history significant for hypertension, hyperlipidemia, COPD, coronary artery disease with previous PCI to LAD and circumflex. Patient follows in the office with Dr. Guerra. We have been asked to see the patient in consultation for elevated troponins. Patient is positive for Covid 19. Spoke with nursing who states patient has been resting comfortably in the bed. She is oriented x 1. She has had no complaints of chest pain or pressure. No complaints of shortness of breath. She is on 4L NC with oxygen saturations greater than 92%. DIAGNOSTICS: EKG reveals sinus mechanism with ST depression in V3-V6, similiar to previous EKG. However, she has new ST depression in inferior leads. Chest xray increased interstitial opacities in the right lower lobe. VQ scan: Negative for pulmonary emboli Laboratory data: WBC 4.9. Hemoglobin 14.8. Platelet count 110. D-dimer 1.35. Sodium 1:30. Potassium 4.1. BUN 41. Creatinine 2.01. Lactic acid 0.9. troponin 3.770. BNP 3860. Current home cardiac medications include metoprolol 12.5 mg twice a day, Cozaar 50mg twice a day, Norvasc 5 mg daily, Plavix 75 mg daily, Imdur 60 mg daily, aspirin 81 mg daily REVIEW OF SYSTEMS: Thorough review of systems not completed secondary to limited destin luation/examination and due to Covid19 PHYSICAL EXAM: Thorough physical exam not completed secondary to limited evaluation/examination and due to Covid19 ASSESSMENT: Non-ST elevated myocardial infarction Covid 19 Pneumonia Coronary artery disease with previous PCI to LAD and Circumflex Elevated d-dimer, VQ scan negative for PE Acute on chronic kidney disease COPD Hypertension Hyperlipidemia Dementia PLAN: Obtain 2-D echo to assess cardiac structure and function Resume home medications Trend troponins Continue IV heparin Hold Cozaar secondary to acute kidney injury Increase metoprolol to 25 mg twice a day Further recommendations pending patient course Nurse practitioner note has been reviewed by physician. Signing provider agrees with the documented findings, assessment, and plan of care. 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 macular degeneration, emphysema, previous coronary intervention and stenting of the LAD in November 2016 Last Myocardial Infarction Date:: 12/06/2016 History of Any Multi-Drug Resistant Organisms: None Reported Past Surgical History: Appendectomy, Cholecystectomy, Heart Catheterization With Stent, Hysterectomy, Joint Replacement, Tonsillectomy Additional Past Surgical History / Comment(s): Right knee replacement, right cataract surgery, heart cath with stents x 2 , 11/2016 Past Anesthesia/Blood Transfusion Reactions: No Reported Reaction Date of Last Stent Placement:: 12/06/2016 Past Psychological History: Anxiety, Depression Smoking Status: Unknown if ever smoked Past Alcohol Use History: None Reported Past Drug Use History: None Reported - Past Family History Mother Family Medical History: Congestive Heart Failure (CHF) Father Family Medical History: COPD Additional Family Medical History / Comment(s): empyhsema, blindness. O2 dependent Medications and Allergies Home Medications Medication Instructions Recorded Confirmed Type Clopidogrel [Plavix] 75 mg PO DAILY@0800 09/29/13 01/30/20 History Brimonidine Tartrate [Alphagan P 1 drop RIGHT EYE BID@0800,1700 11/26/15 01/30/20 History 0.1% Ophth Soln] prednisoLONE ACETATE 1% OPHTH 1 drop LEFT EYE BID@0800,1700 11/26/15 01/30/20 History [Pred Forte 1%] Melatonin 3 mg PO HS@2100 05/11/16 01/30/20 History Cholecalciferol [Vitamin D3 (25 3,000 unit PO DAILY@0800 06/30/16 01/30/20 History Mcg = 1000 Iu)] Nitroglycerin Sl Tabs [Nitrostat] 0.4 mg SUBLINGUAL Q5M PRN tab 12/09/16 01/30/20 Rx Losartan Potassium [Cozaar] 50 mg PO BID@0800,1700 01/26/17 01/30/20 History Aspirin 81 mg PO DAILY@0800 03/27/17 01/30/20 History amLODIPine [Norvasc] 5 mg PO DAILY@0800 03/27/17 01/30/20 History Acetaminophen Tab [Tylenol] 500 mg PO BID@0800,1700 01/01/19 01/30/20 History Acetaminophen Tab [Tylenol] 650 mg PO Q4H PRN 01/01/19 01/30/20 History Budesonide-Formot 160-4.5 Mcg 2 puff INHALATION RT-BID@0800,1700 01/01/19 01/30/20 History [Symbicort 160-4.5 Mcg Inhaler] Donepezil [Aricept] 5 mg PO DAILY@1700 01/01/19 01/30/20 History Dorzolamide 2% [Trusopt 2%] 1 drops RIGHT EYE BID@0800,1700 01/01/19 01/30/20 History Escitalopram [Lexapro] 5 mg PO DAILY@0800 01/01/19 01/30/20 History Isosorbide Mononitrate ER [Imdur] 60 mg PO DAILY@0800 01/01/19 01/30/20 History Magnesium Hydroxide [Milk of 2,400 mg PO DAILY PRN 01/01/19 01/30/20 History Magnesia] bisacodyL [Dulcolax] 10 mg RECTAL DAILY PRN 01/01/19 01/30/20 History guaiFENesin SYRUP 100MG/5ML 200 mg PO Q4H PRN 01/01/19 01/30/20 History [Robitussin] rOPINIRole HCL [Requip] 0.5 mg PO HS@2100 01/01/19 01/30/20 History Metoprolol Tartrate [Lopressor] 12.5 mg PO BID@0800,1700 01/14/19 01/30/20 History Gabapentin [Neurontin] 100 mg PO BID@0800,1700 #6 cap 01/19/19 01/30/20 Rx HYDROcodone/APAP 5-325MG [[place] 1 tab PO Q4HR PRN #10 tab 01/19/19 01/30/20 Rx 5-325] HYDROcodone/APAP 5-325MG [[place] 2 tab PO Q4H PRN #10 tab 01/19/19 01/30/20 Rx 5-325] Albuterol Sulfate [Ventolin HFA] 2 puff INHALATION RT-Q6H PRN 01/30/20 01/30/20 History Ascorbic Acid [Vitamin C] 1,000 mg PO DAILY@1700 01/30/20 01/30/20 History Docusate [Colace] 100 mg PO BID@0800,1700 01/30/20 01/30/20 History Ipratropium-Albuterol Nebulize 3 ml INHALATION RT-Q6H PRN 01/30/20 01/30/20 History [Duoneb 0.5 mg-3 mg/3 ml Soln] Mirabegron [Myrbetriq] 25 mg PO DAILY 01/30/20 01/30/20 History Neomycin/Polymyxin B/Dexametha 1 drop LEFT EYE DAILY 01/30/20 01/30/20 History [Maxitrol Ophth Susp] Ondansetron HCl [Zofran] 4 mg PO Q8H PRN 01/30/20 01/30/20 History Zinc 50 mg PO DAILY 01/30/20 01/30/20 History Allergies Allergy/AdvReac Type Severity Reaction Status Date / Time Xvhcptz-Whw-Ubx Reductase Allergy Unknown Verified 01/30/20 06:55 Inhibitor morphine AdvReac Confusion Verified 01/30/20 06:55 Physical Exam Vitals: Vital Signs Temp Pulse Resp BP Pulse Ox 01/30/20 11:38 75 18 162/63 94 L 01/30/20 09:53 69 18 140/63 100 01/30/20 08:58 86 18 146/61 100 01/30/20 07:34 85 18 132/56 97 01/30/20 06:07 92 22 115/99 97 01/30/20 05:12 98.9 F 94 18 125/90 92 L Intake and Output 01/29/20 01/30/20 01/30/20 22:59 06:59 14:59 Intake Total 145.8 Balance 145.8 Intake: Intake, IV Titration 95.8 Amount Heparin Sod,Pork in 0.45% 95.8 NaCl 25,000 unit In 0.45 % NaCl 1 250ml.bag @ 18 UNITS/KG/HR 14.37 mls/hr IV .[id number] [facility] Rx#: [id number] Oral 50 Other: # Voids 1 Weight 79.832 kg Results 01/30/20 05:31 01/30/20 05:31 Cardiac Enzymes 01/30/20 01/30/20 Range/Units 05:31 05:31 AST 65 H (14-36) U/L Troponin I 3.770 H* (0.000-0.034) ng/mL Coagulation 01/30/20 01/30/20 Range/Units 05:31 12:50 PT 10.1 (9.0-12.0) sec APTT 23.6 >200.0 H* (22.0-30.0) sec CBC 01/30/20 Range/Units 05:31 WBC 4.9 (3.8-10.6) k/uL RBC 4.75 (3.80-5.40) m/uL Hgb 14.8 (11.4-16.0) gm/dL Hct 43.3 (34.0-46.0) % Plt Count 110 L (150-450) k/uL Comprehensive Metabolic Panel 01/30/20 Range/Units 05:31 Sodium 138 (137-145) mmol/L Potassium 4.1 (3.5-5.1) mmol/L Chloride 106 (98-107) mmol/L Carbon Dioxide 21 L (22-30) mmol/L BUN 41 H (7-17) mg/dL Creatinine 2.01 H (0.52-1.04) mg/dL Glucose 126 H (74-99) mg/dL Calcium 8.7 (8.4-10.2) mg/dL AST 65 H (14-36) U/L ALT 27 (4-34) U/L Alkaline Phosphatase 54 (38-126) U/L Total Protein 6.9 (6.3-8.2) g/dL Albumin 3.9 (3.5-5.0) g/dL Current Medications Generic Name Dose Route Start Last Admin Trade Name Freq PRN Reason Stop Dose Admin Albuterol/Ipratropium 3 ml 01/30/20 06:53 Ipratropium-Albuterol 3 Ml Neb INHALATION RT-Q4H PRN Shortness Of Breath Or Wheezing Dexamethasone Sodium Phosphate 6 mg 01/30/20 09:00 01/30/20 09:58 Dexamethasone Sod Phosphate 10 Mg/Ml 1 Ml Vial IV 6 mg DAILY RAYSHAWN Administration Famotidine 20 mg 01/31/20 09:00 Famotidine 20 Mg/2 Ml Vial IV DAILY RAYSHAWN Heparin Sodium (Porcine) 0 unit 01/30/20 06:42 Heparin Sodium,Porcine 5,000 Unit/Ml 1 Ml Vial IV PER PROTOCOL PRN Low PTT Protocol Heparin Sodium/Sodium Chloride 250 mls @ 14.37 mls/hr 01/30/20 06:45 01/30/20 13:54 25,000 unit/ Sodium Chloride IV 0 units/kg/hr .[id number] RAYSHAWN 0 mls/hr Titration Protocol 18 UNITS/KG/HR Sodium Chloride 1,000 mls @ 20 mls/hr 01/30/20 07:00 01/30/20 07:42 Saline 0.9% IV 20 mls/hr .Q24H RAYSHAWN Administration Naloxone HCl 0.2 mg 01/30/20 06:53 Naloxone 0.4 Mg/Ml 1 Ml Vial IV Q2M PRN Opioid Reversal Intake and Output 01/29/20 01/30/20 01/30/20 22:59 06:59 14:59 Intake Total 145.8 Balance 145.8 Intake: Intake, IV Titration 95.8 Amount Heparin Sod,Pork in 0.45% 95.8 NaCl 25,000 unit In 0.45 % NaCl 1 250ml.bag @ 18 UNITS/KG/HR 14.37 mls/hr IV .[id number] RAYSHAWN Rx#: [id number] Oral 50 Other: # Voids 1 Weight 79.832 kg 01/30/20 05:31 01/30/20 05:31
[2020-01-30] MEDS ORDERED: METOPROLOL TARTRATE 12.5 MG TAB PO SCH (17:00)
[2020-01-30] MEDS: METOPROLOL TARTRATE 25 MG TAB PO SCH (17:15)
[2020-01-30 20:12] LABS: Basophils % (A) 1 %; Eosinophils % (A) 1 %; HCT 40.7 % (34.0-46.0); HGB 13.7 gm/dL (11.4-16.0); Lymphocytes # (A) 0.3 k/uL (1.0-4.8); Lymphocytes % (A) 9 %; MCH 31.3 pg (25.0-35.0); MCHC 33.8 g/dL (31.0-37.0); MCV 92.6 fL (80.0-100.0); Mean Platelet Volume 7.7; Monocytes # (A) 0.1 k/uL (0-1.0); Monocytes % (A) 4 %; Neutrophils # (A) 2.8 k/uL (1.3-7.7); Neutrophils % (A) 86 %; Platelet Count 104 k/uL (150-450); RBC 4.39 m/uL (3.80-5.40); RDW 14.5 % (11.5-15.5); WBC 3.3 k/uL (3.8-10.6)
[2020-01-30] MEDS ORDERED: REMDESIVIR 200 MG in SODIUM CHLORIDE 0.9% 250 ML IVPB ONE (23:00)
--- NOTE | 2020-01-30 23:49 | CONS ---
CONSULTATION DATE OF SERVICE: 01/30/2020 REASON FOR FOLLOWUP: COVID-19 infection. HISTORY OF PRESENT ILLNESS: The patient is an 79 -year-old female who is a long-term resident at [facility]. The patient did have underlying dementia. Not a very good historian. Apparently the patient did have a negative Covid test on January 23, 2020. The patient was complaining of weakness and fatigue on 01/31/2020 which was yesterday. The patient did have a rapid Covid test which came back positive. Early in the morning, the patient was complaining of shortness of breath with O2 sats of 86% on room air. The patient did have temperature of 100.9 degrees Fahrenheit for which the patient was sent to [facility] ER for further evaluation. On arrival to the ER, the patient did have a chest x-ray which shows evidence of increased interstitial density in the right lower lobe, correlate with edema or infectious process. The patient also has a fever of 100 degrees Fahrenheit. She was saturating 92% initially on room air, currently 96% on 4 L nasal cannula. The patient did have a normal white count with evidence of lymphopenia and elevated D-dimer. Creatinine was 2.01, AST 65. Troponin was also elevated. The patient has been admitted to the hospital. Currently on IV heparin because of elevated troponin, is also on Dexamethasone. Infectious Disease was consulted for further management of underlying Covid-19. Most of the information has been obtained from review of chart and talking to the nursing staff as the patient herself is not a very good historian. But when asked specifically denies having any chest pain. Did have some cough. No vomiting and no diarrhea. REVIEW OF SYSTEMS: Positive points have been mentioned in HPI. Complete review of systems could not be obtained because of underlying dementia. PAST MEDICAL HISTORY: Asthma, COPD, CVA, TIA, hypertension, hyperlipidemia, IA, and dementia. PAST SURGICAL HISTORY: Appendectomy, cholecystectomy, heart catheterization and stent, hysterectomy, tonsillectomy, right knee replacement. SOCIAL HISTORY: No history of previous smoking, drinking or drug use. A long-term resident. FAMILY HISTORY: Mother with congestive heart failure. Father history of COPD. ALLERGIES: TO STATINS AND MORPHINE. MEDICATIONS: Include the patient is currently on: Ventolin, Norvasc, aspirin, Plavix, Decadron, Pepcid, heparin per weight based protocol, Imdur, Lopressor, Narcan and . PHYSICAL EXAMINATION: Blood pressure is 151/67, pulse of 73, temperature 98.3 she is 96% on 4 L nasal cannula. General description is an elderly female lying in bed in no distress. No tachypnea or accessory muscle of respiration use. HEENT: Shows slight pallor. No scleral icterus. Oral mucous membrane is dry. NECK: Trachea central. No thyromegaly. LUNGS unlabored breathing with decreased intensity of breath sounds. No wheeze. HEART: S1, S2. Regular rate and rhythm. ABDOMEN: Soft, no tenderness. No guarding. No rigidity. EXTREMITIES: No edema of the feet. SKIN examination: No rash or mass palpable. NEUROLOGICAL: The patient is awake, alert and oriented times three. Mood and affect normal. LABS: Hemoglobin is 13.8, white count 3.3 with evidence of lymphopenia. D-dimer is 1.35. BUN of 41, creatinine 2.01. Electrolytes have been normal. AST 65. Troponin elevated. Chest x-ray report as mentioned above. DIAGNOSTIC IMPRESSION AND PLAN: Patient admitted to the hospital with acute shortness of breath, fever in this patient who did have lymphopenia, bilateral likely secondary to acute COVID-19 pneumonia, symptom onset was yesterday and evidence of hypoxemia. PLAN: 1. The patient started on Remdesivir per protocol. 2. Currently on IV heparin and dexamethasone. 3. We will add zinc and vitamin C. 4. Droplet isolation and respiratory support. 5. We will follow on clinical condition and culture to further adjust medication if needed. Thank you for this consultation. We will follow this patient along with you. MMODL / IJN: [id number] /
[2020-01-31] MEDS: HEPARIN SOD,PORK IN 0.45% NACL 25,000 UNIT in 0.45% NACL 1 250ML.BAG IV SCH ×2 (02:06→16:42)
[2020-01-31 04:56] LABS: Basophils % (A) 0 %; Eosinophils % (A) 0 %; HCT 38.8 % (34.0-46.0); HGB 13.1 gm/dL (11.4-16.0); Lymphocytes # (A) 0.5 k/uL (1.0-4.8); Lymphocytes % (A) 14 %; MCH 30.8 pg (25.0-35.0); MCHC 33.8 g/dL (31.0-37.0); MCV 91.2 fL (80.0-100.0); Mean Platelet Volume 7.7; Monocytes # (A) 0.2 k/uL (0-1.0); Monocytes % (A) 5 %; Neutrophils % (A) 80 %; Platelet Count 101 k/uL (150-450); RBC 4.25 m/uL (3.80-5.40); RDW 14.3 % (11.5-15.5); WBC 3.8 k/uL (3.8-10.6)
[2020-01-31 05:40] LABS: Calcium 8.6 mg/dL (8.4-10.2); Potassium 4.6 mmol/L (3.5-5.1)
[2020-01-31] MEDS: DEXAMETHASONE SOD PHOSPHATE 10 MG/ML 1 ML VIAL IV SCH (08:29)
[2020-01-31] MEDS: ZINC SULFATE 220 MG CAP PO SCH (08:29)
[2020-01-31] MEDS: ASPIRIN 81 MG PO SCH (08:30)
[2020-01-31] MEDS: ASCORBIC ACID 500 MG TAB PO SCH (08:30)
[2020-01-31] MEDS: ISOSORBIDE MONONITRATE ER 60 MG TAB.ER.24H PO SCH (08:30)
[2020-01-31] MEDS: SODIUM CHLORIDE 0.9% 1,000 ML IV SCH (08:30)
[2020-01-31] MEDS: amLODIPine 5 MG TAB PO SCH (08:30)
[2020-01-31] MEDS: METOPROLOL TARTRATE 25 MG TAB PO SCH ×2 (08:30→16:45)
[2020-01-31] MEDS: CLOPIDOGREL 75 MG TAB PO SCH (08:30)
[2020-01-31] MEDS: ALBUTEROL HFA INHALER INHALATION SCH ×4 (08:42→21:22)
[2020-01-31] MEDS: TIOTROPIUM 2.5 MCG INHALER INHALATION SCH (08:42)
[2020-01-31] MEDS ORDERED: FAMOTIDINE 20 MG/2 ML VIAL IV SCH (09:00)
--- NOTE | 2020-01-31 10:00 | ECHOF ---
Referral Reason:LV function, elevated troponins MEASUREMENTS -------- HEIGHT: 170.2 cm WEIGHT: 79.8 kg BP: 162/63 RVIDd: 3.9 cm (< 3.3) IVSd: 1.7 cm (0.6 - 1.1) LVIDd: 3.7 cm (3.9 - 5.3) LVPWd: 1.7 cm (0.6 - 1.1) IVSs: 1.9 cm LVIDs: 1.4 cm LVPWs: 2.3 cm LAESV Index (A-L): 19.39 ml/m Ao Diam: 3.4 cm (2.0 - 3.7) AV Cusp: 2.2 cm (1.5 - 2.6) MV EXCURSION: 14.577 mm (> 18.000) MV EF SLOPE: 38 mm/s (70 - 150) EPSS: 1.4 cm MV E Piotr: 0.76 m/s MV DecT: 170 ms MV A Piotr: 1.14 m/s MV E/A Ratio: 0.67 RAP: 5.00 mmHg RVSP: 35.45 mmHg FINDINGS -------- Sinus rhythm. This was a technically adequate study. The left ventricular size is normal. There is severe concentric left ventricular hypertrophy. Ove rall left ventricular systolic function is normal with, an EF between 55 - 60 %. The right ventricle is moderately enlarged. Normal LA size by volume 22+/-6 ml/m2. The right atrial size is normal. Interatrial and interventricular septum intact. The aortic valve is trileaflet and appears structurally normal. There is no evidence of aortic regu rgitation. There is no evidence of aortic stenosis. There is trace to mild mitral regurgitation. Mild tricuspid regurgitation present. There is mild pulmonary hypertension. The right ventricular systolic pressure, as measured by Doppler, is 35.45mmHg. There is no pulmonic regurgitation present. The aortic root size is normal. IVC Not well visulized. There is no pericardial effusion. CONCLUSIONS -------- 1. The left ventricular size is normal. 2. There is severe concentric left ventricular hypertrophy. 3. Overall left ventricular systolic function is normal with, an EF between 55 - 60 %. 4. The right ventricle is moderately enlarged. 5. There is trace to mild mitral regurgitation. 6. Mild tricuspid regurgitation present. 7. There is mild pulmonary hypertension. 8. The right ventricular systolic pressure, as measured by Doppler, is 35.45mmHg. RIGHT OF WAY WORKER: Eden Benjamin RDCS
--- NOTE | 2020-01-31 12:52 | P.PN ---
Subjective Progress Note Date: 01/31/20 Principal diagnosis: Acute covid 19 pneumonia Acute hypoxic respiratory failure Acute exacerbation of congestive heart failure likely acute on chronic diastolic heart failure and systolic heart failure Coronary artery disease COPD Advanced dementia exam is disease Hypertension hypertensive cardiovascular disease 01/31/2020, patient seen eval examined during the rounds remains confused on 4 L oxygen, denies any chest pain, cardiology is seeing for elevated troponin, on IV heparin, renal functions have improved today This is a 79-year-old female with the history of shortness of breath patient has advanced dementia has well she is a resident of [facility], she was transferred over here for evaluation of cold with 19 pneumonia as well as hypoxia related to that during my evaluation patient somnolent but arousable on 5 L nasal cannula, it is stable, review of the data revealed that patient significant history of COPD also prior history of pneumothorax, legally blind, history of macular degeneration, patient has a stent placed in LAD, Objective - Vital Signs Vital signs: Vital Signs Temp 98.8 F 01/30/20 23:23 Pulse 65 01/31/20 03:12 Resp 20 01/31/20 03:12 BP 146/88 01/31/20 03:12 Pulse Ox 94 L 01/31/20 03:12 Intake & Output 01/30/20 01/31/20 01/31/20 18:59 06:59 18:59 Intake Total 235.8 152.921 Balance 235.8 152.921 Weight 79.832 kg Intake: Intake, IV Titration 95.8 152.921 Amount Heparin Sod,Pork in 0.45% 95.8 152.921 NaCl 25,000 unit In 0.45 % NaCl 1 250ml.bag @ 18 UNITS/KG/HR 14.37 mls/hr IV .[id number] [facility] Rx#: [id number] Oral 140 Other: Voiding Method Diaper Diaper Incontinent # Voids 1 10 - Exam - Constitutional General appearance: average body habitus, cooperative, disheveled - EENT Eyes: PERRLA - Neck Carotids: bilateral: upstroke normal Thyroid: bilateral: normal size - Respiratory Respiratory: bilateral: diminished - Cardiovascular Rhythm: regular Heart sounds: normal: S1, S2 - Gastrointestinal General gastrointestinal: soft - Integumentary Integumentary: normal turgor - Musculoskeletal Musculoskeletal: generalized weakness - Labs CBC & Chem 7: 01/31/20 04:14 01/31/20 04:14 Labs: Abnormal Lab Results - Last 24 Hours (Table) 01/30/20 01/30/20 01/30/20 Range/Units 12:50 15:06 17:52 WBC (3.8-10.6) k/uL Plt Count (150-450) k/uL Lymphocytes # (1.0-4.8) k/uL APTT >200.0 H* (22.0-30.0) sec Chloride (98-107) mmol/L BUN (7-17) mg/dL Creatinine (0.52-1.04) mg/dL Troponin I 2.980 H* 2.640 H* (0.000-0.034) ng/mL 01/30/20 01/30/20 01/31/20 Range/Units 19:50 19:50 04:14 WBC 3.3 L (3.8-10.6) k/uL Plt Count 104 L 101 L (150-450) k/uL Lymphocytes # 0.3 L 0.5 L (1.0-4.8) k/uL APTT 78.5 H (22.0-30.0) sec Chloride (98-107) mmol/L BUN (7-17) mg/dL Creatinine (0.52-1.04) mg/dL Troponin I (0.000-0.034) ng/mL 01/31/20 01/31/20 01/31/20 Range/Units 04:14 04:14 11:27 WBC (3.8-10.6) k/uL Plt Count (150-450) k/uL Lymphocytes # (1.0-4.8) k/uL APTT 92.9 H 60.7 H (22.0-30.0) sec Chloride 110 H (98-107) mmol/L BUN 40 H (7-17) mg/dL Creatinine 1.36 H (0.52-1.04) mg/dL Troponin I (0.000-0.034) ng/mL Assessment and Plan Assessment: Non-ST segment elevated [place] Acute kidney injury Acute covid 19 pneumonia Acute hypoxic respiratory failure Mild pulmonary hypertension Acute exacerbation of congestive heart failure likely acute on chronic diastolic heart failure and systolic heart failure Coronary artery disease COPD Advanced dementia exam is disease Hypertension hypertensive cardiovascular disease Plan: Cardiology consult ID consult Decadron IV remdesivir Further recommendations pending plan of care as per clinical response of the patient Time with Patient: Greater than 30
--- NOTE | 2020-01-31 15:30 | P.PN ---
Subjective Progress Note Date: 01/31/20 CHIEF COMPLAINT: abnormal troponins HISTORY OF PRESENT ILLNESS: 01/30/2020 This is a 79-year-old female with with a past medical history significant for hypertension, hyperlipidemia, COPD, coronary artery disease with previous PCI to LAD and circumflex. Patient follows in the office with Dr. Guerra. We have been asked to see the patient in consultation for elevated troponins. Patient is positive for Covid 19. Spoke with nursing who states patient has been resting comfortably in the bed. She is oriented x 1. She has had no complaints of chest pain or pressure. No complaints of shortness of breath. She is on 4L NC with oxygen saturations greater than 92%.EKG reveals sinus mechanism with ST depression in V3-V6, similiar to previous EKG. However, she has new ST depression in inferior leads. Chest xray increased interstitial opacities in the right lower lobe. VQ scan: Negative for pulmonary emboli. Laboratory data: WBC 4.9. Hemoglobin 14.8. Platelet count 110. D-dimer 1.35. Sodium 1:30. Potassium 4.1. BUN 41. Creatinine 2.01. Lactic acid 0.9. troponin 3.770. BNP 3860. Current home cardiac medications include metoprolol 12.5 mg twice a day, Cozaar 50mg twice a day, Norvasc 5 mg daily, Plavix 75 mg daily, Imdur 60 mg daily, aspirin 81 mg daily 01/31/2020 Echocardiogram completed revealed ejection fraction 55-60%, trace to mild mitral regurgitation, mild tricuspid regurgitation, and mild pulmonary hypertension. Troponin 3.770, 2.980, and 2.640 PHYSICAL EXAM: Thorough physical exam not completed secondary to limited evaluation/examination and due to Covid19 ASSESSMENT: Non-ST elevated myocardial infarction Covid 19 Pneumonia Coronary artery disease with previous PCI to LAD and Circumflex Elevated d-dimer, VQ scan negative for PE Acute on chronic kidney disease COPD Hypertension Hyperlipidemia Dementia PLAN: Continue IV heparin for today Continue to hold Cozaar secondary to acute kidney injury Continue aspirin, plavix, imdur, and metoprolol Patient has allergy to statins Continue medical management at this time. Further recommendations pending patient course Nurse practitioner note has been reviewed by physician. Signing provider agrees with the documented findings, assessment, and plan of care. Objective - Vital Signs Vital signs: Vital Signs Temp 101 F H 01/31/20 12:00 Pulse 80 01/31/20 12:00 Resp 20 01/31/20 12:00 BP 141/65 01/31/20 12:00 Pulse Ox 91 L 01/31/20 12:00 Intake & Output 01/30/20 01/31/20 01/31/20 18:59 06:59 18:59 Intake Total 235.8 152.921 120 Balance 235.8 152.921 120 Weight 79.832 kg Intake: Intake, IV Titration 95.8 152.921 Amount Heparin Sod,Pork in 0.45% 95.8 152.921 NaCl 25,000 unit In 0.45 % NaCl 1 250ml.bag @ 18 UNITS/KG/HR 14.37 mls/hr IV .[id number] [facility] Rx#: [id number] Oral 140 120 Other: Voiding Method Diaper Diaper Diaper Incontinent Incontinent # Voids 1 10 1 - Labs CBC & Chem 7: 01/31/20 04:14 01/31/20 04:14 Labs: Abnormal Lab Results - Last 24 Hours (Table) 01/30/20 01/30/20 01/30/20 Range/Units 15:06 17:52 19:50 WBC 3.3 L (3.8-10.6) k/uL Plt Count 104 L (150-450) k/uL Lymphocytes # 0.3 L (1.0-4.8) k/uL APTT (22.0-30.0) sec Chloride (98-107) mmol/L BUN (7-17) mg/dL Creatinine (0.52-1.04) mg/dL Troponin I 2.980 H* 2.640 H* (0.000-0.034) ng/mL 01/30/20 01/31/20 01/31/20 Range/Units 19:50 04:14 04:14 WBC (3.8-10.6) k/uL Plt Count 101 L (150-450) k/uL Lymphocytes # 0.5 L (1.0-4.8) k/uL APTT 78.5 H (22.0-30.0) sec Chloride 110 H (98-107) mmol/L BUN 40 H (7-17) mg/dL Creatinine 1.36 H (0.52-1.04) mg/dL Troponin I (0.000-0.034) ng/mL 01/31/20 01/31/20 Range/Units 04:14 11:27 WBC (3.8-10.6) k/uL Plt Count (150-450) k/uL Lymphocytes # (1.0-4.8) k/uL APTT 92.9 H 60.7 H (22.0-30.0) sec Chloride (98-107) mmol/L BUN (7-17) mg/dL Creatinine (0.52-1.04) mg/dL Troponin I (0.000-0.034) ng/mL
--- NOTE | 2020-01-31 22:44 | PN ---
PROGRESS NOTE DATE OF SERVICE: 01/31/2020 REASON FOR FOLLOWUP: COVID-19 infection. INTERVAL HISTORY: The patient did spike another fever of 101 degrees Fahrenheit this afternoon. The patient has been afebrile since then. The patient has been breathing comfortably, currently with nasal cannula oxygen. Denies having any chest pain. She did have a cough, not bringing up any sputum. No abdominal pain or diarrhea. PHYSICAL EXAMINATION: Blood pressure 149/67 with a pulse of 77, temperature 101. She is 94% on 5 L nasal cannula. General description is an elderly female lying in bed in no distress. RESPIRATORY SYSTEM: Unlabored breathing with decreased intensity of breath sounds. No wheeze. HEART: S1, S2. Regular rate and rhythm. ABDOMEN: Soft. No tenderness. LABS: Hemoglobin is 13.1, white count 3.8. BUN of 40, creatinine 1.36. DIAGNOSTIC IMPRESSION AND PLAN: Patient with acute COVID-19 infection in this patient currently on remdesivir, dexamethasone, heparin per protocol and zinc; to continue along with respiratory support and monitor clinical course closely. MMODL / IJN: [id number] /
[2020-01-31] MEDS: REMDESIVIR 100 MG in SODIUM CHLORIDE 0.9% 250 ML IVPB SCH (23:03)
[2020-02-01 06:14] LABS: Glucose,Whole Blood 106 mg/dL (75-99)
[2020-02-01 08:11] LABS: Basophils % (A) 0 %; Eosinophils % (A) 0 %; HCT 35.3 % (34.0-46.0); HGB 12.1 gm/dL (11.4-16.0); Lymphocytes # (A) 0.5 k/uL (1.0-4.8); Lymphocytes % (A) 13 %; MCHC 34.3 g/dL (31.0-37.0); MCV 90.2 fL (80.0-100.0); Mean Platelet Volume 7.9; Monocytes # (A) 0.2 k/uL (0-1.0); Monocytes % (A) 5 %; Neutrophils # (A) 3.4 k/uL (1.3-7.7); Neutrophils % (A) 80 %; Platelet Count 108 k/uL (150-450); Poikilocytosis Slight; RBC 3.91 m/uL (3.80-5.40); RDW 14.3 % (11.5-15.5); WBC 4.3 k/uL (3.8-10.6)
[2020-02-01] MEDS: ALBUTEROL HFA INHALER INHALATION SCH ×4 (08:35→21:40)
[2020-02-01] MEDS: TIOTROPIUM 2.5 MCG INHALER INHALATION SCH (08:38)
[2020-02-01 08:55] LABS: Calcium 8.8 mg/dL (8.4-10.2)
[2020-02-01] MEDS: ISOSORBIDE MONONITRATE ER 60 MG TAB.ER.24H PO SCH (09:20)
[2020-02-01] MEDS: CLOPIDOGREL 75 MG TAB PO SCH (09:20)
[2020-02-01] MEDS: ASPIRIN 81 MG PO SCH (09:20)
[2020-02-01] MEDS: amLODIPine 5 MG TAB PO SCH (09:20)
[2020-02-01] MEDS: DEXAMETHASONE SOD PHOSPHATE 10 MG/ML 1 ML VIAL IV SCH (09:20)
[2020-02-01] MEDS: ZINC SULFATE 220 MG CAP PO SCH (09:20)
[2020-02-01] MEDS: FAMOTIDINE 20 MG TAB PO SCH (09:20)
[2020-02-01] MEDS: METOPROLOL TARTRATE 25 MG TAB PO SCH ×2 (09:21→16:54)
[2020-02-01] MEDS: ASCORBIC ACID 500 MG TAB PO SCH (09:21)
[2020-02-01] MEDS ORDERED: HYDROcodone/APAP 5-325MG 1 EACH TAB PO PRN (10:35)
[2020-02-01] MEDS ORDERED: MAGNESIUM HYDROXIDE 2,400 MG/10 ML CUP PO PRN (10:35)
[2020-02-01] MEDS ORDERED: NITROGLYCERIN SL TABS 0.4 MG TAB SUBLINGUAL PRN (10:35)
[2020-02-01] MEDS ORDERED: guaiFENesin SYRUP 100MG/5ML 200 MG/10 ML CUP PO PRN (10:35)
[2020-02-01] MEDS ORDERED: ONDANSETRON 4 MG TAB PO PRN (10:35)
[2020-02-01] MEDS ORDERED: bisacodyL 10 MG SUPP RECTAL PRN (10:35)
[2020-02-01] MEDS ORDERED: IPRATROPIUM-ALBUTEROL 3 ML NEB INHALATION PRN (10:35)
[2020-02-01] MEDS ORDERED: ACETAMINOPHEN TAB 325 MG TAB PO PRN (10:35)
--- NOTE | 2020-02-01 12:34 | P.PN ---
Subjective Progress Note Date: 02/01/20 Principal diagnosis: Acute covid 19 pneumonia Acute hypoxic respiratory failure Acute exacerbation of congestive heart failure likely acute on chronic diastolic heart failure and systolic heart failure Coronary artery disease COPD Advanced dementia exam is disease Hypertension hypertensive cardiovascular disease 02/01/2020, patient seen and evaluated examined during the rounds labs reviewed medications reviewed, remains on 6 L oxygen short of breath she has a corn a virus infection has been on usual therapy for that tolerating well 01/31/2020, patient seen eval examined during the rounds remains confused on 4 L oxygen, denies any chest pain, cardiology is seeing for elevated troponin, on IV heparin, renal functions have improved today This is a 79-year-old female with the history of shortness of breath patient has advanced dementia has well she is a resident of [facility], she was transferred over here for evaluation of cold with 19 pneumonia as well as hypoxia related to that during my evaluation patient somnolent but arousable on 5 L nasal cannula, it is stable, review of the data revealed that patient significant history of COPD also prior history of pneumothorax, legally blind, history of macular degeneration, patient has a stent placed in LAD, Objective - Vital Signs Vital signs: Vital Signs Temp 97.8 F 02/01/20 08:00 Pulse 66 02/01/20 12:00 Resp 20 02/01/20 12:00 BP 120/63 02/01/20 12:00 Pulse Ox 90 L 02/01/20 12:00 Intake & Output 01/31/20 02/01/20 02/01/20 18:59 06:59 18:59 Intake Total 120 Balance 120 Weight 78 kg Intake: Oral 120 Other: Voiding Method Diaper Diaper Diaper Incontinent Incontinent Incontinent # Voids 1 1 - Exam - Constitutional General appearance: average body habitus, cooperative, disheveled - EENT Eyes: PERRLA - Neck Carotids: bilateral: upstroke normal Thyroid: bilateral: normal size - Respiratory Respiratory: bilateral: diminished - Cardiovascular Rhythm: regular Heart sounds: normal: S1, S2 - Gastrointestinal General gastrointestinal: soft - Integumentary Integumentary: normal turgor - Musculoskeletal Musculoskeletal: generalized weakness - Labs CBC & Chem 7: 02/01/20 07:16 02/01/20 07:16 Labs: Abnormal Lab Results - Last 24 Hours (Table) 12/02/01/20 02/01/20 Range/Units 23:41 05:56 07:16 Plt Count 108 L (150-450) k/uL Lymphocytes # 0.5 L (1.0-4.8) k/uL APTT 53.4 H (22.0-30.0) sec Chloride (98-107) mmol/L Carbon Dioxide (22-30) mmol/L BUN (7-17) mg/dL Creatinine (0.52-1.04) mg/dL Glucose (74-99) mg/dL POC Glucose (mg/dL) 106 H (75-99) mg/dL 02/01/20 Range/Units 07:16 Plt Count (150-450) k/uL Lymphocytes # (1.0-4.8) k/uL APTT (22.0-30.0) sec Chloride 112 H (98-107) mmol/L Carbon Dioxide 21 L (22-30) mmol/L BUN 57 H (7-17) mg/dL Creatinine 1.76 H (0.52-1.04) mg/dL Glucose 107 H (74-99) mg/dL POC Glucose (mg/dL) (75-99) mg/dL Assessment and Plan Assessment: Non-ST segment elevated [place] Acute kidney injury Acute covid 19 pneumonia Acute hypoxic respiratory failure Mild pulmonary hypertension Acute exacerbation of congestive heart failure likely acute on chronic diastolic heart failure and systolic heart failure Coronary artery disease COPD Advanced dementia exam is disease Hypertension hypertensive cardiovascular disease Plan: Cardiology consult ID consult Decadron IV remdesivir Further recommendations pending plan of care as per clinical response of the patient Time with Patient: Greater than 30
[2020-02-01 12:58] LABS: Glucose,Whole Blood 264 mg/dL (75-99)
--- NOTE | 2020-02-01 14:04 | P.PN ---
Subjective Progress Note Date: 02/01/20 CHIEF COMPLAINT: abnormal troponins HISTORY OF PRESENT ILLNESS: 01/30/2020 This is a 79-year-old female with with a past medical history significant for hypertension, hyperlipidemia, COPD, coronary artery disease with previous PCI to LAD and circumflex. Patient follows in the office with Dr. Guerra. We have been asked to see the patient in consultation for elevated troponins. Patient is positive for Covid 19. Spoke with nursing who states patient has been resting comfortably in the bed. She is oriented x 1. She has had no complaints of chest pain or pressure. No complaints of shortness of breath. She is on 4L NC with oxygen saturations greater than 92%.EKG reveals sinus mechanism with ST depression in V3-V6, similiar to previous EKG. However, she has new ST depression in inferior leads. Chest xray increased interstitial opacities in the right lower lobe. VQ scan: Negative for pulmonary emboli. Laboratory data: WBC 4.9. Hemoglobin 14.8. Platelet count 110. D-dimer 1.35. Sodium 1:30. Potassium 4.1. BUN 41. Creatinine 2.01. Lactic acid 0.9. troponin 3.770. BNP 3860. Current home cardiac medications include metoprolol 12.5 mg twice a day, Cozaar 50mg twice a day, Norvasc 5 mg daily, Plavix 75 mg daily, Imdur 60 mg daily, aspirin 81 mg daily 01/31/2020 Echocardiogram completed revealed ejection fraction 55-60%, trace to mild mitral regurgitation, mild tricuspid regurgitation, and mild pulmonary hypertension. Troponin 3.770, 2.980, and 2.640 02/01/2020 Patient remains on IV heparin for NSTEMI. Creatinine increased today to 1.76, up from 1.36. Blood pressure stable. Heart rate in the 60s PHYSICAL EXAM: Thorough physical exam not completed secondary to limited evaluation/examination and due to Covid19 ASSESSMENT: Non-ST elevated myocardial infarction Covid 19 Pneumonia Coronary artery disease with previous PCI to LAD and Circumflex Elevated d-dimer, VQ scan negative for PE Acute on chronic kidney disease COPD Hypertension Hyperlipidemia Dementia PLAN: Discontinue IV heparin. Begin heparin subcu. Continue to hold Cozaar secondary to acute kidney injury Continue aspirin, plavix, imdur, and metoprolol Patient has allergy to statins Continue medical management at this time. Further recommendations pending patient course Nurse practitioner note has been reviewed by physician. Signing provider agrees with the documented findings, assessment, and plan of care. Objective - Vital Signs Vital signs: Vital Signs Temp 97.8 F 02/01/20 08:00 Pulse 66 02/01/20 12:00 Resp 20 02/01/20 12:00 BP 120/63 02/01/20 12:00 Pulse Ox 90 L 02/01/20 12:00 Intake & Output 01/31/20 02/01/20 02/01/20 18:59 06:59 18:59 Intake Total 120 Balance 120 Weight 78 kg Intake: Oral 120 Other: Voiding Method Diaper Diaper Diaper Incontinent Incontinent Incontinent # Voids 1 1 - Labs CBC & Chem 7: 02/01/20 07:16 02/01/20 07:16 Labs: Abnormal Lab Results - Last 24 Hours (Table) 01/31/20 02/01/20 02/01/20 Range/Units 23:41 05:56 07:16 Plt Count 108 L (150-450) k/uL Lymphocytes # 0.5 L (1.0-4.8) k/uL APTT 53.4 H (22.0-30.0) sec Chloride (98-107) mmol/L Carbon Dioxide (22-30) mmol/L BUN (7-17) mg/dL Creatinine (0.52-1.04) mg/dL Glucose (74-99) mg/dL POC Glucose (mg/dL) 106 H (75-99) mg/dL 02/01/20 02/01/20 Range/Units 07:16 12:56 Plt Count (150-450) k/uL Lymphocytes # (1.0-4.8) k/uL APTT (22.0-30.0) sec Chloride 112 H (98-107) mmol/L Carbon Dioxide 21 L (22-30) mmol/L BUN 57 H (7-17) mg/dL Creatinine 1.76 H (0.52-1.04) mg/dL Glucose 107 H (74-99) mg/dL POC Glucose (mg/dL) 264 H (75-99) mg/dL
[2020-02-01 16:45] LABS: Glucose,Whole Blood 225 mg/dL (75-99)
[2020-02-01] MEDS: prednisoLONE ACETATE 1% OPHTH DROPS 5 ML BTL LEFT EYE SCH (16:52)
[2020-02-01] MEDS: HEPARIN SODIUM,PORCINE 5,000 UNIT/ML 1 ML VIAL SQ SCH ×2 (16:53→23:56)
[2020-02-01] MEDS: BRIMONIDINE TARTRATE 0.2% DROPS 5 ML BTL RIGHT EYE SCH (16:53)
[2020-02-01] MEDS: DORZOLAMIDE HCL 2% DROPS 10 ML BTL RIGHT EYE SCH (16:53)
[2020-02-01] MEDS: GABAPENTIN 100 MG CAP PO SCH (16:54)
[2020-02-01] MEDS: LOSARTAN 50 MG TAB PO SCH (16:54)
[2020-02-01] MEDS: DOCUSATE 100 MG CAP PO SCH (16:54)
[2020-02-01] MEDS ORDERED: DONEPEZIL 5 MG TAB PO SCH (17:00)
[2020-02-01] MEDS ORDERED: NON FORMULARY DRUG (Ascorbic Acid [Vitamin C] 1,000 MG Tablet) PO SCH (17:00)
[2020-02-01 18:01] LABS: Glucose,Whole Blood 239 mg/dL (75-99)
[2020-02-01 18:25] LABS: ABG Base Excess -8.6 mmol/L; ABG HCO3 16 mmol/L (21-25); ABG Oxygen Saturation 89.2 % (94-97); ABG PCO2 26 mmHg (35-45); ABG TCO2 17 mmol/L (19-24); Allen Test Performed? Yes
--- NOTE | 2020-02-01 18:28 | P.EN ---
79 year old woman with COVID 19 admitted for respiratory failure. A-team was called for worsening respiratory failure. Pt 6L NC today to requiring 15L NRB + 15L HFNC. She complains of dyspnea, but no pain. Appears tachypneic, but no accessory muscle use on my exam. Blood pressure 140s/90s, tachy in the low 100s, saturating 92% on 15/15 combination. Color appears okay, patient's mentation is clear. AM Labs and previous imaging reviewed; notable for worsening creatinine today relative to yesterday, otherwise at baseline from admission. CXR from admission with peripheral opacities, rotated exam, making mediastinum more prominent. Ordered ABG, repeat CXR, EKG. EKG reviewed at bedside demonstrated sinus tachycardia with PVCs, but no ischemia. CXR, ABG pending A/P: - can maintain patient on the floor for now and continue with present cares - patient is still full code, and appears to be moving in the direction of intubation; GoC conversation warranted. - consider plasma - consider ID consult for trial of tocilizumab given rapid decline and liklihood of cytokine storm
[2020-02-01 18:32] LABS: ABG PO2 55 mmHg (83-108)
--- NOTE | 2020-02-01 18:57 | XR ---
EXAMINATION TYPE: XR chest 1V portable DATE OF EXAM: 02/01/2020 COMPARISON: 01/30/2020 HISTORY: Short of breath TECHNIQUE: Single view FINDINGS: There is some patchy interstitial infiltrate throughout the right lung and at the left lung base. There is no heart failure. Heart size is normal. Thoracic aorta is atheromatous. There is no d efinite pleural effusion. There are chest leads. IMPRESSION: Bilateral interstitial pneumonia is increased compared to old exam. Normal heart.
[2020-02-01] MEDS: SODIUM CHLORIDE 0.9% 1,000 ML IV SCH (20:23)
[2020-02-01 20:26] LABS: Glucose,Whole Blood 260 mg/dL (75-99)
[2020-02-01] MEDS ORDERED: MELATONIN 3 MG TABLET PO SCH (21:00)
[2020-02-01] MEDS: SYMBICORT 160-4.5 MCG INHALER INHALATION SCH (21:39)
--- NOTE | 2020-02-01 22:44 | PN ---
PROGRESS NOTE DATE OF SERVICE: 02/01/2020 REASON FOR FOLLOWUP: COVID-19 pneumonia. INTERVAL HISTORY: The patient is currently afebrile. The patient is breathing comfortably. She was complaining of some pain to the leg area. No chest pain or shortness of breath. Occasional cough. No diarrhea or vomiting has been reported by nursing staff. PHYSICAL EXAMINATION: Blood pressure 112/60, pulse of 63, temperature 97.9. She is 93% on 6 L nasal cannula. General description is an elderly female lying in bed in no distress. RESPIRATORY SYSTEM: Unlabored breathing with decreased intensity of breath sounds. No wheeze. HEART: S1, S2. Regular rate and rhythm. ABDOMEN: Soft. No tenderness. LABS: Hemoglobin is 12.1, white count 4.3, BUN of 57, creatinine 1.76. DIAGNOSTIC IMPRESSION AND PLAN: Patient with acute COVID-19 pneumonia in this patient currently on remdesivir, dexamethasone, Lovenox and zinc; to continue and monitor clinical course closely. Continue with supportive care. MMODL / IJN: [id number] /
[2020-02-01] MEDS: REMDESIVIR 100 MG in SODIUM CHLORIDE 0.9% 250 ML IVPB SCH (22:46)
--- NOTE | 2020-02-02 05:09 | P.EN ---
A team note Activated at 4:31 AM. Patient seen at the bedside. Discussed the case with RN. The patient is admitted with COVID 19 pneumonitis, with SpO2 of 75-80% on 15 L nasal cannula and nonrebreather. Upon examination, elderly female in mild to moderate respiratory distress. Lung examination revealed fine crackles diffusely. Lower extremities revealed no edema. The patient continues to be a full code as per the RN. Patient was placed on Airvo with subsequent improvement in her SpO2 to 88-90%. Her vitals at time of the examination were 133/64, pulse 63, afebrile at 98.2, and SpO2 89%. Patient's primary was notified.
[2020-02-02 07:13] LABS: Basophils % (A) 0 %; Eosinophils % (A) 0 %; HCT 32.9 % (34.0-46.0); HGB 11.4 gm/dL (11.4-16.0); Lymphocytes # (A) 0.3 k/uL (1.0-4.8); Lymphocytes % (A) 7 %; MCH 31.3 pg (25.0-35.0); MCHC 34.8 g/dL (31.0-37.0); Mean Platelet Volume 8.6; Monocytes # (A) 0.2 k/uL (0-1.0); Monocytes % (A) 5 %; Neutrophils # (A) 4.1 k/uL (1.3-7.7); Neutrophils % (A) 86 %; Platelet Count 104 k/uL (150-450); Poikilocytosis Slight; RBC 3.65 m/uL (3.80-5.40); RDW 14.3 % (11.5-15.5); WBC 4.7 k/uL (3.8-10.6)
[2020-02-02] MEDS: ALBUTEROL HFA INHALER INHALATION SCH ×3 (07:16→15:42)
[2020-02-02] MEDS: TIOTROPIUM 2.5 MCG INHALER INHALATION SCH (07:17)
[2020-02-02] MEDS: SYMBICORT 160-4.5 MCG INHALER INHALATION SCH ×2 (07:17→17:19)
[2020-02-02 07:26] LABS: Calcium 8.6 mg/dL (8.4-10.2); Potassium 4.2 mmol/L (3.5-5.1)
[2020-02-02] MEDS ORDERED: CHOLECALCIFEROL 1,000 UNIT TAB PO SCH (08:00)
[2020-02-02] MEDS ORDERED: ESCITALOPRAM 5 MG TAB PO SCH (08:00)
[2020-02-02] MEDS ORDERED: Mirabegron [Myrbetriq] PO SCH (09:00)
[2020-02-02] MEDS ORDERED: NEOMYCIN-POLYMYXIN-DEXAMETH (3.5-10,000-0.1) DROPS 5 ML BTL LEFT EYE SCH (09:00)
[2020-02-02] MEDS ORDERED: NON FORMULARY DRUG (Zinc [Zinc] 50 MG Tablet) PO SCH (09:00)
[2020-02-02] MEDS: HEPARIN SODIUM,PORCINE 5,000 UNIT/ML 1 ML VIAL SQ SCH (09:08)
[2020-02-02] MEDS: ZINC SULFATE 220 MG CAP PO SCH (09:08)
[2020-02-02] MEDS: ASCORBIC ACID 500 MG TAB PO SCH (09:09)
[2020-02-02] MEDS: DOCUSATE 100 MG CAP PO SCH (09:09)
[2020-02-02] MEDS: ISOSORBIDE MONONITRATE ER 60 MG TAB.ER.24H PO SCH (09:10)
[2020-02-02] MEDS: FAMOTIDINE 20 MG TAB PO SCH (09:10)
[2020-02-02] MEDS: CLOPIDOGREL 75 MG TAB PO SCH (09:10)
[2020-02-02] MEDS: METOPROLOL TARTRATE 25 MG TAB PO SCH (09:10)
[2020-02-02] MEDS: amLODIPine 5 MG TAB PO SCH (09:10)
[2020-02-02] MEDS: ASPIRIN 81 MG PO SCH (09:11)
[2020-02-02] MEDS: GABAPENTIN 100 MG CAP PO SCH ×2 (09:11→17:19)
[2020-02-02] MEDS: BRIMONIDINE TARTRATE 0.2% DROPS 5 ML BTL RIGHT EYE SCH ×2 (09:11→17:19)
[2020-02-02] MEDS: DEXAMETHASONE SOD PHOSPHATE 10 MG/ML 1 ML VIAL IV SCH (09:12)
[2020-02-02] MEDS: LOSARTAN 50 MG TAB PO SCH (09:12)
[2020-02-02] MEDS: prednisoLONE ACETATE 1% OPHTH DROPS 5 ML BTL LEFT EYE SCH ×2 (09:12→17:19)
[2020-02-02] MEDS: DORZOLAMIDE HCL 2% DROPS 10 ML BTL RIGHT EYE SCH ×2 (09:13→17:19)
[2020-02-02 11:07] VITALS: TEMP 98.5
[2020-02-02] MEDS: SODIUM CHLORIDE 0.9% 1,000 ML IV SCH (11:33)
--- NOTE | 2020-02-02 12:28 | P.PN ---
Subjective Progress Note Date: 02/02/20 CHIEF COMPLAINT: abnormal troponins HISTORY OF PRESENT ILLNESS: 01/30/2020 This is a 79-year-old female with with a past medical history significant for hypertension, hyperlipidemia, COPD, coronary artery disease with previous PCI to LAD and circumflex. Patient follows in the office with Dr. Guerra. We have been asked to see the patient in consultation for elevated troponins. Patient is positive for Covid 19. Spoke with nursing who states patient has been resting comfortably in the bed. She is oriented x 1. She has had no complaints of chest pain or pressure. No complaints of shortness of breath. She is on 4L NC with oxygen saturations greater than 92%.EKG reveals sinus mechanism with ST depression in V3-V6, similiar to previous EKG. However, she has new ST depression in inferior leads. Chest xray increased interstitial opacities in the right lower lobe. VQ scan: Negative for pulmonary emboli. Laboratory data: WBC 4.9. Hemoglobin 14.8. Platelet count 110. D-dimer 1.35. Sodium 1:30. Potassium 4.1. BUN 41. Creatinine 2.01. Lactic acid 0.9. troponin 3.770. BNP 3860. Current home cardiac medications include metoprolol 12.5 mg twice a day, Cozaar 50mg twice a day, Norvasc 5 mg daily, Plavix 75 mg daily, Imdur 60 mg daily, aspirin 81 mg daily 01/31/2020 Echocardiogram completed revealed ejection fraction 55-60%, trace to mild mitral regurgitation, mild tricuspid regurgitation, and mild pulmonary hypertension. Troponin 3.770, 2.980, and 2.640 02/01/2020 Patient remains on IV heparin for NSTEMI. Creatinine increased today to 1.76, up from 1.36. Blood pressure stable. Heart rate in the 60s 02/02/2020 Patient with worsening respiratory distress yesterday. Patient was placed on Airvo. This morning, she had taken her oxygen off and her o2 sats went into the 50s. Patient has now been placed on bipap per Dr. Michel. Her IV heparin was discontinued yesterday. No complaints of chest pain. Creatinine improved today to 1.37, down from 1.76. PHYSICAL EXAM: Thorough physical exam not completed secondary to limited evaluation/examination and due to Covid19 ASSESSMENT: Non-ST elevated myocardial infarction Covid 19 Pneumonia Coronary artery disease with previous PCI to LAD and Circumflex Elevated d-dimer, VQ scan negative for PE Acute on chronic kidney disease COPD Hypertension Hyperlipidemia Dementia PLAN: Continue to hold Cozaar secondary to acute kidney injury Continue aspirin, plavix, imdur, and metoprolol Patient has allergy to statins Continue supportive care Continue pulmonary management per Dr. Michel. No further cardiac intervention at this time. We will sign off. Please reconsult if needed. Nurse practitioner note has been reviewed by physician. Signing provider agrees with the documented findings, assessment, and plan of care. Objective - Vital Signs Vital signs: Vital Signs Temp 98.5 F 02/02/20 11:06 Pulse 89 02/02/20 11:06 Resp 40 H 02/02/20 11:06 BP 168/73 02/02/20 11:06 Pulse Ox 78 L 02/02/20 11:06 Intake & Output 02/01/20 02/02/20 02/02/20 18:59 06:59 18:59 Intake Total 410 Balance 410 Weight 53 kg Intake: Intake, IV Titration 410 Amount Remdesivir 100 mg In 250 Sodium Chloride 0.9% 250 ml @ 250 mls/hr IVPB DAILY@2300 R[facility] Rx#: [id number] Sodium Chloride 0.9% 1, 160 000 ml @ 20 mls/hr IV . Q24H R[facility]SHAWN Rx#:[id number] Other: Voiding Method Diaper Diaper Diaper Incontinent Incontinent Incontinent # Voids 2 2 - Labs CBC & Chem 7: 02/02/20 06:54 02/02/20 06:54 Labs: Abnormal Lab Results - Last 24 Hours (Table) 02/01/20 02/01/20 02/01/20 Range/Units 12:56 16:43 17:59 RBC (3.80-5.40) m/uL Hct (34.0-46.0) % Plt Count (150-450) k/uL Lymphocytes # (1.0-4.8) k/uL ABG pCO2 (35-45) mmHg ABG pO2 (83-108) mmHg ABG HCO3 (21-25) mmol/L ABG Total CO2 (19-24) mmol/L ABG O2 Saturation (94-97) % Chloride (98-107) mmol/L Carbon Dioxide (22-30) mmol/L BUN (7-17) mg/dL Creatinine (0.52-1.04) mg/dL Glucose (74-99) mg/dL POC Glucose (mg/dL) 264 H 225 H 239 H (75-99) mg/dL 02/01/20 02/01/20 02/02/20 Range/Units 18:09 20:21 06:54 RBC 3.65 L (3.80-5.40) m/uL Hct 32.9 L (34.0-46.0) % Plt Count 104 L (150-450) k/uL Lymphocytes # 0.3 L (1.0-4.8) k/uL ABG pCO2 26 L (35-45) mmHg ABG pO2 55 L* (83-108) mmHg ABG HCO3 16 L (21-25) mmol/L ABG Total CO2 17 L (19-24) mmol/L ABG O2 Saturation 89.2 L (94-97) % Chloride (98-107) mmol/L Carbon Dioxide (22-30) mmol/L BUN (7-17) mg/dL Creatinine (0.52-1.04) mg/dL Glucose (74-99) mg/dL POC Glucose (mg/dL) 260 H (75-99) mg/dL 02/02/20 Range/Units 06:54 RBC (3.80-5.40) m/uL Hct (34.0-46.0) % Plt Count (150-450) k/uL Lymphocytes # (1.0-4.8) k/uL ABG pCO2 (35-45) mmHg ABG pO2 (83-108) mmHg ABG HCO3 (21-25) mmol/L ABG Total CO2 (19-24) mmol/L ABG O2 Saturation (94-97) % Chloride 115 H (98-107) mmol/L Carbon Dioxide 19 L (22-30) mmol/L BUN 63 H (7-17) mg/dL Creatinine 1.37 H (0.52-1.04) mg/dL Glucose 140 H (74-99) mg/dL POC Glucose (mg/dL) (75-99) mg/dL
[2020-02-02] MEDS ORDERED: HALOPERIDOL LACTATE 5 MG/ML 1 ML VIAL IVP PRN ×2 (12:57→13:02)
--- NOTE | 2020-02-02 13:01 | P.PN ---
Subjective Progress Note Date: 02/02/20 Principal diagnosis: Acute covid 19 pneumonia Acute hypoxic respiratory failure Acute exacerbation of congestive heart failure likely acute on chronic diastolic heart failure and systolic heart failure Coronary artery disease COPD Advanced dementia exam is disease Hypertension hypertensive cardiovascular disease 02/02/2020, patient seen eval examined during the rounds labs reviewed medications reviewed care plan discussed, patient remains on the high flow oxygen but however pulled off oxygen ending up in significant desaturation, currently patient has been placed on BiPAP 11/13 with 100% oxygen saturations slowly improved to 88% now, patient is on usual therapy for cold with 19 pneumonia 02/01/2020, patient seen and evaluated examined during the rounds labs reviewed medications reviewed, remains on 6 L oxygen short of breath she has a corn a virus infection has been on usual therapy for that tolerating well 01/31/2020, patient seen eval examined during the rounds remains confused on 4 L oxygen, denies any chest pain, cardiology is seeing for elevated troponin, on IV heparin, renal functions have improved today This is a 79-year-old female with the history of shortness of breath patient has advanced dementia has well she is a resident of [facility], she was transferred over here for evaluation of cold with 19 pneumonia as well as hyp oxia related to that during my evaluation patient somnolent but arousable on 5 L nasal cannula, it is stable, review of the data revealed that patient significant history of COPD also prior history of pneumothorax, legally blind, history of macular degeneration, patient has a stent placed in LAD, Objective - Vital Signs Vital signs: Vital Signs Temp 98.5 F 02/02/20 11:06 Pulse 89 02/02/20 11:06 Resp 40 H 02/02/20 11:06 BP 168/73 02/02/20 11:06 Pulse Ox 78 L 02/02/20 11:06 Intake & Output 02/01/20 02/02/20 02/02/20 18:59 06:59 18:59 Intake Total 410 Balance 410 Weight 53 kg Intake: Intake, IV Titration 410 Amount Remdesivir 100 mg In 250 Sodium Chloride 0.9% 250 ml @ 250 mls/hr IVPB DAILY@2300 RAYSHAWN Rx#: [id number] Sodium Chloride 0.9% 1, 160 000 ml @ 20 mls/hr IV . Q24H RAYSHAWN Rx#:[id number] Other: Voiding Method Diaper Diaper Diaper Incontinent Incontinent Incontinent # Voids 2 2 - Exam - Constitutional General appearance: average body habitus, cooperative, disheveled - EENT Eyes: PERRLA - Neck Carotids: bilateral: upstroke normal Thyroid: bilateral: normal size - Respiratory Respiratory: bilateral: diminished - Cardiovascular Rhythm: regular Heart sounds: normal: S1, S2 - Gastrointestinal General gastrointestinal: soft - Integumentary Integumentary: normal turgor - Musculoskeletal Musculoskeletal: generalized weakness - Labs CBC & Chem 7: 02/02/20 06:54 02/02/20 06:54 Labs: Abnormal Lab Results - Last 24 Hours (Table) 02/01/20 02/01/20 02/01/20 Range/Units 12:56 16:43 17:59 RBC (3.80-5.40) m/uL Hct (34.0-46.0) % Plt Count (150-450) k/uL Lymphocytes # (1.0-4.8) k/uL ABG pCO2 (35-45) mmHg ABG pO2 (83-108) mmHg ABG HCO3 (21-25) mmol/L ABG Total CO2 (19-24) mmol/L ABG O2 Saturation (94-97) % Chloride (98-107) mmol/L Carbon Dioxide (22-30) mmol/L BUN (7-17) mg/dL Creatinine (0.52-1.04) mg/dL Glucose (74-99) mg/dL POC Glucose (mg/dL) 264 H 225 H 239 H (75-99) mg/dL 02/01/20 02/01/20 02/02/20 Range/Units 18:09 20:21 06:54 RBC 3.65 L (3.80-5.40) m/uL Hct 32.9 L (34.0-46.0) % Plt Count 104 L (150-450) k/uL Lymphocytes # 0.3 L (1.0-4.8) k/uL ABG pCO2 26 L (35-45) mmHg ABG pO2 55 L* (83-108) mmHg ABG HCO3 16 L (21-25) mmol/L ABG Total CO2 17 L (19-24) mmol/L ABG O2 Saturation 89.2 L (94-97) % Chloride (98-107) mmol/L Carbon Dioxide (22-30) mmol/L BUN (7-17) mg/dL Creatinine (0.52-1.04) mg/dL Glucose (74-99) mg/dL POC Glucose (mg/dL) 260 H (75-99) mg/dL 02/02/20 Range/Units 06:54 RBC (3.80-5.40) m/uL Hct (34.0-46.0) % Plt Count (150-450) k/uL Lymphocytes # (1.0-4.8) k/uL ABG pCO2 (35-45) mmHg ABG pO2 (83-108) mmHg ABG HCO3 (21-25) mmol/L ABG Total CO2 (19-24) mmol/L ABG O2 Saturation (94-97) % Chloride 115 H (98-107) mmol/L Carbon Dioxide 19 L (22-30) mmol/L BUN 63 H (7-17) mg/dL Creatinine 1.37 H (0.52-1.04) mg/dL Glucose 140 H (74-99) mg/dL POC Glucose (mg/dL) (75-99) mg/dL Assessment and Plan Assessment: Acute hypoxic respiratory failure due to Covid 19 pneumonia Acute kidney injury Acute covid 19 pneumonia Mild pulmonary hypertension Acute exacerbation of congestive heart failure likely acute on chronic diastolic heart failure and systolic heart failure Coronary artery disease COPD Advanced dementia exam is disease Hypertension hypertensive cardiovascular disease Plan: BiPAP support Cardiology consult ID consult Decadron IV remdesivir Further recommendations pending plan of care as per clinical response of the patient, long-term prognosis poor Time with Patient: Greater than 30
[2020-02-02 14:37] VITALS: BP 118/88; PULSE 85; RESP 36
[2020-02-02 15:20] LABS: ABG Base Excess -10.3 mmol/L; ABG HCO3 16 mmol/L (21-25); ABG Oxygen Saturation 79.8 % (94-97); ABG PCO2 33 mmHg (35-45); ABG TCO2 17 mmol/L (19-24); Allen Test Performed? Yes
[2020-02-02 15:21] LABS: ABG PO2 46 mmHg (83-108)
[2020-02-02] MEDS ORDERED: MORPHINE SULFATE 4 MG/ML SYRINGE IVP ONE (15:57)
[2020-02-02] MEDS ORDERED: LORazepam 2 MG/ML INJ IV PRN (15:57)
[2020-02-02] MEDS ORDERED: MORPHINE SULFATE 4 MG/ML SYRINGE IV PRN (15:57)
[2020-02-02] MEDS ORDERED: METOCLOPRAMIDE 5 MG/ML 2 ML VIAL IVP PRN (15:57)
[2020-02-02] MEDS ORDERED: ATROPINE OPHTH SOLN 1% 5ML BTL SUBLINGUAL PRN (15:57)
[2020-02-02] MEDS ORDERED: DRY MOUTH SPRAY 44.3 SPRAY/44.3 ML SPRAY MUCOUS MEM PRN (15:57)
[2020-02-02] MEDS ORDERED: ARTIFICIAL TEARS-HYPROMELLOSE DROPS 15 ML BTL BOTH EYES PRN (15:57)
[2020-02-02] MEDS ORDERED: ONDANSETRON 4 MG/2 ML VIAL IVP PRN (15:57)
[2020-02-02] MEDS ORDERED: HYDROmorphone 1 MG/ML 1 ML SYRINGE IVP PRN (15:57)
[2020-02-02] MEDS ORDERED: SCOPOLAMINE 1.5MG/72HR PATCH TRANSDERM SCH (16:00)
[2020-02-02] MEDS ORDERED: MORPHINE SULFATE (100 MG/2 ML) 100 MG in SODIUM CHLORIDE 0.9% 100 ML IV SCH (16:30)
[2020-02-05 09:37] LABS: Glucose,Whole Blood 265 mg/dL (75-99)
[2020-02-05 09:37] LABS: Glucose,Whole Blood 151 mg/dL (75-99)
[2020-02-05 09:38] LABS: Glucose,Whole Blood 237 mg/dL (75-99)
[2020-02-05 09:38] LABS: Glucose,Whole Blood 242 mg/dL (75-99)
--- NOTE | 2020-02-08 10:41 | CDI ---
Documentation Clarification Form Mortality Review Date: 02/08/2020 10:27:45 AM From: Pamella Ansari RN, CCDS Admit Date: 01/30/2020 06:53:00 AM Patient Name: Juliann Davalos Visit Number: [id number] Discharge Date: 02/02/2020 08:15:00 PM ATTENTION: The Clinical Documentation Specialists (CDI) and [facility] Coding Staff appreciate your assistance in clarifying documentation. Please respond to the clarification below the line at the bottom and electronically sign. The CDI & [facility] Coding staff will review the response and follow-up if needed. Please note: Queries are made part of the Legal Health Record. If you have any questions, please contact the author of this message via ITS. Dr. Luiz Michel CKD is documented in the Cardiology consult and progress notes and requires staging to accurately reflect patient SOI/ROM. History/Risk Factors: 01/04/2020 Patients Historical BUN/CR/GFR 25/1.3/38.7 HTN, CT, Covid 19 pneumonia, CAD with PCI Clinical Indicators: 01/29 Cardiology Consult-02/01 cardiology progress notes: "Acute on chronic kidney disease." 01/30-02/01 Attending progress notes: "renal functions have improved today." 01/29-02/01 Current BUN: 41/40/57/63 CR: 2.01/1.36/1.76/1.37 GFR: // Treatment: 01/29 0.9% NS 500 cc IVF bolus 01/30-02/01 Norvasc 5 mg PO QD 01/30-02/01 Imdur 60 mg PO QD 01/29-02/01 Lopressor 25 mg PO BID 01/31 Cozaar 50 mg PO bid 01/29-02/01 Decadron 6 mg IVP QD In order to capture the severity of condition, please clarify the stage of the CKD, if known: CKD Stage 4 (GFR 15-29) [Template Last reviewed: October 2019] MTDD
--- NOTE | 2020-02-19 10:53 | P.DS ---
Providers Date of admission: 01/30/20 06:53 Expected date of discharge: 02/02/20 () Attending physician: Luiz Michel Primary care physician: [facility] Course: Patient continued to have desaturation, family elected to make patient no code and comfort care, comfort care care orders initiated as per protocol 02/02/2020, patient seen eval examined during the rounds labs reviewed medications reviewed care plan discussed, patient remains on the high flow oxygen but however pulled off oxygen ending up in significant desaturation, currently patient has been placed on BiPAP 11/13 with 100% oxygen saturations slowly improved to 88% now, patient is on usual therapy for covid 19 pneumonia 02/01/2020, patient seen and evaluated examined during the rounds labs reviewed medications reviewed, remains on 6 L oxygen short of breath she has a corn a virus infection has been on usual therapy for that tolerating well 01/31/2020, patient seen eval examined during the rounds remains confused on 4 L oxygen, denies any chest pain, cardiology is seeing for elevated troponin, on IV heparin, renal functions have improved today This is a 79-year-old female with the history of shortness of breath patient has advanced dementia has well she is a resident of [facility], she was transferred over here for evaluation of cold with 19 pneumonia as well as hypoxia related to that during my evaluation patient somnolent but arousable on 5 L nasal cannula, it is stable, review of the data revealed that patient significant history of COPD also prior history of pneumothorax, legally blind, history of macular degeneration, patient has a stent placed in LAD, Assessment: Acute covid 19 pneumonia Acute hypoxic respiratory failure Acute exacerbation of congestive heart failure likely acute on chronic diastolic heart failure and systolic heart failure Coronary artery disease COPD Advanced dementia exam is disease Hypertension hypertensive cardiovascular disease Patient Condition at Discharge: Critical Plan - Discharge Summary Discharge Rx Participant: No New Discharge Prescriptions: No Action Clopidogrel [Plavix] 75 mg PO DAILY@0800 Brimonidine Tartrate [Alphagan P 0.1% Ophth Soln] 1 drop RIGHT EYE BID@0800,1700 prednisoLONE ACETATE 1% OPHTH [Pred Forte 1%] 1 drop LEFT EYE BID@0800,1700 Melatonin 3 mg PO HS@2100 Cholecalciferol [Vitamin D3 (25 Mcg = 1000 Iu)] 3,000 unit PO DAILY@0800 Nitroglycerin Sl Tabs [Nitrostat] 0.4 mg SUBLINGUAL Q5M PRN tab PRN Reason: Chest Pain Losartan Potassium [Cozaar] 50 mg PO BID@0800,1700 Aspirin 81 mg PO DAILY@0800 amLODIPine [Norvasc] 5 mg PO DAILY@0800 guaiFENesin SYRUP 100MG/5ML [Robitussin] 200 mg PO Q4H PRN PRN Reason: Cough Magnesium Hydroxide [Milk of Magnesia] 2,400 mg PO DAILY PRN PRN Reason: Constipation bisacodyL [Dulcolax] 10 mg RECTAL DAILY PRN PRN Reason: Constipation Acetaminophen Tab [Tylenol] 650 mg PO Q4H PRN PRN Reason: Pain Or Fever > 100.5 Dorzolamide 2% [Trusopt 2%] 1 drops RIGHT EYE BID@0800,1700 Acetaminophen Tab [Tylenol] 500 mg PO BID@0800,1700 rOPINIRole HCL [Requip] 0.5 mg PO HS@2100 Isosorbide Mononitrate ER [Imdur] 60 mg PO DAILY@0800 Escitalopram [Lexapro] 5 mg PO DAILY@0800 Donepezil [Aricept] 5 mg PO DAILY@1700 Budesonide-Formot 160-4.5 Mcg [Symbicort 160-4.5 Mcg Inhaler] 2 puff INHALATION RT-BID@0800,1700 Metoprolol Tartrate [Lopressor] 12.5 mg PO BID@0800,1700 Gabapentin [Neurontin] 100 mg PO BID@0800,1700 #6 cap HYDROcodone/APAP 5-325MG [Laurel 5-325] 1 tab PO Q4HR PRN #10 tab PRN Reason: Moderate Pain HYDROcodone/APAP 5-325MG [Laurel 5-325] 2 tab PO Q4H PRN #10 tab PRN Reason: Severe Pain Ondansetron HCl [Zofran] 4 mg PO Q8H PRN PRN Reason: Nausea And Vomiting Albuterol Sulfate [Ventolin HFA] 2 puff INHALATION RT-Q6H PRN PRN Reason: Wheezing Ipratropium-Albuterol Nebulize [Duoneb 0.5 mg-3 mg/3 ml Soln] 3 ml INHALATION RT-Q6H PRN PRN Reason: Shortness Of Breath Docusate [Colace] 100 mg PO BID@0800,1700 Zinc 50 mg PO DAILY Ascorbic Acid [Vitamin C] 1,000 mg PO DAILY@1700 Mirabegron [Myrbetriq] 25 mg PO DAILY Neomycin/Polymyxin B/Dexametha [Maxitrol Ophth Susp] 1 drop LEFT EYE DAILY Discharge Medication List Clopidogrel [Plavix] 75 mg PO DAILY@0800 09/29/13 [History] Brimonidine Tartrate [Alphagan P 0.1% Ophth Soln] 1 drop RIGHT EYE BID@0800,1700 11/26/15 [History] prednisoLONE ACETATE 1% OPHTH [Pred Forte 1%] 1 drop LEFT EYE BID@0800,1700 11/26/15 [History] Melatonin 3 mg PO HS@2100 05/11/16 [History] Cholecalciferol [Vitamin D3 (25 Mcg = 1000 Iu)] 3,000 unit PO DAILY@0800 06/30/16 [History] Nitroglycerin Sl Tabs [Nitrostat] 0.4 mg SUBLINGUAL Q5M PRN tab 12/09/16 [Rx] Losartan Potassium [Cozaar] 50 mg PO BID@0800,1700 01/26/17 [History] Aspirin 81 mg PO DAILY@0800 03/27/17 [History] amLODIPine [Norvasc] 5 mg PO DAILY@0800 03/27/17 [History] Acetaminophen Tab [Tylenol] 500 mg PO BID@0800,1700 01/01/19 [History] Acetaminophen Tab [Tylenol] 650 mg PO Q4H PRN 01/01/19 [History] Budesonide-Formot 160-4.5 Mcg [Symbicort 160-4.5 Mcg Inhaler] 2 puff INHALATION RT-BID@0800,1700 01/01/19 [History] Donepezil [Aricept] 5 mg PO DAILY@1700 01/01/19 [History] Dorzolamide 2% [Trusopt 2%] 1 drops RIGHT EYE BID@0800,1700 01/01/19 [History] Escitalopram [Lexapro] 5 mg PO DAILY@0800 01/01/19 [History] Isosorbide Mononitrate ER [Imdur] 60 mg PO DAILY@0800 01/01/19 [History] Magnesium Hydroxide [Milk of Magnesia] 2,400 mg PO DAILY PRN 01/01/19 [History] bisacodyL [Dulcolax] 10 mg RECTAL DAILY PRN 01/01/19 [History] guaiFENesin SYRUP 100MG/5ML [Robitussin] 200 mg PO Q4H PRN 01/01/19 [History] rOPINIRole HCL [Requip] 0.5 mg PO HS@2100 01/01/19 [History] Metoprolol Tartrate [Lopressor] 12.5 mg PO BID@0800,1700 01/14/19 [History] Gabapentin [Neurontin] 100 mg PO BID@0800,1700 #6 cap 01/19/19 [Rx] HYDROcodone/APAP 5-325MG [Laurel 5-325] 1 tab PO Q4HR PRN #10 tab 01/19/19 [Rx] HYDROcodone/APAP 5-325MG [Laurel 5-325] 2 tab PO Q4H PRN #10 tab 01/19/19 [Rx] Albuterol Sulfate [Ventolin HFA] 2 puff INHALATION RT-Q6H PRN 01/30/20 [History] Ascorbic Acid [Vitamin C] 1,000 mg PO DAILY@1700 01/30/20 [History] Docusate [Colace] 100 mg PO BID@0800,1700 01/30/20 [History] Ipratropium-Albuterol Nebulize [Duoneb 0.5 mg-3 mg/3 ml Soln] 3 ml INHALATION RT-Q6H PRN 01/30/20 [History] Mirabegron [Myrbetriq] 25 mg PO DAILY 01/30/20 [History] Neomycin/Polymyxin B/Dexametha [Maxitrol Ophth Susp] 1 drop LEFT EYE DAILY 1 04/01/19 [History] Ondansetron HCl [Zofran] 4 mg PO Q8H PRN 01/30/20 [History] Zinc 50 mg PO DAILY 01/30/20 [History] Follow up Appointment(s)/Referral(s): Nicholas Villegas DO [Primary Care Provider] - 1-2 days Discharge Disposition: - Preliminary Cause of Preliminary Cause of : covid 19 pneumonia
== END 2020-02-02 20:15 | disposition expired | DRG 177 ==
LOC: EC 05:10 → 2SICU 06:53 → 3SCARD 11:15
PROVIDERS: ADMIT Internal Medicine Sleep Medicine; ATTEND Internal Medicine Sleep Medicine
PROC: XW033E5 Introduction of Remdesivir Anti-infective into Peripheral Vein, Percutaneous Approach, New Technology Group 5 (ICD-10-PCS; principal; 2020-01-30)
PROC: 5A09357 Assistance with Respiratory Ventilation, Less than 24 Consecutive Hours, Continuous Positive Airway Pressure (ICD-10-PCS; 2020-02-02)
DX: U07.1 COVID-19 (principal); J12.89 Other viral pneumonia; I21.4 Non-ST elevation (NSTEMI) myocardial infarction; I50.43 Acute on chronic combined systolic (congestive) and diastolic (congestive) heart failure; J96.01 Acute respiratory failure with hypoxia; I13.0 Hypertensive heart and chronic kidney disease with heart failure and stage 1 through stage 4 chronic kidney disease, or unspecified chronic kidney disease; N17.9 Acute kidney failure, unspecified; N18.4 Chronic kidney disease, stage 4 (severe); I27.20 Pulmonary hypertension, unspecified; F03.90 Unspecified dementia, unspecified severity, without behavioral disturbance, psychotic disturbance, mood disturbance, and anxiety; J43.9 Emphysema, unspecified; Z66 Do not resuscitate; F32.9 Major depressive disorder, single episode, unspecified; E78.5 Hyperlipidemia, unspecified; F41.9 Anxiety disorder, unspecified; H54.8 Legal blindness, as defined in USA; I25.10 Atherosclerotic heart disease of native coronary artery without angina pectoris; I25.2 Old myocardial infarction; H35.30 Unspecified macular degeneration; H40.9 Unspecified glaucoma; I08.1 Rheumatic disorders of both mitral and tricuspid valves; R32 Unspecified urinary incontinence; Z79.02 Long term (current) use of antithrombotics/antiplatelets; Z79.51 Long term (current) use of inhaled steroids; Z51.5 Encounter for palliative care; Z79.82 Long term (current) use of aspirin; Z79.899 Other long term (current) drug therapy; Z86.73 Personal history of transient ischemic attack (TIA), and cerebral infarction without residual deficits; Z90.710 Acquired absence of both cervix and uterus; Z95.5 Presence of coronary angioplasty implant and graft; Z96.651 Presence of right artificial knee joint; Z98.41 Cataract extraction status, right eye; Z88.8 Allergy status to other drugs, medicaments and biological substances; Z87.19 Personal history of other diseases of the digestive system; Z90.49 Acquired absence of other specified parts of digestive tract; Z82.1 Family history of blindness and visual loss; Z82.49 Family history of ischemic heart disease and other diseases of the circulatory system; Z82.5 Family history of asthma and other chronic lower respiratory diseases
CPT/HCPCS: 36415; 36600; 71045; 78580; 80048; 80053; 82805; 83605; 83880; 84484; 85025; 85379; 85610; 85730; 93005; 93306; 94640; 94660; 96361; 96365; 96366; 96375; 96376; 99285